=== PATIENT | female | born 1955 | race Caucasian/White ===

== ENCOUNTER 2019-07-25 17:36 | Observation (INO) ==
[~2019-07-25 17:36] MED LIST: PATIENT'S ALLERGY INFO NEEDS ENTERED SCH
[2019-07-25] MEDS ORDERED: DIGOXIN 0.125 MG TAB PO ONE (21:00)
[2019-07-25] MEDS ORDERED: cloNIDine HCL 0.1 MG TAB PO ONE (21:00)
--- NOTE | 2019-07-25 21:36 | History & Physical Report ---
Date of Service July 25, 2019 Assessment & Plan (1) Hypertensive emergency: Maye Lawler is a 63-year-old female with a past medical history of A. fib, mitral stenosis, type 2 diabetes mellitus on insulin, hypertension, peripheral artery disease, hyperlipidemia, hiatal hernia, and hyperlipidemia who presented to outside hospital with headache and he was transferred for management of hypertensive urgency/emergency with headache and systolic pressure of 230 on Cardene drip. Hypertensive emergency/urgency Patient unable to take blood pressure medications eluding clonidine for 2 days prior to admission due to nausea Placed on Cardene drip by outside hospital, no other attempted antihypertensive treatment MRIbrain, MRA with no acute findings On arrival to the ICU patient on 5 mcg, asymptomatic, and normotensive. Cardene drip stopped and patient in 140s/90s 30 minutes later. Clonidine restarted Continue metoprolol 50 mg succinate twice daily Continue clonidine 0.1 mg twice daily Hold lisinopril 40 mg twice daily for LUBNA Hold Spironolactone 25 mg twice daily for LUBNA Admit to PCU/telemetry, labetalol IV pushes as needed Per patient have not had a renal artery ultrasound. Would recommend for dilation of resistant hypertension. Patient may also benefit from aldosterone eval, although defer serology at this time in the setting of hypertensive crisis. Labetalol IV push as needed, contact provider if systolic sugars greater than 180/100 LUBNA on CKD Baseline creatinine 22 0.5. Acutely elevated to 3.08 at outside hospital Hold spironolactone, lisinopril as above -Encourage oral hydration BMP daily Atrial fibrillation INR pending Continue warfarin 2 mg daily Metoprolol as above Continue digoxin 0.125 mg daily Type 2 diabetes mellitus On insulin prior to admission A1c pending Glucose checks AC/at bedtime On long-acting insulin 34 units nightly and short acting 10 units breakfast, 10 units lunch, 18 units supper (TDD 72 units) For total Lantus 18 units twice daily, SSI correction factor 20, carbohydrate ratio 1: 10 Urinary retention Continue terra Zosyn Diet: Type II diabetic, consistent carb DVT prophylaxis: On warfarin as above CODE STATUS: Full code Disposition: PCU telemetry (2) T2DM (type 2 diabetes mellitus): (3) Mitral stenosis: (4) Afib: (5) PAD (peripheral artery disease): (6) HLD (hyperlipidemia): (7) Hiatal hernia: (8) Hypertension: (9) CKD (chronic kidney disease): History of Present Illness Chief Complaint: Hypertensive urgency/emergency, headache Primary Care Provider: Dustin Brandon Lawler is a 63-year-old female with a past medical history of A. fib, mitral stenosis, type 2 diabetes mellitus on insulin, hypertension, peripheral artery disease, hyperlipidemia, hiatal hernia, and hyperlipidemia who presented to outside hospital with headache and he was transferred for management of hypertensive urgency/emergency with headache and systolic pressure of 230 on Cardene drip. Coleen reports that she has had daily headaches which do not occur first thing in the morning or waking her from sleep and which are not associated with vision change, but which have been occurring over the previous few months. He notes that her headaches seem to have worsened gradually and of become daily, and were particularly bad this past week. She is slightly nauseous and was unable to take any of her blood pressure medications including her clonidine due to nausea. Her blood pressure progressively increased, and she was seen in the ED for headache but was noted to have a systolic pressure of 230 and was put on a Cardene drip and transferred to [facility] for further care. He had associated LUBNA with creatinine of 3.08 up from a baseline of 2-2.5. At outside hospital she had a MRIbrain and MRI which showed no acute findings. She does not think she has ever had a renal artery ultrasound. She is normally on clonidine, digoxin, lisinopril, metoprolol, spironolactone, simvastatin for A. fib and hypertension. She has not had any syncopal or presyncopal episodes. She is currently asymptomatic at bedside, is not having any chest pain, headach e, vision change, shortness of breath, syncope, or presyncope. 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 No tobacco use in 3 years. Rare social alcohol use. No recreational drug use. She lives at home with her Pantera who would be her surrogate decision maker. She is independently ambulatory at home. Full code Allergies Allergy/AdvReac Type Severity Reaction Status Date / Time ceftaroline fosamil Allergy Hives Verified 07/25/19 20:59 [From Teflaro] Penicillins Allergy Rash Verified 07/25/19 20:59 Home Medications Home Medications Medication Instructions Recorded Confirmed Type Tresiba FlexTouch U-100 38 units SUBCUT HS 07/25/19 07/25/19 History aspirin 81 mg PO HS 07/25/19 07/25/19 History calcium carbonate [Calcium 500] 500 mg PO DAILY 07/25/19 07/25/19 History cholecalciferol (vitamin D3) 5,000 unit PO DAILY 07/25/19 07/25/19 History [Vitamin D3] clonidine HCl 0.1 mg PO BID 07/25/19 07/25/19 History digoxin 125 mcg PO DAILY 07/25/19 07/25/19 History insulin aspart U-100 [Novolog 10 unit SUBCUT DAILYBB 07/25/19 07/25/19 History Flexpen U-100 Insulin] insulin aspart U-100 [Novolog 10 unit SUBCUT DAILYBL 07/25/19 07/25/19 History Flexpen U-100 Insulin] insulin aspart U-100 [Novolog 18 unit SUBCUT DAILYBD 07/25/19 07/25/19 History Flexpen U-100 Insulin] lisinopril 40 mg PO BID 07/25/19 07/25/19 History magnesium oxide 500 mg PO BID 07/25/19 07/25/19 History metoprolol succinate 50 mg PO DAILY 07/25/19 07/25/19 History [id number] carb-vit K 1 tab PO DAILY 07/25/19 07/25/19 History [One-A-Day Womens Formula] niacin [Niacor] 500 mg PO DAILY 07/25/19 07/25/19 History pantoprazole [Protonix] 40 mg PO DAILY 07/25/19 07/25/19 History simvastatin 40 mg PO HS 07/25/19 07/25/19 History spironolactone 25 mg PO BID 07/25/19 07/25/19 History terazosin 5 mg PO HS 07/25/19 07/25/19 History tramadol 50 mg PO DAILY PRN 07/25/19 07/25/19 History warfarin [Coumadin] 2 mg PO DAILY 07/25/19 07/25/19 History Past Med/Surg History Medical History (Updated 07/28/19 @ 14:27 by Hawa Adrian) Afib CKD (chronic kidney disease) Family history of premature CAD Hypertension Mitral stenosis PAD (peripheral artery disease) T2DM (type 2 diabetes mellitus) Family History (Updated 07/28/19 @ 14:32 by Hawa Adrian) Family/Other Coronary heart disease Father Cancer Heart disease Mother Diabetes Brother Heart disease Social History Preferred Language: Malay Communication Ability: Effective Babysitter Required: No Beliefs That Will Affect Care: None Current Living Situation: Spouse Feels Safe at Home: Yes Smoking Status: Former smoker Hx Alcohol Use: No Hx Substance Use: No Review of Systems Review of Systems: All systems reviewed & are unremarkable except as noted in HPI & below Physical Exam Physical Exam: General: A&Ox3. NAD. Cooperative. HEENT: Atraumatic, normocephalic. Pulm: CTAB A&P. -wheezes, -rales, -rhonchi. Symmetrical chest rise. No increase work of breathing. No respiratory distress. Cardiac: RRR, trace systolic murmur. Radial pulses intact and symmetrical. Abdominal: Nontender, nondistended, soft. BS present. CN II: Visual leal are full to confrontation. Pupils are equal and react to light and accomidation. Visual acuity grossly intact. CN III, IV, : At primary gaze, there is no eye deviation. EoM intact without nystagmus. No visual field cuts. CN V: Facial sensation is intact to soft touch in all 3 divisions bilaterally. CN VII: No facial asymmetry, full strength to eyebrow raise, smile, eye close, and cheek puff. CN VII: Hearing is grossly intact. CN IX, X: Palate elevates symmetrically. Phonation is normal without dysarthria. CN XI: Head turning and shoulder shrug are intact CN XII: Tongue protrudes midline. Reflexes: Patellar, Brachial DTR 2+ Bilaterally. 1-2 beats of ankle clonus bilaterally which extinguishes Sensory: Light touch, pinprick intact in upper and low extremities without deficit or asymmetry. Strength: RUE: Shoulder flexion/extension/internal rotation/external rotation, elbow flexion/extension, finger flexion/extension, employment security officer strength, interosseous 5/5 LUE: Shoulder flexion/extension/internal rotation/external rotation, elbow flexion/extension, finger flexion/extension, employment security officer strength, interosseous 5/5 RLE: Hip flexion, knee flexion/extension, ankle plantar flexion/dorsiflexion 5/5 LLE: Hip flexion, knee flexion/extension, ankle plantar flexion/dorsiflexion 5/5 Coordination: Rapid alternating movements and fine finger movements are intact. There is no dysmetria on [id number] and [id number]. Results & Data Vital Signs (Past 12 Hours) Vital Signs Pulse 07/25/19 21:09 96 H Supervising Physician Co-Signing Physician Notes Attending addendum: I have physically seen this patient, have supervised the medical residents activities, and agree with the H&P unless as otherwise noted. Assessment and Plan: Hypertensive emergency/atrial fibrillation/hypertension- Patient was accepted in transfer from [facility] emergency department on a Cardene drip after presenting there with systolic blood pressure in the 230 range. She had not able to take her routine clonidine dosing due to nausea. Upon arrival, Cardene drip will be discontinued, and patient will be placed on metoprolol succinate 50 mg p.o. twice daily and clonidine 0.1 mg p.o. twice daily. Continue warfarin 2 mg daily and digoxin 0.125 mg p.o. daily. Follow INR and digoxin levels. Digoxin may need to be held in the setting of renal insufficiency. Renal insufficiency- For now hold lisinopril and spironolactone, hydrate with IV fluids, and repeat laboratory serially. Order renal ultrasound. Remainder of orders and notations as noted. Resident Activity Tracking Resident Involvement: Resident Care Provided Care Provided: [facility]
[2019-07-25] MEDS ORDERED: GLUCOSE 40% GEL 15 GM TUBE PO PRN (22:05)
[2019-07-25] MEDS ORDERED: METOPROLOL SUCC 50MG EXT REL TAB PO STA (22:05)
[2019-07-25] MEDS ORDERED: CARBOHYDRATES FOR HYPOGLYCEMIA PO PRN (22:05)
[2019-07-25] MEDS ORDERED: GLUCAGON FOR INJ 1 MG VIAL SQ PRN (22:05)
[2019-07-25] MEDS ORDERED: DEXTROSE 50% 50 ML SYRINGE IV PRN (22:05)
[2019-07-25] MEDS ORDERED: GLUCOSE 10 TABS/TUBE PO PRN (22:05)
[2019-07-25] MEDS ORDERED: SODIUM CHLORIDE 0.65% NA SOLN 45 ML (OCEAN) PRN (22:21)
[2019-07-25] MEDS: INSULIN GLARGINE SOLOSTAR 100 UNITS/ML 3 ML PEN SC SCH (23:19)
[2019-07-25] MEDS: ACETAMINOPHEN 325 MG TAB PO PRN (23:34)
[2019-07-26 00:19] LABS: Basophils # (auto) 0.02 K/uL (0-0.2); Basophils % (auto) 0.2 %; Eosinophils # (auto) 0.03 K/uL (0-0.5); Eosinophils % (auto) 0.4 %; Hematocrit (blood only) 28.3 % (37-47); Hemoglobin 9.2 g/dL (12.0-16.0); Immature Granulocytes # (auto) 0.03 K/uL (0.00-0.02); Immature Granulocytes % (auto) 0.4 %; Mean Corpuscular Hemoglobin 29.3 pg (25-34); Mean Corpuscular Hgb Conc 32.5 g/dL (32-36); Mean Corpuscular Volume 90.1 fL (80-100); Mean Platelet Volume 8.8 fL (7.4-10.4); Monocytes # (auto) 0.69 K/uL (0.11-0.59); Monocytes % (auto) 8.3 %; Neutrophils # (auto) 6.08 K/uL (1.4-6.5); Neutrophils % (auto) 72.7 %; Platelet Count 233 K/uL (130-400); RDW Coefficient of Variation 15.3 % (11.5-14.5); RDW Standard Deviation 50.3 fL (36.4-46.3); Red Blood Count 3.14 M/uL (4.2-5.4); White Blood Count 8.35 K/uL (4.8-10.8)
[2019-07-26 00:39] LABS: Albumin Level 3.6 gm/dl (3.4-5.0); BUN Creatinine Ratio 24.3 (10-20); Calcium 9.3 mg/dl (8.5-10.1); Creatinine Clr Calc Pharmacy 13.8 ml/min; Est GFR (African American) 17.4; Potassium 5.5 mmol/L (3.5-5.1)
[2019-07-26 00:41] LABS: INR 3.8 (0.9-1.1); Prothrombin Time 35.2 Seconds (9.0-12.0)
[2019-07-26 00:42] LABS: Albumin Globulin Ratio 0.8 (0.9-2); Bilirubin,Total 0.3 mg/dl (0.2-1); Globulin 4.5 gm/dl (2.5-4.0); Total Protein 8.1 gm/dl (6.4-8.2)
[2019-07-26] MEDS: TRAMADOL HCL 50 MG TABLET PO PRN ×2 (02:43→20:27)
[2019-07-26] MEDS: ONDANSETRON INJ 2 MG/ML 2 ML VIAL IV PRN ×2 (04:41→23:14)
--- NOTE | 2019-07-26 06:32 | Ultrasound Report ---
DOPPLER ULTRASOUND OF THE RENAL ARTERIES CLINICAL HISTORY: Hypertension. COMPARISON STUDY: None TECHNIQUE: Doppler sonography of the renal arteries was performed to assess renal artery stenosis. Im ages are reviewed in the transverse and longitudinal planes. FINDINGS: Kidneys appear unremarkable. There are negative for hydronephrosis. Velocity characteristics are within normal limits. Resistive indices are within normal limits. The ab dominal aorta is patent. Velocities within the abdominal aorta measure up to 85 cm/s. IMPRESSION: There is no sonographic evidence of renal artery stenosis. ACT 112: Negative or not required by law. The above report was generated using voice recognition software. It may contain grammatical, syntax or spelling errors. Electronically signed by: Cristo Soto M.D. 07/26/2019 6:31 AM
[2019-07-26 06:44] LABS: INR 3.6 (0.9-1.1); Prothrombin Time 33.5 Seconds (9.0-12.0)
[2019-07-26 07:03] LABS: Estimated Average Glucose 163 mg/dl; Hemoglobin A1C 7.3 % (4.5-5.6)
[2019-07-26] MEDS: INSULIN GLARGINE SOLOSTAR 100 UNITS/ML 3 ML PEN SC SCH ×2 (08:00→20:57)
[2019-07-26] MEDS: INSULIN ASPART 100 UNITS/ML 3 ML PEN SC SCH ×4 (08:02→20:57)
[2019-07-26] MEDS: cloNIDine HCL 0.1 MG TAB PO SCH ×2 (08:03→20:59)
[2019-07-26] MEDS: PANTOprazole 40 MG TAB PO SCH (08:03)
[2019-07-26] MEDS: CEROVITE ADV FORMULA TAB PO SCH (08:03)
[2019-07-26] MEDS: CALCIUM 600MG + VIT D 400 IU TAB PO SCH (08:04)
[2019-07-26] MEDS: CHOLECALCIFEROL 1,000 UNITS 25 MCG TAB PO SCH (08:04)
[2019-07-26] MEDS: MAGNESIUM OXIDE 400 MG TAB PO SCH ×2 (08:04→21:00)
[2019-07-26] MEDS ORDERED: NIACIN 500 MG TAB PO SCH (09:00)
[2019-07-26 13:08] LABS: BUN Creatinine Ratio 25.3 (10-20); Calcium 9.7 mg/dl (8.5-10.1); Creatinine Clr Calc Pharmacy 14.4 ml/min; Est GFR (African American) 18.5; Est GFR (Non-African American) 15.9; Magnesium 1.6 mg/dl (1.8-2.4); Potassium 5.6 mmol/L (3.5-5.1)
[2019-07-26 13:24] LABS: Hematocrit (blood only) 25.4 % (37-47); Mean Corpuscular Hemoglobin 33.6 pg (25-34); Mean Corpuscular Hgb Conc 35.4 g/dL (32-36); Mean Corpuscular Volume 94.8 fL (80-100); Mean Platelet Volume 9.6 fL (7.4-10.4); Platelet Count 236 K/uL (130-400); RDW Coefficient of Variation 15.4 % (11.5-14.5); RDW Standard Deviation 49.8 fL (36.4-46.3); Red Blood Count 2.68 M/uL (4.2-5.4)
[2019-07-26] MEDS ORDERED: PROMETHAZINE HCL 12.5 MG in SODIUM CHLORIDE 0.9% 50 ML IV PRN (13:32)
[2019-07-26] MEDS ORDERED: DiphenhydrAMINE HCL 50 MG/ML VIAL IV PRN (13:33)
[2019-07-26] MEDS ORDERED: SODIUM POLYSTYRENE SULFONATE 15G/60ML SUSP PO STA (15:27)
[2019-07-26] MEDS ORDERED: INSULIN ASPART 100 UNITS/ML 3 ML PEN SQ SCH (15:30)
--- NOTE | 2019-07-26 15:32 | Hospitalist Progress Note ---
Date of Service July 26, 2019 Assessment & Plan (1) Hypertensive emergency: Maye Lawler is a 63-year-old female with a past medical history of A. fib, mitral stenosis, type 2 diabetes mellitus on insulin, hypertension, peripheral artery disease, hyperlipidemia, hiatal hernia, and hyperlipidemia who presented to outside hospital with headache and he was transferred for management of hypertensive urgency/emergency with headache and systolic pressure of 230 on Cardene drip. BP much better today, 140-160 systolic likely triggered by her nausea and vomiting for two days, unable to keep down her Clonidine, metoprolol continue to hold Lisinopril and Spironolactone due to LUBNA keep on tele for today in case Labetalol required hold on getting renal artery US since pressures are improved on medications (2) Migraine headache: headaches since , never had this issue no aura, no paresthesias, associated with nausea and vomiting will use Phenergan, Benadryl, Tylenol as needed, see how she responds will see if we can get her appt with neurology with [facility] since earliest appt is January in [place] (3) LUBNA (acute kidney injury): Cr is still elevated at 2.99 likely combination of dehydration, taking lisinopril drinking better, hold on IV fluids due to hypertension follow BMP daily avoid nephrotoxins follow UO (4) T2DM (type 2 diabetes mellitus): Novolog SS, Lantus diabetic diet monitor for hypoglycemia (5) Mitral stenosis: (6) Afib: INR is > 3, will hold Coumadin for today Metoprolol as above Continue digoxin 0.125 mg daily rates are controlled (7) PAD (peripheral artery disease): (8) HLD (hyperlipidemia): (9) Hiatal hernia: (10) Hypertension: (11) CKD (chronic kidney disease): baseline is around 2, currently at 2.99 (12) Hyperkalemia: likely due to LUBNA hold Lisinopril and Spironolactone will not give Lasix due to LUBNA give Kayexalate, repeat BMP this afternoon Admission and Anticipated Discharge Date Admission Date: July 25, 2019 Subjective patient feeling better this morning, had a headache really early which resolved she got her Niacin that was not the flush free and developed flushing, resolved with Benadryl discussed recent events, ever since she has been getting headaches initially they were sporadic now she is getting a headache nearly every day of the week the headaches will wake her up, associated with nausea and vomiting pain is on sides of head, severe pain, does not get better with quiet or dark, no associated paresthesias her PCP gave her a free trial for a migraine medication but she vomited it up each time labs show a K of 5.6, Cr is 2.99 BP is better today, most recent 148/63 she confirmed that she did not take her medications for several days due to vomiting Review of Systems Review of Systems: All systems reviewed & are unremarkable except as noted in HPI & below Constitutional: + body aches, + fatigue and + weakness; no fever Respiratory: no cough and no dyspnea Cardiovascular: no chest pain and no edema Gastrointestinal: + nausea; no abdominal pain, no vomiting, no constipation and no diarrhea/loose stools Neurologic: + headache(s); no localized weakness, no loss of sensation and no paresthesia Physical Exam Constitutional: WD/WN, vitals as above + thin Eyes: PERRL, conjunctivae normal, anicteric sclerae ENMT: external ear and nose normal, oropharynx normal Neck: trachea midline, no thyromegaly Respiratory: normal respiratory effort, lungs clear to auscultation Cardiovascular: RRR, no murmur, no edema Gastrointestinal (Abdomen): normal bowel sounds, soft, nontender, no hepatosplenomegaly Musculoskeletal: no cyanosis or clubbing, extremities motor strength 5/5 Skin: no rashes, warm and dry Neurologic: patellar DTR's 2+ bilat, sensation intact and PERRL, EOMI, accommodation nl, no face palsy, no dysarthria Psychiatric: A+Ox3, euthymic affect Lymphatic: no cervical or axillary lymphadenopathy Results & Data ([facility]) Vital Signs (Past 12 Hours) Vital Signs Temp Pulse Pulse Resp BP Pulse Ox 07/26/19 15:23 36.7 C 99 H 18 148/63 H 93 07/26/19 11:21 36.4 C L 93 H 12 160/72 H 100 07/26/19 11:06 36.8 C 87 18 173/69 H 98 07/26/19 08:00 85 07/26/19 07:36 36.7 C 88 18 159/71 H 97 07/26/19 04:31 36.4 C L 100 H 17 156/76 H 97 Laboratory Results Laboratory Results - last 24 hr 07/25/19 07/25/19 07/25/19 20:28 23:12 23:35 WBC RBC Hgb Hct MCV MCH MCHC RDW Std Deviation RDW Coeff of Epifanio Plt Count MPV Immature Gran % (Auto) Neut % (Auto) Lymph % (Auto) [place] % (Auto) Eos % (Auto) Baso % (Auto) Immature Gran # (Auto) Neut # (Auto) Lymph # (Auto) [place] # (Auto) Eos # (Auto) Baso # (Auto) PT INR Sodium Potassium Chloride Carbon Dioxide Anion Gap BUN Creatinine Est Cr Clr Drug Dosing Est GFR ( Amer) Est GFR (Non-Af Amer) BUN/Creatinine Ratio Glucose POC Glucose 145 H 152 H Estimat Average Glucose Hemoglobin A1c Calcium Magnesium Total Bilirubin AST ALT Alkaline Phosphatase Total Protein Albumin Globulin Albumin/Globulin Ratio Hepatitis C Ab Screen Neg 07/25/19 07/25/19 07/25/19 23:35 23:35 23:35 WBC 8.35 RBC 3.14 L Hgb 9.2 L Hct 28.3 L MCV 90.1 MCH 29.3 MCHC 32.5 RDW Std Deviation 50.3 H RDW Coeff of Epifanio 15.3 H Plt Count 233 MPV 8.8 Immature Gran % (Auto) 0.4 Neut % (Auto) 72.7 Lymph % (Auto) 18.0 [place] % (Auto) 8.3 Eos % (Auto) 0.4 Baso % (Auto) 0.2 Immature Gran # (Auto) 0.03 H Neut # (Auto) 6.08 Lymph # (Auto) 1.50 [place] # (Auto) 0.69 H Eos # (Auto) 0.03 Baso # (Auto) 0.02 PT 35.2 H INR 3.8 H Sodium 137 Potassium 5.5 H Chloride 108 H Carbon Dioxide 24 Anion Gap 5.0 BUN 76 H Creatinine 3.14 H Est Cr Clr Drug Dosing 13.8 Est GFR ( Amer) 17.4 Est GFR (Non-Af Amer) 15.0 BUN/Creatinine Ratio 24.3 H Glucose 142 H POC Glucose Estimat Average Glucose Hemoglobin A1c Calcium 9.3 Magnesium Total Bilirubin 0.3 AST 11 L ALT 21 Alkaline Phosphatase 94 Total Protein 8.1 Albumin 3.6 Globulin 4.5 H Albumin/Globulin Ratio 0.8 L Hepatitis C Ab Screen 07/26/19 07/26/19 07/26/19 05:59 05:59 05:59 WBC 7.20 RBC 2.68 L Hgb 9.0 L Hct 25.4 L MCV 94.8 D MCH 33.6 MCHC 35.4 RDW Std Deviation 49.8 H RDW Coeff of Epifanio 15.4 H Plt Count 236 MPV 9.6 Immature Gran % (Auto) Neut % (Auto) Lymph % (Auto) [place] % (Auto) Eos % (Auto) Baso % (Auto) Immature Gran # (Auto) Neut # (Auto) Lymph # (Auto) [place] # (Auto) Eos # (Auto) Baso # (Auto) PT 33.5 H INR 3.6 H Sodium Potassium Chloride Carbon Dioxide Anion Gap BUN Creatinine Est Cr Clr Drug Dosing Est GFR ( Amer) Est GFR (Non-Af Amer) BUN/Creatinine Ratio Glucose POC Glucose Estimat Average Glucose 163 Hemoglobin A1c 7.3 H Calcium Magnesium Total Bilirubin AST ALT Alkaline Phosphatase Total Protein Albumin Globulin Albumin/Globulin Ratio Hepatitis C Ab Screen 07/26/19 07/26/19 07/26/19 06:02 07:39 11:19 WBC RBC Hgb Hct MCV MCH MCHC RDW Std Deviation RDW Coeff of Epifanio Plt Count MPV Immature Gran % (Auto) Neut % (Auto) Lymph % (Auto) [place] % (Auto) Eos % (Auto) Baso % (Auto) Immature Gran # (Auto) Neut # (Auto) Lymph # (Auto) [place] # (Auto) Eos # (Auto) Baso # (Auto) PT INR Sodium 136 Potassium 5.6 H Chloride 109 H Carbon Dioxide 22 Anion Gap 6.0 BUN 76 H Creatinine 2.99 H Est Cr Clr Drug Dosing 14.4 Est GFR ( Amer) 18.5 Est GFR (Non-Af Amer) 15.9 BUN/Creatinine Ratio 25.3 H Glucose 121 H POC Glucose 128 H 143 H Estimat Average Glucose Hemoglobin A1c Calcium 9.7 Magnesium 1.6 L Total Bilirubin AST ALT Alkaline Phosphatase Total Protein Albumin Globulin Albumin/Globulin Ratio Hepatitis C Ab Screen Medications Administered Current Inpatient Medications Acetaminophen (Tylenol) 650 mg PO Q4H PRN PRN Reason: Pain or Fever Stop: 08/24/19 22:04 Last Admin: 07/25/19 23:34 Dose: 650 mg Documented by: Aspirin (Ecotrin Ectab) 81 mg PO HS [facility] Stop: 08/25/19 20:59 Clonidine HCl (Catapres) 0.1 mg PO BID ANGELO Stop: 08/25/19 08:59 Last Admin: 07/26/19 08:03 Dose: 0.1 mg Documented by: Dextrose (Dextrose 50%) 25 - 50 ml IV UD PRN; Protocol PRN Reason: Hypoglycemia Protocol Stop: 08/24/19 22:04 Digoxin (Lanoxin) 0.125 mg PO DAILY@1600 ANGELO Stop: 08/25/19 15:59 Diphenhydramine HCl (Benadryl) 25 mg IV Q6 PRN PRN Reason: Migraine Headache Stop: 08/25/19 13:32 Glucagon (Glucagen) 1 mg SQ UD PRN; Protocol PRN Reason: Hypoglycemia Protocol Stop: 08/24/19 22:04 Glucose (Dex4 Glucose) 4 - 8 tabs PO UD PRN; Protocol PRN Reason: Hypoglycemia Protocol Stop: 08/24/19 22:04 Glucose (Glucose 40%) 15 - 30 gm PO UD PRN; Protocol PRN Reason: Hypoglycemia Protocol Stop: 08/24/19 22:04 Promethazine HCl 12.5 mg/ (Sodium Chloride) 50.5 mls @ 202 mls/hr IV Q6H PRN PRN Reason: Migraine Headache Stop: 08/25/19 13:31 Insulin Aspart (Novolog Flexpen) 0 units SC ACHS ANGELO Stop: 08/25/19 07:29 Last Admin: 07/26/19 11:55 Dose: 5 units Documented by: Insulin Glargine (Lantus Solostar Pen) 18 units SC BID ANGELO Stop: 08/24/19 22:04 Last Admin: 07/26/19 08:00 Dose: 18 units Documented by: Magnesium Oxide (Mag-Ox) 400 mg PO BID ANGELO Stop: 08/25/19 08:59 Last Admin: 07/26/19 08:04 Dose: 400 mg Documented by: Miscellaneous (Carbohydrates For Hypoglycemia) 15 - 30 gm PO UD PRN PRN Reason: Hypoglycemia Protocol Stop: 08/24/19 22:04 Multivitamins/Minerals (Caltrate Plus) 1 tab PO DAILY ANGELO Stop: 08/25/19 08:59 Last Admin: 07/26/19 08:04 Dose: 1 tab Documented by: Multivitamins/Minerals (Multivitamin W/ Minerals Tab) 1 tab PO DAILY [facility] Stop: 08/25/19 08:59 Last Admin: 07/26/19 08:03 Dose: 1 tab Documented by: Niacin (Niacin) 500 mg PO DAILY [facility] Stop: 08/25/19 08:59 Last Admin: 07/26/19 08:03 Dose: 500 mg Documented by: Ondansetron HCl (Zofran) 4 mg IV Q6H PRN PRN Reason: Nausea Stop: 08/24/19 22:04 Last Admin: 07/26/19 04:41 Dose: 4 mg Documented by: Pantoprazole Sodium (Protonix) 40 mg PO DAILY [facility] Stop: 08/25/19 08:59 Last Admin: 07/26/19 08:03 Dose: 40 mg Documented by: Simvastatin (Zocor) 40 mg PO HS [facility] Stop: 08/25/19 20:59 Sodium Chloride ([place] Nasal) 1 sprays NA NOW PRN PRN Reason: Seasonal Allergies Stop: 08/24/19 22:20 Terazosin HCl (Hytrin) 5 mg PO HS [facility] Stop: 08/25/19 20:59 Tramadol HCl (Ultram) 50 mg PO DAILY PRN PRN Reason: Pain, Moderate Stop: 08/24/19 22:04 Last Admin: 07/26/19 02:43 Dose: 50 mg Documented by: Vitamin D (Vitamin D3) 5,000 units PO DAILY [facility] Stop: 08/25/19 08:59 Last Admin: 07/26/19 08:04 Dose: 5,000 units Documented by: Warfarin Sodium (Coumadin) 2 mg PO DAILY@1600 [facility] Stop: 08/25/19 15:59 PG Care Time/CCT Total # of Minutes Spent Total Time Spent with Patient: Total time spent is greater than 50% in coordination of care (as documented) at patient's floor/unit and/or counseling patient: Coding Level of Care Code 09815 Subseq Hosp Care Lvl 3 Diagnoses Hypertensive emergency I16.1 Migraine headache G43.909 LUBNA (acute kidney injury) N17.9 T2DM (type 2 diabetes mellitus) E11.9 Mitral stenosis I05.0 Afib I48.91 PAD (peripheral artery disease) I73.9 HLD (hyperlipidemia) E78.5 Hiatal hernia K44.9 Hypertension I10 CKD (chronic kidney disease) N18.9 Hyperkalemia E87.5
[2019-07-26] MEDS ORDERED: WARFARIN SOD 2 MG TAB PO SCH (16:00)
[2019-07-26] MEDS: DIGOXIN 0.125 MG TAB PO SCH (16:12)
[2019-07-26 17:00] LABS: BUN Creatinine Ratio 26.3 (10-20); Calcium 8.9 mg/dl (8.5-10.1); Creatinine Clr Calc Pharmacy 14.5 ml/min; Est GFR (African American) 18.5; Potassium 5.5 mmol/L (3.5-5.1)
[2019-07-26] MEDS: TERAZOSIN HCL 5 MG CAP PO SCH (21:00)
[2019-07-26] MEDS: ASPIRIN 81 MG ECTAB PO SCH (21:00)
[2019-07-26] MEDS: SIMVASTATIN 40 MG TAB PO SCH (21:01)
[2019-07-26] MEDS: ACETAMINOPHEN 325 MG TAB PO PRN (23:13)
[2019-07-27] MEDS ORDERED: SODIUM CHLORIDE 0.9% 1000ML 250 ML IV ONE (00:23)
[2019-07-27 06:40] LABS: INR 1.5 (0.9-1.1)
[2019-07-27 06:48] LABS: Hematocrit (blood only) 25.7 % (37-47); Hemoglobin 8.4 g/dL (12.0-16.0); Mean Corpuscular Hemoglobin 29.3 pg (25-34); Mean Corpuscular Hgb Conc 32.7 g/dL (32-36); Mean Corpuscular Volume 89.5 fL (80-100); Mean Platelet Volume 8.2 fL (7.4-10.4); Platelet Count 173 K/uL (130-400); RDW Coefficient of Variation 14.8 % (11.5-14.5); RDW Standard Deviation 48.7 fL (36.4-46.3); Red Blood Count 2.87 M/uL (4.2-5.4); White Blood Count 7.75 K/uL (4.8-10.8)
[2019-07-27 06:59] LABS: BUN Creatinine Ratio 28.5 (10-20); Calcium 8.6 mg/dl (8.5-10.1); Creatinine Clr Calc Pharmacy 16.4 ml/min; Est GFR (African American) 21.6; Est GFR (Non-African American) 18.6; Magnesium 1.5 mg/dl (1.8-2.4); Potassium 4.9 mmol/L (3.5-5.1)
[2019-07-27] MEDS: INSULIN ASPART 100 UNITS/ML 3 ML PEN SC SCH ×4 (08:08→21:09)
[2019-07-27] MEDS: MAGNESIUM SULFATE / D5W 1 GM/100 ML BAG IV SCH ×2 (08:09→09:47)
[2019-07-27] MEDS: INSULIN GLARGINE SOLOSTAR 100 UNITS/ML 3 ML PEN SC SCH ×2 (08:09→21:09)
[2019-07-27] MEDS: CEROVITE ADV FORMULA TAB PO SCH (08:10)
[2019-07-27] MEDS: cloNIDine HCL 0.1 MG TAB PO SCH ×2 (08:10→21:05)
[2019-07-27] MEDS: PANTOprazole 40 MG TAB PO SCH (08:11)
[2019-07-27] MEDS: MAGNESIUM OXIDE 400 MG TAB PO SCH ×2 (08:11→21:04)
[2019-07-27] MEDS: CHOLECALCIFEROL 1,000 UNITS 25 MCG TAB PO SCH (08:11)
[2019-07-27] MEDS: CALCIUM 600MG + VIT D 400 IU TAB PO SCH (08:11)
[2019-07-27] MEDS: METOPROLOL TARTRATE 25 MG TAB PO SCH (08:12)
--- NOTE | 2019-07-27 15:13 | Hospitalist Progress Note ---
Date of Service July 27, 2019 Assessment & Plan (1) Hypertensive emergency: Maye Lawler is a 63-year-old female with a past medical history of A. fib, mitral stenosis, type 2 diabetes mellitus on insulin, hypertension, peripheral artery disease, hyperlipidemia, hiatal hernia, and hyperlipidemia who presented to outside hospital with headache and he was transferred for management of hypertensive urgency/emergency with headache and systolic pressure of 230 on Cardene drip. BP better controlled for two days, 130-140 systolic likely triggered by her nausea and vomiting for two days, unable to keep down her Clonidine, metoprolol continue to hold Lisinopril and Spironolactone due to elevated Cr of 2.6 hold on getting renal artery US since pressures are improved on medications (2) Migraine headache: headaches since , never had this issue no aura, no paresthesias, associated with nausea and vomiting ordered Phenergan, Benadryl, Tylenol as needed she reports that she did not need to use any of the above last night or this morning scheduled for appt with [facility]rology on 08/01/19 (3) LUBNA (acute kidney injury): Cr is still elevated but improved to 2.6 likely combination of dehydration, taking lisinopril drinking better, hold on IV fluids due to hypertension follow BMP daily avoid nephrotoxins follow UO - adequate (4) T2DM (type 2 diabetes mellitus): Novolog SS, Lantus diabetic diet monitor for hypoglycemia, no episodes (5) Mitral stenosis: (6) Afib: INR is 1.5, resume Coumadin today Metoprolol as above Continue digoxin 0.125 mg daily rates are controlled (7) PAD (peripheral artery disease): (8) HLD (hyperlipidemia): (9) Hiatal hernia: (10) Hypertension: (11) CKD (chronic kidney disease): baseline is around 2, currently at 2.99 (12) Hyperkalemia: likely due to LUBNA hold Lisinopril and Spironolactone K down to normal today after a dose of Kayexalate yesterday Admission and Anticipated Discharge Date Admission Date: July 25, 2019 Anticipated date of discharge: 07/28/19 Subjective patient feeling better, no headache today, no nausea, tolerating some food BP is better controlled today no chest pain, no dyspnea, no fever/chills reviewed labs, K is down to normal level, Cr is trending down to 2.6 patient anxious to go home, discussed that we need to see her Cr come down further discussed with nurse navigator, she was able to get patient appt on 08/[address] Dorsey for migraine GAYTAN Review of Systems Review of Systems: All systems reviewed & are unremarkable except as noted in HPI & below Constitutional: no fever Respiratory: no cough and no dyspnea Cardiovascular: no chest pain, no palpitations and no edema Gastrointestinal: no abdominal pain, no nausea and no vomiting Neurologic: no headache(s) Physical Exam Constitutional: WD/WN, vitals as above + thin Eyes: PERRL, conjunctivae normal, anicteric sclerae ENMT: external ear and nose normal, oropharynx normal Neck: trachea midline, no thyromegaly Respiratory: normal respiratory effort, lungs clear to auscultation Cardiovascular: RRR, no murmur, no edema Gastrointestinal (Abdomen): normal bowel sounds, soft, nontender, no hepatosplenomegaly Musculoskeletal: no cyanosis or clubbing, extremities motor strength 5/5 Skin: no rashes, warm and dry Neurologic: patellar DTR's 2+ bilat, sensation intact and PERRL, EOMI, accommodation nl, no face palsy, no dysarthria Psychiatric: A+Ox3, euthymic affect Lymphatic: no cervical or axillary lymphadenopathy Results & Data ([facility]) Vital Signs (Past 12 Hours) Vital Signs Temp Pulse Pulse Resp BP Pulse Ox 07/27/19 11:35 36.3 C L 83 18 146/64 H 100 07/27/19 08:00 101 H 07/27/19 07:25 36.5 C 101 H 18 148/68 H 97 07/27/19 03:55 36.4 C L 106 H 18 166/72 H 96 Laboratory Results Laboratory Results - last 24 hr 07/26/19 07/26/19 07/26/19 16:08 16:17 20:16 WBC RBC Hgb Hct MCV MCH MCHC RDW Std Deviation RDW Coeff of Epifanio Plt Count MPV PT INR Sodium 135 L Potassium 5.5 H Chloride 106 Carbon Dioxide 25 Anion Gap 4.0 BUN 78 H Creatinine 2.98 H Est Cr Clr Drug Dosing 14.5 Est GFR ( Amer) 18.5 Est GFR (Non-Af Amer) 16.0 BUN/Creatinine Ratio 26.3 H Glucose 144 H POC Glucose 164 H 139 H Calcium 8.9 Magnesium 07/27/19 07/27/19 07/27/19 06:21 06:21 06:21 WBC 7.75 RBC 2.87 L Hgb 8.4 L Hct 25.7 L MCV 89.5 D MCH 29.3 MCHC 32.7 RDW Std Deviation 48.7 H RDW Coeff of Epifanio 14.8 H Plt Count 173 MPV 8.2 PT 15.0 H INR 1.5 H Sodium 136 Potassium 4.9 Chloride 108 H Carbon Dioxide 23 Anion Gap 5.0 BUN 75 H Creatinine 2.63 H D Est Cr Clr Drug Dosing 16.4 Est GFR ( Amer) 21.6 Est GFR (Non-Af Amer) 18.6 BUN/Creatinine Ratio 28.5 H Glucose 128 H POC Glucose Calcium 8.6 Magnesium 1.5 L 07/27/19 07/27/19 07:25 11:33 WBC RBC Hgb Hct MCV MCH MCHC RDW Std Deviation RDW Coeff of Epifanio Plt Count MPV PT INR Sodium Potassium Chloride Carbon Dioxide Anion Gap BUN Creatinine Est Cr Clr Drug Dosing Est GFR ( Amer) Est GFR (Non-Af Amer) BUN/Creatinine Ratio Glucose POC Glucose 137 H 209 H Calcium Magnesium Medications Administered Current Inpatient Medications Acetaminophen (Tylenol) 650 mg PO Q4H PRN PRN Reason: Pain or Fever Stop: 08/24/19 22:04 Last Admin: 07/26/19 23:13 Dose: 650 mg Documented by: Aspirin (Ecotrin Ectab) 81 mg PO HS [facility] Stop: 08/25/19 20:59 Last Admin: 07/26/19 21:00 Dose: 81 mg Documented by: Clonidine HCl (Catapres) 0.1 mg PO BID [facility] Stop: 08/25/19 08:59 Last Admin: 07/27/19 08:10 Dose: 0.1 mg Documented by: Dextrose (Dextrose 50%) 25 - 50 ml IV UD PRN; Protocol PRN Reason: Hypoglycemia Protocol Stop: 08/24/19 22:04 Digoxin (Lanoxin) 0.125 mg PO DAILY@1600 [facility] Stop: 08/25/19 15:59 Last Admin: 07/26/19 16:12 Dose: 0.125 mg Documented by: Diphenhydramine HCl (Benadryl) 25 mg IV Q6 PRN PRN Reason: Migraine Headache Stop: 08/25/19 13:32 Last Admin: 07/26/19 23:14 Dose: 25 mg Documented by: Glucagon (Glucagen) 1 mg SQ UD PRN; Protocol PRN Reason: Hypoglycemia Protocol Stop: 08/24/19 22:04 Glucose (Dex4 Glucose) 4 - 8 tabs PO UD PRN; Protocol PRN Reason: Hypoglycemia Protocol Stop: 08/24/19 22:04 Glucose (Glucose 40%) 15 - 30 gm PO UD PRN; Protocol PRN Reason: Hypoglycemia Protocol Stop: 08/24/19 22:04 Promethazine HCl 12.5 mg/ (Sodium Chloride) 50.5 mls @ 202 mls/hr IV Q6H PRN PRN Reason: Migraine Headache Stop: 08/25/19 13:31 Insulin Aspart (Novolog Flexpen) 0 units SC ACHS [facility] Stop: 08/25/19 07:29 Last Admin: 07/27/19 11:49 Dose: 8 units Documented by: Insulin Glargine (Lantus Solostar Pen) 18 units SC BID [facility] Stop: 08/24/19 22:04 Last Admin: 07/27/19 08:09 Dose: 18 units Documented by: Magnesium Oxide (Mag-Ox) 400 mg PO BID [facility] Stop: 08/25/19 08:59 Last Admin: 07/27/19 08:11 Dose: 400 mg Documented by: Metoprolol Tartrate (Lopressor) 12.5 mg PO QAM [facility] Stop: 08/26/19 08:59 Last Admin: 07/27/19 08:12 Dose: 12.5 mg Documented by: Miscellaneous (Carbohydrates For Hypoglycemia) 15 - 30 gm PO UD PRN PRN Reason: Hypoglycemia Protocol Stop: 08/24/19 22:04 Multivitamins/Minerals (Caltrate Plus) 1 tab PO DAILY ANG[facility] Stop: 08/25/19 08:59 Last Admin: 07/27/19 08:11 Dose: 1 tab Documented by: Multivitamins/Minerals (Multivitamin W/ Minerals Tab) 1 tab PO DAILY [facility] Stop: 08/25/19 08:59 Last Admin: 07/27/19 08:10 Dose: 1 tab Documented by: Niacin (Niacin) 500 mg PO DAILY ANG[facility]O Stop: 08/25/19 08:59 Last Admin: 07/26/19 08:03 Dose: 500 mg Documented by: Ondansetron HCl (Zofran) 4 mg IV Q6H PRN PRN Reason: Nausea Stop: 08/24/19 22:04 Last Admin: 07/26/19 23:14 Dose: 4 mg Documented by: Pantoprazole Sodium (Protonix) 40 mg PO DAILY [facility] Stop: 08/25/19 08:59 Last Admin: 07/27/19 08:11 Dose: 40 mg Documented by: Simvastatin (Zocor) 40 mg PO HS [facility] Stop: 08/25/19 20:59 Last Admin: 07/26/19 21:01 Dose: 40 mg Documented by: Sodium Chloride (Chambers Nasal) 1 sprays NA NOW PRN PRN Reason: Seasonal Allergies Stop: 08/24/19 22:20 Terazosin HCl (Hytrin) 5 mg PO HS [facility] Stop: 08/25/19 20:59 Last Admin: 07/26/19 21:00 Dose: 5 mg Documented by: Tramadol HCl (Ultram) 50 mg PO DAILY PRN PRN Reason: Pain, Moderate Stop: 08/24/19 22:04 Last Admin: 07/26/19 20:27 Dose: 50 mg Documented by: Vitamin D (Vitamin D3) 5,000 units PO DAILY [facility] Stop: 08/25/19 08:59 Last Admin: 07/27/19 08:11 Dose: 5,000 units Documented by: Warfarin Sodium (Coumadin) 2 mg PO DAILY@1600 [facility] Stop: 08/25/19 15:59 PG Care Time/CCT Total # of Minutes Spent Total Time Spent with Patient: Total time spent is greater than 50% in coordination of care (as documented) at patient's floor/unit and/or counseling patient: Coding Level of Care Code 40295 Subseq Hosp Care Lvl 3 Diagnoses Hypertensive emergency I16.1 Migraine headache G43.909 LUBNA (acute kidney injury) N17.9 T2DM (type 2 diabetes mellitus) E11.9 Mitral stenosis I05.0 Afib I48.91 PAD (peripheral artery disease) I73.9 HLD (hyperlipidemia) E78.5 Hiatal hernia K44.9 Hypertension I10 CKD (chronic kidney disease) N18.9 Hyperkalemia E87.5
[2019-07-27] MEDS: WARFARIN SOD 2 MG TAB PO SCH (16:54)
[2019-07-27] MEDS: DIGOXIN 0.125 MG TAB PO SCH (16:57)
[2019-07-27] MEDS: ACETAMINOPHEN 325 MG TAB PO PRN (21:01)
[2019-07-27] MEDS: SIMVASTATIN 40 MG TAB PO SCH (21:05)
[2019-07-27] MEDS: TERAZOSIN HCL 5 MG CAP PO SCH (21:05)
[2019-07-27] MEDS: ASPIRIN 81 MG ECTAB PO SCH (21:05)
[2019-07-28] MEDS: ACETAMINOPHEN 325 MG TAB PO PRN ×2 (05:33→23:11)
[2019-07-28 07:02] LABS: INR 1.1 (0.9-1.1); Prothrombin Time 11.2 Seconds (9.0-12.0)
[2019-07-28 07:15] LABS: Calcium 8.5 mg/dl (8.5-10.1); Creatinine Clr Calc Pharmacy 17.6 ml/min; Est GFR (African American) 21.5; Est GFR (Non-African American) 18.5; Magnesium 2.3 mg/dl (1.8-2.4); Phosphorus 2.4 mg/dl (2.5-4.9); Potassium 5.4 mmol/L (3.5-5.1)
[2019-07-28] MEDS ORDERED: SODIUM POLYSTYRENE SULFONATE 30 GM/120 ML UDP PO ONE (07:55)
[2019-07-28] MEDS: CALCIUM 600MG + VIT D 400 IU TAB PO SCH (08:22)
[2019-07-28] MEDS: CHOLECALCIFEROL 1,000 UNITS 25 MCG TAB PO SCH (08:22)
[2019-07-28] MEDS: PANTOprazole 40 MG TAB PO SCH (08:22)
[2019-07-28] MEDS: CEROVITE ADV FORMULA TAB PO SCH (08:22)
[2019-07-28] MEDS: MAGNESIUM OXIDE 400 MG TAB PO SCH ×2 (08:22→21:19)
[2019-07-28] MEDS: cloNIDine HCL 0.1 MG TAB PO SCH ×2 (08:22→21:18)
[2019-07-28] MEDS: METOPROLOL TARTRATE 25 MG TAB PO SCH (08:22)
[2019-07-28] MEDS: INSULIN ASPART 100 UNITS/ML 3 ML PEN SC SCH ×4 (08:33→21:16)
[2019-07-28] MEDS: INSULIN GLARGINE SOLOSTAR 100 UNITS/ML 3 ML PEN SC SCH ×2 (08:34→21:17)
[2019-07-28] MEDS: TORSEMIDE 10 MG TAB PO SCH (12:31)
[2019-07-28] MEDS: METOPROLOL SUCC 50MG EXT REL TAB PO SCH (12:31)
[2019-07-28 14:48] LABS: BUN Creatinine Ratio 33.1 (10-20); Creatinine Clr Calc Pharmacy 19.1 ml/min; Est GFR (African American) 23.7; Est GFR (Non-African American) 20.5; Potassium 4.4 mmol/L (3.5-5.1)
--- NOTE | 2019-07-28 16:08 | Hospitalist Progress Note ---
Date of Service July 28, 2019 Assessment & Plan (1) Hypertensive emergency: Maye Lawler is a 63-year-old female with a past medical history of A. fib, mitral stenosis, type 2 diabetes mellitus on insulin, hypertension, peripheral artery disease, hyperlipidemia, hiatal hernia, and hyperlipidemia who presented to outside hospital with headache and he was transferred for management of hypertensive urgency/emergency with headache and systolic pressure of 230 on Cardene drip. BP better controlled for two days, 130-140 systolic likely triggered by her nausea and vomiting for two days, unable to keep down her Clonidine, metoprolol continue to hold Lisinopril and Spironolactone due to elevated Cr of 2.4 increase Toprol to 50mg qAM which she takes at home (2) Migraine headache: headaches since , never had this issue no aura, no paresthesias, associated with nausea and vomiting ordered Phenergan, Benadryl, Tylenol as needed mild headache this morning, went away with Tylenol scheduled for appt with [facility] on 08/01/19 (3) LUBNA (acute kidney injury): Cr is still elevated but improved to 2.4 likely combination of dehydration, taking lisinopril drinking better, hold on IV fluids due to hypertension follow BMP daily gave Torsemid 10mg this afternoon, good response avoid nephrotoxins follow UO - adequate (4) T2DM (type 2 diabetes mellitus): Novolog SS, Lantus diabetic diet monitor for hypoglycemia, no episodes (5) Mitral stenosis: (6) Afib: INR was 1.5 yesterday, resume Coumadin today Toprol 100mg Continue digoxin 0.125 mg daily rates are controlled (7) PAD (peripheral artery disease): (8) HLD (hyperlipidemia): (9) Hiatal hernia: (10) Hypertension: (11) CKD (chronic kidney disease): baseline is around 2, currently at 2.99 (12) Hyperkalemia: likely due to LUBNA hold Lisinopril and Spironolactone K down to normal today after a dose of Kayexalate yesterday Admission and Anticipated Discharge Date Admission Date: July 25, 2019 Anticipated date of discharge: 07/28/19 Subjective feeling better, mild headache this morning, resolved with Tylenol eating well, no nausea or vomiting reviewed labs, CR still 2.6 and K elevated at 5.4 this morning gave Kayexalate, Torsemide 10mg (she takes this at home) repeat BMP shows Cr of 2.4 and K down to 4.4 no arrhythmia on the monitor will down grade to medical floor hopeful for d/c to home tomorrow Review of Systems Review of Systems: All systems reviewed & are unremarkable except as noted in HPI & below Neurologic: + headache(s) (mild) Physical Exam Constitutional: WD/WN, vitals as above + thin Eyes: PERRL, conjunctivae normal, anicteric sclerae ENMT: external ear and nose normal, oropharynx normal Neck: trachea midline, no thyromegaly Respiratory: normal respiratory effort, lungs clear to auscultation Cardiovascular: RRR, no murmur, no edema Gastrointestinal (Abdomen): normal bowel sounds, soft, nontender, no hepatosplenomegaly Musculoskeletal: no cyanosis or clubbing, extremities motor strength 5/5 Skin: no rashes, warm and dry Neurologic: patellar DTR's 2+ bilat, sensation intact and PERRL, EOMI, accommodation nl, no face palsy, no dysarthria Psychiatric: A+Ox3, euthymic affect Lymphatic: no cervical or axillary lymphadenopathy [facility] Vital Signs (Past 12 Hours) Vital Signs Temp Pulse Pulse Resp BP Pulse Ox 07/28/19 11:08 36.7 C 95 H 20 163/73 H 97 07/28/19 08:00 82 07/28/19 07:20 36.4 C L 87 16 174/73 H 98 07/28/19 04:28 36.6 C 91 H 18 116/49 L 99 Laboratory Results Laboratory Results - last 24 hr 07/27/19 07/27/19 07/28/19 16:01 20:53 06:17 PT 11.2 INR 1.1 Sodium Potassium Chloride Carbon Dioxide Anion Gap BUN Creatinine Est Cr Clr Drug Dosing Est GFR ( Amer) Est GFR (Non-Af Amer) BUN/Creatinine Ratio Glucose POC Glucose 116 H 192 H Calcium Phosphorus Magnesium 07/28/19 07/28/19 07/28/19 06:17 07:25 11:05 PT INR Sodium 131 L Potassium 5.4 H Chloride 102 Carbon Dioxide 25 Anion Gap 4.0 BUN 82 H Creatinine 2.64 H Est Cr Clr Drug Dosing 17.6 Est GFR ( Amer) 21.5 Est GFR (Non-Af Amer) 18.5 BUN/Creatinine Ratio 31.0 H Glucose 159 H POC Glucose 188 H 207 H Calcium 8.5 Phosphorus 2.4 L Magnesium 2.3 07/28/19 14:04 PT INR Sodium 135 L Potassium 4.4 D Chloride 100 Carbon Dioxide 28 Anion Gap 8.0 BUN 80 H Creatinine 2.43 H Est Cr Clr Drug Dosing 19.1 Est GFR ( Amer) 23.7 Est GFR (Non-Af Amer) 20.5 BUN/Creatinine Ratio 33.1 H Glucose 78 POC Glucose Calcium 9.0 Phosphorus Magnesium Medications Administered Current Inpatient Medications Acetaminophen (Tylenol) 650 mg PO Q4H PRN PRN Reason: Pain or Fever Stop: 08/24/19 22:04 Last Admin: 07/28/19 05:33 Dose: 650 mg Documented by: Aspirin (Ecotrin Ectab) 81 mg PO HS [facility] Stop: 08/25/19 20:59 Last Admin: 07/27/19 21:05 Dose: 81 mg Documented by: Clonidine HCl (Catapres) 0.1 mg PO BID [facility] Stop: 08/25/19 08:59 Last Admin: 07/28/19 08:22 Dose: 0.1 mg Documented by: Dextrose (Dextrose 50%) 25 - 50 ml IV UD PRN; Protocol PRN Reason: Hypoglycemia Protocol Stop: 08/24/19 22:04 Digoxin (Lanoxin) 0.125 mg PO DAILY@1600 [facility] Stop: 08/25/19 15:59 Last Admin: 07/27/19 16:57 Dose: 0.125 mg Documented by: Diphenhydramine HCl (Benadryl) 25 mg IV Q6 PRN PRN Reason: Migraine Headache Stop: 08/25/19 13:32 Last Admin: 07/26/19 23:14 Dose: 25 mg Documented by: Glucagon (Glucagen) 1 mg SQ UD PRN; Protocol PRN Reason: Hypoglycemia Protocol Stop: 08/24/19 22:04 Glucose (Dex4 Glucose) 4 - 8 tabs PO UD PRN; Protocol PRN Reason: Hypoglycemia Protocol Stop: 08/24/19 22:04 Glucose (Glucose 40%) 15 - 30 gm PO UD PRN; Protocol PRN Reason: Hypoglycemia Protocol Stop: 08/24/19 22:04 Promethazine HCl 12.5 mg/ (Sodium Chloride) 50.5 mls @ 202 mls/hr IV Q6H PRN PRN Reason: Migraine Headache Stop: 08/25/19 13:31 Insulin Aspart (Novolog Flexpen) 0 units SC ACHS ANGELO Stop: 08/25/19 07:29 Last Admin: 07/28/19 12:33 Dose: 9 units Documented by: Insulin Glargine (Lantus Solostar Pen) 18 units SC BID [facility] Stop: 08/24/19 22:04 Last Admin: 07/28/19 08:34 Dose: 18 units Documented by: Magnesium Oxide (Mag-Ox) 400 mg PO BID [facility] Stop: 08/25/19 08:59 Last Admin: 07/28/19 08:22 Dose: 400 mg Documented by: Metoprolol Succinate (Toprol Xl) 50 mg PO QAM [facility] Stop: 08/27/19 11:29 Last Admin: 07/28/19 12:31 Dose: 50 mg Documented by: Miscellaneous (Carbohydrates For Hypoglycemia) 15 - 30 gm PO UD PRN PRN Reason: Hypoglycemia Protocol Stop: 08/24/19 22:04 Multivitamins/Minerals (Caltrate Plus) 1 tab PO DAILY AN[facility]O Stop: 08/25/19 08:59 Last Admin: 07/28/19 08:22 Dose: 1 tab Documented by: Multivitamins/Minerals (Multivitamin W/ Minerals Tab) 1 tab PO DAILY [facility] Stop: 08/25/19 08:59 Last Admin: 07/28/19 08:22 Dose: 1 tab Documented by: Niacin (Niacin) 500 mg PO DAILY [facility] Stop: 08/25/19 08:59 Last Admin: 07/26/19 08:03 Dose: 500 mg Documented by: Ondansetron HCl (Zofran) 4 mg IV Q6H PRN PRN Reason: Nausea Stop: 08/24/19 22:04 Last Admin: 07/26/19 23:14 Dose: 4 mg Documented by: Pantoprazole Sodium (Protonix) 40 mg PO DAILY [facility] Stop: 08/25/19 08:59 Last Admin: 07/28/19 08:22 Dose: 40 mg Documented by: Simvastatin (Zocor) 40 mg PO HS [facility] Stop: 08/25/19 20:59 Last Admin: 07/27/19 21:05 Dose: 40 mg Documented by: Sodium Chloride (Frio Nasal) 1 sprays NA NOW PRN PRN Reason: Seasonal Allergies Stop: 08/24/19 22:20 Terazosin HCl (Hytrin) 5 mg PO HS [facility] Stop: 08/25/19 20:59 Last Admin: 07/27/19 21:05 Dose: 5 mg Documented by: Torsemide (Demadex) 10 mg PO QAM [facility] Stop: 08/27/19 11:29 Last Admin: 07/28/19 12:31 Dose: 10 mg Documented by: Tramadol HCl (Ultram) 50 mg PO DAILY PRN PRN Reason: Pain, Moderate Stop: 08/24/19 22:04 Last Admin: 07/26/19 20:27 Dose: 50 mg Documented by: Vitamin D (Vitamin D3) 5,000 units PO DAILY [facility] Stop: 08/25/19 08:59 Last Admin: 07/28/19 08:22 Dose: 5,000 units Documented by: Warfarin Sodium (Coumadin) 2 mg PO DAILY@1600 [facility] Stop: 08/25/19 15:59 Last Admin: 07/27/19 16:54 Dose: 2 mg Documented by: PG Care Time/CCT Total # of Minutes Spent Total Time Spent with Patient: Total time spent is greater than 50% in coordination of care (as documented) at patient's floor/unit and/or counseling patient: Coding Level of Care Code 53493 Subseq Hosp Care Lvl 3 Diagnoses Hypertensive emergency I16.1 Migraine headache G43.909 LUBNA (acute kidney injury) N17.9 T2DM (type 2 diabetes mellitus) E11.9 Mitral stenosis I05.0 Afib I48.91 PAD (peripheral artery disease) I73.9 HLD (hyperlipidemia) E78.5 Hiatal hernia K44.9 Hypertension I10 CKD (chronic kidney disease) N18.9 Hyperkalemia E87.5
[2019-07-28] MEDS: DIGOXIN 0.125 MG TAB PO SCH (16:32)
[2019-07-28] MEDS: WARFARIN SOD 2 MG TAB PO SCH (16:33)
[2019-07-28] MEDS ORDERED: METOPROLOL TARTRATE 25 MG TAB PO SCH (21:00)
[2019-07-28] MEDS: ASPIRIN 81 MG ECTAB PO SCH (21:18)
[2019-07-28] MEDS: TERAZOSIN HCL 5 MG CAP PO SCH (21:18)
[2019-07-28] MEDS: SIMVASTATIN 40 MG TAB PO SCH (21:19)
--- NOTE | 2019-07-28 23:13 | Billing Data ---
Date of Service July 28, 2019 Coding Level of Care Code 33502 Initial Inpt Care Lvl 3
[2019-07-29 07:30] VITALS: TEMP 98.2; O2SAT 97
[2019-07-29] MEDS: MAGNESIUM OXIDE 400 MG TAB PO SCH (08:38)
[2019-07-29] MEDS: TORSEMIDE 10 MG TAB PO SCH (08:38)
[2019-07-29] MEDS: PANTOprazole 40 MG TAB PO SCH (08:38)
[2019-07-29] MEDS: CHOLECALCIFEROL 1,000 UNITS 25 MCG TAB PO SCH (08:38)
[2019-07-29] MEDS: CALCIUM 600MG + VIT D 400 IU TAB PO SCH (08:40)
[2019-07-29] MEDS: CEROVITE ADV FORMULA TAB PO SCH (08:40)
[2019-07-29] MEDS: cloNIDine HCL 0.1 MG TAB PO SCH (08:40)
[2019-07-29] MEDS: METOPROLOL SUCC 50MG EXT REL TAB PO SCH (08:40)
[2019-07-29 08:48] LABS: INR 1.2 (0.9-1.1)
[2019-07-29 09:09] LABS: BUN Creatinine Ratio 31.9 (10-20); Calcium 8.7 mg/dl (8.5-10.1); Creatinine Clr Calc Pharmacy 19.5 ml/min; Est GFR (African American) 24.3; Potassium 4.8 mmol/L (3.5-5.1)
[2019-07-29] MEDS: INSULIN GLARGINE SOLOSTAR 100 UNITS/ML 3 ML PEN SC SCH (09:25)
[2019-07-29] MEDS: INSULIN ASPART 100 UNITS/ML 3 ML PEN SC SCH ×2 (09:26→12:26)
[2019-07-29 11:21] VITALS: BP 160/72; PULSE 96
--- NOTE | 2019-07-29 12:59 | Discharge Summary ---
Date of Service July 29, 2019 Admission HPI Per Admitting Provider Maye Lawler is a 63-year-old female with a past medical history of A. fib, mitral stenosis, type 2 diabetes mellitus on insulin, hypertension, peripheral artery disease, hyperlipidemia, hiatal hernia, and hyperlipidemia who presented to outside hospital with headache and he was transferred for management of hypertensive urgency/emergency with headache and systolic pressure of 230 on Cardene drip. Coleen reports that she has had daily headaches which do not occur first thing in the morning or waking her from sleep and which are not associated with vision change, but which have been occurring over the previous few months. He notes that her headaches seem to have worsened gradually and of become daily, and were particularly bad this past week. She is slightly nauseous and was unable to take any of her blood pressure medications including her clonidine due to nausea. Her blood pressure progressively increased, and she was seen in the ED for headache but was noted to have a systolic pressure of 230 and was put on a Cardene drip and transferred to [facility] for further care. He had associated LUBNA with creatinine of 3.08 up from a baseline of 2-2.5. At outside hospital she had a MRIbrain and MRI which showed no acute findings. She does not think she has ever had a renal artery ultrasound. She is normally on clonidine, digoxin, lisinopril, metoprolol, spironolactone, simvastatin for A. f ib and hypertension. She has not had any syncopal or presyncopal episodes. She is currently asymptomatic at bedside, is not having any chest pain, headache, vision change, shortness of breath, syncope, or presyncope. Medical history: Reviewed Medications: Reviewed, [employer] meds being updated and as above Surgical history: Noncontributory Family history: Family history of premature CAD, otherwise noncontributory Allergies: Allergic to Teflaro (hives), penicillins rash Social: Former smoker, 40 years 0.75 pack/day. No tobacco use in 3 years. Rare social alcohol use. No recreational drug use. She lives at home with her [employer] who would be her surrogate decision maker. She is independently ambulatory at home. Full code Principal Diagnosis Hypertensive urgency Discharge Exam Constitutional WD/WN, vitals as above + thin Eyes PERRL, conjunctivae normal, anicteric sclerae ENMT external ear and nose normal, oropharynx normal Neck trachea midline, no thyromegaly Respiratory normal respiratory effort, lungs clear to auscultation Cardiovascular RRR, no murmur, no edema Gastrointestinal (Abdomen) normal bowel sounds, soft, nontender, no hepatosplenomegaly Musculoskeletal no cyanosis or clubbing, extremities motor strength 5/5 Skin no rashes, warm and dry Neurologic patellar DTR's 2+ bilat, sensation intact and PERRL, EOMI, accommodation nl, no face palsy, no dysarthria Psychiatric A+Ox3, euthymic affect Lymphatic no cervical or axillary lymphadenopathy Discharge Data Allergies Allergy/AdvReac Type Severity Reaction Status Date / Time ceftaroline fosamil Allergy Hives Verified 07/25/19 20:59 [From Teflaro] Penicillins Allergy Rash Verified 07/25/19 20:59 Ordered Studies 07/25/19 22:05 US duplex renal artery Routine Hospital Course (1) Hypertensive emergency: Maye Lawler is a 63-year-old female with a past medical history of A. fib, mitral stenosis, type 2 diabetes mellitus on insulin, hypertension, peripheral artery disease, hyperlipidemia, hiatal hernia, and hyperlipidemia who presented to outside hospital with headache and he was transferred for management of hypertensive urgency/emergency with headache and systolic pressure of 230 on Cardene drip. BP better controlled for two days, 130-140 systolic likely triggered by her nausea and vomiting for two days, unable to keep down her Clonidine, metoprolol continue to hold Lisinopril and Spironolactone due to elevated Cr of 2.4 increase Toprol to 50mg qAM which she takes at home (2) T2DM (type 2 diabetes mellitus): Novolog SS, Lantus diabetic diet monitor for hypoglycemia, no episodes (3) Mitral stenosis: (4) Afib: INR low at 1.2, Coumadin was resumed on 07/28 continue Coumadin 2mg daily, follow up with PCP for INR Continue digoxin 0.125 mg daily continue Toprol rates are controlled (5) PAD (peripheral artery disease): (6) HLD (hyperlipidemia): (7) Hiatal hernia: (8) Hypertension: (9) CKD (chronic kidney disease): baseline is around 2, follows with nephrology in [place] Cr down to 2.38 holding lisinopril and spironolactone on discharge continue Torsemide 10mg daily follow up with nephrology in 2-3 weeks (10) Migraine headache: headaches since , never had this issue no aura, no paresthesias, associated with nausea and vomiting ordered Phenergan, Benadryl, Tylenol as needed mild headache the past two mornings that went away with Tylenol scheduled for appt with [facility] on 08/01/19 instructed to take Tylenol 1000mg and Phenergan 25mg if she gets a severe headache (11) LUBNA (acute kidney injury): Cr is still elevated but improved to 2.38 likely combination of dehydration, taking lisinopril and spironolactone and Torsemide drinking better, hold on IV fluids due to hypertension gave Torsemide 10mg on 07/28 with good response avoid nephrotoxins on discharge, will continue to hold Lisinopril and Spironolactone gave script for BMP in 2-3 days time, copy results to Dr. Taylor (12) Hyperkalemia: likely due to LUBNA hold Lisinopril and Spironolactone K down to normal level with Torsemide BMP in 2-3 days as outpatient Total Time Total Time Spent Total Time Spent (In Minutes): 36 minutes Total Time Includes: Examination of the Patient, Discharge Planning and Me dication Reconciliation Discharge Plan Discharge Items Patient Disposition: Home - Self-Care Reason For Visit: HYPERTENSIVE URGENCY Discharge Diagnosis: Hypertensive urgency Acute kidney injury on CKD stage III Migraine headaches Condition on Discharge: Good Goals: blood pressure control follow up with labs this week with Dr. Taylor follow up with Dr. Dorsey, neurology, on 08/01/19 Activity: Resume your previous activity Driving/Machine Use: Resume 1 day after discharge Weightbearing: Full weightbearing Non-emergency contact: Primary Care Provider Call non-emergency contact if: you have any medication questions, your symptoms worsen, your pain is not controlled and you have a fever Follow-up/Referrals: Katie Dorsey MD [Physician] - 08/02/19 10:40 am (Please, follow up at [facility] Neurology Office with Dr. Dorsey on WednesdayAugust 02 at 11:00 am (arrive 10:40 am). *The office is located at [address] [place] [address] in [place]. If you need to change this appointment, call the office at [phone].) Dustin Taylor [Primary Care Provider] - (Per patient, she will call PCP office and make follow-up appointment.) Diet: Carb Consistent or DM2 and Low Potassium (2gm) Ambulatory Orders: Basic Metabolic Panel (Routine) Timeframe: 2 Days Location: Determined by Patient Ordered By: Faisal Gaviria Attending Provider Instructions: Medications: - PHENERGAN: 25mg tablet, take every 6 hours as needed for migraine headache - LISINOPRIL, SPIRONOLACTONE: continue to hold these medications as your creatinine is still slightly higher than normal Hypertensive urgency: markedly elevated blood pressures at the time of admission you were quickly titrated off of Cardene drip, resume metoprolol and clonidine blood pressure has been stable the past three days on your home regimen of Toprol and Clonidine resumed Torsemide 10mg daily on 07/28 holding lisinopril and spironolactone due to acute kidney injury, but blood pressure stable Severe headaches, possible migraine headaches are better now, possibly due to better blood pressure control if you get a severe headache, take Tylenol 1000mg, Phenergan 25mg and lay down in dark, quiet area scheduled a follow up appt with Dr. Dorsey on 08/01/19 with [facility] for evaluation for possible migraine headaches Acute kidney injury on CKD stage III baseline Cr is around 2.0 according to records your Cr peaked at 2.6, slowly improving, down to 2.38 today, potassium was a little high but stable with resuming Torsemide 10mg please get BMP in 2-3 days with results to Dr. Taylor continue to hold Lisinopril and Spironolactone until instructed to resume by Dr. Taylor Pending Studies at Discharge: No Stand-Alone Forms: My [facility], Work/School Release (Inpt), Smoking Cessation Medications and DC Order Prescriptions: New torsemide 10 mg Tablet 10 mg PO QAM 30 Days Qty: 30 RF: 3 promethazine 25 mg tablet 25 mg PO Q6H PRN (Reason: migraine headache) Qty: 14 RF: 0 Continued terazosin 5 mg Capsule 5 mg PO HS RF: 0 clonidine HCl 0.1 mg Tablet 0.1 mg PO BID RF: 0 metoprolol succinate 50 mg Tablet Extended Release 24 Hr 50 mg PO DAILY RF: 0 tramadol 50 mg Tablet 50 mg PO DAILY PRN (Reason: Pain, Moderate) RF: 0 simvastatin 40 mg Tablet 40 mg PO HS RF: 0 pantoprazole [Protonix] 40 mg Tablet,Delayed Release (Dr/Ec) 40 mg PO DAILY RF: 0 warfarin [Coumadin] 2 mg Tablet 2 mg PO DAILY RF: 0 niacin [Niacor] 500 mg Tablet 500 mg PO DAILY RF: 0 magnesium oxide 500 mg Tablet 500 mg PO BID RF: 0 aspirin 81 mg Tablet,Chewable 81 mg PO HS RF: 0 calcium carbonate [Calcium 500] 500 mg calcium (1,250 mg) Tablet,Chewable 500 mg PO DAILY RF: 0 digoxin 125 mcg (0.125 mg) Tablet 125 mcg PO DAILY RF: 0 insulin aspart U-100 [Novolog Flexpen U-100 Insulin] 100 unit/mL (3 mL) Insulin Pen 10 unit SUBCUT DAILYBL RF: 0 insulin aspart U-100 [Novolog Flexpen U-100 Insulin] 100 unit/mL (3 mL) Insulin Pen 18 unit SUBCUT DAILYBD RF: 0 insulin aspart U-100 [Novolog Flexpen U-100 Insulin] 100 unit/mL (3 mL) Insulin Pen 10 unit SUBCUT DAILYBB RF: 0 cholecalciferol (vitamin D3) [Vitamin D3] 125 mcg (5,000 unit) Tablet 5,000 unit PO DAILY RF: 0 One-A-Day Womens Formula 18 mg iron-400 mcg-500 mg Tablet 1 tab PO DAILY RF: 0 Tresiba FlexTouch U-100 38 units subcut HS RF: 0 Discontinued spironolactone 25 mg Tablet 25 mg PO BID RF: 0 lisinopril 40 mg Tablet 40 mg PO BID RF: 0 Discharge Orders: Discharge Order (Routine); Ordered 07/29/19 Ordered By: Faisal Edwards Admission Data Admit Date/Time: 07/25/19 20:10 Attending Provider: Faisal Edwards Admit Provider: Edouard Vizcaino Primary Care Provider: Dustin Taylor Other Interventions: Discharge Summary Assessment (RN) Last Done: 07/29/19 11:15 Coding Level of Care Code D/C Day Management >30 mins Diagnoses Hypertensive emergency I16.1 T2DM (type 2 diabetes mellitus) E11.9 Mitral stenosis I05.0 Afib I48.91 PAD (peripheral artery disease) I73.9 HLD (hyperlipidemia) E78.5 Hiatal hernia K44.9 Hypertension I10 CKD (chronic kidney disease) N18.9 Migraine headache G43.909 LUBNA (acute kidney injury) N17.9 Hyperkalemia E87.5
== END 2019-07-29 13:10 | disposition home or self-care (01) | DRG 305 ==
LOC: 1E 20:10 → INTOOBSV 20:10 → SUATTDRO 20:10 → 2E 21:55 → 4W 07-28 16:08

== ENCOUNTER 2019-08-01 14:41 | Inpatient (IN) ==
--- NOTE | 2019-08-01 16:42 | Emergency Department Note ---
Entered by Leroy Johnson acting as a scribe for Alberto Mckinney DO History of Present Illness General Chief complaint: Swelling/Edema to Extremity Stated complaint: ARMS AND FACE SWELLING Time Seen by Provider: 08/01/19 15:57 Source: patient History of Present Illness Onset (ago): day(s) (this morning) Location: chest Pain Consistency: + constant Maximum Pain Intensity: 7 Quality: + other (SOB) Associated symptoms: + other (Positive for swelling in her arms/face, puffy eyes, migraine, and chest pain. Negative for swelling in her legs.) The patient is a 63 year old female who presents to the emergency department with complaints of constant SOB beginning this morning. The patient states that she was discharged three days ago for hypertensive urgency. She notes that she became SOB this morning, and she reports that she has swelling in her face and arms. The patient states that her eyes are puffy. She notes that she has a 7/10 migraine, and she reports that she was recently started on Ubrelvy. She also complains of 5/10 chest pain that does not radiate. She denies any swelling in her legs. The patient states that she has a history of Afib, diabetes, and hypertension. She notes that she is on Coumadin. Home Medications Home Medications Medication Instructions Recorded Confirmed Type One-A-Day Womens Formula 1 tab PO DAILY 07/25/19 08/01/19 History aspirin 81 mg PO HS 07/25/19 08/01/19 History calcium carbonate [Calcium 500] 500 mg PO DAILY 07/25/19 08/01/19 History cholecalciferol (vitamin D3) 5,000 unit PO DAILY 07/25/19 08/01/19 History [Vitamin D3] clonidine HCl 0.1 mg PO BID 07/25/19 08/01/19 History digoxin 125 mcg PO QPM 07/25/19 08/01/19 History insulin aspart U-100 [Novolog 10 unit SUBCUT DAILYBB 07/25/19 08/01/19 History Flexpen U-100 Insulin] insulin aspart U-100 [Novolog 10 unit SUBCUT DAILYBL 07/25/19 08/01/19 History Flexpen U-100 Insulin] insulin aspart U-100 [Novolog 18 unit SUBCUT DAILYBD 07/25/19 08/01/19 History Flexpen U-100 Insulin] insulin degludec [Tresiba 38 unit SUBCUT HS #0 07/25/19 08/01/19 History FlexTouch U-100] magnesium oxide 500 mg PO BID 07/25/19 08/01/19 History metoprolol succinate 50 mg PO DAILY 07/25/19 08/01/19 History niacin [Niacor] 500 mg PO DAILY 07/25/19 08/01/19 History pantoprazole [Protonix] 40 mg PO DAILY 07/25/19 08/01/19 History simvastatin 40 mg PO HS 07/25/19 08/01/19 History terazosin 5 mg PO HS 07/25/19 08/01/19 History tramadol 50 mg PO DAILY PRN 07/25/19 08/01/19 History warfarin [Coumadin] 2 mg PO HS 07/25/19 08/01/19 History promethazine 25 mg PO Q6H PRN #14 tab 07/29/19 08/01/19 Rx torsemide 10 mg PO QAM 30 Days #30 tab 07/29/19 08/01/19 Rx ferrous sulfate 325 mg PO BID 08/01/19 08/01/19 History Allergies Allergy/AdvReac Type Severity Reaction Status Date / Time ceftaroline fosamil Allergy Hives Verified 08/01/19 17:13 [From Teflaro] Penicillins Allergy Rash Verified 08/01/19 17:13 Past Med/Surg History Medical History (Updated 08/01/19 @ 19:02 by Leroy Johnson) Afib CKD (chronic kidney disease) Family history of premature CAD Hypertension Mitral stenosis PAD (peripheral artery disease) T2DM (type 2 diabetes mellitus) Family History (Updated 07/28/19 @ 14:32 by Hawa Adrian) Family/Other Coronary heart disease Father Cancer Heart disease Mother Diabetes Brother Heart disease Social History Preferred Language: [place]er Communication Ability: Effective Exhibitions And Collections Manager Required: No Beliefs That Will Affect Care: None Current Living Situation: Spouse Feels Safe at Home: Yes Smoking Status: Former smoker Hx Alcohol Use: No Hx Substance Use: No Review of Systems See HPI for pertinent positives & negatives. and A total of 10 systems reviewed and were otherwise negative Physical Exam Vital Signs Vital Signs - 24 hr 08/01/19 14:43 08/01/19 16:59 08/01/19 17:00 Temperature 36.6 C Temperature Source Oral Pulse Rate 84 80 79 Pulse Rate from SpO2 Sensor 81 79 Respiratory Rate 20 16 25 H Respiratory Effort / Characteristics Non-Labored Respiratory Depth Normal Respiratory Pattern Regular Blood Pressure 145/56 H 140/61 Blood Pressure Mean 85 94 Blood Pressure Position Sitting Pulse Oximetry 99 96 98 Oxygen Delivery Method Room Air Sepsis Recent Fever Within 48 Hours No Sepsis New/Unexplained Change in Mental Status No Sepsis Action Taken by Nursing No Action Required 08/01/19 17:01 08/01/19 17:10 08/01/19 17:20 Temperature Temperature Source Pulse Rate 80 79 77 Pulse Rate from SpO2 Sensor 80 78 77 Respiratory Rate 21 14 21 Respiratory Effort / Characteristics Respiratory Depth Respiratory Pattern Blood Pressure Blood Pressure Mean Blood Pressure Position Pulse Oximetry 98 96 96 Oxygen Delivery Method Sepsis Recent Fever Within 48 Hours Sepsis New/Unexplained Change in Mental Status Sepsis Action Taken by Nursing 08/01/19 17:36 08/01/19 17:40 08/01/19 17:50 Temperature Temperature Source Pulse Rate 85 83 79 Pulse Rate from SpO2 Sensor 83 79 Respiratory Rate 16 21 24 Respiratory Effort / Characteristics Respiratory Depth Respiratory Pattern Blood Pressure Blood Pressure Mean Blood Pressure Position Pulse Oximetry 100 100 Oxygen Delivery Method Sepsis Recent Fever Within 48 Hours Sepsis New/Unexplained Change in Mental Status Sepsis Action Taken by Nursing 08/01/19 18:12 08/01/19 18:13 08/01/19 18:20 Temperature Temperature Source Pulse Rate 80 79 76 Pulse Rate from SpO2 Sensor 76 Respiratory Rate 16 Respiratory Effort / Characteristics Respiratory Depth Respiratory Pattern Blood Pressure 186/82 H Blood Pressure Mean 140 Blood Pressure Position Pulse Oximetry 97 Oxygen Delivery Method Sepsis Recent Fever Within 48 Hours Sepsis New/Unexplained Change in Mental Status Sepsis Action Taken by Nursing 08/01/19 18:30 08/01/19 18:40 08/01/19 18:50 Temperature Temperature Source Pulse Rate 76 75 73 Pulse Rate from SpO2 Sensor 75 75 73 Respiratory Rate 23 15 17 Respiratory Effort / Characteristics Respiratory Depth Respiratory Pattern Blood Pressure Blood Pressure Mean Blood Pressure Position Pulse Oximetry 98 98 96 Oxygen Delivery Method Sepsis Recent Fever Within 48 Hours Sepsis New/Unexplained Change in Mental Status Sepsis Action Taken by Nursing 08/01/19 19:00 08/01/19 19:10 08/01/19 19:20 Temperature Temperature Source Pulse Rate 76 79 76 Pulse Rate from SpO2 Sensor 75 76 73 Respiratory Rate 14 23 17 Respiratory Effort / Characteristics Respiratory Depth Respiratory Pattern Blood Pressure 155/92 H Blood Pressure Mean 123 Blood Pressure Position Pulse Oximetry 97 99 98 Oxygen Delivery Method Sepsis Recent Fever Within 48 Hours Sepsis New/Unexplained Change in Mental Status Sepsis Action Taken by Nursing 08/01/19 19:30 Temperature Temperature Source Pulse Rate 75 Pulse Rate from SpO2 Sensor 75 Respiratory Rate 15 Respiratory Effort / Characteristics Respiratory Depth Respiratory Pattern Blood Pressure Blood Pressure Mean Blood Pressure Position Pulse Oximetry 99 Oxygen Delivery Method Sepsis Recent Fever Within 48 Hours Sepsis New/Unexplained Change in Mental Status Sepsis Action Taken by Nursing GENERAL: The patient is awake and alert. She is mildly anxious appearing. EYES: The left conjunctiva is injected mildly. Pupils are equal round reactive to light. There is bilateral periorbital edema noted. EARS, NOSE, MOUTH AND THROAT: The nose is without any evidence of any deformity. Mucous membranes are moist. Tongue is midline. NECK: The neck is nontender and supple. RESPIRATORY: Normal respiratory effort is noted there is no evidence of wheezing rhonchi or rales CARDIOVASCULAR: Regular rate and rhythm noted there no murmurs rubs or gallops normal S1 normal S2. GASTROINTESTINAL: The abdomen is soft. Abdomen is nontender. MUSCULOSKELETAL/EXTREMITIES: There is no evidence of gross deformity full range of motion is noted in the hips and shoulders. SKIN: There is no significant pedal edema noted. Pulses are symmetric in both feet. There is edema in both upper extremities. NEUROLOGIC: Patient is awake alert and oriented x3 strength is symmetric patellar reflexes are 2+ bilaterally Course Course 1611: The patient was seen by the resident, Jeb Huddleston, at the change of shift. 1634: The patient was evaluated in room B11. A complete history and physical exam was performed. 1837: Upon reevaluation, the patient is stable. I discussed the findings and the treatment plan with the patient. She expresses agreement and understanding. The resident spoke to Dr. Valdez - Hospitalist, [facility]. The patient will be evaluated for further management. Administered Medications Discontinued Medications Acetaminophen (Tylenol) 1,000 mg PO NOW STA Stop: 08/01/19 17:12 Last Admin: 08/01/19 17:34 Dose: 1,000 mg Documented by: [id number] Promethazine HCl (Phenergan) 25 mg PO NOW ONE Stop: 08/01/19 17:12 Last Admin: 08/01/19 17:35 Dose: 25 mg Documented by: [id number] Medical Decision Making Differential Diagnosis Differential diagnoses includes but is not limited to pneumonia, bronchitis, COPD/Asthma exacerbation, pneumothorax, pulmonary embolism, congestive heart failure, acute coronary syndrome. Medical Records Attestation: I reviewed the patient's medical records. Home Medications Current Medication List: was personally reviewed by me Laboratory Data Attestation: I reviewed the patient's lab results. Result diagrams: 08/01/19 16:50 08/01/19 16:50 Lab Results 08/01/19 08/01/19 08/01/19 Range/Units 16:50 16:50 16:50 WBC 6.05 (4.8-10.8) K/uL RBC 2.67 L (4.2-5.4) M/uL Hgb 7.9 L (12.0-16.0) g/dL Hct 24.5 L (37-47) % MCV 91.8 (80-100) fL MCH 29.6 (25-34) pg MCHC 32.2 (32-36) g/dL RDW Std Deviation 50.4 H (36.4-46.3) fL RDW Coeff of Epifanio 15.0 H (11.5-14.5) % Plt Count 175 (130-400) K/uL MPV 9.3 (7.4-10.4) fL Immature Gran % (Auto) 0.2 % Neut % (Auto) 85.1 % Lymph % (Auto) 7.9 % Sully % (Auto) 6.4 % Eos % (Auto) 0.2 % Baso % (Auto) 0.2 % Immature Gran # (Auto) 0.01 (0.00-0.02) K/uL Neut # (Auto) 5.15 (1.4-6.5) K/uL Lymph # (Auto) 0.48 L (1.2-3.4) K/uL Sully # (Auto) 0.39 (0.11-0.59) K/uL Eos # (Auto) 0.01 (0-0.5) K/uL Baso # (Auto) 0.01 (0-0.2) K/uL Spherocytes 1+ Schistocytes 1+ PT 19.2 H (9.0-12.0) Seconds INR 2.0 H (0.9-1.1) Sodium 136 (136-145) mmol/L Potassium 5.2 H (3.5-5.1) mmol/L Chloride 107 (98-107) mmol/L Carbon Dioxide 25 (21-32) mmol/L Anion Gap 4.0 (3-11) BUN 60 H (7-18) mg/dl Creatinine 2.56 H (0.6-1.2) mg/dl Est Cr Clr Drug Dosing 18.2 ml/min Est GFR ( Amer) 22.3 Est GFR (Non-Af Amer) 19.2 BUN/Creatinine Ratio 23.2 H (10-20) Glucose 234 H (70-99) mg/dl Calcium 9.7 (8.5-10.1) mg/dl Total Bilirubin 0.3 (0.2-1) mg/dl AST 18 (15-37) U/L ALT 32 (12-78) U/L Alkaline Phosphatase 104 (45-117) U/L Troponin I < 0.015 (0-0.045) ng/ml Total Protein 7.4 (6.4-8.2) gm/dl Albumin 3.1 L (3.4-5.0) gm/dl Globulin 4.3 H (2.5-4.0) gm/dl Albumin/Globulin Ratio 0.7 L (0.9-2) Imaging Data Radiologist's Impression: Radiology results as stated below per my review and th e radiologist's interpretation: XR chest 1V portable FINDINGS: The heart is enlarged. There is minor elevation left hemidiaphragm. There is no focal pulmonary consolidation. There is mild interstitial thickening of uncertain chronicity. There are no significant pleural effusions. IMPRESSION: 1. Mild cardiomegaly with mild age-indeterminate interstitial thickening 2. No evidence of lobar consolidation ACT 112: Negative or not required by law. Electronically signed by: Fidencio Gonzalez M.D. 08/01/2019 5:[address] chest wo con FINDINGS: Thyroid: Imaged portions of the thyroid gland are normal in appearance. Thoracic aorta: The thoracic aorta is normal in course and caliber, noting standard 3 vessel arch anatomy. Heart: The heart is enlarged. There is moderate pericardial effusion. Lungs and pleural spaces: There is pulmonary emphysema. There are no significant pleural effusions. There is a 15 mm right apical airspace opacity. There is a second 17 mm right apical airspace opacity. Although nonspecific these could be on a postobstructive basis. There is asymmetric right lung interstitial thickening. Lymphangitic carcinomatosis cannot be excluded. Mediastinum: There is a large mediastinal mass measuring at least 6 cm in diameter. There is secondary narrowing of the right mainstem bronchus and bronchus intermedius. There is mucosal irregularity of the jovi. There is probable compression of the superior vena cava which likely explains the reported upper extremity edema. Jaclyn: Mild bilateral hilar adenopathy is suspected. Axilla: There is no evidence of pathologic axillary lymphadenopathy Upper abdomen: Partially visualized upper abdominal viscera is within normal limits. Skeletal structures: There are no lytic or blastic osseous lesions. IMPRESSION: 1. Large mediastinal mass with subcarinal extension measuring at least 6 cm in diameter. The mass encases the right pulmonary artery. There is carinal irregularity and narrowing of the right mainstem bronchus, and bronchus inte rmedius. There is narrowing of the right upper lobe bronchus. There are 2 airspace opacities within the right upper lobe, possibly postobstructive basis. There is probable compression of the superior vena cava. There is a moderate right pericardial effusion. 2. Right lung interstitial thickening. Lymphangitic carcinomatosis cannot be excluded. ACT 112: Negative or not required by law. Electronically signed by: Fidencio Gonzalez M.D. 08/01/2019 6:23 PM ECG Data Attestation: I personally reviewed and interpreted this ECG as follows: Indication: + SOB/dyspnea Rate (beats per minute): 78 Rhythm: + normal sinus ECG Intervals/blocks: + Right Bundle branch block (incomplete) ECG Findings: no PACs and no PVCs Comparison ECG Date: no prior available Blood Pressure Blood Pressure Findings: Elevated blood pressure Blood Pressure Disposition: further management by hospitalist KATELIN Rutledge The patient is a 63-year-old female who presented to the emergency department for an evaluation of facial swelling and upper extremity swelling. The patient had a relatively normal chest x-ray but there was concern for venous congestion causing her upper extremity symptoms. For this reason CT the chest was obtained. The patient is a history of renal insufficiency. CT the chest was done without IV contrast. We discussed the patient's laboratory and radiographic studies with her. At this time she was found to have signs of a mediastinal mass as well as a pericardial effusion. Because of these findings we discussed the case with the on-call [facility] hospitalist. They have agreed to evaluate the patient in the emergency department for further management disposition. The patient may require further work-up for this mass. Impression & Plan SVC syndrome, Mediastinal mass, Edema of upper extremity, Anemia Discharge Plan Visit Data Chief Complaint: Swelling/Edema to Extremity Stated Complaint: ARMS AND FACE SWELLING ED Provider: Alberto Mckinney ED Midlevel Provider: Jeb Huddleston Discharge Problem: SVC syndrome, Mediastinal mass, Edema of upper extremity, Anemia Patient Disposition: Being Evaluated by Hospitalist Forms Stand Alone Forms: My [facility] Prescriptions Prescriptions: No Action terazosin 5 mg Capsule 5 mg PO HS RF: 0 clonidine HCl 0.1 mg Tablet 0.1 mg PO BID RF: 0 metoprolol succinate 50 mg Tablet Extended Release 24 Hr 50 mg PO DAILY RF: 0 tramadol 50 mg Tablet 50 mg PO DAILY PRN (Reason: Pain, Moderate) RF: 0 simvastatin 40 mg Tablet 40 mg PO HS RF: 0 pantoprazole [Protonix] 40 mg Tablet,Delayed Release (Dr/Ec) 40 mg PO DAILY RF: 0 warfarin [Coumadin] 2 mg Tablet 2 mg PO HS RF: 0 niacin [Niacor] 500 mg Tablet 500 mg PO DAILY RF: 0 magnesium oxide 500 mg Tablet 500 mg PO BID RF: 0 aspirin 81 mg Tablet,Chewable 81 mg PO HS RF: 0 calcium carbonate [Calcium 500] 500 mg calcium (1,250 mg) Tablet,Chewable 500 mg PO DAILY RF: 0 digoxin 125 mcg (0.125 mg) Tablet 125 mcg PO QPM RF: 0 insulin aspart U-100 [Novolog Flexpen U-100 Insulin] 100 unit/mL (3 mL) Insulin Pen 10 unit SUBCUT DAILYBL RF: 0 insulin aspart U-100 [Novolog Flexpen U-100 Insulin] 100 unit/mL (3 mL) Insulin Pen 18 unit SUBCUT DAILYBD RF: 0 insulin aspart U-100 [Novolog Flexpen U-100 Insulin] 100 unit/mL (3 mL) Insulin Pen 10 unit SUBCUT DAILYBB RF: 0 cholecalciferol (vitamin D3) [Vitamin D3] 125 mcg (5,000 unit) Tablet 5,000 unit PO DAILY RF: 0 One-A-Day Womens Formula 18 mg iron-400 mcg-500 mg Tablet 1 tab PO DAILY RF: 0 Tresiba FlexTouch U-100 100 unit/mL (3 mL) Insulin Pen 38 unit SUBCUT HS Qty: 0 RF: 0 torsemide 10 mg Tablet 10 mg PO QAM 30 Days Qty: 30 RF: 3 promethazine 25 mg tablet 25 mg PO Q6H PRN (Reason: migraine headache) Qty: 14 RF: 0 ferrous sulfate 325 mg (65 mg iron) Tablet 325 mg PO BID RF: 0 Referrals Referrals: Dustin Taylor [Primary Care Provider] - Discharge Problem: Anemia Qualifiers: Anemia type: unspecified type Qualified Code(s): D64.9 - Anemia, unspecified The scribe's documentation has been prepared under my direction and personally reviewed by me in its entirety. I confirm that the note above accurately reflects all work, treatment, procedures, and medical decision making performed by me.
--- NOTE | 2019-08-01 17:05 | XRay Report ---
XR chest 1V portable CLINICAL HISTORY: chest pain, sob COMPARISON STUDY: No previous studies for comparison. FINDINGS: The heart is enlarged. There is minor elevation left hemidiaphragm. There is no focal pulmo nary consolidation. There is mild interstitial thickening of uncertain chronicity. There are no signi ficant pleural effusions.[ IMPRESSION: 1. Mild cardiomegaly with mild age-indeterminate interstitial thickening 2. No evidence of lobar consolidation ACT 112: Negative or not required by law. Electronically signed by: Fidencio Gonzalez M.D. 08/01/2019 5:03 PM
--- NOTE | 2019-08-01 17:06 | Emergency Department Note ---
ED Visit Note Patient seen and examined in conjunction with Dr. Mckinney. Please see his note for medical decision making. . Resident Activity Tracking Resident Involvement: Resident Care Provided Care Provided: Adult ED
[2019-08-01] MEDS ORDERED: ACETAMINOPHEN 500 MG TAB PO STA (17:11)
[2019-08-01] MEDS ORDERED: PROMETHAZINE HCL 25 MG TAB PO ONE (17:11)
[2019-08-01 17:56] LABS: Basophils # (auto) 0.01 K/uL (0-0.2); Basophils % (auto) 0.2 %; Eosinophils # (auto) 0.01 K/uL (0-0.5); Eosinophils % (auto) 0.2 %; Hematocrit (blood only) 24.5 % (37-47); Hemoglobin 7.9 g/dL (12.0-16.0); Immature Granulocytes # (auto) 0.01 K/uL (0.00-0.02); Immature Granulocytes % (auto) 0.2 %; Lymphocytes # (auto) 0.48 K/uL (1.2-3.4); Lymphocytes % (auto) 7.9 %; Mean Corpuscular Hemoglobin 29.6 pg (25-34); Mean Corpuscular Hgb Conc 32.2 g/dL (32-36); Mean Corpuscular Volume 91.8 fL (80-100); Mean Platelet Volume 9.3 fL (7.4-10.4); Monocytes # (auto) 0.39 K/uL (0.11-0.59); Monocytes % (auto) 6.4 %; Neutrophils # (auto) 5.15 K/uL (1.4-6.5); Neutrophils % (auto) 85.1 %; Platelet Count 175 K/uL (130-400); RDW Standard Deviation 50.4 fL (36.4-46.3); Red Blood Count 2.67 M/uL (4.2-5.4); White Blood Count 6.05 K/uL (4.8-10.8)
[2019-08-01 18:06] LABS: Prothrombin Time 19.2 Seconds (9.0-12.0)
[2019-08-01 18:10] LABS: Alanine Aminotransferase 32 U/L (12-78); Albumin Level 3.1 gm/dl (3.4-5.0); Aspartate Aminotransferase 18 U/L (15-37); BUN Creatinine Ratio 23.2 (10-20); Blood Urea Nitrogen 60 mg/dl (7-18); Calcium 9.7 mg/dl (8.5-10.1); Carbon Dioxide 25 mmol/L (21-32); Chloride 107 mmol/L (98-107); Creatinine Clr Calc Pharmacy 18.2 ml/min; Est GFR (African American) 22.3; Est GFR (Non-African American) 19.2; Glucose 234 mg/dl (70-99); Potassium 5.2 mmol/L (3.5-5.1); Sodium 136 mmol/L (136-145)
[2019-08-01 18:14] LABS: Albumin Globulin Ratio 0.7 (0.9-2); Alkaline Phosphatase 104 U/L (45-117); Bilirubin,Total 0.3 mg/dl (0.2-1); Globulin 4.3 gm/dl (2.5-4.0); Total Protein 7.4 gm/dl (6.4-8.2); Troponin I < 0.015 ng/ml (0-0.045)
[2019-08-01 18:17] LABS: Schistocytes 1+; Spherocytes 1+
--- NOTE | 2019-08-01 18:25 | CT Scan Report ---
CT chest wo con CLINICAL HISTORY: SOB, UE swelling COMPARISON STUDY: Chest x-ray dated 08/01/2019 CT DOSE: 241.65 mGy.cm TECHNIQUE: CT of the thorax was performed from the thoracic inlet to the lung bases. Images are revi ewed in the axial, sagittal, and coronal planes. IV contrast was not administered for this examinatio n. A dose lowering technique was utilized adhering to the principles of ALARA. FINDINGS: Thyroid: Imaged portions of the thyroid gland are normal in appearance. Thoracic aorta: The thoracic aorta is normal in course and caliber, noting standard 3 vessel arch eden marie. Heart: The heart is enlarged. There is moderate pericardial effusion. Lungs and pleural spaces: There is pulmonary emphysema. There are no significant pleural effusions. T here is a 15 mm right apical airspace opacity. There is a second 17 mm right apical airspace opacity. Although nonspecific these could be on a postobstructive basis. There is asymmetric right lung inter stitial thickening. Lymphangitic carcinomatosis cannot be excluded. Mediastinum: There is a large mediastinal mass measuring at least 6 cm in diameter. There is secondar y narrowing of the right mainstem bronchus and bronchus intermedius. There is mucosal irregularity of the jovi. There is probable compression of the superior vena cava which likely explains the report ed upper extremity edema. Jaclyn: Mild bilateral hilar adenopathy is suspected. Axilla: There is no evidence of pathologic axillary lymphadenopathy Upper abdomen: Partially visualized upper abdominal viscera is within normal limits. Skeletal structures: There are no lytic or blastic osseous lesions. IMPRESSION: 1. Large mediastinal mass with subcarinal extension measuring at least 6 cm in diameter. The mass enc ases the right pulmonary artery. There is carinal irregularity and narrowing of the right mainstem br onchus, and bronchus intermedius. There is narrowing of the right upper lobe bronchus. There are 2 ai rspace opacities within the right upper lobe, possibly postobstructive basis. There is probable compr ession of the superior vena cava. There is a moderate right pericardial effusion. 2. Right lung interstitial thickening. Lymphangitic carcinomatosis cannot be excluded. ACT 112: Negative or not required by law. Electronically signed by: Fidencio Gonzalez M.D. 08/01/2019 6:23 PM
--- NOTE | 2019-08-01 19:14 | History & Physical Report ---
Date of Service August 01, 2019 Assessment & Plan (1) Mediastinal mass: Patient with a new 6cm mediastinal mass, encasing the right pulmonary artery and causing narrowing of the right mainstem and upper lobe bronchi. Will consult pulmonology for possible endoscopic ultrasound and biopsy along with thoracic surgery to discuss treatment options. Patient does not appear to be in acute respiratory distress at this time and will continue medications as ordered. We will also check CT of the abdomen pelvis without IV contrast for further metastatic disease. Patient had a CT of the brain on her previous admission and we do not need to repeat this. (2) SVC syndrome: SVC syndrome is most likely secondary to tumor burden as documented. Consult thoracic surgery to evaluate for possible recommendations. (3) Migraine headache: Patient is complaining of some headache. Her blood pressure is elevated. She was given Tylenol. We can consider further medications depending on the effect of this. (4) CKD (chronic kidney disease): Chronic kidney disease appears to be stable per laboratory work. Continue to follow. (5) Hypertension: Patient is currently on multiple medications as started during her last visit including Toprol, torsemide, and oral clonidine. We will continue these as needed, consider further adjustment of blood pressure remains elevated. (6) Afib: Patient is appropriately anticoagulated with Coumadin, INR is 2. Continue 2 mg daily, follow INR. Patient is also on digoxin and Toprol for rate control. (7) T2DM (type 2 diabetes mellitus): Patient takes insulin, will continue her long-acting insulin along with a sliding scale. Should be on an ADA diet. History of Present Illness Primary Care Provider: Dustin Brandon This is a 63-year-old female with a past medical history of chronic disease, hypertension, peripheral arterial disease, atrial fibrillation, diabetes and presents today complaining of headache and facial swelling. Patient is alone in the room but good historian. Of note, the patient had previously been admitted here . She had been transferred from an outside facility with accelerated hypertension requiring a Cardene drip. At the time of her discharge, her blood pressure was much better controlled on a multidrug regimen. Patient tells me that soon after she arrived home, her headache returned. She felt it was her typical migraine as before. She also noted a nonproductive cough which seemed to be worsening over the past day. However, when she woke up this morning she noted that she has significant bout of periorbital edema around her left eye. At that point, she returned to the emergency room for further evaluation. At time my evaluation, the patient seems to be, no distress. Blood pressure is improved with a systolic of 155. I did note the CT scan showing a large mediastinal mass which is encasing the right pulmonary artery. There may also be narrowing of the the right mainstem and right upper lobe bronchi. We did discuss further work-up but briefly. Of note, patient tells me that her appetite has been poor over the past few months and she is lost approximately 50 pounds since Rosalio. Allergies Allergy/AdvReac Type Severity Reaction Status Date / Time ceftaroline fosamil Allergy Hives Verified 08/01/19 17:13 [From Teflaro] Penicillins Allergy Rash Verified 08/01/19 17:13 Home Medications Home Medications Medication Instructions Recorded Confirmed Type One-A-Day Womens Formula 1 tab PO DAILY 07/25/19 08/01/19 History aspirin 81 mg PO HS 07/25/19 08/01/19 History calcium carbonate [Calcium 500] 500 mg PO DAILY 07/25/19 08/01/19 History cholecalciferol (vitamin D3) 5,000 unit PO DAILY 07/25/19 08/01/19 History [Vitamin D3] clonidine HCl 0.1 mg PO BID 07/25/19 08/01/19 History digoxin 125 mcg PO QPM 07/25/19 08/01/19 History insulin aspart U-100 [Novolog 10 unit SUBCUT DAILYBB 07/25/19 08/01/19 History Flexpen U-100 Insulin] insulin aspart U-100 [Novolog 10 unit SUBCUT DAILYBL 07/25/19 08/01/19 History Flexpen U-100 Insulin] insulin aspart U-100 [Novolog 18 unit SUBCUT DAILYBD 07/25/19 08/01/19 History Flexpen U-100 Insulin] insulin degludec [Tresiba 38 unit SUBCUT HS #0 07/25/19 08/01/19 History FlexTouch U-100] magnesium oxide 500 mg PO BID 07/25/19 08/01/19 History metoprolol succinate 50 mg PO DAILY 07/25/19 08/01/19 History niacin [Niacor] 500 mg PO DAILY 07/25/19 08/01/19 History pantoprazole [Protonix] 40 mg PO DAILY 07/25/19 08/01/19 History simvastatin 40 mg PO HS 07/25/19 08/01/19 History terazosin 5 mg PO HS 07/25/19 08/01/19 History tramadol 50 mg PO DAILY PRN 07/25/19 08/01/19 History warfarin [Coumadin] 2 mg PO HS 07/25/19 08/01/19 History promethazine 25 mg PO Q6H PRN #14 tab 07/29/19 08/01/19 Rx torsemide 10 mg PO QAM 30 Days #30 tab 07/29/19 08/01/19 Rx ferrous sulfate 325 mg PO BID 08/01/19 08/01/19 History Past Med/Surg History Medical History (Updated 08/01/19 @ 19:02 by Leroy Johnson) Afib CKD (chronic kidney disease) Family history of premature CAD Hypertension Mitral stenosis PAD (peripheral artery disease) T2DM (type 2 diabetes mellitus) Family History (Updated 07/28/19 @ 14:32 by Hawa Adrian) Family/Other Coronary heart disease Father Cancer Heart disease Mother Diabetes Brother Heart disease Social History Preferred Language: Lao Communication Ability: Effective 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 Beliefs That Will Affect Care: None Current Living Situation: Spouse Feels Safe at Home: Yes Smoking Status: Former smoker Hx Alcohol Use: No Hx Substance Use: No Review of Systems 2 Constitutional: + weight loss; no fever, no chills, no weakness and no weight gain Eyes: as per Subjective / HPI Respiratory: + cough; no chest congestion, no dyspnea, no dyspnea on exertion and no sputum production Cardiovascular: no chest pain, no orthopnea, no palpitations, no lightheadedness and no edema Gastrointestinal: no abdominal pain, no nausea, no vomiting, no constipation and no diarrhea/loose stools Genitourinary: no dysuria, no difficulty urinating, no urinary frequency, no urinary hesitancy, no urinary urgency and no flank pain Musculoskeletal: no back pain, no neck pain, no joint pain, no stiffness and no myalgia Integumentary: no rash Neurologic: no gait abnormality, no unsteadiness, no falls and no generalized weakness Physical Exam Constitutional: cooperative; no acute distress Eyes: Moderate periorbital edema in the left eye Neck: trachea midline, no thyromegaly Respiratory: normal respiratory effort Auscultation: lungs clear to auscultation bilaterally; no crackles, no rales, no rhonchi and no wheezes Cardiovascular: Rate/Rhythm: regular rate and regular rhythm Heart Sounds: normal S1 and normal S2 Vessels: + JVD (Significant repeat JVD, more prominent in the left neck. Prominent superficial veins tracking down the left chest) Gastrointestinal (Abdomen): Inspection/Auscultation: abdomen normal to inspection Percussion/Palpation: abdomen soft; abdomen nontender, no guarding, abdomen not rigid and no hepatosplenomegaly Musculoskeletal: Minimal distal edema seen in both upper extremities Skin: no rashes, warm and dry Results & Data Vital Signs (Past 12 Hours) Vital Signs Temp Pulse Resp BP Pulse Ox 08/01/19 19:00 76 14 155/92 H 97 08/01/19 18:50 73 17 96 08/01/19 18:40 75 15 98 08/01/19 18:30 76 23 98 08/01/19 18:20 76 16 97 08/01/19 18:13 79 08/01/19 18:12 80 186/82 H 08/01/19 17:50 79 24 100 08/01/19 17:40 83 21 100 08/01/19 17:36 85 16 08/01/19 17:20 77 21 96 08/01/19 17:10 79 14 96 08/01/19 17:01 80 21 98 08/01/19 17:00 79 25 H 140/61 98 08/01/19 16:59 80 16 96 08/01/19 14:43 36.6 C 84 20 145/56 H 99 Laboratory Results WC is a 6.05. Hemoglobin is 7.9. Hematocrit of 24.5. Platelet count is 175. INR is 2. Potassium 5.2. BUN is 60 with a creatinine of 2.56, very close to her baseline. Glucose is 234. Diagnostic Findings CT chest wo con CLINICAL HISTORY: SOB, UE swelling COMPARISON STUDY: Chest x-ray dated 08/01/2019 CT DOSE: 241.65 mGy.cm TECHNIQUE: CT of the thorax was performed from the thoracic inlet to the lung bases. Images are reviewed in the axial, sagittal, and coronal planes. IV contrast was not administered for this examination. A dose lowering technique was utilized adhering to the principles of ALARA. FINDINGS: Thyroid: Imaged portions of the thyroid gland are normal in appearance. Thoracic aorta: The thoracic aorta is normal in course and caliber, noting standard 3 vessel arch anatomy. Heart: The heart is enlarged. There is moderate pericardial effusion. Lungs and pleural spaces: There is pulmonary emphysema. There are no significant pleural effusions. There is a 15 mm right apical airspace opacity. There is a second 17 mm right apical airspace opacity. Although nonspecific these could be on a postobstructive basis. There is asymmetric right lung interstitial thickening. Lymphangitic carcinomatosis cannot be excluded. Mediastinum: There is a large mediastinal mass measuring at least 6 cm in diameter. There is secondary narrowing of the right mainstem bronchus and bronchus intermedius. There is mucosal irregularity of the jovi. There is probable compression of the superior vena cava which likely explains the reported upper extremity edema. Jaclyn: Mild bilateral hilar adenopathy is suspected. Axilla: There is no evidence of pathologic axillary lymphadenopathy Upper abdomen: Partially visualized upper abdominal viscera is within normal limits. Skeletal structures: There are no lytic or blastic osseous lesions. IMPRESSION: 1. Large mediastinal mass with subcarinal extension measuring at least 6 cm in diameter. The mass encases the right pulmonary artery. There is carinal irregularity and narrowing of the right mainstem bronchus, and bronchus intermedius. There is narrowing of the right upper lobe bronchus. There are 2 airspace opacities within the right upper lobe, possibly postobstructive basis. There is probable compression of the superior vena cava. There is a moderate right pericardial effusion. 2. Right lung interstitial thickening. Lymphangitic carcinomatosis cannot be excluded. PG Care Time/CCT Total # of Minutes Spent Total Time Spent with Patient: Total time spent is greater than 50% in coordination of care (as documented) at patient's floor/unit and/or counseling patient: Coding Level of Care Code 71943 Initial Inpt Care Lvl 3 Diagnoses Mediastinal mass J98.59 SVC syndrome I87.1 Migraine headache G43.909 CKD (chronic kidney disease) N18.9 Hypertension I10 Afib I48.91 T2DM (type 2 diabetes mellitus) E11.9
[2019-08-01] MEDS ORDERED: GLUCAGON FOR INJ 1 MG VIAL SQ PRN (20:46)
[2019-08-01] MEDS ORDERED: DEXTROSE 50% 50 ML SYRINGE IV PRN (20:46)
[2019-08-01] MEDS ORDERED: TRAMADOL HCL 50 MG TABLET PO PRN (20:46)
[2019-08-01] MEDS ORDERED: GLUCOSE 10 TABS/TUBE PO PRN (20:46)
[2019-08-01] MEDS ORDERED: ZOLPIDEM TARTRATE 5 MG TAB PO PRN (20:46)
[2019-08-01] MEDS ORDERED: CARBOHYDRATES FOR HYPOGLYCEMIA PO PRN (20:46)
[2019-08-01] MEDS ORDERED: GLUCOSE 40% GEL 15 GM TUBE PO PRN (20:46)
[2019-08-01] MEDS ORDERED: ONDANSETRON INJ 2 MG/ML 2 ML VIAL IV PRN (20:46)
[2019-08-01] MEDS ORDERED: PROMETHAZINE HCL 25 MG TAB PO PRN (20:46)
[2019-08-01] MEDS ORDERED: PHARMACY GLYCEMIC MGMT CONSULT PRN (20:50)
[2019-08-01] MEDS ORDERED: WARFARIN SOD 2 MG TAB PO SCH (21:00)
[2019-08-01] MEDS ORDERED: INSULIN DEGLUDEC 38 UNIT SQ SCH (21:00)
[2019-08-01] MEDS: TERAZOSIN HCL 5 MG CAP PO SCH (21:16)
[2019-08-01] MEDS: cloNIDine HCL 0.1 MG TAB PO SCH (21:17)
[2019-08-01] MEDS: ASPIRIN 81 MG ECTAB PO SCH (21:17)
[2019-08-01] MEDS: DIGOXIN 0.125 MG TAB PO SCH (21:17)
[2019-08-01] MEDS: SIMVASTATIN 40 MG TAB PO SCH (21:17)
[2019-08-01] MEDS: MAGNESIUM OXIDE 400 MG TAB PO SCH (21:18)
[2019-08-01] MEDS ORDERED: INSULIN GLARGINE SOLOSTAR 100 UNITS/ML 3 ML PEN SC SCH (21:45)
--- NOTE | 2019-08-01 21:46 | CT Scan Report ---
CT SCAN OF THE ABDOMEN AND PELVIS WITHOUT CONTRAST CLINICAL HISTORY: Mediastinal mass. Evaluate for metastatic disease COMPARISON STUDY: No previous studies for comparison. TECHNIQUE: CT scan of the abdomen and pelvis was performed from the lung bases to the proximal femurs . Images are reviewed in the axial, sagittal, and coronal planes. IV contrast was not administered fo r this examination. A dose lowering technique was utilized adhering to the principles of ALARA. CT DOSE: 252.31 mGy.cm FINDINGS: Lower chest: There is a moderate pericardial effusion. Liver: The unenhanced liver is normal in size, contour, and attenuation. There is no intrahepatic carlos iary ductal dilatation. Gallbladder: Unremarkable. Spleen: Spleen is mildly enlarged measuring 14 cm. Pancreas: Unremarkable. Adrenal glands: There is mild low density adrenal gland thickening Kidneys: There are bilateral vascular calcifications. There is no hydronephrosis. There is a 12 mm ex ophytic right renal lesions statistically representing a cyst. Bowel: There is equivocal gastric wall thickening. There are no transition zones to indicate bowel ob struction. There is no evidence of acute diverticulitis. There is mild fecal retention. The appendix was not visualized with certainty. Peritoneum: There is a small amount of free pelvic fluid. There is no free intraperitoneal air Vasculature: There are extensive atherosclerotic calcifications. There is no evidence of abdominal ao rtic aneurysm. Bilateral iliac stent grafts are visualized. Adenopathy: None. Pelvic viscera: The bladder, and pelvic viscera are unremarkable. Skeletal structures: No destructive osseous lesions are seen. IMPRESSION: 1. Technically limited study secondary to the lack of intravenous and oral contrast 2. No evidence of bowel obstruction. No evidence of free air 3. Moderate pericardial effusion 4. No evidence of intra-abdominal or pelvic metastatic disease given the limitations of a noncontrast study 5. Mild splenomegaly ACT 112: Negative or not required by law. Electronically signed by: Fidencio Gonzalez M.D. 08/01/2019 9:45 PM
[2019-08-01] MEDS: INSULIN ASPART 100 UNITS/ML 3 ML PEN SC SCH (22:14)
[2019-08-02] MEDS: INSULIN ASPART 100 UNITS/ML 3 ML PEN SC SCH ×6 (00:02→21:16)
[2019-08-02 08:13] LABS: Basophils # (auto) 0.01 K/uL (0-0.2); Basophils % (auto) 0.2 %; Eosinophils # (auto) 0.02 K/uL (0-0.5); Eosinophils % (auto) 0.5 %; Hematocrit (blood only) 25.8 % (37-47); Hemoglobin 8.2 g/dL (12.0-16.0); Immature Granulocytes # (auto) 0.01 K/uL (0.00-0.02); Immature Granulocytes % (auto) 0.2 %; Lymphocytes # (auto) 0.74 K/uL (1.2-3.4); Mean Corpuscular Hemoglobin 28.9 pg (25-34); Mean Corpuscular Hgb Conc 31.8 g/dL (32-36); Mean Corpuscular Volume 90.8 fL (80-100); Mean Platelet Volume 8.8 fL (7.4-10.4); Monocytes # (auto) 0.35 K/uL (0.11-0.59); Monocytes % (auto) 8.5 %; Neutrophils # (auto) 2.99 K/uL (1.4-6.5); Neutrophils % (auto) 72.6 %; Platelet Count 173 K/uL (130-400); RDW Coefficient of Variation 14.7 % (11.5-14.5); RDW Standard Deviation 48.9 fL (36.4-46.3); Red Blood Count 2.84 M/uL (4.2-5.4); White Blood Count 4.12 K/uL (4.8-10.8)
[2019-08-02] MEDS: FERROUS SULFATE 325 MG TAB PO SCH ×2 (08:36→16:58)
[2019-08-02] MEDS: NIACIN 500 MG TAB PO SCH (08:36)
[2019-08-02] MEDS: CHOLECALCIFEROL 1,000 UNITS 25 MCG TAB PO SCH (08:36)
[2019-08-02] MEDS: MAGNESIUM OXIDE 400 MG TAB PO SCH ×2 (08:36→21:21)
[2019-08-02] MEDS: CALCIUM CARBONATE 1250MG TAB PO SCH (08:37)
[2019-08-02] MEDS: METOPROLOL SUCC 50MG EXT REL TAB PO SCH (08:37)
[2019-08-02] MEDS: PANTOprazole 40 MG TAB PO SCH (08:37)
[2019-08-02] MEDS: TORSEMIDE 10 MG TAB PO SCH (08:37)
[2019-08-02] MEDS: cloNIDine HCL 0.1 MG TAB PO SCH ×2 (08:37→21:21)
[2019-08-02 08:38] LABS: INR 2.3 (0.9-1.1)
[2019-08-02 08:42] LABS: BUN Creatinine Ratio 23.2 (10-20); Calcium 9.8 mg/dl (8.5-10.1); Creatinine Clr Calc Pharmacy 18.9 ml/min; Est GFR (African American) 23.3; Est GFR (Non-African American) 20.1; Magnesium 1.7 mg/dl (1.8-2.4); Potassium 5.1 mmol/L (3.5-5.1)
[2019-08-02] MEDS ORDERED: NON-FORMULARY MEDICATION (Mv-Mn-Iron-Fa-Ca Carb-Vit K [One-A-Day Womens Formula] 1 TAB) PO SCH (09:00)
[2019-08-02] MEDS ORDERED: OXYMETAZOLINE 0.05% 30 ML BTL ONE (10:15)
[2019-08-02] MEDS ORDERED: MAGNESIUM SULFATE / D5W 1 GM/100 ML BAG IV ONE (10:30)
[2019-08-02] MEDS ORDERED: PHYTONADIONE 5 MG in SODIUM CHLORIDE 0.9% 50 ML IV ONE (10:30)
--- NOTE | 2019-08-02 11:05 | Pulmonary Consultation ---
Date of Consultation August 02, 2019 Assessment & Plan (1) Mediastinal mass: 6 cm mediastinal mass identified with CT scan 08/01/2019 Plan is for patient to undergo endobronchial ultrasound with biopsy once INR is below 1.5. Patient received vitamin K 5 mg today Follow serial INRs Tentatively scheduled for EBUS 08/04/[address] chest with suggestion of lymphangitic carcinomatosis. Should rule out tumor lysis in the event that this is a lymphoma process. We will continue to monitor on telemetry No prior history of pulmonary disease but patient does have a smoking history up until 3 years ago. Would oxygenate to maintain SaO2 greater than 90%. (2) Afib: Patient is currently in normal sinus rhythm. Chronically anticoagulated for the last 20 years for atrial fibrillation INR is currently 2.3. This will need to be reversed in order to do tissue biopsy Follow serial INR Anticipate procedure Wednesday morning (3) History of tobacco abuse: Patient with history of tobacco abuse up until 3 years ago when she quit completely. History concerning for new process in lung and mediastinum Patient is aware of need for persistent abstinence from tobacco products. Thank you for including us in the care of this patient. We will follow along with you. Please refer to Dr. Doherty's addendum for further recommendations and corrections. Supervising Physician Co-Signing Physician Notes Patient seen and examined with Yaakov walton PA-C. I agree with his assessment and plan aside for any additions/exceptions noted: Patient has a mediastinal mass with significant mediastinal adenopathy and involvement of the right pulmonary artery and bronchus intermedius. 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 She also has a pericardial effusion which is likely related. We will go ahead and proceed with endobronchial ultrasound and trans-bronchial needle aspiration on Wednesday. Please reverse the patient's INR with Coumadin especially in light of her significant epistaxis. She also has ongoing renal failure with anemia which may be related to her CKD. However, in light of the bulky adenopathy that we are seeing, please evaluate for the possibility of spontaneous tumor lysis syndrome. Recommend obtaining a phosphorus level, uric acid and repeating chemistries/renal function. Also recommend obtaining an echocardiogram to rule out any kind of tamponade physiology. EKG reviewed and does not demonstrate any evidence of electrical alternans. Blood pressure has been stable if not a bit elevated. I did go over the possibilities with the patient and I did indicate that this very likely represents a malignancy especially in light of her weight loss and smoking history. History of Present Illness Attending Physician: Yamel Marc MD History of Present Illness Attending: Dr. Doherty This is a 63-year-old female that has a past medical history including hypertension, peripheral artery disease, atrial fibrillation on chronic anticoagulation, and diabetes. The patient presents with complaints of headache and facial swelling. Chest x-ray 08/01/2019 showed mild interstitial thickening of uncertain chronicity. A CT scan of the chest was completed and revealed a 6 cm mediastinal mass with subcarinal extension. The mass encases the right pulmonary artery. There are also 2 airspace opacities within the right upper lobe which could be postobstructive or continuation of the process. Patient is not in acute pulmonary distress. She is oxygenating in the mid to high 90s on room air. Patient is chronically on warfarin for atrial fibrillation. INR is 2.3 today. She has received 5 mg of vitamin K intravenously. The patient has no chest pain or tightness. She does have some nausea secondary to nosebleed but denies any vomiting. She has no other acute complaints at this time. She is a prior smoker but quit smoking 3 years ago. Patient also reports approximately 50 pound weight loss. 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 She has no vocational exposure. Allergies Allergy/AdvReac Type Severity Reaction Status Date / Time ceftaroline fosamil Allergy Hives Verified 08/01/19 17:13 [From Teflaro] Penicillins Allergy Rash Verified 08/01/19 17:13 Home Medications Home Medications Medication Instructions Recorded Confirmed Type One-A-Day Womens Formula 1 tab PO DAILY 07/25/19 08/01/19 History aspirin 81 mg PO HS 07/25/19 08/01/19 History calcium carbonate [Calcium 500] 500 mg PO DAILY 07/25/19 08/01/19 History cholecalciferol (vitamin D3) 5,000 unit PO DAILY 07/25/19 08/01/19 History [Vitamin D3] clonidine HCl 0.1 mg PO BID 07/25/19 08/01/19 History digoxin 125 mcg PO QPM 07/25/19 08/01/19 History insulin aspart U-100 [Novolog 10 unit SUBCUT DAILYBB 07/25/19 08/01/19 History Flexpen U-100 Insulin] insulin aspart U-100 [Novolog 10 unit SUBCUT DAILYBL 07/25/19 08/01/19 History Flexpen U-100 Insulin] insulin aspart U-100 [Novolog 18 unit SUBCUT DAILYBD 07/25/19 08/01/19 History Flexpen U-100 Insulin] insulin degludec [Tresiba 38 unit SUBCUT HS #0 07/25/19 08/01/19 History FlexTouch U-100] magnesium oxide 500 mg PO BID 07/25/19 08/01/19 History metoprolol succinate 50 mg PO DAILY 07/25/19 08/01/19 History niacin [Niacor] 500 mg PO DAILY 07/25/19 08/01/19 History pantoprazole [Protonix] 40 mg PO DAILY 07/25/19 08/01/19 History simvastatin 40 mg PO HS 07/25/19 08/01/19 History terazosin 5 mg PO HS 07/25/19 08/01/19 History tramadol 50 mg PO DAILY PRN 07/25/19 08/01/19 History warfarin [Coumadin] 2 mg PO HS 07/25/19 08/01/19 History promethazine 25 mg PO Q6H PRN #14 tab 07/29/19 08/01/19 Rx torsemide 10 mg PO QAM 30 Days #30 tab 07/29/19 08/01/19 Rx ferrous sulfate 325 mg PO BID 08/01/19 08/01/19 History Patient History Medical History Afib CKD (chronic kidney disease) Family history of premature CAD History of tobacco abuse Hypertension Mitral stenosis PAD (peripheral artery disease) Pericardial effusion T2DM (type 2 diabetes mellitus) Family History Family/Other Coronary heart disease Father Cancer Heart disease Mother Diabetes Brother Heart disease Social History Preferred Language: Russian Communication Ability: Effective 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 EYES: No icterus, gaze conjugate. Pupils equal round reactive to light NOSE: Some dried blood. Recent epistaxis MOUTH: No lesions or candidiasis. Mucosa is dry. Dentures are in place. NECK: Supple. No JVD LUNGS: Some fine crackles at the bases. No significant bronchospasm. No rhonchi. HEART: Regular, rate controlled ABDOMEN: Soft, NT, ND, BS Present EXTREMITIES: No LE edema, pedal pulses intact and equal bilaterally NEURO: A&OX3. No neurological deficits identified. Results & Data ([facility]) Vital Signs (Past 12 Hours) Vital Signs Temp Pulse Pulse Resp BP BP Pulse Ox 08/02/19 10:25 85 08/02/19 07:37 36.5 C 85 18 155/73 H 96 08/02/19 04:33 36.8 C 69 18 161/83 H 99 08/02/19 00:00 82 08/01/19 23:16 36.6 C 80 18 146/[address] chest wo con CLINICAL HISTORY: SOB, UE swelling COMPARISON STUDY: Chest x-ray dated 08/01/2019 CT DOSE: 241.65 mGy.cm TECHNIQUE: CT of the thorax was performed from the thoracic inlet to the lung bases. Images are reviewed in the axial, sagittal, and coronal planes. IV contrast was not administered for this examination. A dose lowering technique was utilized adhering to the principles of ALARA. FINDINGS: Thyroid: Imaged portions of the thyroid gland are normal in appearance. Thoracic aorta: The thoracic aorta is normal in course and caliber, noting standard 3 vessel arch anatomy. Heart: The heart is enlarged. There is moderate pericardial effusion. Lungs and pleural spaces: There is pulmonary emphysema. There are no significant pleural effusions. There is a 15 mm right apical airspace opacity. There is a second 17 mm right apical airspace opacity. Although nonspecific these could be on a postobstructive basis. There is asymmetric right lung interstitial thickening. Lymphangitic carcinomatosis cannot be excluded. Mediastinum: There is a large mediastinal mass measuring at least 6 cm in diameter. There is secondary narrowing of the right mainstem bronchus and bronchus intermedius. There is mucosal irregularity of the jovi. There is probable compression of the superior vena cava which likely explains the reported upper extremity edema. Jaclyn: Mild bilateral hilar adenopathy is suspected. Axilla: There is no evidence of pathologic axillary lymphadenopathy Upper abdomen: Partially visualized upper abdominal viscera is within normal limits. Skeletal structures: There are no lytic or blastic osseous lesions. IMPRESSION: 1. Large mediastinal mass with subcarinal extension measuring at least 6 cm in diameter. The mass encases the right pulmonary artery. There is carinal irregularity and narrowing of the right mainstem bronchus, and bronchus intermedius. There is narrowing of the right upper lobe bronchus. There are 2 airspace opacities within the right upper lobe, possibly postobstructive basis. There is probable compression of the superior vena cava. There is a moderate right pericardial effusion. 2. Right lung interstitial thickening. Lymphangitic carcinomatosis cannot be excluded. ACT 112: Negative or not required by law. Electronically signed by: Fidencio Gonzalez M.D. 08/01/2019 6:23 PM PG Care Time/CCT Total # of Minutes Spent Total Time Spent with Patient: Total time spent is greater than 50% in coordination of care (as documented) at patient's floor/unit and/or counseling patient: 60 minutes including discussion with patient, primary team, Dr. Doherty, and coordinating endobronchial ultrasound. [place] [address] Inpt Consult Level 5 Patient Type New Medical Decision Making Moderate Complexity Diagnoses Mediastinal mass J98.59 Afib I48.91 History of tobacco abuse Z87.891 Time Spent (min) 60
[2019-08-02] MEDS: ACETAMINOPHEN 325 MG TAB PO PRN (12:22)
--- NOTE | 2019-08-02 12:41 | Hospitalist Progress Note ---
Date of Service August 02, 2019 Assessment & Plan (1) Mediastinal mass: Patient with a new 6cm mediastinal mass, encasing the right pulmonary artery and causing narrowing of the right mainstem and upper lobe bronchi. -Appreciate pulmonary consult-plan for endoscopic ultrasound and biopsy on Wednesday -Give vitamin K to reverse INR -Follow hemoglobin and transfuse as needed -Patient does not appear to be in acute respiratory distress at this time -CT of the abdomen pelvis checked to look for metastatic disease shows mild splenomegaly and iliac artery graft but otherwise no evidence of disease -Patient had a CT of the brain on her previous admission for headaches and we do not need to repeat this. Headaches possibly related to SVC syndrome -This is a malignancy-if small cell, could consider inpatient radiation and chemotherapy (2) SVC syndrome: SVC syndrome is most likely secondary to tumor burden as documented. Plan outlined as above (3) CKD (chronic kidney disease): Unclear what her baseline is. Patient reports she was told she has CKD 3 and no one has ever talked her about dialysis Creatinine here fairly stable at 2.5 She follows with nephrology and do patiño -Request outpatient nephrology records -Consult nephrology while here given complicated issues and significant renal failure -Follow BMP -Avoid nephrotoxins -Renally dose medications -Checking tumor lysis syndrome labs in case having acute renal failure from that-does not appear to have tumor lysis at this time (4) Hypertension: Patient is currently on multiple medications as started during her last visit including Toprol, torsemide, and oral clonidine. We will continue these (5) Afib: She is in sinus rhythm here and has paroxysmal atrial fibrillation Follows with cardiology and do patiño-Dr. Sam Order echocardiogram here given pericardial effusion seen on CT -Continue Toprol-XL -Anticoagulated with Coumadin, but giving vitamin K for reversal for procedure and for epistaxis -Continue digoxin as well for rate control (6) T2DM (type 2 diabetes mellitus): Patient takes insulin, will continue her long-acting insulin along with a sliding scale. -Should be on an ADA diet. Hemoglobin A1c here 7.3% (7) Anemia: Patient reports she was recently started on iron tablets and was recently told she was anemic. She has been in the 8-9 range and the most recent labs that we have. She is unclear what her baseline is No evidence of bleeding other than her recurrent epistaxis every other week. Also could be anemia of chronic kidney disease -Check iron studies, B12, folate TSH is normal -Follow CBC and transfuse if hemoglobin less than 8 (8) Hiatal hernia: -Continue PPI (9) HLD (hyperlipidemia): With significant PAD -Continue aspirin, simvastatin (10) PAD (peripheral artery disease): With history of iliac artery stents placed by Dr. Sam a few years back -Continue aspirin and statin Has a history of leg claudication with going upstairs (11) Mitral stenosis: With a history of mitral valvuloplasty in 1996, follows with cardiology as above -Checking echocardiogram here (12) Epistaxis: Recurrent every other week, on anticoagulation with Coumadin and aspirin -Applied Afrin and nasal pressure and stopped -Giving vitamin K as well -Follow Has a history of being cauterized x3 by ENT in the past (13) Hypomagnesemia: Replaced -Follow level in the morning (14) Migraine headache: She has history of headaches just for the last few months likely related to SVC syndrome as above -Tylenol as needed (15) Pericardial effusion: Moderate on echo here in CT, no tamponade physiology -Follow and likely is related to mediastinal mass Could have pericardial metastases (16) DVT prophylaxis: Coumadin Disposition-remain on medical floor with telemetry Await biopsy on Wednesday Admission and Anticipated Discharge Date Admission Date: August 01, 2019 Subjective Patient reports some shortness of breath. She has lost approximately 15 pounds in the last few months. She is not coughing up any blood. She had a nosebleed this morning reports she has been getting nosebleeds every other week for several months. She denies chest pains. No nausea or vomiting, no abdominal pains. No blood in her stool or black tarry stools. Discussed her ongoing condition. She reports the swelling in her face and arms just appeared the day of admission. Her is at the bedside and reports she looks less swollen today in the face. Nosebleed was stopped with Afrin. I discussed the case with pulmonology and cardiology Telemetry with normal sinus rhythm with PACs Review of Systems Review of Systems: All systems reviewed & are unremarkable except as noted in HPI & below (Patient denies hematuria or vaginal bleeding) Physical Exam Constitutional: average body habitus; no acute distress Eyes: PERRL, conjunctivae normal, anicteric sclerae (With periorbital and facial edema) ENMT: external ear and nose normal, oropharynx normal Neck: trachea midline, no thyromegaly Respiratory: normal respiratory effort, lungs clear to auscultation Cardiovascular: Rate/Rhythm: regular rate and regular rhythm Heart Sounds: no murmur Extremities: + edema (2+ pitting edema of the upper extremities bilaterally) Chest (Breasts): Chest: normal inspection of chest Gastrointestinal (Abdomen): normal bowel sounds, soft, nontender, no hepatosplenomegaly Musculoskeletal: Extremities: no cyanosis and no clubbing Skin: no rashes, warm and dry Neurologic: moves all extremities and awake; no focal motor deficits Psychiatric: A+Ox3, euthymic affect Lymphatic: no lymphedema Results & Data ([facility]) Vital Signs (Past 12 Hours) Vital Signs Temp Pulse Pulse Resp BP BP Pulse Ox 08/02/19 11:35 37 C 80 18 164/74 H 97 08/02/19 10:25 85 08/02/19 07:37 36.5 C 85 18 155/73 H 96 08/02/19 04:33 36.8 C 69 18 161/83 H 99 Laboratory Results Labs reviewed PG Care Time/CCT Total # of Minutes Spent Total Time Spent with Patient: Total time spent is greater than 50% in coordination of care (as documented) at patient's floor/unit and/or counseling patient: Coding Level of Care Code 97369 Subseq Hosp Care Lvl 3 Diagnoses Mediastinal mass J98.59 SVC syndrome I87.1 CKD (chronic kidney disease) N18.9 Hypertension I10 Afib I48.91 T2DM (type 2 diabetes mellitus) E11.9 Anemia D64.9 Anemia type: unspecified type Hiatal hernia K44.9 HLD (hyperlipidemia) E78.5 PAD (peripheral artery disease) I73.9 Mitral stenosis I05.0 Epistaxis R04.0 Hypomagnesemia E83.42 Migraine headache G43.909 Pericardial effusion I31.3 DVT prophylaxis Z29.9 (1) Anemia Anemia type: unspecified type Qualified Code(s): D64.9 - Anemia, unspecified
--- NOTE | 2019-08-02 13:20 | Pharmacy Report ---
Glycemic Control Consultation - Date of Service August 02, 2019 - Scope Scope: Glycemic Pharmacist consulted by Dr Valdez on 08/01 for glycemic control and to write orders per [facility] inpatient glycemic control protocol - Objective Weight: 51.3 kg Accuchecks BSG (last 24hrs): 08/01/19 08/01/19 08/02/19 16:50 21:40 00:00 Glucose 234 H POC Glucose 156 H 191 H 08/02/19 08/02/19 08/02/19 04:05 07:52 08:30 Glucose 65 L POC Glucose 79 102 H 08/02/19 11:37 Glucose POC Glucose 154 H Laboratory Data (last 24hrs): 08/01/19 08/02/19 16:50 07:52 Potassium 5.2 H 5.1 Carbon Dioxide 25 26 Anion Gap 4.0 5.0 Creatinine 2.56 H 2.47 H Est Cr Clr Drug Dosing 18.2 18.9 - Recent Pertinent Medications Outpatient Anti-diabetic Regimen: * Tresiba 38 units qHS * Novolog 10 units w/ B & L, 18 units w/ D * A1c = 7.3 % 07/26/19 The patient is currently receiving: * Basal insulin: Lantus 38 units every 24 hours * Correctional Insulin: Novolog Correction per scale ACHS Goal Range: Low 110 mg/dL - High 140 mg/dL Correction Factor: 15 mg/dL/unit * Prandial insulin: Per carb ratio of 1 unit per 5 grams CHO consumed Risk Factors for Insulin Resistance: * Diet: T2DM, will be NPO after midnight - Assessment & Plan Assessment & Plan: ASSESSMENT: * 63 y/o F admitted 08/01 for a mediastinal mass, with plans for biopsy tomorrow * Outpatient insulin requirements ~75 units/day * Fasting BSG on the lower side this AM after continuing outpatient dose. In light of hypoglycemia and upcoming NPO status, will decrease tonight's dose by 50%. Novolog parameters have been loosened to be consistent with lower basal dosing. PLAN FOR INPATIENT GLYCEMIC CONTROL: * Basal insulin - decrease by 50% * Lantus 20 units SQ qHS * Bolus insulin - loosen CF/CR * NovoLog per scale ACHS or Q6hrs while NPO * Goal Range: Low 110 mg/dL - High 140 mg/dL * Correction Factor: 20 mg/dL/unit * Nutritional / Prandial insulin per carb ratio of 1 unit per 7 grams CHO consumed * Please note that the plan above was derived based on current level of insulin resistance and hospital stress. These recommendations are appropriate for inpatient admission only. Plan of care upon discharge will need to be reassessed to avoid potential outpatient hypo/hyperglycemia. Thank you.
[2019-08-02 13:55] LABS: Albumin Level 3.1 gm/dl (3.4-5.0); BUN Creatinine Ratio 22.8 (10-20); Calcium 9.7 mg/dl (8.5-10.1); Est GFR (African American) 23.5; Est GFR (Non-African American) 20.3; Potassium 4.7 mmol/L (3.5-5.1); Uric Acid 7.7 mg/dl (2.6-7.2)
[2019-08-02 14:00] LABS: Ferritin 64.2 ng/ml (8-388); Phosphorus 3.5 mg/dl (2.5-4.9)
[2019-08-02 14:07] LABS: Vitamin B12 > 2000 pg/ml (211-911)
[2019-08-02 14:08] LABS: Folate (Folic Acid) > 24.00 ng/ml (>5.38)
--- NOTE | 2019-08-02 14:49 | Electrocardiogram Report ---
Test Reason : Blood Pressure : / mmHG Vent. Rate : 078 BPM Atrial Rate : 078 BPM P-R Int : 206 ms QRS Dur : 090 ms QT Int : 330 ms P-R-T Axes : 068 022 059 degrees QTc Int : 376 ms Normal sinus rhythm with 1st degree AV block No previous ECGs available Confirmed by Merritt Bryan ([id number] on 08/02/2019 2:49:25 PM Referred By: REFERRED SELF Confirmed By:Dawson Bryan
--- NOTE | 2019-08-02 17:28 | XCELERA ---
[id number] \\[email or web address]_[id number]___[id number]
--- NOTE | 2019-08-02 17:42 | Nephrology Consultation ---
Date of Consultation August 02, 2019 Assessment & Plan (1) CKD (chronic kidney disease): Creatinine stable since 07/28. Baseline creatinine 2.0 mg/dL per history. Recent LUBNA related to accelerated hypertension. BP reasonably controlled. Patient does not have significant renal artery stenosis. CKD can be attributed to microvascular disease. JOSE ARMANDO has been held due to recent LUBNA. Medications are currently appropriately dosed for kidney function. Volume status is euvolemic to slightly hypervolemic. I would continue torsemide 10 mg daily as Rx'd. No changes in medications at this time. Complications of CKD include anemia. Maye also has evidence of persistent iron deficiency despite oral iron. Hgb has fallen over the past month. IV iron has been ordered. Venofer 200 mg will be provided today and continued daily during the hospitalization as tolerated. JOSELIN therapy held pending additional iron replacement. Maye has hyperuricemia. She does not have evidence of TLS; LDH is normal, potassium and phosphorus are normal. She has not had a history of gout. Allopurinol would certainly be a reasonable consideration but there is no immediate necessity to start therapy at this time. Pending she tolerates Venofer well, I will discuss this in additional detail with the patient tomorrow. Noted that evaluation of pericardial effusion is ongoing. Nephrology will follow closely. Urine studies will be updated at this time. (2) Mediastinal mass: Endobronchial US with biopsy planned pending normalization of INR. Pulmonology consultation reviewed. (3) PVD (peripheral vascular disease): History of Present Illness Reason for Consultation: Renal insufficiency Requesting Physician: Yamel Marc MD Attending Physician: Yamel Marc MD History of Present Illness Mrs. Maye Lawler is a 63-year-old female with hypertension, peripheral arterial disease, atrial fibrillation, chronic anemia, osteoarthritis, headaches, and chronic kidney disease. Maye has CKD III-IV for which she follows in the outpatient nephrology clinic with Dr. Tim. Baseline creatinine has been approximately 2.0 mg/dL. CKD attributed to microvascular disease. She has not had significant proteinuria by prior assessment. Kidneys have been normal in appearance on imaging. Renal artery duplex did not demonstrate significant renovascular disease. During her last outpatient nephrologic evaluation, she was found to be doing well with noted chronic anemia. She has not been maintained on JOSELIN therapy but was started on oral iron at that time. Maye was admitted to [facility] from July 25- with accelerated hypertension and acute renal insufficiency. Creatinine peaked at 3.1 mg/dL. Lisinopril and spironolactone were held. She was discharged on a regimen of torsemide 10 mg daily, metoprolol succinate 50 mg twice daily, and clonidine 0.1 BID. She has been tolerating this regimen well. BP remains well controlled. Unfortunately, Maye returned to the hospital yesterday with headaches and facial swelling. CT demonstrated a mediastinal mass impinging on the right pulmonary artery and mainstem bronchi. Endobronchial ultrasound is planned once INR is normalized. Creatinine remains stable at 2.45 mg/dL since 07/28. Electrolytes are acceptable. Hemoglobin has dropped from 9.2 g/dL earlier this month to 8.2 g/dL. Tsat is 14% with a ferritin of 64. CT scan demonstrated normal appearing kidneys without obstruction. A 12 mm exophytic cyst noted. Allergies Allergy/AdvReac Type Severity Reaction Status Date / Time ceftaroline fosamil Allergy Hives Verified 08/01/19 17:13 [From Teflaro] Penicillins Allergy Rash Verified 08/01/19 17:13 Home Medications Home Medications Medication Instructions Recorded Confirmed Type One-A-Day Womens Formula 1 tab PO DAILY 07/25/19 08/01/19 History aspirin 81 mg PO HS 07/25/19 08/01/19 History calcium carbonate [Calcium 500] 500 mg PO DAILY 07/25/19 08/01/19 History cholecalciferol (vitamin D3) 5,000 unit PO DAILY 07/25/19 08/01/19 History [Vitamin D3] clonidine HCl 0.1 mg PO BID 07/25/19 08/01/19 History digoxin 125 mcg PO QPM 07/25/19 08/01/19 History insulin aspart U-100 [Novolog 10 unit SUBCUT DAILYBB 07/25/19 08/01/19 History Flexpen U-100 Insulin] insulin aspart U-100 [Novolog 10 unit SUBCUT DAILYBL 07/25/19 08/01/19 History Flexpen U-100 Insulin] insulin aspart U-100 [Novolog 18 unit SUBCUT DAILYBD 07/25/19 08/01/19 History Flexpen U-100 Insulin] insulin degludec [Tresiba 38 unit SUBCUT HS #0 07/25/19 08/01/19 History FlexTouch U-100] magnesium oxide 500 mg PO BID 07/25/19 08/01/19 History metoprolol succinate 50 mg PO DAILY 07/25/19 08/01/19 History niacin [Niacor] 500 mg PO DAILY 07/25/19 08/01/19 History pantoprazole [Protonix] 40 mg PO DAILY 07/25/19 08/01/19 History simvastatin 40 mg PO HS 07/25/19 08/01/19 History terazosin 5 mg PO HS 07/25/19 08/01/19 History tramadol 50 mg PO DAILY PRN 07/25/19 08/01/19 History warfarin [Coumadin] 2 mg PO HS 07/25/19 08/01/19 History promethazine 25 mg PO Q6H PRN #14 tab 07/29/19 08/01/19 Rx torsemide 10 mg PO QAM 30 Days #30 tab 07/29/19 08/01/19 Rx ferrous sulfate 325 mg PO BID 08/01/19 08/01/19 History Patient History Medical History Afib CKD (chronic kidney disease) Family history of premature CAD History of tobacco abuse Hypertension Mitral stenosis PAD (peripheral artery disease) T2DM (type 2 diabetes mellitus) Family History Family/Other Coronary heart disease Father Cancer Heart disease Mother Diabetes Brother Heart disease Social History Preferred Language: Arabic Communication Ability: Effective V/[employer] Signal Officer Required: No Beliefs That Will Affect Care: None marital status: Current Living Situation: Spouse Other Information That Helps Us Care for You: No Feels Safe at Home: Yes Safety Concerns: Feels Safe At This Time Smoking Status: Former smoker Do You Dip or Chew Tobacco: No ; Hx Alcohol Use: No Hx Substance Use: No Review of Systems Review of Systems: All systems reviewed & are unremarkable except as noted in HPI & below notable for persistent non-productive cough, 50 lbs weight loss in past few months, decreased appetite, generalized edema. Physical Exam Constitutional: well developed; no acute distress and not edematous Eyes: + anicteric sclerae ENMT: Mouth: no oral mucosal abnormality and oral mucous membranes not dry Neck: normal visual inspection and trachea midline Respiratory: normal respiratory effort Auscultation: lungs clear to auscultation bilaterally Cardiovascular: Rate/Rhythm: regular rate Heart Sounds: normal S1 and no rmal S2 Extremities: no edema Musculoskeletal: Extremities: no cyanosis and no clubbing Skin: normal turgor; no jaundice Neurologic: Motor/Sensory: no tremor and no asterixis Psychiatric: Affect: + anxious affect Mood: + depressed mood Results & Data Vital Signs (Past 12 Hours) Vital Signs Temp Pulse Pulse Resp BP BP Pulse Ox 08/02/19 16:22 36.8 C 80 18 143/68 H 08/02/19 16:01 86 08/02/19 11:35 37 C 80 18 164/74 H 97 08/02/19 10:25 85 08/02/19 07:37 36.5 C 85 18 155/73 H 96 PG Care Time/CCT Total # of Minutes Spent Total Time Spent with Patient: Total time spent is greater than 50% in coordination of care (as documented) at patient's floor/unit and/or counseling patient: Coding Level of Care Code 61970 Inpt Consult Level 4 Diagnoses CKD (chronic kidney disease) N18.9 Mediastinal mass J98.59 PVD (peripheral vascular disease) I73.9
[2019-08-02] MEDS ORDERED: IRON SUCROSE 200 MG in 0.9 % SODIUM CHLORIDE 100 ML IV ONE (17:45)
[2019-08-02] MEDS: INSULIN GLARGINE SOLOSTAR 100 UNITS/ML 3 ML PEN SC SCH (21:17)
[2019-08-02] MEDS: ASPIRIN 81 MG ECTAB PO SCH (21:21)
[2019-08-02] MEDS: DIGOXIN 0.125 MG TAB PO SCH (21:21)
[2019-08-02] MEDS: TERAZOSIN HCL 5 MG CAP PO SCH (21:21)
[2019-08-02] MEDS: SIMVASTATIN 40 MG TAB PO SCH (21:21)
[2019-08-03 01:17] LABS: Appearance Urine Clear (Clear); Bacteria Urine Automated Negative (Negative); Bilirubin Urine Negative (Negative); Blood Urine Negative (Negative); Color Urine Yellow; Glucose Urine UA Negative (Negative); Ketones Urine Negative (Negative); Leukocyte Esterase Urine Negative (Negative); Nitrite Urine Negative (Negative); Protein Urine 1+ (Negative); RBC Urine Automated 0-4 /hpf (0-4); Specific Gravity Urine 1.016 (1.000-1.030); Urobilinogen Urine Negative (Negative); pH Urine 5.5 (4.5-7.5)
[2019-08-03 06:09] LABS: Basophils # (auto) 0.01 K/uL (0-0.2); Basophils % (auto) 0.2 %; Eosinophils # (auto) 0.05 K/uL (0-0.5); Eosinophils % (auto) 0.9 %; Hematocrit (blood only) 23.6 % (37-47); Hemoglobin 7.7 g/dL (12.0-16.0); Immature Granulocytes # (auto) 0.02 K/uL (0.00-0.02); Immature Granulocytes % (auto) 0.4 %; Lymphocytes % (auto) 18.8 %; Mean Corpuscular Hemoglobin 29.5 pg (25-34); Mean Corpuscular Hgb Conc 32.6 g/dL (32-36); Mean Corpuscular Volume 90.4 fL (80-100); Mean Platelet Volume 8.5 fL (7.4-10.4); Monocytes # (auto) 0.77 K/uL (0.11-0.59); Monocytes % (auto) 14.5 %; Neutrophils # (auto) 3.47 K/uL (1.4-6.5); Neutrophils % (auto) 65.2 %; Platelet Count 150 K/uL (130-400); RDW Coefficient of Variation 14.4 % (11.5-14.5); Red Blood Count 2.61 M/uL (4.2-5.4); White Blood Count 5.32 K/uL (4.8-10.8)
[2019-08-03 06:31] LABS: INR 1.2 (0.9-1.1); Prothrombin Time 11.8 Seconds (9.0-12.0)
[2019-08-03 06:33] LABS: RBC Morphology Unremarkable
[2019-08-03 06:43] LABS: Albumin Level 2.7 gm/dl (3.4-5.0); BUN Creatinine Ratio 20.7 (10-20); Calcium 8.7 mg/dl (8.5-10.1); Creatinine Clr Calc Pharmacy 18.1 ml/min; Est GFR (African American) 22.2; Est GFR (Non-African American) 19.1; Magnesium 1.9 mg/dl (1.8-2.4); Potassium 4.3 mmol/L (3.5-5.1)
[2019-08-03 06:46] LABS: Albumin Globulin Ratio 0.7 (0.9-2); Bilirubin,Total 0.2 mg/dl (0.2-1); Phosphorus 3.1 mg/dl (2.5-4.9); Total Protein 6.7 gm/dl (6.4-8.2)
[2019-08-03] MEDS ORDERED: SODIUM CHLORIDE 0.9% 250 ML IV PRN ×2 (06:48→13:08)
[2019-08-03] MEDS: INSULIN ASPART 100 UNITS/ML 3 ML PEN SC SCH ×4 (08:17→21:31)
[2019-08-03] MEDS: cloNIDine HCL 0.1 MG TAB PO SCH ×2 (08:17→21:35)
[2019-08-03] MEDS: METOPROLOL SUCC 50MG EXT REL TAB PO SCH (08:18)
[2019-08-03] MEDS: MAGNESIUM OXIDE 400 MG TAB PO SCH ×2 (08:18→21:35)
[2019-08-03] MEDS: PANTOprazole 40 MG TAB PO SCH (08:18)
[2019-08-03] MEDS: CALCIUM CARBONATE 1250MG TAB PO SCH (08:18)
[2019-08-03] MEDS: CHOLECALCIFEROL 1,000 UNITS 25 MCG TAB PO SCH (08:19)
[2019-08-03] MEDS: NIACIN 500 MG TAB PO SCH (08:19)
[2019-08-03] MEDS: TORSEMIDE 10 MG TAB PO SCH (08:19)
--- NOTE | 2019-08-03 10:44 | Nephrology Progress Note ---
Date of Service August 03, 2019 Assessment & Plan (1) CKD (chronic kidney disease): Creatinine stable. Volume status acceptable. BP controlled. Electrolytes within normal limits. (2) Anemia: Additional 200 mg IV venofer ordered today. Continue for 5 days. Epo held for now pending monitoring and additional IV iron. (3) Mediastinal mass: EBUS scheduled for tomorrow. (4) Pericardial effusion: Plan of care discussed with Dr. Bryan this morning. Subjective No acute events overnight. Tolerated IV Venofer yesterday without complications. No fevers or chills. Breathing comfortably. Denies pain. Review of Systems Review of Systems: All systems reviewed & are unremarkable except as noted in HPI & below Physical Exam Constitutional: well developed and + thin; no acute distress Eyes: no scleral abnormality and no corneal abnormality ENMT: Mouth: no oral mucosal abnormality and oral mucous membranes not dry Neck: normal visual inspection and trachea midline Respiratory: normal respiratory effort Auscultation: lungs clear to auscultation bilaterally Cardiovascular: Rate/Rhythm: regular rate Heart Sounds: normal S1 and normal S2 Extremities: + edema Musculoskeletal: Extremities: no cyanosis and no clubbing Skin: normal turgor; no lesions Neurologic: Motor/Sensory: no tremor and no asterixis Psychiatric: Orientation: alert and oriented x 3 Results & Data Vital Signs (Past 12 Hours) Vital Signs Temp Pulse Pulse Resp BP BP Pulse Ox 08/03/19 10:27 78 08/03/19 07:10 36.8 C 75 18 129/55 L 97 08/03/19 02:58 37.3 C 83 18 147/61 H 95 08/03/19 00:05 36.6 C 81 18 145/69 H 95 08/03/19 00:00 81 Laboratory Results Laboratory Results - last 24 hr 08/02/19 08/02/19 08/02/19 11:37 13:11 13:11 WBC RBC Hgb Hct MCV MCH MCHC RDW Std Deviation RDW Coeff of Epifanio Plt Count MPV Immature Gran % (Auto) Neut % (Auto) Lymph % (Auto) [place] % (Auto) Eos % (Auto) Baso % (Auto) Immature Gran # (Auto) Neut # (Auto) Lymph # (Auto) [place] # (Auto) Eos # (Auto) Baso # (Auto) RBC Morphology Haptoglobin PT INR Sodium 134 L Potassium 4.7 Chloride 101 Carbon Dioxide 27 Anion Gap 6.0 BUN 56 H Creatinine 2.45 H Est Cr Clr Drug Dosing 19.0 Est GFR ( Amer) 23.5 Est GFR (Non-Af Amer) 20.3 BUN/Creatinine Ratio 22.8 H Glucose 149 H POC Glucose 154 H Uric Acid 7.7 H Calcium 9.7 Phosphorus 3.5 Magnesium Iron 49 TIBC 322 Transferrin 245 Transferrin % Sat 14 L Ferritin 64.2 Total Bilirubin AST ALT Alkaline Phosphatase Lactate Dehydrogenase 203 Total Protein Albumin 3.1 L Globulin Albumin/Globulin Ratio Vitamin B12 Folate Urine Color Urine Appearance Urine pH Ur Specific [place] Urine Protein Urine Glucose (UA) Urine Ketones Urine Blood Urine Nitrite Urine Bilirubin Urine Urobilinogen Ur Leukocyte Esterase Urine WBC (Auto) Urine RBC (Auto) U Hyaline Cast (Auto) U Epithel Cells (Auto) Urine Bacteria (Auto) Blood Type Blood Type Recheck Antibody Screen Crossmatch 08/02/19 08/02/19 08/02/19 13:11 13:11 16:43 WBC RBC Hgb Hct MCV MCH MCHC RDW Std Deviation RDW Coeff of Epifanio Plt Count MPV Immature Gran % (Auto) Neut % (Auto) Lymph % (Auto) [place] % (Auto) Eos % (Auto) Baso % (Auto) Immature Gran # (Auto) Neut # (Auto) Lymph # (Auto) [place] # (Auto) Eos # (Auto) Baso # (Auto) RBC Morphology Haptoglobin 253 H PT INR Sodium Potassium Chloride Carbon Dioxide Anion Gap BUN Creatinine Est Cr Clr Drug Dosing Est GFR ( Amer) Est GFR (Non-Af Amer) BUN/Creatinine Ratio Glucose POC Glucose 168 H Uric Acid Calcium Phosphorus Magnesium Iron TIBC Transferrin Transferrin % Sat Ferritin Total Bilirubin AST ALT Alkaline Phosphatase Lactate Dehydrogenase Total Protein Albumin Globulin Albumin/Globulin Ratio Vitamin B12 > 2000 H Folate > 24.00 Urine Color Urine Appearance Urine pH Ur Specific [place] Urine Protein Urine Glucose (UA) Urine Ketones Urine Blood Urine Nitrite Urine Bilirubin Urine Urobilinogen Ur Leukocyte Esterase Urine WBC (Auto) Urine RBC (Auto) U Hyaline Cast (Auto) U Epithel Cells (Auto) Urine Bacteria (Auto) Blood Type Blood Type Recheck Antibody Screen Crossmatch 08/02/19 08/03/19 08/03/19 20:32 00:59 05:47 WBC 5.32 RBC 2.61 L Hgb 7.7 L Hct 23.6 L MCV 90.4 MCH 29.5 MCHC 32.6 RDW Std Deviation 48.0 H RDW Coeff of Epifanio 14.4 Plt Count 150 MPV 8.5 Immature Gran % (Auto) 0.4 Neut % (Auto) 65.2 Lymph % (Auto) 18.8 [place] % (Auto) 14.5 Eos % (Auto) 0.9 Baso % (Auto) 0.2 Immature Gran # (Auto) 0.02 Neut # (Auto) 3.47 Lymph # (Auto) 1.00 L [place] # (Auto) 0.77 H Eos # (Auto) 0.05 Baso # (Auto) 0.01 RBC Morphology Unremarkable Haptoglobin PT INR Sodium Potassium Chloride Carbon Dioxide Anion Gap BUN Creatinine Est Cr Clr Drug Dosing Est GFR ( Amer) Est GFR (Non-Af Amer) BUN/Creatinine Ratio Glucose POC Glucose 222 H Uric Acid Calcium Phosphorus Magnesium Iron TIBC Transferrin Transferrin % Sat Ferritin Total Bilirubin AST ALT Alkaline Phosphatase Lactate Dehydrogenase Total Protein Albumin Globulin Albumin/Globulin Ratio Vitamin B12 Folate Urine Color Yellow Urine Appearance Clear Urine pH 5.5 Ur Specific [place] 1.016 Urine Protein 1+ H Urine Glucose (UA) Negative Urine Ketones Negative Urine Blood Negative Urine Nitrite Negative Urine Bilirubin Negative Urine Urobilinogen Negative Ur Leukocyte Esterase Negative Urine WBC (Auto) 1-5 Urine RBC (Auto) 0-4 U Hyaline Cast (Auto) 1-5 U Epithel Cells (Auto) 10-20 H Urine Bacteria (Auto) Negative Blood Type Blood Type Recheck Antibody Screen Crossmatch 08/03/19 08/03/19 08/03/19 05:47 05:47 05:47 WBC RBC Hgb Hct MCV MCH MCHC RDW Std Deviation RDW Coeff of Epifanio Plt Count MPV Immature Gran % (Auto) Neut % (Auto) Lymph % (Auto) [place] % (Auto) Eos % (Auto) Baso % (Auto) Immature Gran # (Auto) Neut # (Auto) Lymph # (Auto) [place] # (Auto) Eos # (Auto) Baso # (Auto) RBC Morphology Haptoglobin PT 11.8 INR 1.2 H Sodium 136 Potassium 4.3 Chloride 104 Carbon Dioxide 27 Anion Gap 5.0 BUN 53 H Creatinine 2.57 H Est Cr Clr Drug Dosing 18.1 Est GFR ( Amer) 22.2 Est GFR (Non-Af Amer) 19.1 BUN/Creatinine Ratio 20.7 H Glucose 98 POC Glucose Uric Acid Calcium 8.7 Phosphorus 3.1 Magnesium 1.9 Iron TIBC Transferrin Transferrin % Sat Ferritin Total Bilirubin 0.2 AST 20 ALT 32 Alkaline Phosphatase 94 Lactate Dehydrogenase Total Protein 6.7 Albumin 2.7 L Globulin 4.0 Albumin/Globulin Ratio 0.7 L Vitamin B12 Folate Urine Color Urine Appearance Urine pH Ur Specific [place] Urine Protein Urine Glucose (UA) Urine Ketones Urine Blood Urine Nitrite Urine Bilirubin Urine Urobilinogen Ur Leukocyte Esterase Urine WBC (Auto) Urine RBC (Auto) U Hyaline Cast (Auto) U Epithel Cells (Auto) Urine Bacteria (Auto) Blood Type Blood Type Recheck O Positive Antibody Screen Crossmatch 08/03/19 08/03/19 07:09 07:32 WBC RBC Hgb Hct MCV MCH MCHC RDW Std Deviation RDW Coeff of Epifanio Plt Count MPV Immature Gran % (Auto) Neut % (Auto) Lymph % (Auto) [place] % (Auto) Eos % (Auto) Baso % (Auto) Immature Gran # (Auto) Neut # (Auto) Lymph # (Auto) [place] # (Auto) Eos # (Auto) Baso # (Auto) RBC Morphology Haptoglobin PT INR Sodium Potassium Chloride Carbon Dioxide Anion Gap BUN Creatinine Est Cr Clr Drug Dosing Est GFR ( Amer) Est GFR (Non-Af Amer) BUN/Creatinine Ratio Glucose POC Glucose 90 Uric Acid Calcium Phosphorus Magnesium Iron TIBC Transferrin Transferrin % Sat Ferritin Total Bilirubin AST ALT Alkaline Phosphatase Lactate Dehydrogenase Total Protein Albumin Globulin Albumin/Globulin Ratio Vitamin B12 Folate Urine Color Urine Appearance Urine pH Ur Specific [place] Urine Protein Urine Glucose (UA) Urine Ketones Urine Blood Urine Nitrite Urine Bilirubin Urine Urobilinogen Ur Leukocyte Esterase Urine WBC (Auto) Urine RBC (Auto) U Hyaline Cast (Auto) U Epithel Cells (Auto) Urine Bacteria (Auto) Blood Type O Positive Blood Type Recheck Antibody Screen NEGATIVE Crossmatch See Detail PG Care Time/CCT Total # of Minutes Spent Total Time Spent with Patient: Total time spent is greater than 50% in coordination of care (as documented) at patient's floor/unit and/or counseling patient: Coding Level of Care Code 99669 Subseq Hosp Care Lvl 3 Diagnoses CKD (chronic kidney disease) N18.9 Anemia D64.9 Anemia type: unspecified type Mediastinal mass J98.59 Pericardial effusion I31.3 (1) Anemia Anemia type: unspecified type Qualified Code(s): D64.9 - Anemia, unspecified
--- NOTE | 2019-08-03 11:27 | Pulmonology Progress Note ---
Date of Service August 03, 2019 Assessment & Plan (1) Mediastinal mass: 6 cm mediastinal mass identified with CT scan 08/01/2019 Differentials include small cell cancer versus lymphoma versus idiopathic lymphadenopathy EBUS scheduled for 08/04/[address] chest with suggestion of lymphangitic carcinomatosis. Uric acid slightly elevated 7.7. Otherwise no evidence of tumor lysis No prior history of pulmonary disease but patient does have a smoking history up until 3 years ago. Would oxygenate to maintain SaO2 greater than 90%. (2) Afib: Patient is currently in normal sinus rhythm. Chronically anticoagulated for the last 20 years for atrial fibrillation INR is reversed and is currently 1.2 Hold anticoagulation for the next 24 hours pending tissue biopsy tomorrow with EBUS (3) History of tobacco abuse: Patient with history of tobacco abuse up until 3 years ago when she quit complet laureano. History concerning for new process in lung and mediastinum Patient is aware of need for persistent abstinence from tobacco products. Thank you for including us in the care of this patient. We will follow along with you. Please refer to Dr. Doherty's addendum for further recommendations and corrections. Subjective Attending: Dr. Doherty Patient seen at bedside this morning and states that she feels like she is doing better. Still some minimal swelling of her upper extremities but rings feel looser. Patient tolerated breakfast this morning. She did not sleep particularly well last night but feels a little stronger. No further epistaxis or bleeding. Patient has no acute complaints. Review of Systems Review of Systems: All systems reviewed & are unremarkable except as noted in HPI & below Physical Exam Physical Exam: GENERAL : No acute distress EYES: No icterus, gaze conjugate NOSE: No evidence of epistaxis MOUTH: No lesions or candidiasis NECK: Supple LUNGS: CTA B/L, no wheezes, rales or rhonchi. No adventitious breath sounds on examination. HEART: Regular, rate controlled ABDOMEN: Soft, NT, ND, BS Present EXTREMITIES: No LE edema, pedal pulses intact. Minimal upper extremity swelling. NEURO: A&OX3 Results & Data ([facility]) Vital Signs (Past 12 Hours) Vital Signs Temp Pulse Pulse Resp BP BP Pulse Ox 08/03/19 10:27 78 08/03/19 07:10 36.8 C 75 18 129/55 L 97 08/03/19 02:58 37.3 C 83 18 147/61 H 95 02/27/20 00:05 36.6 C 81 18 145/69 H 95 08/03/19 00:00 81 Laboratory Results 08/03/19 05:47 08/03/19 05:47 INR 1.2 (0.9-1.1) H 08/03/19 05:47 Diagnostic Findings No new imaging since admission PG Care Time/CCT Total # of Minutes Spent Total Time Spent with Patient: Total time spent is greater than 50% in coor dination of care (as documented) at patient's floor/unit and/or counseling patient:20 Coding Level of Care Code 30370 Subseq Hosp Care Lvl 2 Diagnoses Mediastinal mass J98.59 Afib I48.91 History of tobacco abuse Z87.891
[2019-08-03] MEDS: IRON SUCROSE 200 MG in 0.9 % SODIUM CHLORIDE 100 ML IV SCH (11:42)
--- NOTE | 2019-08-03 12:47 | Hospitalist Progress Note ---
Date of Service August 03, 2019 Assessment & Plan (1) Mediastinal mass: Patient with a new 6cm mediastinal mass, encasing the right pulmonary artery and causing narrowing of the right mainstem and upper lobe bronchi. 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 Plan outlined as above -consider steroids if suspected lymphoma (3) CKD (chronic kidney disease): Unclear what her baseline is. Probable Chronic kidney disease, stage 4 Patient reports she was told she has CKD 3 and no one has ever talked her about dialysis Creatinine here fairly stable at 2.5 She follows with nephrology in [place] -Requested outpatient nephrology records -Consult nephrology while here given complicated issues and significant renal failure-appreciate consult -could start allopurinol for hyperuricemia, but does not suspect TLS -Follow BMP -Avoid nephrotoxins -Renally dose medications -Checking tumor lysis syndrome labs in case having acute renal failure from that-does not appear to have tumor lysis at this time (4) Hypertension: Patient is currently on multiple medications as started during her last visit including Toprol, torsemide, and oral clonidine. We will continue these (5) Afib: She is in sinus rhythm here and has paroxysmal atrial fibrillation Follows with cardiology in [place]-Dr. Sam Ordered echocardiogram here given pericardial effusion seen on CT--> moderate pericardial effusion without tamponade -Continue Toprol-XL -Anticoagulated with Coumadin, but gave vitamin K for reversal for procedure and for epistaxis -Continue digoxin as well for rate control (6) T2DM (type 2 diabetes mellitus): Patient takes insulin, will continue her long-acting insulin along with a sliding scale. -Should be on an ADA diet. Hemoglobin A1c here 7.3% (7) Anemia: Patient reports she was recently started on iron tablets and was recently told she was anemic. She has been in the 8-9 range and the most recent labs that we have. She is unclear what her baseline is Has had bleeding with recurrent epistaxis every other week requiring cauterization 3 times in recent months Also could be anemia of chronic kidney disease Fe studies with sat 14%, ferritin 64, B12 and folate normal TSH is normal -given dyspnea with minimal exertion,PAD/CKD and presumed CAD, recurrent epistaxis, requirement for anticoagulation, hgb drop to 7.7, and high likelihood of need for chemotherapy in the near future, will transfuse 1 unit of PRBCs today for hgb 7.7 -follow BPs closely and give diuretics as needed with transfusion -follow CBC In AM -also received IV Venofer from Nephrology x 2 doses (8) Hiatal hernia: -Continue PPI (9) HLD (hyperlipidemia): With significant PAD -Continue aspirin, simvastatin (10) PAD (peripheral artery disease): With history of iliac artery stents placed by Dr. Sam a few years back -Continue aspirin and statin Has a history of leg claudication with going upstairs (11) Mitral stenosis: With a history of mitral valvuloplasty in 1996, follows with cardiology as above -echocardiogram here with mild MS EF preserved (12) Epistaxis: Recurrent every other week, on anticoagulation with Coumadin and aspirin -Applied Afrin and nasal pressure and stopped -Gave vitamin K as well -Follow Has a history of being cauterized x3 by ENT in the past (13) Hypomagnesemia: Replaced (14) Migraine headache: She has history of headaches just for the last few months likely related to SVC syndrome as above -Tylenol as needed (15) Pericardial effusion: Moderate on echo here in CT, no tamponade physiology -Follow and likely is related to mediastinal mass Could have pericardial metastases (16) Severe protein-calorie malnutrition: needs nutritional consult (17) DVT prophylaxis: Coumadin on hold SCDs Disposition-remain on medical floor with telemetry Await biopsy on Wednesday Admission and Anticipated Discharge Date Admission Date: August 01, 2019 Subjective Pt has some SOB with minimal exertion ambulating to the bathroom, no hemoptysis. No further epistaxis. No chest pain. Still has swelling of face and arms but imp roved from previous. Hgb dropped today since yesterday's epistaxis. No bloody stools, no melena. No hematuria No nausea or abd pain. Tele with NSR, rates 70-80s, 1st degree AV block, PACs I discussed her case with Nephrology and Pulmonology Review of Systems Review of Systems: All systems reviewed & are unremarkable except as noted in HPI & below Physical Exam Constitutional: average body habitus; no acute distress Eyes: PERRL, conjunctivae normal, anicteric sclerae (With periorbital and facial edema) Neck: trachea midline, no thyromegaly Respiratory: normal respiratory effort, lungs clear to auscultation Cardiovascular: Rate/Rhythm: regular rate and regular rhythm Heart Sounds: no murmur Extremities: + edema (1+ pitting edema of the upper extremities bilaterally slightly improved) Chest (Breasts): Chest: normal inspection of chest Gastrointestinal (Abdomen): normal bowel sounds, soft, nontender, no hepatosplenomegaly Musculoskeletal: Extremities: no cyanosis and no clubbing Skin: no rashes, warm and dry Neurologic: moves all extremities and awake; no focal motor deficits Psychiatric: Orientation: alert and oriented x 3 Affect: + flat affect Lymphatic: no lymphedema Results & Data ([facility]) Vital Signs (Past 12 Hours) Vital Signs Temp Pulse Pulse Resp BP BP Pulse Ox 08/03/19 11:24 36.3 C L 75 18 126/67 99 08/03/19 10:27 78 08/03/19 07:10 36.8 C 75 18 129/55 L 97 08/03/19 02:58 37.3 C 83 18 147/61 H 95 Laboratory Results labs reviewed PG Care Time/CCT Total # of Minutes Spent Total Time Spent with Patient: Total time spent is greater than 50% in coordination of care (as documented) at patient's floor/unit and/or counseling patient: Coding Level of Care Code 62678 Subseq Hosp Care Lvl 3 Diagnoses Mediastinal mass J98.59 SVC syndrome I87.1 CKD (chronic kidney disease) N18.9 Hypertension I10 Afib I48.91 T2DM (type 2 diabetes mellitus) E11.9 Anemia D64.9 Anemia type: unspecified type Hiatal hernia K44.9 HLD (hyperlipidemia) E78.5 PAD (peripheral artery disease) I73.9 Mitral stenosis I05.0 Epistaxis R04.0 Hypomagnesemia E83.42 Migraine headache G43.909 Pericardial effusion I31.3 Severe protein-calorie malnutrition E43 DVT prophylaxis Z29.9 (1) Anemia Anemia type: unspecified type Qualified Code(s): D64.9 - Anemia, unspecified
--- NOTE | 2019-08-03 17:27 | Cardiology Consultation ---
Date of Consultation August 03, 2019 Assessment & Plan (1) Pericardial effusion: I suspect her pericardial effusion is related to the mediastinal mass. This could represent direct invasion of the pericardial space possibly metastasis of a malignancy. There is not appear to be any urgent indication for pericardiocentesis given her hemodynamic stability. Fluid could be removed for diagnostic purposes if necessary. However, given the concern over malignancy the best approach would likely be surgical with formation of a pericardial window as well. (2) Afib: History of atrial fibrillation. In normal sinus here. With her history of mitral valve disease she should be on warfarin indefinitely. Certainly, this could be held for diagnostic purposes in the short term. Depending on the need to hold it for an extended period, bridging should be considered. (3) Mitral stenosis: She seems to have had rheumatic heart disease as a child. Some evidence of aortic valve sclerosis and a history of mitral stenosis. She does not currently appear to be symptomatic. The degree of stenosis appeared to be mild on her echocardiogram. No significant regurgitation. (4) Anemia: This may account for some of her symptoms of dyspnea. Hemoglobin is certainly lower than when she was in the hospital recently. History of Present Illness Reason for Consultation: Pericardial effusion Requesting Physician: Monico Attending Physician: Yamel Marc MD History of Present Illness Patient is a 63-year-old woman with a history of mitral valve stenosis status post valvuloplasty and paroxysmal atrial fibrillation. 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 She was recently admitted to our facility for persistent headaches. Recently had however she has been noticing some periorbital and facial swelling. This is in the setting of some mild dyspnea. She has also noticed some swelling of her forearms. Her initial evaluation at our facility revealed a 6 cm perihilar mass which does in case 1 of the pulmonary arteries and possibly impinges on the superior vena cava. CT scan which revealed this diagnosis also revealed a pericardial effusion. Echocardiogram performed yesterday confirm this diagnosis. Patient did not endorse symptoms chest discomfort. No pleuritic symptoms. She has not report orthopnea or paroxysmal nocturnal dyspnea. She has occasional dizziness which is fairly mild. She is not currently suffering from headache. Lately she has been more sedentary, but generally speaking can perform routine activities without limiting dyspnea. She did report an element of dyspnea leading up to her valvuloplasty several years ago. That was performed at [facility] and [place]. She reportedly suffers from paroxysmal atrial fibrillation and has been on systemic anticoagulation. She states that she is generally unaware of any palpitations. She has had outpatient monitoring and seems to be asymptomatic most of the time. Occasionally she will notice some fluttering. Allergies Allergy/AdvReac Type Severity Reaction Status Date / Time ceftaroline fosamil Allergy Hives Verified 08/01/19 17:13 [From Teflaro] Penicillins Allergy Rash Verified 08/01/19 17:13 Home Medications Home Medications Medication Instructions Recorded Confirmed Type One-A-Day Womens Formula 1 tab PO DAILY 07/25/19 08/01/19 History aspirin 81 mg PO HS 07/25/19 08/01/19 History calcium carbonate [Calcium 500] 500 mg PO DAILY 07/25/19 08/01/19 History cholecalciferol (vitamin D3) 5,000 unit PO DAILY 07/25/19 08/01/19 History [Vitamin D3] clonidine HCl 0.1 mg PO BID 07/25/19 08/01/19 History digoxin 125 mcg PO QPM 07/25/19 08/01/19 History insulin aspart U-100 [Novolog 10 unit SUBCUT DAILYBB 07/25/19 08/01/19 History Flexpen U-100 Insulin] insulin aspart U-100 [Novolog 10 unit SUBCUT DAILYBL 07/25/19 08/01/19 History Flexpen U-100 Insulin] insulin aspart U-100 [Novolog 18 unit SUBCUT DAILYBD 07/25/19 08/01/19 History Flexpen U-100 Insulin] insulin degludec [Tresiba 38 unit SUBCUT HS #0 07/25/19 08/01/19 History FlexTouch U-100] magnesium oxide 500 mg PO BID 07/25/19 08/01/19 History metoprolol succinate 50 mg PO DAILY 07/25/19 08/01/19 History niacin [Niacor] 500 mg PO DAILY 07/25/19 08/01/19 History pantoprazole [Protonix] 40 mg PO DAILY 07/25/19 08/01/19 History simvastatin 40 mg PO HS 07/25/19 08/01/19 History terazosin 5 mg PO HS 07/25/19 08/01/19 History tramadol 50 mg PO DAILY PRN 07/25/19 08/01/19 History warfarin [Coumadin] 2 mg PO HS 07/25/19 08/01/19 History promethazine 25 mg PO Q6H PRN #14 tab 07/29/19 08/01/19 Rx torsemide 10 mg PO QAM 30 Days #30 tab 07/29/19 08/01/19 Rx ferrous sulfate 325 mg PO BID 08/01/19 08/01/19 History Patient History Medical History Afib CKD (chronic kidney disease) Family history of premature CAD History of tobacco abuse Hypertension Mitral stenosis PAD (peripheral artery disease) Pericardial effusion T2DM (type 2 diabetes mellitus) Family History Family/Other Coronary heart disease Father Cancer Heart disease Mother Diabetes Brother Heart disease Social History Preferred Language: Italian Communication Ability: Effective Radio Program Director Required: No Beliefs That Will Affect Care: None marital status: Current Living Situation: Spouse Other Information That Helps Us Care for You: No Feels Safe at Home: Yes Safety Concerns: Feels Safe At This Time Smoking Status: Former smoker Do You Dip or Chew Tobacco: No ; Hx Alcohol Use: No Hx Substance Use: No Review of Systems Review of Systems: All systems reviewed & are unremarkable except as noted in HPI & below Patient's appetite continues to be good. No recent nausea or vomiting since she has left the hospital. No obvious bleeding. No melena. Some of her activity is limited by leg discomfort that she attributes to peripheral vascular disease. She has had stenting of her legs in the past. Physical Exam Physical Exam: She is alert and oriented x3. Mood affect appear normal. She answered all questions appropriately. HEENT: Sclerae are anicteric. Pupils are equal and reactive to light and accommodation. Extraocular movements were intact. Neuro: Cranial nerves intact Neck: Examination of the submandibular region did not reveal any significant lymphadenopathy. Carotids are palpable bilaterally and free of bruits on auscultation. There was no evidence of jugular venous distention. The thyroid was not enlarged. Periorbital swelling noted. Lungs: Lungs are clear to auscultation bilaterally. There are no rales wheezes or rhonchi. She has normal respiratory effort without use of accessory muscles. There is normal pulmonary excursion. Cardiac: The rhythm was regular. S1 and S2 were normal. There are no murmurs on examination. The PMI was not markedly displaced on palpation. Abdomen: The abdomen was soft and nontender. Extremities: Patient has bilateral radial pulses that are equal in intensity. There is no evidence cyanosis or clubbing. She has swelling of both forearms and hands. Skin: There are no rashes noted on examination today. Results & Data ([facility]) Vital Signs (Past 12 Hours) Vital Signs Temp Pulse Pulse Resp BP BP BP 08/03/19 15:22 36.9 C 82 18 151/65 H 08/03/19 15:20 36.9 C 82 18 154/69 H 08/03/19 13:52 36.7 C 82 178/69 H 08/03/19 13:37 36.8 C 82 18 149/63 H 08/03/19 13:35 36.6 C 79 20 151/70 H 08/03/19 13:20 36.4 C L 82 18 159/64 H 08/03/19 11:24 36.3 C L 75 18 126/67 08/03/19 10:27 78 08/03/19 07:10 36.8 C 75 18 129/55 L Pulse Ox 08/03/19 15:22 95 08/03/19 15:20 92 08/03/19 13:52 08/03/19 13:37 99 08/03/19 13:35 100 08/03/19 13:20 100 08/03/19 11:24 99 08/03/19 10:27 08/03/19 07:10 97 Laboratory Results Abnormal Lab Results 08/02/19 08/02/19 08/03/19 13:11 20:32 00:59 WBC RBC Hgb Hct MCV MCH MCHC RDW Std Deviation RDW Coeff of Epifanio Plt Count MPV Immature Gran % (Auto) Neut % (Auto) Lymph % (Auto) [place] % (Auto) Eos % (Auto) Baso % (Auto) Immature Gran # (Auto) Neut # (Auto) Lymph # (Auto) [place] # (Auto) Eos # (Auto) Baso # (Auto) RBC Morphology Haptoglobin 253 H PT INR Sodium Potassium Chloride Carbon Dioxide Anion Gap BUN Creatinine Est Cr Clr Drug Dosing Est GFR ( Amer) Est GFR (Non-Af Amer) BUN/Creatinine Ratio Glucose POC Glucose 222 H Calcium Phosphorus Magnesium Total Bilirubin AST ALT Alkaline Phosphatase Total Protein Albumin Globulin Albumin/Globulin Ratio Urine Color Yellow Urine Appearance Clear Urine pH 5.5 Ur Specific [place] 1.016 Urine Protein 1+ H Urine Glucose (UA) Negative Urine Ketones Negative Urine Blood Negative Urine Nitrite Negative Urine Bilirubin Negative Urine Urobilinogen Negative Ur Leukocyte Esterase Negative Urine WBC (Auto) 1-5 Urine RBC (Auto) 0-4 U Hyaline Cast (Auto) 1-5 U Epithel Cells (Auto) 10-20 H Urine Bacteria (Auto) Negative Blood Type Blood Type Recheck Antibody Screen Crossmatch 08/03/19 08/03/19 08/03/19 05:47 05:47 05:47 WBC 5.32 RBC 2.61 L Hgb 7.7 L Hct 23.6 L MCV 90.4 MCH 29.5 MCHC 32.6 RDW Std Deviation 48.0 H RDW Coeff of Epfianio 14.4 Plt Count 150 MPV 8.5 Immature Gran % (Auto) 0.4 Neut % (Auto) 65.2 Lymph % (Auto) 18.8 [place] % (Auto) 14.5 Eos % (Auto) 0.9 Baso % (Auto) 0.2 Immature Gran # (Auto) 0.02 Neut # (Auto) 3.47 Lymph # (Auto) 1.00 L [place] # (Auto) 0.77 H Eos # (Auto) 0.05 Baso # (Auto) 0.01 RBC Morphology Unremarkable Haptoglobin PT 11.8 INR 1.2 H Sodium 136 Potassium 4.3 Chloride 104 Carbon Dioxide 27 Anion Gap 5.0 BUN 53 H Creatinine 2.57 H Est Cr Clr Drug Dosing 18.1 Est GFR ( Amer) 22.2 Est GFR (Non-Af Amer) 19.1 BUN/Creatinine Ratio 20.7 H Glucose 98 POC Glucose Calcium 8.7 Phosphorus 3.1 Magnesium 1.9 Total Bilirubin 0.2 AST 20 ALT 32 Alkaline Phosphatase 94 Total Protein 6.7 Albumin 2.7 L Globulin 4.0 Albumin/Globulin Ratio 0.7 L Urine Color Urine Appearance Urine pH Ur Specific [place] Urine Protein Urine Glucose (UA) Urine Ketones Urine Blood Urine Nitrite Urine Bilirubin Urine Urobilinogen Ur Leukocyte Esterase Urine WBC (Auto) Urine RBC (Auto) U Hyaline Cast (Auto) U Epithel Cells (Auto) Urine Bacteria (Auto) Blood Type Blood Type Recheck Antibody Screen Crossmatch 08/03/19 08/03/19 08/03/19 05:47 07:09 07:32 WBC RBC Hgb Hct MCV MCH MCHC RDW Std Deviation RDW Coeff of Epifanio Plt Count MPV Immature Gran % (Auto) Neut % (Auto) Lymph % (Auto) [place] % (Auto) Eos % (Auto) Baso % (Auto) Immature Gran # (Auto) Neut # (Auto) Lymph # (Auto) [place] # (Auto) Eos # (Auto) Baso # (Auto) RBC Morphology Haptoglobin PT INR Sodium Potassium Chloride Carbon Dioxide Anion Gap BUN Creatinine Est Cr Clr Drug Dosing Est GFR ( Amer) Est GFR (Non-Af Amer) BUN/Creatinine Ratio Glucose POC Glucose 90 Calcium Phosphorus Magnesium Total Bilirubin AST ALT Alkaline Phosphatase Total Protein Albumin Globulin Albumin/Globulin Ratio Urine Color Urine Appearance Urine pH Ur Specific [place] Urine Protein Urine Glucose (UA) Urine Ketones Urine Blood Urine Nitrite Urine Bilirubin Urine Urobilinogen Ur Leukocyte Esterase Urine WBC (Auto) Urine RBC (Auto) U Hyaline Cast (Auto) U Epithel Cells (Auto) Urine Bacteria (Auto) Blood Type O Positive Blood Type Recheck O Positive Antibody Screen NEGATIVE Crossmatch See Detail 08/03/19 08/03/19 11:40 16:37 WBC RBC Hgb Hct MCV MCH MCHC RDW Std Deviation RDW Coeff of Epifanio Plt Count MPV Immature Gran % (Auto) Neut % (Auto) Lymph % (Auto) [place] % (Auto) Eos % (Auto) Baso % (Auto) Immature Gran # (Auto) Neut # (Auto) Lymph # (Auto) [place] # (Auto) Eos # (Auto) Baso # (Auto) RBC Morphology Haptoglobin PT INR Sodium Potassium Chloride Carbon Dioxide Anion Gap BUN Creatinine Est Cr Clr Drug Dosing Est GFR ( Amer) Est GFR (Non-Af Amer) BUN/Creatinine Ratio Glucose POC Glucose 123 H 220 H Calcium Phosphorus Magnesium Total Bilirubin AST ALT Alkaline Phosphatase Total Protein Albumin Globulin Albumin/Globulin Ratio Urine Color Urine Appearance Urine pH Ur Specific [place] Urine Protein Urine Glucose (UA) Urine Ketones Urine Blood Urine Nitrite Urine Bilirubin Urine Urobilinogen Ur Leukocyte Esterase Urine WBC (Auto) Urine RBC (Auto) U Hyaline Cast (Auto) U Epithel Cells (Auto) Urine Bacteria (Auto) Blood Type Blood Type Recheck Antibody Screen Crossmatch Diagnostic Findings Echocardiogram performed yesterday revealed mild LVH, normal LV systolic funct ion with stage II diastolic function. Severe left atrial dilation. Moderate mitral annular calcification with mild mitral stenosis. Moderate pericardial effusion. ECG Additional Comments: Normal sinus rhythm with first-degree AV block. PG Care Time/CCT Total # of Minutes Spent Total Time Spent with Patient: Total time spent is greater than 50% in coordination of care (as documented) at patient's floor/unit and/or counseling patient: Coding Level of Care Code 25869 Inpt Consult Level 4 Diagnoses Pericardial effusion I31.3 Afib I48.91 Mitral stenosis I05.0 Anemia D64.9 Anemia type: unspecified type (1) Anemia Anemia type: unspecified type Qualified Code(s): D64.9 - Anemia, unspecified
[2019-08-03] MEDS: ACETAMINOPHEN 325 MG TAB PO PRN (21:30)
[2019-08-03] MEDS: INSULIN GLARGINE SOLOSTAR 100 UNITS/ML 3 ML PEN SC SCH (21:31)
[2019-08-03] MEDS: SIMVASTATIN 40 MG TAB PO SCH (21:35)
[2019-08-03] MEDS: ASPIRIN 81 MG ECTAB PO SCH (21:35)
[2019-08-03] MEDS: DIGOXIN 0.125 MG TAB PO SCH (21:35)
[2019-08-03] MEDS: TERAZOSIN HCL 5 MG CAP PO SCH (21:35)
[2019-08-04 08:19] LABS: Eosinophils # (auto) 0.03 K/uL (0-0.5); Eosinophils % (auto) 0.5 %; Hematocrit (blood only) 28.4 % (37-47); Hemoglobin 9.1 g/dL (12.0-16.0); Immature Granulocytes # (auto) 0.01 K/uL (0.00-0.02); Immature Granulocytes % (auto) 0.2 %; Lymphocytes # (auto) 0.78 K/uL (1.2-3.4); Lymphocytes % (auto) 13.3 %; Mean Corpuscular Hemoglobin 28.9 pg (25-34); Mean Corpuscular Volume 90.2 fL (80-100); Mean Platelet Volume 8.7 fL (7.4-10.4); Monocytes # (auto) 0.49 K/uL (0.11-0.59); Monocytes % (auto) 8.3 %; Neutrophils # (auto) 4.57 K/uL (1.4-6.5); Neutrophils % (auto) 77.7 %; Platelet Count 131 K/uL (130-400); RDW Coefficient of Variation 14.2 % (11.5-14.5); RDW Standard Deviation 47.2 fL (36.4-46.3); Red Blood Count 3.15 M/uL (4.2-5.4); White Blood Count 5.88 K/uL (4.8-10.8)
[2019-08-04 08:27] LABS: INR 1.2 (0.9-1.1); Prothrombin Time 11.9 Seconds (9.0-12.0)
[2019-08-04 08:46] LABS: BUN Creatinine Ratio 21.7 (10-20); Creatinine Clr Calc Pharmacy 19.1 ml/min; Est GFR (African American) 23.3; Est GFR (Non-African American) 20.1; Potassium 3.7 mmol/L (3.5-5.1)
[2019-08-04] MEDS: INSULIN ASPART 100 UNITS/ML 3 ML PEN SC SCH ×4 (08:46→20:50)
[2019-08-04 08:47] LABS: Phosphorus 3.3 mg/dl (2.5-4.9)
--- NOTE | 2019-08-04 08:57 | History & Physical Bridge Note ---
Date of Service August 04, 2019 History & Physical Bridge Note I have examined the patient, reviewed the History & Physical and in the interval since the performance of the History & Physical I have noted the following changes of clinical significance: no changes noted
--- NOTE | 2019-08-04 09:06 | Pre Anesthesia Assessment ---
Date of Service August 04, 2019 Pre Sedation Assessment Vital Signs Temp Pulse Pulse Resp BP BP BP 08/04/19 07:31 78 16 164/67 H 08/04/19 03:26 97.3 F L 69 16 143/67 H 08/04/19 00:00 79 08/03/19 23:05 98.1 F 77 18 121/58 L 08/03/19 21:35 80 08/03/19 20:00 98.4 F 80 18 152/65 H 08/03/19 18:26 88 08/03/19 15:22 98.4 F 82 18 151/65 H 08/03/19 15:20 98.4 F 82 18 154/69 H 08/03/19 13:52 98.1 F 82 178/69 H 08/03/19 13:37 98.2 F 82 18 149/63 H 08/03/19 13:35 97.9 F 79 20 151/70 H 08/03/19 13:20 97.5 F L 82 18 159/64 H 08/03/19 11:24 97.3 F L 75 18 126/67 08/03/19 10:27 78 Pulse Ox 08/04/19 07:31 97 08/04/19 03:26 97 08/04/19 00:00 08/03/19 23:05 96 08/03/19 21:35 08/03/19 20:00 94 08/03/19 18:26 08/03/19 15:22 95 08/03/19 15:20 92 08/03/19 13:52 08/03/19 13:37 99 08/03/19 13:35 100 08/03/19 13:20 100 08/03/19 11:24 99 08/03/19 10:27 Pre-Sedation Airway Assessment Smoking Status: Former smoker Hx Sleep Apnea: No Short, Thick Neck: No Thyromental Distance: > or= 3.5 Finger Breadths Oral Cavity: + Dentures Mallampati Class: II ASA: ASA2 NPO Status Date of Last Intake of Fluids: 08/03/19 Time of Last Intake of Fluids: 20:00 Date of Last Intake of Solid Food: 08/03/19 Time of Last Intake of Solid Foods: 20:00 Notes The planned sedation has been discussed with the patient. Informed Consent was obtained. I have identified the patient, determined the appropriateness of sedation and have assessed the patient immediately prior to the procedure. All medicine(s) and interventions are by my order.
[2019-08-04] MEDS ORDERED: LIDOCAINE HCL 2% (LOCAL) INJ 50 ML VIAL INFIL STA (09:41)
[2019-08-04] MEDS ORDERED: MIDAZOLAM HCL 1 MG/ML 2ML VIAL IV STA (09:41)
[2019-08-04] MEDS ORDERED: LIDOCAINE HCL VISCOUS SOLN 2% 15 ML UDC TOP ONE (09:41)
[2019-08-04] MEDS ORDERED: fentaNYL citrate 100 MCG/2 ML VIAL IV ONE (09:41)
--- NOTE | 2019-08-04 09:47 | Procedure Note ---
Procedure Note: Bronchoscopy Procedure Procedure began at 9:11 and ended at 9:40 AM. 2 mg of Versed and 200 mcg of fentanyl were utilized PREOPERATIVE DIAGNOSIS: Mass with lymphadenopathy POSTOPERATIVE DIAGNOSIS: Mass with lymphadenopathy RAPID ON SITE POSITIVE [facility] NODES FOR MALIGNANCY INCLUDE: Patient 7 with positive malignancy for likely non-small cell lung cancer PROCEDURES PERFORMED: Endobronchial ultrasound with transbronchial needle aspiration and regular bronchoscopy to evaluate airway PROCEDURALIST: Justin Doherty MD [employer]2EE ANDROID DEVELOPER: None. ANESTHESIA: Local regional using 1% lidocaine and conscious sedation as noted in the EMR and note INDICATIONS FOR PROCEDURE: [] The procedures were explained to the patient. All risks, benefits, and options were discussed. The risks include but were not limited to bleeding, infection, and pneumothorax. All questions were answered, and the patient wished for us to proceed with the procedure. DESCRIPTION OF PROCEDURE: I was able to pass the endobronchial ultrasound bronchoscope easily through the vocal cords. The vocal cords and epiglottis appeared normal. We evaluated the trachea which appeared mildly erythematous. And then turned my attention to inserting the scope in the right mainstem bronchus and we pointed towards station 7. We did 6 passes of station 7. Initial pass was nondiagnostic. Following bypasses appear to be diagnostic. Biopsies indicate possible non-small cell lung cancer. After biopsying, adequate hemostasis with achieved. The scope was then withdrawn. I then inserted a regular bronchoscope. Again the vocal cords appeared normal. I evaluated the right mainstem bronchus. The orifice of the right mainstem bronchus was distorted and narrowed approximately 70%. I was not able to enter the right upper lobe due to airway distortion. The bronchus intermedius was approximately 80 to 90% narrowed but I was able to pass the scope. There were no obvious endobronchial masses. The right middle lobe appears 90% to 95% narrowed. Right lower lobes appear to be intact along with the superior segment. I then evaluated the left side which appeared generally normal. And then withdrew the scope. Numerous pictures were taken. Summary: Rapid onsite pathology was positive for non-small cell lung cancer and station 7. Significant right mainstem bronchus narrowing and airway distortion.
--- NOTE | 2019-08-04 09:50 | Post Anesthesia Assessment ---
Date of Service August 04, 2019 Post Sedation Assessment Vital Signs Temp Pulse Pulse Resp BP BP BP 08/04/19 09:45 72 20 152/69 H 08/04/19 09:40 71 20 149/73 H 08/04/19 09:35 72 20 145/71 H 08/04/19 09:30 71 20 135/61 08/04/19 09:25 71 20 121/58 L 08/04/19 09:20 73 20 155/76 H 08/04/19 09:15 76 20 163/72 H 08/04/19 09:10 79 20 178/84 H 08/04/19 07:31 78 16 164/67 H 08/04/19 03:26 97.3 F L 69 16 143/67 H 08/04/19 00:00 79 08/03/19 23:05 98.1 F 77 18 121/58 L 08/03/19 21:35 80 08/03/19 20:00 98.4 F 80 18 152/65 H 08/03/19 18:26 88 08/03/19 15:22 98.4 F 82 18 151/65 H 08/03/19 15:20 98.4 F 82 18 154/69 H 08/03/19 13:52 98.1 F 82 178/69 H 08/03/19 13:37 98.2 F 82 18 149/63 H 08/03/19 13:35 97.9 F 79 20 151/70 H 08/03/19 13:20 97.5 F L 82 18 159/64 H 08/03/19 11:24 97.3 F L 75 18 126/67 08/03/19 10:27 78 Pulse Ox 08/04/19 09:45 100 08/04/19 09:40 100 08/04/19 09:35 100 08/04/19 09:30 100 08/04/19 09:25 100 08/04/19 09:20 100 08/04/19 09:15 100 08/04/19 09:10 100 08/04/19 07:31 97 08/04/19 03:26 97 08/04/19 00:00 08/03/19 23:05 96 08/03/19 21:35 08/03/19 20:00 94 08/03/19 18:26 02/27/20 15:22 95 08/03/19 15:20 92 08/03/19 13:52 08/03/19 13:37 99 08/03/19 13:35 100 08/03/19 13:20 100 08/03/19 11:24 99 08/03/19 10:27 Recovery Score Activity: Moves 4 extremities Respiration: Deep Breath/Cough Circulation: +/-20% PreAnes Value Consciousness: Arouseable (by name) Oxygen Saturation: O2 needed for >90% Post Anesthesia Score: 8 Discharge Sedation Level of Care: Fast Track Phase II Post Sedation Plan On clinical assessment, the patient appears to have tolerated the sedation without complications. Patient is recovering as anticipated. Patient will continue to be monitored by nursing and may be discharged when sedation discharge criteria are met per below protocol. Upon Completions of procedure up to 15 minutes continue every 5 minute vital signs and the P.A.R. score; then discharge to a Phase I or Fast Track to Phase II per the following guidelines: * Discharge Patient to appropriate Phase II area if PAR is 8 or greater or return to pre- procedure baseline. The post - procedure orders will be as directed. * If PAR score is less than 8 or not return to pre-procedure baseline then patient will follow Phase I monitoring till PAR is reached for Phase II. The Phase I may be done in procedure room or may call to secure a Phase I area. * If naloxone or flumazenil are used for reversal, hold in Phase I for continued monitoring from when last reversal dose was given for a minimum of 60 minutes or longer pending the nurse and/or physician discretion of patient condition before discharge to Phase II. Please call the Sedation Physician to re-evaluate and complete post-note for discharge to Phase II area. Do NOT discharge from procedure sedation or Phase 1 until post- sedation evaluation note is complete by procedure /sedation MD Sedation Discharge Instructions to be given to the patient at discharge to home.
[2019-08-04] MEDS: METOPROLOL SUCC 50MG EXT REL TAB PO SCH (10:17)
[2019-08-04] MEDS: TORSEMIDE 10 MG TAB PO SCH (10:17)
[2019-08-04] MEDS: PANTOprazole 40 MG TAB PO SCH (10:17)
[2019-08-04] MEDS: CALCIUM CARBONATE 1250MG TAB PO SCH (10:17)
[2019-08-04] MEDS: MAGNESIUM OXIDE 400 MG TAB PO SCH ×2 (10:18→20:48)
[2019-08-04] MEDS: CHOLECALCIFEROL 1,000 UNITS 25 MCG TAB PO SCH (10:18)
[2019-08-04] MEDS: cloNIDine HCL 0.1 MG TAB PO SCH ×2 (10:18→20:48)
[2019-08-04] MEDS: NIACIN 500 MG TAB PO SCH (10:28)
[2019-08-04] MEDS: IRON SUCROSE 200 MG in 0.9 % SODIUM CHLORIDE 100 ML IV SCH (10:29)
[2019-08-04] MEDS ORDERED: EPOETIN ALFA 10,000 UNITS/ML VIAL SQ ONE (11:00)
--- NOTE | 2019-08-04 11:54 | Radiation OncologyConsultation ---
Date of Consultation August 04, 2019 Assessment & Plan (1) Malignant neoplasm of upper lobe, right bronchus or lung: Assessment: Ms. Lawler is a 62-year-old female with a smoking history who presents with SVC syndrome and a preliminary diagnosis of non-small cell lung carcinoma involving the mediastinum and right lung. The patient did have a CT of the abdomen/pelvis which did not reveal any evidence of metastatic disease. The patient is symptomatic with bilateral upper extremity edema and periorbital edema. The patient did undergo a bronchoscopy today with EBUS FNA by Dr. Doherty which revealed a preliminary diagnosis of non-small cell lung carcinoma. I am now seeing the patient in consultation to discuss the role of radiation therapy. Recommendation: 1. Completion of staging work-up including CT of neck, bone scan and CT/MRI of Brain with contrast. PET/CT scan is preferable patient is discharged from the hospital. 2. Urgent palliative external beam radiation therapy to mediastinum to help with SVC syndrome. We will plan to deliver 1 fraction of 300 cGy per fraction and then continue radiation therapy at 200 cGy per fraction next week. We will review the final pathology results and I will then discuss this with the medical oncologist to determine the best plan of care for this patient. I have spoken with Dr. Yoon from medical oncology who is also consulted for this patient and he is in agreement with this plan. 3. Medical oncology consultation. Plan: 1. Defer staging scans to primary hospital team. 2. CT simulation today for treatment planning for radiation therapy. Plan for radiation therapy today due to symptoms. Continue treatment on Wednesday. 3. Medical oncology consult. Input appreciated. 4. Continue follow-up with pulmonary medicine. 5. Continue follow-up with all the providers. 6. Patient and family encouraged to call us with any further questions or concerns. Rationale/Explanation of Treatment: I explained the indications, alternatives, benefits, risks and side effects of external beam radiation therapy. I then discussed radiation therapy side effects for treatment which include, but are not limited to, skin erythema, dry/moist desquamation of the skin, hyperpigmentation, telangiectasias, damage to the heart and development of cardiovascular disease, damage to the lungs including radiation pneumonitis, pulmonary fibrosis, decrease in pulmonary function, cough, fistula formation, tracheal stenosis, esophageal stenosis, esophageal perforation, dysphagia, nausea, vomiting, ulcers in stomach/bowel, gastritis, gastric perforation, bowel perforation, bowel obstruction, weight loss, dehydration, decreased appetite, liver damage including hepatitis and liver failure, damage to the kidneys including decreased renal function and renal failure, spinal cord damage including myelopathy, fatigue and secondary malignancy. The patient understands that the diagnosis may change based on the final pathologic review by pathology. The patient and had multiple questions which were answered to their full satisfaction. Thank you for allowing us to participate in the care of this patient. This chart was completed in part utilizing [employer] Speech Voice Recognition software. Attempts were made to minimize the grammatical errors, random word insertions, pronoun errors and incomplete sentences. Any formal questions or c oncerns about the content, text or information contained within the body of this dictation should be directly addressed to the provider for clarification. Samina Lee MD Department of Radiation Oncology [facility] and [facility] Present on Admission?: No History of Present Illness Attending Physician: Yamel Marc MD History of Present Illness 07/25/2019. CT of head. Impression: No CT evidence of acute intracranial abnormality. 07/25/2019. MRI brain. MRA neck. MRA head. Impression: No evidence of acute intracranial abnormality and no acute vascular finding in the head or neck. Redemonstration of arachnoid cyst along the superior margin of the cerebellum. Mild generalized volume loss and probable mild small vessel ischemic change. 07/25/2019 to 07/29/2019. Patient admitted to ICU for hypotension requiring a Cardene drip. 08/01/2019. Patient represents to emergency room due to bilateral swelling in upper extremities and in face. Patient also reports some shortness of breath with exertion. 08/01/2019. CT of chest. IMPRESSION: 1. Large mediastinal mass with subcarinal extension measuring at least 6 cm in diameter. The mass encases the right pulmonary artery. There is carinal irregularity and narrowing of the right mainstem bronchus, and bronchus intermedius. There is narrowing of the right upper lobe bronchus. There are 2 airspace opacities within the right upper lobe, possibly postobstructive basis. There is probable compression of the superior vena cava. There is a moderate right pericardial effusion. 2. Right lung interstitial thickening. Lymphangitic carcinomatosis cannot be excluded. 08/01/2019. CT of abdomen/pelvis. IMPRESSION: 1. Technically limited study secondary to the lack of intravenous and oral contrast 2. No evidence of bowel obstruction. No evidence of free air 3. Moderate pericardial effusion 4. No evidence of intra-abdominal or pelvic metastatic disease given the limitations of a noncontrast study 5. Mild splenomegaly 08/04/2019. Endobronchial ultrasound with FNA biopsy of station 7, preliminary diagnosis consistent with non-small cell lung carcinoma. DESCRIPTION OF PROCEDURE: " I was able to pass the endobronchial ultrasound bronchoscope easily through the vocal cords. The vocal cords and epiglottis appeared normal. We evaluated the trachea which appeared mildly erythematous. And then turned my attention to inserting the scope in the right mainstem bronchus and we pointed towards station 7. We did 6 passes of station 7. Initial pass was nondiagnostic. Following bypasses appear to be diagnostic. Biopsies indicate possible non-small cell lung cancer. After biopsying, adequate hemostasis with achieved. The scope was then withdrawn. I then inserted a regular bronchoscope. Again the vocal cords appeared normal. I evaluated the right mainstem bronchus. The orifice of the right mainstem bronchus was distorted and narrowed approximately 70. I was not able to enter the right upper lobe due to airway distortion. The bronchus intermedius was approximately 80 to 90% narrowed but I was able to pass the scope. There were no obvious endobronchial masses. The right middle lobe appears 90% to 95% narrowed. Right lower lobes appear to be intact along with the superior segment. I then evaluated the left side which appeared generally normal. And then withdrew the scope. Numerous pictures were taken." Allergies Allergy/AdvReac Type Severity Reaction Status Date / Time ceftaroline fosamil Allergy Hives Verified 08/01/19 17:13 [From Teflaro] Penicillins Allergy Rash Verified 08/01/19 17:13 Home Medications Home Medications Medication Instructions Recorded Confirmed Type One-A-Day Womens Formula 1 tab PO DAILY 07/25/19 08/01/19 History aspirin 81 mg PO HS 07/25/19 08/01/19 History calcium carbonate [Calcium 500] 500 mg PO DAILY 07/25/19 08/01/19 History cholecalciferol (vitamin D3) 5,000 unit PO DAILY 07/25/19 08/01/19 History [Vitamin D3] clonidine HCl 0.1 mg PO BID 07/25/19 08/01/19 History digoxin 125 mcg PO QPM 07/25/19 08/01/19 History insulin aspart U-100 [Novolog 10 unit SUBCUT DAILYBB 07/25/19 08/01/19 History Flexpen U-100 Insulin] insulin aspart U-100 [Novolog 10 unit SUBCUT DAILYBL 07/25/19 08/01/19 History Flexpen U-100 Insulin] insulin aspart U-100 [Novolog 18 unit SUBCUT DAILYBD 07/25/19 08/01/19 History Flexpen U-100 Insulin] insulin degludec [Tresiba 38 unit SUBCUT HS #0 07/25/19 08/01/19 History FlexTouch U-100] magnesium oxide 500 mg PO BID 07/25/19 08/01/19 History metoprolol succinate 50 mg PO DAILY 07/25/19 08/01/19 History niacin [Niacor] 500 mg PO DAILY 07/25/19 08/01/19 History pantoprazole [Protonix] 40 mg PO DAILY 07/25/19 08/01/19 History simvastatin 40 mg PO HS 07/25/19 08/01/19 History terazosin 5 mg PO HS 07/25/19 08/01/19 History tramadol 50 mg PO DAILY PRN 07/25/19 08/01/19 History warfarin [Coumadin] 2 mg PO HS 07/25/19 08/01/19 History promethazine 25 mg PO Q6H PRN #14 tab 07/29/19 08/01/19 Rx torsemide 10 mg PO QAM 30 Days #30 tab 07/29/19 08/01/19 Rx ferrous sulfate 325 mg PO BID 08/01/19 08/01/19 History Patient History Medical History Afib CKD (chronic kidney disease) Family history of premature CAD History of tobacco abuse Hypertension Mitral stenosis PAD (peripheral artery disease) Pericardial effusion T2DM (type 2 diabetes mellitus) Family History Family/Other Coronary heart disease Father Cancer Heart disease Mother Diabetes Brother Heart disease Social History Preferred Language: Maltese Communication Ability: Effective Bi Tester Required: No Beliefs That Will Affect Care: None marital status: Current Living Situation: Spouse Other Information That Helps Us Care for You: No Feels Safe at Home: Yes Safety Concerns: Feels Safe At This Time Smoking Status: Former smoker Do You Dip or Chew Tobacco: No ; Hx Alcohol Use: No Hx Substance Use: No Review of Systems Review of Systems: All systems reviewed & are unremarkable except as noted in HPI & below Physical Exam Constitutional: WD/WN, vitals as above well developed and well nourished Eyes: PERRL, conjunctivae normal, anicteric sclerae Periorbital edema noted bilaterally. ENMT: external ear and nose normal, oropharynx normal Neck: trachea midline, no thyromegaly Respiratory: normal respiratory effort, lungs clear to auscultation Cardiovascular: RRR, no murmur, no edema Gastrointestinal (Abdomen): normal bowel sounds, soft, nontender, no hepatosplenomegaly Musculoskeletal: Bilateral upper extremity pitting edema noted. Skin: no rashes, warm and dry Neurologic: patellar DTR's 2+ bilat, sensation intact and PERRL, EOMI, accommodation nl, no face palsy, no dysarthria Psychiatric: A+Ox3, euthymic affect Time Spent Attending I spent 40 minutes for this consultation, which included obtaining clinical information, performing a physical exam, recommending a plan of action and answering questions. I spent 5 minutes discussing the case with Dr. Teran. Greater than 50% of the time spent was direct face to face interaction with the patient.
--- NOTE | 2019-08-04 12:37 | Hospitalist Progress Note ---
Date of Service August 04, 2019 Assessment & Plan (1) Non-small cell lung cancer (NSCLC): With 6 cm mediastinal mass encasing pulmonary artery and compressing SVC as below Preliminary pathology from EBUS with biopsy of mass and lymph nodes showing non- small cell lung cancer Discussed case with radiation oncology and medical oncology as well as pulmonology -We will complete staging with CT of the neck, bone scan. She did have an MRI of the brain and fortunately it was without contrast due to her chronic kidney disease-the report is scanned in from an outside hospital and was negative CT of the abdomen pelvis checked to look for metastatic disease shows mild splenomegaly and iliac artery graft but otherwise no evidence of disease -Completed mapping for XRT and will have her first treatment this afternoon, treatment to continue with radiation again on Wednesday as an outpatient -Consulted medical oncology-we will need to get set up for outpatient follow-up -We will need to follow-up on final pathology of biopsies Pulmonology requested consultation with thoracic surgery to discuss possible stent placement in the right mainstem bronchus I believe-this is nonurgent-she is not hypoxic and stable at this time -Can follow-up with thoracic surgery on Wednesday but they will see her tomorrow (2) Mediastinal mass: Patient with a new 6cm mediastinal mass, encasing the right pulmonary artery and causing narrowing of the right mainstem and upper lobe bronchi. Now confirmed malignancy as above -Appreciate pulmonary consult and biopsy -Gave vitamin K to reverse INR and now julius at 1.2 Plan outlined as above (3) SVC syndrome: SVC syndrome is secondary to tumor as above Now starting urgent XRT which should hopefully help with this (4) CKD (chronic kidney disease): Unclear what her baseline is-have still not received records from outside nephrology. Probable Chronic kidney disease, stage 4 Patient reports she was told she has CKD 3 and no one has ever talked her about dialysis Creatinine here pains fairly stable at 2.5 She follows with nephrology in [place] -Requested outpatient nephrology records -Consult nephrology while here given complicated issues and significant renal failure-appreciate consult -Has hyperuricemia, but does not suspect TLS -Follow BMP -Avoid nephrotoxins -Renally dose medications -Checked tumor lysis syndrome labs in case having acute renal failure from that- does not appear to have tumor lysis at this time (5) Hypertension: Patient is currently on multiple medications as started during her last visit including Toprol, torsemide, and oral clonidine. We will continue these and follow blood pressures (6) Afib: She continues to remain in sinus rhythm here but has paroxysmal atrial fibrillation in her history and is typically anticoagulated with Coumadin Follows with cardiology in [place]-Dr. Sam Ordered echocardiogram here given pericardial effusion seen on CT--> moderate pericardial effusion without tamponade, preserved EF -Continue Toprol-XL -Anticoagulated with Coumadin, but gave vitamin K for reversal for procedure and for epistaxis -Continue digoxin as well for rate control -Continue holding Coumadin in case of need for further procedures including stent in the lung-if no further procedures planned, can restart Coumadin -Continue on telemetry to monitor for recurrence of A. fib (7) T2DM (type 2 diabetes mellitus): Patient takes insulin, will continue her long-acting insulin along with a sliding scale. Had hypoglycemia here this morning and Lantus was decreased Pharmacy is managing Hemoglobin A1c here 7.3% (8) Anemia: Patient reports she was recently started on iron tablets and was recently told she was anemic. She has been in the 8-9 range and the most recent labs that we have. She is unclear what her baseline is Has had bleeding with recurrent epistaxis every other week requiring cauterization 3 times in recent months Also could be anemia of chronic kidney disease along with iron deficiency anemia from blood loss chronically Fe studies with sat 14%, ferritin 64, B12 and folate normal TSH is normal -given dyspnea with minimal exertion,PAD/CKD and presumed CAD, recurrent epistaxis, requirement for anticoagulation, hgb drop to 7.7, and high likelihood of need for chemotherapy in the near future, she was transfused 1 unit of PRBCs for hgb 7.7 on 08/03 Hemoglobin now appropriately responded up to 9.1 -follow CBC In AM -also received IV Venofer from Nephrology x 3 doses thus far-we will receive daily for 2 more doses if remains hospitalized (9) Hiatal hernia: -Continue PPI (10) HLD (hyperlipidemia): With significant PAD -Continue aspirin, simvastatin (11) PAD (peripheral artery disease): With history of iliac artery stents placed by Dr. Sam a few years back -Continue aspirin and statin Has a history of leg claudication with going upstairs (12) Mitral stenosis: With a history of mitral valvuloplasty in 1996, follows with cardiology as above -echocardiogram here with mild MS EF preserved (13) Epistaxis: Recurrent every other week, on anticoagulation with Coumadin and aspirin -Had epistaxis here the morning after admission-applied Afrin and nasal pressure and stopped -Gave vitamin K as well at that time and INR now remains 1.2 -Follow Has a history of being cauterized x3 by ENT in the past (14) Hypomagnesemia: Replaced (15) Pericardial effusion: Moderate on echo here in CT, no tamponade physiology -Follow and likely is related to mediastinal mass Could have pericardial metastases (16) Severe protein-calorie malnutrition: Appreciate dietary consult -Continue boost twice daily (17) Headache: She has history of headaches just for the last few months likely related to SVC syndrome as above -Tylenol as needed -Hopefully will resolve with radiation treatment of tumor (18) DVT prophylaxis: Coumadin on hold SCDs Disposition-remain on medical floor with telemetry Receiving radiation therapy this afternoon If remains stable on Wednesday can discharge to home Admission and Anticipated Discharge Date Admission Date: August 01, 2019 Anticipated date of discharge: 08/05/19 Subjective Patient had her bronchoscopy this morning with biopsy and then also had mapping for radiation therapy. She denies any further epistaxis. She has a mild cough but no hemoptysis. She denies chest pain. She has not ambulated much today but so far has no dyspnea at rest. No nausea. She inquires about when she will be discharged. Discussed her case today with medical oncology, radiation oncology, thoracic surgery PA, nephrology, nephrology, and pulmonology Telemetry with normal sinus rhythm with PACs with rates in the 70s to 80s Unfortunately, her preliminary pathology is coming back as non-small cell lung cancer with positive lymph nodes I discussed this with the patient and her Review of Systems Review of Systems: All systems reviewed & are unremarkable except as noted in HPI & below (Also continues to have mild to moderate daily headaches which do improve with Tylenol) Physical Exam Constitutional: average body habitus; no acute distress Eyes: PERRL, conjunctivae normal, anicteric sclerae (With periorbital and facial edema slightly improved from previous) Neck: trachea midline, no thyromegaly Respiratory: normal respiratory effort, lungs clear to auscultation Cardiovascular: Rate/Rhythm: regular rate and regular rhythm Heart Sounds: no murmur Extremities: + edema (1+ pitting edema of the upper extremities bilaterally slightly improved) Chest (Breasts): Chest: normal inspection of chest Gastrointestinal (Abdomen): normal bowel sounds, soft, nontender, no hepatosplenomegaly Musculoskeletal: Extremities: no cyanosis and no clubbing Skin: no rashes, warm and dry Neurologic: moves all extremities and awake; no focal motor deficits Psychiatric: Orientation: alert and oriented x 3 Lymphatic: no lymphedema Results & Data ([facility]) Vital Signs (Past 12 Hours) Vital Signs Temp Pulse Pulse Resp BP Pulse Ox 08/04/19 11:14 36.4 C L 70 18 151/76 H 100 08/04/19 10:17 74 18 159/72 H 100 08/04/19 09:55 74 20 166/75 H 99 08/04/19 09:50 72 20 169/74 H 100 08/04/19 09:45 72 20 152/69 H 100 08/04/19 09:40 71 20 149/73 H 100 08/04/19 09:35 72 20 145/71 H 08/04/19 09:30 71 20 135/61 100 08/04/19 09:25 71 20 121/58 L 100 08/04/19 09:20 73 20 155/76 H 100 08/04/19 09:15 76 20 163/72 H 100 08/04/19 09:10 79 20 178/84 H 100 08/04/19 07:31 78 16 164/67 H 97 08/04/19 03:26 36.3 C L 69 16 143/67 H 97 Laboratory Results 08/04/19 08/04/19 08/04/19 Range/Units 20:03 16:39 12:18 WBC (4.8-10.8) K/uL RBC (4.2-5.4) M/uL Hgb (12.0-16.0) g/dL Hct (37-47) % MCV (80-100) fL MCH (25-34) pg MCHC (32-36) g/dL RDW Std Deviation (36.4-46.3) fL RDW Coeff of Epifanio (11.5-14.5) % Plt Count (130-400) K/uL MPV (7.4-10.4) fL Immature Gran % (Auto) % Neut % (Auto) % Lymph % (Auto) % Frio % (Auto) % Eos % (Auto) % Baso % (Auto) % Immature Gran # (Auto) (0.00-0.02) K/uL Neut # (Auto) (1.4-6.5) K/uL Lymph # (Auto) (1.2-3.4) K/uL Frio # (Auto) (0.11-0.59) K/uL Eos # (Auto) (0-0.5) K/uL Baso # (Auto) (0-0.2) K/uL PT (9.0-12.0) Seconds INR (0.9-1.1) Sodium (136-145) mmol/L Potassium (3.5-5.1) mmol/L Chloride (98-107) mmol/L Carbon Dioxide (21-32) mmol/L Anion Gap (3-11) BUN (7-18) mg/dl Creatinine (0.6-1.2) mg/dl Est Cr Clr Drug Dosing ml/min Est GFR ( Amer) Est GFR (Non-Af Amer) BUN/Creatinine Ratio (10-20) Glucose (70-99) mg/dl POC Glucose 163 H 199 H 168 H (70-99) mg/dl Calcium (8.5-10.1) mg/dl Phosphorus (2.5-4.9) mg/dl 08/04/19 08/04/19 08/04/19 Range/Units 08:03 08:03 08:03 WBC 5.88 (4.8-10.8) K/uL RBC 3.15 L (4.2-5.4) M/uL Hgb 9.1 L (12.0-16.0) g/dL Hct 28.4 L (37-47) % MCV 90.2 (80-100) fL MCH 28.9 (25-34) pg MCHC 32.0 (32-36) g/dL RDW Std Deviation 47.2 H (36.4-46.3) fL RDW Coeff of Epifanio 14.2 (11.5-14.5) % Plt Count 131 (130-400) K/uL MPV 8.7 (7.4-10.4) fL Immature Gran % (Auto) 0.2 % Neut % (Auto) 77.7 % Lymph % (Auto) 13.3 % Frio % (Auto) 8.3 % Eos % (Auto) 0.5 % Baso % (Auto) 0.0 % Immature Gran # (Auto) 0.01 (0.00-0.02) K/uL Neut # (Auto) 4.57 (1.4-6.5) K/uL Lymph # (Auto) 0.78 L (1.2-3.4) K/uL Frio # (Auto) 0.49 (0.11-0.59) K/uL Eos # (Auto) 0.03 (0-0.5) K/uL Baso # (Auto) 0.00 (0-0.2) K/uL PT 11.9 (9.0-12.0) Seconds INR 1.2 H (0.9-1.1) Sodium 138 (136-145) mmol/L Potassium 3.7 (3.5-5.1) mmol/L Chloride 105 (98-107) mmol/L Carbon Dioxide 27 (21-32) mmol/L Anion Gap 6.0 (3-11) BUN 54 H (7-18) mg/dl Creatinine 2.47 H (0.6-1.2) mg/dl Est Cr Clr Drug Dosing 19.1 ml/min Est GFR ( Amer) 23.3 Est GFR (Non-Af Amer) 20.1 BUN/Creatinine Ratio 21.7 H (10-20) Glucose 71 (70-99) mg/dl POC Glucose (70-99) mg/dl Calcium 9.0 (8.5-10.1) mg/dl Phosphorus 3.3 (2.5-4.9) mg/dl 08/04/19 08/04/19 08/04/19 Range/Units 08:02 07:39 07:38 WBC (4.8-10.8) K/uL RBC (4.2-5.4) M/uL Hgb (12.0-16.0) g/dL Hct (37-47) % MCV (80-100) fL MCH (25-34) pg MCHC (32-36) g/dL RDW Std Deviation (36.4-46.3) fL RDW Coeff of Epifanio (11.5-14.5) % Plt Count (130-400) K/uL MPV (7.4-10.4) fL Immature Gran % (Auto) % Neut % (Auto) % Lymph % (Auto) % Frio % (Auto) % Eos % (Auto) % Baso % (Auto) % Immature Gran # (Auto) (0.00-0.02) K/uL Neut # (Auto) (1.4-6.5) K/uL Lymph # (Auto) (1.2-3.4) K/uL Frio # (Auto) (0.11-0.59) K/uL Eos # (Auto) (0-0.5) K/uL Baso # (Auto) (0-0.2) K/uL PT (9.0-12.0) Seconds INR (0.9-1.1) Sodium (136-145) mmol/L Potassium (3.5-5.1) mmol/L Chloride (98-107) mmol/L Carbon Dioxide (21-32) mmol/L Anion Gap (3-11) BUN (7-18) mg/dl Creatinine (0.6-1.2) mg/dl Est Cr Clr Drug Dosing ml/min Est GFR ( Amer) Est GFR (Non-Af Amer) BUN/Creatinine Ratio (10-20) Glucose (70-99) mg/dl POC Glucose 71 68 L* 69 L* (70-99) mg/dl Calcium (8.5-10.1) mg/dl Phosphorus (2.5-4.9) mg/dl PG Care Time/CCT Total # of Minutes Spent Total Time Spent with Patient: Total time spent is greater than 50% in coordination of care (as documented) at patient's floor/unit and/or counseling patient: Coding Level of Care Code 09228 Subseq Hosp Care Lvl 3 Diagnoses Non-small cell lung cancer (NSCLC) C34.90 Mediastinal mass J98.59 SVC syndrome I87.1 CKD (chronic kidney disease) N18.9 Hypertension I10 Afib I48.91 T2DM (type 2 diabetes mellitus) E11.9 Anemia D64.9 Anemia type: unspecified type Hiatal hernia K44.9 HLD (hyperlipidemia) E78.5 PAD (peripheral artery disease) I73.9 Mitral stenosis I05.0 Epistaxis R04.0 Hypomagnesemia E83.42 Pericardial effusion I31.3 Severe protein-calorie malnutrition E43 Headache R51 DVT prophylaxis Z29.9 (1) Anemia Anemia type: unspecified type Qualified Code(s): D64.9 - Anemia, unspecified
--- NOTE | 2019-08-04 12:48 | Consultation Report ---
DATE OF CONSULTATION: 08/04/2019 SURGICAL CONSULTATION HISTORY OF PRESENT ILLNESS: This is a 63-year-old female who is admitted to the hospital secondary to facial and upper extremity swelling along with a headache. She also reports some shortness of breath. I questioned the patient on a litany of other symptoms. She denies any head injuries or visual changes, no tinnitus or sore throat are noted. She denies any epistaxis or sore throat. She denies any chest pain, no palpitations. She does note shortness of breath, worse with exertion. She denies any abdominal pain, nausea, vomiting or diarrhea. She does note a poor appetite though. In addition, the patient notes approximately 12-pound weight loss over the past several weeks. She denies any DVT or PE. She denies anxiety or depression. Since admission to the hospital, the patient did have a CT scan of her chest performed, which showed the patient had a large anterior mediastinal mass with subcarinal extension and narrowing of the right upper lobe bronchus. Pulmonary medicine was consulted and she underwent an endobronchial ultrasound today where a level 7 lymph node station revealed nonsmall cell lung cancer. Radiation oncology has been consulted due to this large mediastinal mass. The patient had radiation therapy simulation today and is scheduled for radiation therapy treatment later today. We have been asked to see due to narrowing of her right upper lobe bronchus that was noted during bronchoscopy and consideration of bronchial stent. At the time of my exam, the patient was resting comfortably in bed without complaints. PAST MEDICAL HISTORY: Significant for: 1. Hypertension. 2. Peripheral vascular disease. 3. Atrial fibrillation. 4. Diabetes. ALLERGIES: SHE IS ALLERGIC TO PENICILLIN AND CEFTAROLINE. HOME MEDICATIONS: Include: 1. Aspirin 81 mg daily. 2. Calcium carbonate 500 mg daily. 3. Vitamin D 5000 units daily. 4. Clonidine 0.1 mg twice daily. 5. Digoxin 0.125 mg daily. 6. Iron 325 mg twice daily. 7. NovoLog insulin 10 units in the morning, 18 units in the afternoon and 10 units in the evening along with 38 units at bedtime. 8. Magnesium 500 mg twice daily. 9. Metoprolol 50 mg daily. 10. Niacin 500 mg daily. 11. Multivitamin daily. 12. Protonix 40 mg daily. 13. Phenergan as needed for nausea. 14. Zocor 40 mg daily. 15. Terazosin 5 mg at bedtime. 16. Torsemide 10 mg daily. 17. Tramadol as needed for pain. 18. Coumadin 2 mg daily. SOCIAL HISTORY: The patient does have a history of smoking up until 3 years ago. FAMILY HISTORY: The patient had a family member of esophageal cancer. REVIEW OF SYSTEMS: As noted above. PHYSICAL EXAMINATION: VITAL SIGNS: She has a blood pressure of 151/76, pulse 70 and regular, respirations are 18 and unlabored. She is afebrile with temperature 36.4, pulse ox is 97% on room air. GENERAL: She is alert and oriented x3, in no distress. HEENT: Head is atraumatic, normocephalic. Eyes: No conjunctival abnormality is noted. Ears: Auditory acuity is grossly intact. Nose: Nasal patency was intact. Sinuses are nontender. Mouth is moist without exudates. NECK: Supple. There is no tracheal shift. CARDIOVASCULAR: Irregular rate and rhythm. LUNGS: Revealed breath sounds were slightly decreased on the right. No wheezing was noted. ABDOMEN: Soft, nontender. EXTREMITIES: Revealed no cyanosis or clubbing. She did have generalized upper extremity edema noted. NEUROLOGIC: Revealed she can move all 4 extremities without noted focal deficits. IMPRESSION: A 63-year-old female with non-small cell lung cancer. PLAN: The patient will undergo radiation therapy as ordered. Dr. Gotti will evaluate the patient for consideration of bronchial stent due to the airway narrowing that has been noted. Further recommendations will be based on his review of this case.
--- NOTE | 2019-08-04 14:24 | CT Scan Report ---
Study: CT soft tissue neck HISTORY: Lung carcinoma FINDINGS: Major glandular structures of the neck including parotid and submandibular glands are unrem arkable. The airway is intact. Thyroid appears symmetric. There is no evidence for significant adenopathy within the soft tissue neck. Slight thickening of the subcutaneous fat possibly secondary to treatment response versus weight loss . There is a groundglass density right pulmonary apex unchanged from prior examination of 08/01/2019. IMPRESSION: 1. Mild infiltration of the subcutaneous fat throughout the neck suggesting a probable treatment resp onse and/or reaction due to weight loss 2. No evidence for metastatic change within the soft tissue neck. 3. All major glandular structures are symmetric. 4. Unchanged groundglass nodule right pulmonary apex. Electronically signed by: Cristo Soto M.D. 08/04/2019 2:23 PM
--- NOTE | 2019-08-04 14:59 | Pharmacy Report ---
Pharmacy Glycemic Short Note 2 - Date of Service August 04, 2019 - Glycemic Short BSG Results (Last 24 hours): 08/03/19 08/03/19 08/04/19 16:37 20:23 07:38 Glucose POC Glucose 220 H 206 H 69 L* 08/04/19 08/04/19 08/04/19 07:39 08:02 08:03 Glucose 71 POC Glucose 68 L* 71 08/04/19 12:18 Glucose POC Glucose 168 H OUTPATIENT ANTIDIABETIC REGIMEN: * Tresiba 38 units qHS * Novolog 10 units w/ B & L, 18 units w/ D ASSESSMENT: 08/04/19 * Patient received 45 units of insulin yesterday, 20 units basal, blood sugars 90-220mg/dl * Fasting blood sugar this morning 68mg/dl, will reduce basal further to prevent hypoglycemia * Patient had radiation today, NPO this morning, resumed diet with lunch, likely discharge tomorrow 08/02/19 * 63 y/o F admitted 08/01 for a mediastinal mass, with plans for biopsy tomorrow * Outpatient insulin requirements ~75 units/day * Fasting BSG on the lower side this AM after continuing outpatient dose. In light of hypoglycemia and upcoming NPO status, will decrease tonight's dose by 50%. Novolog parameters have been loosened to be consistent with lower basal dosing. PLAN FOR INPATIENT GLYCEMIC CONTROL: * Basal insulin -decrease * Lantus 14 units SQ HS * Bolus insulin * NovoLog per scale ACHS or Q6hrs while NPO * Goal Range: Low 110 mg/dL - High 140 mg/dL * Correction Factor: 20 mg/dL/unit * Nutritional / Prandial insulin per carb ratio of 1 unit per 7 grams CHO consumed
--- NOTE | 2019-08-04 17:54 | Nephrology Progress Note ---
Date of Service August 04, 2019 Assessment & Plan (1) CKD (chronic kidney disease): Creatinine stable. Volume status acceptable. BP controlled. Electrolytes within normal limits. Records from Dr. Tim requested. At this time, kidney function has been stable and nephrology will follow peripherally during the remaining work-up. Please call with questions or concerns. Regarding hyperuricemia, certainly reasonable to defer on allopurinol and simply monitor for now. (2) Anemia: Venofer 200 mg daily x 5 doses ordered (day 2). s/p 1 u PRBC yesterday. Epogen 83574 units SC provided today. (3) Mediastinal mass: Prelim Dx NSCLCa. Radiation onco consultation and medical oncology consultation. Subjective Tolerated EBUS and Bx without complications.. Appropriate anxiety regarding diagnosis and plan of care moving forward. Review of Systems Review of Systems: All systems reviewed & are unremarkable except as noted in HPI & below Physical Exam Constitutional: well developed and + thin; no acute distress and not edematous Eyes: + anicteric sclerae; no scleral abnormality and no corneal abnormality ENMT: Mouth: no oral mucosal abnormality and oral mucous membranes not dry Neck: normal visual inspection and trachea midline Respiratory: normal respiratory effort Auscultation: lungs clear to auscultation bilaterally Cardiovascular: Rate/Rhythm: regular rate Heart Sounds: normal S1 and normal S2 Musculoskeletal: Extremities: no cyanosis and no clubbing Skin: normal turgor; no lesions and no jaundice Neurologic: Motor/Sensory: no tremor and no asterixis Psychiatric: Orientation: alert and oriented x 3 Results & Data Vital Signs (Past 12 Hours) Vital Signs Temp Pulse Pulse Resp BP Pulse Ox 08/04/19 16:52 78 08/04/19 15:33 36.6 C 80 18 142/66 H 08/04/19 11:14 36.4 C L 70 18 151/76 H 100 08/04/19 10:17 74 18 159/72 H 100 08/04/19 09:55 74 20 166/75 H 99 08/04/19 09:50 72 20 169/74 H 100 08/04/19 09:45 72 20 152/69 H 100 08/04/19 09:40 71 20 149/73 H 100 08/04/19 09:35 72 20 145/71 H 100 08/04/19 09:30 71 20 135/61 100 08/04/19 09:25 71 20 121/58 L 100 08/04/19 09:20 73 20 155/76 H 100 08/04/19 09:15 76 20 163/72 H 100 08/04/19 09:10 79 20 178/84 H 100 08/04/19 08:00 84 08/04/19 07:31 78 16 164/67 H 97 Laboratory Results Laboratory Results - last 24 hr 08/03/19 08/04/19 08/04/19 20:23 07:38 07:39 WBC RBC Hgb Hct MCV MCH MCHC RDW Std Deviation RDW Coeff of Epifanio Plt Count MPV Immature Gran % (Auto) Neut % (Auto) Lymph % (Auto) [place] % (Auto) Eos % (Auto) Baso % (Auto) Immature Gran # (Auto) Neut # (Auto) Lymph # (Auto) [place] # (Auto) Eos # (Auto) Baso # (Auto) PT INR Sodium Potassium Chloride Carbon Dioxide Anion Gap BUN Creatinine Est Cr Clr Drug Dosing Est GFR ( Amer) Est GFR (Non-Af Amer) BUN/Creatinine Ratio Glucose POC Glucose 206 H 69 L* 68 L* Calcium Phosphorus 08/04/19 08/04/19 08/04/19 08:02 08:03 08:03 WBC 5.88 RBC 3.15 L Hgb 9.1 L Hct 28.4 L MCV 90.2 MCH 28.9 MCHC 32.0 RDW Std Deviation 47.2 H RDW Coeff of Epifanio 14.2 Plt Count 131 MPV 8.7 Immature Gran % (Auto) 0.2 Neut % (Auto) 77.7 Lymph % (Auto) 13.3 [place] % (Auto) 8.3 Eos % (Auto) 0.5 Baso % (Auto) 0.0 Immature Gran # (Auto) 0.01 Neut # (Auto) 4.57 Lymph # (Auto) 0.78 L [place] # (Auto) 0.49 Eos # (Auto) 0.03 Baso # (Auto) 0.00 PT INR Sodium 138 Potassium 3.7 Chloride 105 Carbon Dioxide 27 Anion Gap 6.0 BUN 54 H Creatinine 2.47 H Est Cr Clr Drug Dosing 19.1 Est GFR ( Amer) 23.3 Est GFR (Non-Af Amer) 20.1 BUN/Creatinine Ratio 21.7 H Glucose 71 POC Glucose 71 Calcium 9.0 Phosphorus 3.3 08/04/19 08/04/19 08/04/19 08:03 12:18 16:39 WBC RBC Hgb Hct MCV MCH MCHC RDW Std Deviation RDW Coeff of Epifanio Plt Count MPV Immature Gran % (Auto) Neut % (Auto) Lymph % (Auto) [place] % (Auto) Eos % (Auto) Baso % (Auto) Immature Gran # (Auto) Neut # (Auto) Lymph # (Auto) [place] # (Auto) Eos # (Auto) Baso # (Auto) PT 11.9 INR 1.2 H Sodium Potassium Chloride Carbon Dioxide Anion Gap BUN Creatinine Est Cr Clr Drug Dosing Est GFR ( Amer) Est GFR (Non-Af Amer) BUN/Creatinine Ratio Glucose POC Glucose 168 H 199 H Calcium Phosphorus PG Care Time/CCT Total # of Minutes Spent Total Time Spent with Patient: Total time spent is greater than 50% in coordination of care (as documented) at patient's floor/unit and/or counseling patient: Coding Level of Care Code 41571 Subseq Hosp Care Lvl 3 Diagnoses CKD (chronic kidney disease) N18.9 Anemia D64.9 Anemia type: unspecified type Mediastinal mass J98.59 (1) Anemia Anemia type: unspecified type Qualified Code(s): D64.9 - Anemia, unspecified
[2019-08-04] MEDS: ACETAMINOPHEN 325 MG TAB PO PRN (19:11)
[2019-08-04] MEDS: SIMVASTATIN 40 MG TAB PO SCH (20:47)
[2019-08-04] MEDS: ASPIRIN 81 MG ECTAB PO SCH (20:47)
[2019-08-04] MEDS: TERAZOSIN HCL 5 MG CAP PO SCH (20:48)
[2019-08-04] MEDS: DIGOXIN 0.125 MG TAB PO SCH (20:48)
[2019-08-04] MEDS ORDERED: INSULIN GLARGINE SOLOSTAR 100 UNITS/ML 3 ML PEN SC SCH (21:00)
[2019-08-05] MEDS ORDERED: COUGH DROP (SUGAR FREE) LOZ 24 LOZ/1 BOX BUCCAL STA (02:27)
[2019-08-05] MEDS ORDERED: COUGH DROP (SUGAR FREE) LOZ 24 LOZ/1 BOX BUCCAL ONE (02:30)
[2019-08-05 08:02] LABS: Basophils # (auto) 0.01 K/uL (0-0.2); Basophils % (auto) 0.2 %; Eosinophils # (auto) 0.08 K/uL (0-0.5); Eosinophils % (auto) 1.5 %; Hematocrit (blood only) 26.3 % (37-47); Hemoglobin 8.3 g/dL (12.0-16.0); Immature Granulocytes # (auto) 0.01 K/uL (0.00-0.02); Immature Granulocytes % (auto) 0.2 %; Lymphocytes # (auto) 1.46 K/uL (1.2-3.4); Lymphocytes % (auto) 26.7 %; Mean Corpuscular Hemoglobin 28.9 pg (25-34); Mean Corpuscular Hgb Conc 31.6 g/dL (32-36); Mean Corpuscular Volume 91.6 fL (80-100); Mean Platelet Volume 9.1 fL (7.4-10.4); Monocytes # (auto) 0.57 K/uL (0.11-0.59); Monocytes % (auto) 10.4 %; Neutrophils # (auto) 3.34 K/uL (1.4-6.5); Platelet Count 137 K/uL (130-400); RDW Coefficient of Variation 14.2 % (11.5-14.5); RDW Standard Deviation 47.4 fL (36.4-46.3); Red Blood Count 2.87 M/uL (4.2-5.4); White Blood Count 5.47 K/uL (4.8-10.8)
[2019-08-05 08:10] LABS: INR 1.2 (0.9-1.1); Prothrombin Time 11.8 Seconds (9.0-12.0)
[2019-08-05] MEDS: IRON SUCROSE 200 MG in 0.9 % SODIUM CHLORIDE 100 ML IV SCH (08:16)
[2019-08-05] MEDS: MAGNESIUM OXIDE 400 MG TAB PO SCH (08:17)
[2019-08-05] MEDS: cloNIDine HCL 0.1 MG TAB PO SCH (08:17)
[2019-08-05] MEDS: TORSEMIDE 10 MG TAB PO SCH (08:17)
[2019-08-05] MEDS: CALCIUM CARBONATE 1250MG TAB PO SCH (08:17)
[2019-08-05] MEDS: CHOLECALCIFEROL 1,000 UNITS 25 MCG TAB PO SCH (08:18)
[2019-08-05] MEDS: METOPROLOL SUCC 50MG EXT REL TAB PO SCH (08:18)
[2019-08-05] MEDS: PANTOprazole 40 MG TAB PO SCH (08:18)
[2019-08-05] MEDS: INSULIN ASPART 100 UNITS/ML 3 ML PEN SC SCH ×2 (08:19→12:27)
[2019-08-05 08:36] LABS: BUN Creatinine Ratio 20.2 (10-20); Calcium 9.1 mg/dl (8.5-10.1); Creatinine Clr Calc Pharmacy 14.8 ml/min; Est GFR (Non-African American) 14.6; Magnesium 1.6 mg/dl (1.8-2.4); Potassium 4.7 mmol/L (3.5-5.1)
[2019-08-05] MEDS ORDERED: INSULIN GLARGINE SOLOSTAR 100 UNITS/ML 3 ML PEN SC ONE (09:00)
--- NOTE | 2019-08-05 11:11 | Nephrology Progress Note ---
Date of Service August 05, 2019 Assessment & Plan (1) CKD (chronic kidney disease): 63-year-old female with stage IIIB/4 CKD, baseline creatinine somewhere around 2.5-2.6. Found to have LUBNA with new diagnosis of non-small cell lung carcinoma. Creatinine was 3.1 initially which improved somewhat close to baseline however again worsened to 3.2 this morning. Electrolyte acceptable. Volume status acceptable. BP controlled. Records from Dr. Tim requested. Regarding hyperuricemia, certainly reasonable to defer on allopurinol and simply monitor for now. --discussed with patient that with significant worsening of renal function today compared to yesterday, it would be advisable to have inpatient monitoring renal function, electrolyte, blood pressure and volume status. However, as patient otherwise feels fine she is really looking forward to go home and had lab done as an outpatient. We discussed about potential risks including significant electrolyte abnormality, volume overload and need for evaluation in ER in those situation. Patient and verbalized understanding however still would like to get discharged today. --patient should have lab done Wednesday morning and have those results forwarded to her primary geology teacher Dr. Tim --advised her to keep well hydrated at home, avoid high potassium food, avoid all NSAIDs Will follow while inpatient (2) Anemia: Venofer 200 mg daily x 5 doses ordered (day 07/12). s/p 1 u PRBC yesterday. Epogen 01642 units SC provided today. (3) Mediastinal mass: Prelim Dx NSCLCa. Radiation onco consultation and medical oncology consultation. Louise Villavicencio was seen and examined in her room this morning with her at bedside. She denies any specific symptoms. Had 1st radiation therapy yesterday, tolerated well. She reports normal p.o. intake. Voiding has been normal. Blood pressure well controlled. Slight change in renal function over last 24 with creatinine to 3.2 from 2.5 yesterday, electrolyte acceptable. Review of Systems Review of Systems: All systems reviewed & are unremarkable except as noted in HPI & below Physical Exam Constitutional: + ill appearing; no acute distress Respiratory: normal respiratory effort, lungs clear to auscultation Cardiovascular: Rate/Rhythm: regular rate and regular rhythm Heart Sounds: normal S1 and normal S2 Extremities: + edema (Bilateral upper extremity edema.) Neurologic: moves all extremities and awake; not confused Psychiatric: A+Ox3, euthymic affect Results & Data Vital Signs (Past 12 Hours) Vital Signs Temp Pulse Pulse Resp BP BP Pulse Ox 08/05/19 08:44 74 118/74 08/05/19 07:25 36.4 C L 77 18 130/65 98 08/05/19 07:11 71 08/05/19 03:32 36.6 C 75 18 139/77 94 08/04/19 23:48 86 PG Care Time/CCT Total # of Minutes Spent Total Time Spent with Patient: Total time spent is greater than 50% in coordination of care (as documented) at patient's floor/unit and/or counseling patient: Coding Level of Care Code 78866 Subseq Hosp Care Lvl 3 Diagnoses CKD (chronic kidney disease) N18.9 Anemia D64.9 Anemia type: unspecified type Mediastinal mass J98.59 (1) Anemia Anemia type: unspecified type Qualified Code(s): D64.9 - Anemia, unspecified
--- NOTE | 2019-08-05 12:11 | Consultation Report ---
DATE OF CONSULTATION: 08/05/2019 MEDICAL ONCOLOGY CONSULTATION REASON FOR CONSULTATION: 1. Locally advanced non-small cell lung cancer. 2. Superior vena cava syndrome. HISTORY OF PRESENT ILLNESS: Maye is a very pleasant 63-year-old from [facility], admitted to [facility] on 08/01/2019 with symptoms consistent with general decline. Over the past couple of weeks, the patient has been struggling with exercise tolerance, shortness of breath and dyspnea on exertion. She had also been complaining of frequent headaches. She notes a nonproductive cough, which seems to have worsened. Finally, the symptoms prompted evaluation in the Emergency Room with subacute-onset upper extremity swelling and neck vein distention. She was evaluated in our Emergency Room and radiographic studies, specifically CT scan of the chest was revealing. The patient has a large mediastinal mass of at least 6 cm in diameter with secondary narrowing of the right main stem bronchus and bronchus intermedius, mucosal irregularity of the jovi and compression of the superior vena cava. Within the lungs, specifically a 15 mm right apical airspace opacity and a second 17 mm right apical airspace opacity. CT of the abdomen and pelvis was also done and did not appear to be consistent with metastatic spread. However, the study was limited because of lack of contrast. I was informally introduced to Maye's case by Dr. Marc and recommended she immediately get radiation oncology involved. Biopsy has been done confirming nonsmall cell lung cancer, but unfortunately I do not have specifics with biomarkers at this time. At first glance, it would appear her disease is locally advanced and she is most likely not a surgical candidate because of anatomical position of the primary lesion. Lastly, the patient admits to declining appetite and loss of between 15 and 20 pounds over the past couple of months. PAST MEDICAL HISTORY: Significant for atrial fibrillation, chronic kidney disease, hypertension, mitral stenosis, peripheral artery disease, type 2 diabetes mellitus. MEDICATIONS: Include ferrous sulfate 325 mg p.o. b.i.d., torsemide 10 mg p.o. daily, promethazine 25 mg p.o. q.6 hours p.r.n., Coumadin 2 mg p.o. daily, tramadol 50 mg p.o. daily p.r.n., terazosin 5 mg p.o. daily, simvastatin 40 mg p.o. daily, Protonix 40 mg p.o. daily, niacin 500 mg p.o. daily, metoprolol 50 mg p.o. daily, mag oxide 500 mg p.o. b.i.d., Tresiba 38 units subQ at bedtime, insulin aspart U-100 18 units subQ daily before dinner, she receives 10 units before lunch and 10 units before breakfast, digoxin 125 mcg p.o. q.p.m., clonidine 0.1 mg p.o. b.i.d., cholecalciferol 5000 units p.o. daily, calcium 500 mg p.o. daily, aspirin 81 mg p.o. daily, and One-A-Day Women's formula vitamin 1 p.o. daily. ALLERGIES: CEFTAROLINE AND PENICILLINS. 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 She blogged a 30+ pack year smoking history. Negative for alcohol or illicit drugs. FAMILY HISTORY: Father of esophageal cancer. Also suffered from heart disease. Mother suffered from diabetes mellitus and a brother with heart disease as well. REVIEW OF SYSTEMS: CONSTITUTIONAL: As per HPI, most notably for gross clinical decline manifested by anorexia and weight loss, decreased exercise tolerance, shortness of breath, dyspnea and nonproductive cough. SKIN: No rashes or lesions. No history of dermatoses. HEENT: She complains of frequent headaches. No lightheadedness or vertigo. No acute visual or hearing deficits. No sinus symptoms, sore throat or dysphagia. LYMPHATICS: No history of lymphoproliferative disease. CARDIAC: No history of coronary artery disease. No current angina or palpitations. PULMONARY: As above. GASTROINTESTINAL: She has had intermittent bouts of nausea and vomiting. No abdominal pain, diarrhea or constipation, hematochezia or melena stools. GENITOURINARY: No hematuria, dysuria, or urinary incontinence. PSYCHIATRIC: Negative for anxiety, depression or psychoses. ENDOCRINE: Positive for diabetes mellitus. MUSCULOSKELETAL: No skeletal pain per se. No arthralgias or myalgias. No focal muscle weakness. NEUROLOGIC: Negative for seizures or strokes. Positive for frequent headaches. HEMATOLOGIC: Positive for anemia. PHYSICAL EXAMINATION: GENERAL: A very pleasant 63-year-old female patient accompanied by her , in no acute distress. VITAL SIGNS: Temperature 36.4, pulse 74, respiratory rate 18, blood pressure 118/74. SKIN: Warm, dry, noncyanotic without petechia, rash or ecchymosis. HEENT: Head is atraumatic, normocephalic. Eyes: PERRLA, EOMI. Sclerae nonicteric. No conjunctival injection. Nares are patent without rhinorrhea or discharge. Throat is clear. Tongue midline. Mucous membranes are moist. NECK: Supple; however, there is vascular engorgement notable, right greater than left. HEART: Regular rate and rhythm. LUNGS: Sonorous rhonchi heard in the posterior bases bilaterally. ABDOMEN: Soft, nontender, nondistended, without palpable hepatosplenomegaly. EXTREMITIES: Marked swelling, left greater than right upper extremities predominantly. Trace peripheral edema in bilateral lower extremities. MUSCULOSKELETAL: Strength is equal in all 4 quadrants. NEUROLOGICAL: She is awake, alert and oriented x3. Cranial nerves are grossly intact. LABORATORY DATA: WBC count 5470, hemoglobin 8.3, platelet count 137,000. Sodium 136, potassium 4.7, chloride 104, carbon dioxide 26, creatinine 3.21, BUN 65, magnesium 1.6. IMPRESSION: 1. Locally advanced non-small cell lung cancer. 2. Superior vena cava syndrome. 3. Anorexia/weight loss. 4. Chronic kidney disease. 5. Frequent bifrontal headaches. 6. Isolated anemia. PLAN: It was my pleasure to meet Maye and her at bedside today. According to the , Maye has been not doing well over the past year, but finally as she declined significantly manifested by decreased exercise tolerance, anorexia, weight loss, nonproductive cough and dyspnea on exertion, presented to the hospital for admission. She has a large mediastinal mass that is not only compressing some of her airways, but also the superior vena cava, resulting in present swelling. Recommended radiation oncology consult and treatment began yesterday. She will resume palliative radiation therapy on Wednesday and would guess, Dr. Lee will probably treat for 5-10 fractions. Couple of concerning issues. This patient has had headaches pretty frequently and with lung cancer diagnosis, we should proceed with MRI of the brain while in house. I would also consult General Surgery for MediPort placement as at some point, Maye will require chemotherapy. Would continue to work on her nutritional status, perhaps start a low-dose prednisone for appetite stimulation. Once she is medically stable, discharge to home and we will plan on reconvening once compiling the data is complete. Should there be no evidence of distant metastatic disease, we will probably consider Maye for chemoradiation upfront. I do not believe she is a surgical candidate. I have nothing further to add and agree with medical management otherwise. We will continue to periodically follow during her inpatient stay.
[2019-08-05] MEDS ORDERED: SODIUM CHLORIDE 0.9% 500 ML IV SCH (12:15)
[2019-08-05] MEDS ORDERED: MAGNESIUM SULFATE / D5W 1 GM/100 ML BAG IV ONE (12:30)
[2019-08-05] MEDS ORDERED: LEVALBUTEROL HCL 0.63 MG/3 ML NEB NEB STA (12:45)
[2019-08-05] MEDS ORDERED: ENOXAPARIN INJ 60 MG/0.6 ML SYR SQ SCH (12:45)
--- NOTE | 2019-08-05 14:30 | Pharmacy Report ---
Pharmacy Glycemic Short Note 2 - Date of Service August 05, 2019 - Glycemic Short BSG Results (Last 24 hours): 08/04/19 08/04/19 08/05/19 16:39 20:03 07:34 Glucose 164 H POC Glucose 199 H 163 H 08/05/19 08/05/19 07:39 11:35 Glucose POC Glucose 184 H 154 H OUTPATIENT ANTIDIABETIC REGIMEN: * Tresiba 38 units qHS * Novolog 10 units w/ B & L, 18 units w/ D ASSESSMENT: 08/05/19 * Patient is currently receiving an average of 33 units of insulin per day * 14 units of basal insulin * 19 units of prandial/correctional insulin * BSGs ranging 163-199 over the past 24hrs * Risk factors for insulin resistance are constant over the past 24hrs * Fasting BSG = 184 mg/dL. Was anticipating possible discharge today so wanted to provide some basal that she was short on from last night. Now patient will be staying so will provide max of 18 units today. * Postprandials were elevated yesterday so will tighten CR 08/04/19 * Patient received 45 units of insulin yesterday, 20 units basal, blood sugars 90-220mg/dl * Fasting blood sugar this morning 68mg/dl, will reduce basal further to prevent hypoglycemia * Patient had radiation today, NPO this morning, resumed diet with lunch, likely discharge tomorrow 08/02/19 * 63 y/o F admitted 08/01 for a mediastinal mass, with plans for biopsy tomorrow * Outpatient insulin requirements ~75 units/day * Fasting BSG on the lower side this AM after continuing outpatient dose. In light of hypoglycemia and upcoming NPO status, will decrease tonight's dose by 50%. Novolog parameters have been loosened to be consistent with lower basal dosing. PLAN FOR INPATIENT GLYCEMIC CONTROL: * Basal insulin - increase slightly * Lantus 10 units this AM * Lantus qPM per the following scale: * 5 units for BSG < 160 * 8 units for BSG 160 or above * Bolus insulin - tighten CR * NovoLog per scale ACHS or Q6hrs while NPO * Goal Range: Low 110 mg/dL - High 140 mg/dL * Correction Factor: 20 mg/dL/unit * Nutritional / Prandial insulin per carb ratio of 1 unit per 6 grams CHO consumed
--- NOTE | 2019-08-05 14:40 | Discharge Summary ---
Date of Service August 05, 2019 Admission HPI Per Admitting Provider This is a 63-year-old female with a past medical history of chronic disease, hypertension, peripheral arterial disease, atrial fibrillation, diabetes and presents today complaining of headache and facial swelling. Patient is alone in the room but good historian. Of note, the patient had previously been admitted here . She had been transferred from an outside facility with accelerated hypertension requiring a Cardene drip. At the time of her discharge, her blood pressure was much better controlled on a multidrug regimen. Patient tells me that soon after she arrived home, her headache returned. She felt it was her typical migraine as before. She also noted a nonproductive cough which seemed to be worsening over the past day. However, when she woke up this morning she noted that she has significant bout of periorbital edema around her left eye. At that point, she returned to the emergency room for further evaluation. At time my evaluation, the patient seems to be, no distress. Blood pressure is improved with a systolic of 155. I did note the CT scan showing a large mediastinal mass which is encasing the right pulmonary artery. There may also be narrowing of the the right mainstem and right upper lobe bronchi. We did discuss further work-up but briefly. Of note, patient tells me that her appetite has been poor over the past few months and she is lost approximately 50 pounds since Rosalio. Principal Diagnosis Non small cell lung cancer, SVC syndrome Discharge Exam Constitutional average body habitus; no acute distress Eyes PERRL, conjunctivae normal, anicteric sclerae (With periorbital and facial edema slightly improved from previous) ENMT external ear and nose normal, oropharynx normal Neck trachea midline, no thyromegaly Respiratory normal respiratory effort, lungs clear to auscultation Cardiovascular Rate/Rhythm: regular rate and regular rhythm Heart Sounds: no murmur Extremities: + edema (1+ pitting edema of the upper extremities bilaterally slightly improved) Chest (Breasts) Chest: normal inspection of chest Gastrointestinal (Abdomen) normal bowel sounds, soft, nontender, no hepatosplenomegaly Musculoskeletal Extremities: no cyanosis and no clubbing Skin no rashes, warm and dry Neurologic moves all extremities and awake; no focal motor deficits Psychiatric A+Ox3, euthymic affect Orientation: alert and oriented x 3 Lymphatic no lymphedema Discharge Data Allergies Allergy/AdvReac Type Severity Reaction Status Date / Time ceftaroline fosamil Allergy Hives Verified 08/01/19 17:13 [From Teflaro] Penicillins Allergy Rash Verified 08/01/19 17:13 Consultations 08/01/19 18:46 ED Decision to Admit Stat 08/01/19 20:46 Consult Pulmonology Routine 08/02/19 12:53 Consult Health Information Management Routine Consult Nephrology Routine 08/02/19 16:03 Consult Cardiology Routine 08/04/19 10:07 Consult Oncology Routine 08/04/19 10:24 Consult Radiation Oncology Routine Consult Thoracic Surgery Routine Procedures Performed Operation Date: 08/04/19 09:00 Actual Procedures p Endobronchial Ultrasound (EBUS)(Bilateral) - Justin Doherty MD Ordered Studies 08/01/19 17:41 CT chest wo con Stat 08/01/19 20:46 CT abd pelvis wo con Routine 08/04/19 11:09 CT guide rad therapy chest Routine 08/04/19 13:45 CT soft tissue neck wo con Routine CXR ECHO Hospital Course (1) Non-small cell lung cancer (NSCLC): With 6 cm mediastinal mass encasing pulmonary artery and compressing SVC as below Preliminary pathology from EBUS with biopsy of mass and lymph nodes showing non- small cell lung cancer Discussed case with radiation oncology and medical oncology as well as pul monology -attempted to complete staging with CT of the neck--> negative for disease, and bone scan ordered but not done on weekend before discharge--> can be done as an outpatient. -She did have an MRI of the brain and unfortunately it was without contrast due to her chronic kidney disease-the report is scanned in from an outside hospital and was negative -CT of the abdomen pelvis checked to look for metastatic disease shows mild splenomegaly and iliac artery graft but otherwise no evidence of disease -Completed mapping for XRT and will have her first treatment while in hospital, treatment to continue with radiation again on Wednesday as an outpatient -Consulted medical oncology-we will need to get set up for outpatient follow-up - will need to follow-up on final pathology of biopsies Pulmonology requested consultation with thoracic surgery to discuss possible stent placement in the right mainstem bronchus I believe-this is nonurgent-she is not hypoxic and stable at this time -Can follow-up with thoracic surgery as an outpt (2) Mediastinal mass: Patient with a new 6cm mediastinal mass, encasing the right pulmonary artery and causing narrowing of the right mainstem and upper lobe bronchi. 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 Probable Chronic kidney disease, stage 4 Patient reports she was told she has CKD 3 and no one has ever talked her about dialysis Creatinine here pains fairly stable at 2.5 and then up to 3.2 on day of discharge from mild dehydration -advised to HOLD torsemide on discharge -encourage dpo fluids and she will get labs done on Wednesday to f/u on renal function She follows with nephrology in [place] -Requested outpatient nephrology records -Consult nephrology while here given complicated issues and significant renal failure-appreciate consult -Has hyperuricemia, but does not suspect TLS -Follow BMP -Avoid nephrotoxins -Renally dose medications -Checked tumor lysis syndrome labs in case having acute renal failure from that- does not appear to have tumor lysis at this time (5) Hypertension: Patient is currently on multiple medications as started during her last visit including Toprol, torsemide, and oral clonidine. We will continue these except holding torsemide as above for LUBNA (6) Afib: She continues to remain in sinus rhythm here but has paroxysmal atrial fibrillation in her history and is typically anticoagulated with Coumadin Follows with cardiology in [place]-Dr. Sam Ordered echocardiogram here given pericardial effusion seen on CT--> moderate pericardial effusion without tamponade, preserved EF -Continue Toprol-XL -Anticoagulated with Coumadin, but gave vitamin K for reversal for procedure and for epistaxis -Continue digoxin as well for rate control -Continue holding Coumadin in case of need for further procedures including stent in the lung and likely port placement for chemotherapy in the near future -after no further procedures planned, can restart Coumadin -will bridge with renally dosed Lovenox in the meantime -check Factor XA level 4 hours after 4th dose on Wednesday to ensure good level (7) T2DM (type 2 diabetes mellitus): Patient takes insulin, will continue her long-acting insulin along with a sliding scale. Had hypoglycemia here twhich improved after Lantus was decreased Pharmacy is managing Hemoglobin A1c here 7.3% -advised reduction to half dosing in her usual Tresiba until eating more at home and then can gradually increase (8) Anemia: Patient reports she was recently started on iron tablets and was recently told she was anemic. She has been in the 8-9 range and the most recent labs that we have. She is unclear what her baseline is Has had bleeding with recurrent epistaxis every other week requiring cauterization 3 times in recent months Also could be anemia of chronic kidney disease along with iron deficiency anemia from blood loss chronically Fe studies with sat 14%, ferritin 64, B12 and folate normal TSH is normal -given dyspnea with minimal exertion,PAD/CKD and presumed CAD, recurrent epistaxis, requirement for anticoagulation, hgb drop to 7.7, and high likelihood of need for chemotherapy in the near future, she was transfused 1 unit of PRBCs for hgb 7.7 on 08/03 Hemoglobin now appropriately responded up to 9.1 and then down to 8.3 on day of discharge -follow CBC as na outpt with Heme/Onc -also received IV Venofer from Nephrology x 4 doses (9) Hiatal hernia: -Continue PPI (10) HLD (hyperlipidemia): With significant PAD -Continue aspirin, simvastatin (11) PAD (peripheral artery disease): With history of iliac artery stents placed by Dr. Sam a few years back -Continue aspirin and statin Has a history of leg claudication with going upstairs (12) Mitral stenosis: With a history of mitral valvuloplasty in 1996, follows with cardiology as above -echocardiogram here with mild MS EF preserved (13) Epistaxis: Recurrent every other week, on anticoagulation with Coumadin and aspirin -Had epistaxis here the morning after admission-applied Afrin and nasal pressure and stopped -Gave vitamin K as well at that time and INR now remains 1.2 -Follow Has a history of being cauterized x3 by ENT in the past (14) Hypomagnesemia: Replaced (15) Pericardial effusion: Moderate on echo here in CT, no tamponade physiology -Follow and likely is related to mediastinal mass Could have pericardial metastases? (16) Severe protein-calorie malnutrition: Appreciate dietary consult -Continue boost twice daily (17) Headache: She has history of headaches just for the last few months likely related to SVC syndrome as above -Tylenol as needed -Hopefully will resolve with radiation treatment of tumor-has already significantly improved since admission and starting XRT (18) DVT prophylaxis: Coumadin on hold SCDs provided Giving BRIDGING LOVENOX 50mg SQ q24hrs which is THERAPEUTIC RENAL DOSING as above Disposition-stable for discharge to home Total Time Total Time Spent Total Time Spent (In Minutes): 45 min Total Time Includes: Examination of the Patient, Discharge Planning, Medication Reconciliation and Communication With Other Providers (Nephrology) Discharge Plan Discharge Items Patient Disposition: Home - Self-Care Reason For Visit: MEDIASTINAL MASS, SVC SYNDROME Discharge Diagnosis: Non small cell lung cancer, Superior vena cava syndrome Acute kidney injury on chronic kidney disease stage 4 Condition on Discharge: Fair Activity: As commented below Lifting: No more than 5 pounds Bathing: No limitations Exercise/Sports: As tolerated Weightbearing: Full weightbearing Non-emergency contact: Primary Care Provider, Cloth Wire Weaver and Oncologist Call non-emergency contact if: you have any medication questions, your symptoms worsen, your pain is not controlled, your pain is worsening, your pain is unusual for you, your pain is concerning for you, you have a fever and your temperature is above 101 Follow-up/Referrals: Samina Lee MD [Physician] - (Follow up for radiation treatment on Wednesday as scheduled ) Paul Yoon DO [Physician] - (Dr. Yoon's office should contact you to set up an appointment.) Dustin Taylor [Primary Care Provider] - 08/11/19 3:15 pm (If you need to change this appointment, please call [phone].) Diet: Heart Healthy Ambulatory Orders: Coag Factor 10 Activity (Routine) Location: None Selected Ordered By: Yamel Marc Addtl Attending Provider Instructions: You were admitted for swelling of the arms and face and found to have a lung cancer pushing on the large vein that returns blood flow from the top half of your body. This is causing the swelling. You had a lung biopsy and this unfortunately showed that you have lung cancer. You started treatment with radiation and will also need a port placed and start chemotherapy with Oncology in the near future. Please remain off your Coumadin and use Lovenox injections instead as directed until you are advised to go back on your Coumadin. You will use Lovenox 50mg SQ once daily and check a Factor XA level (Lovenox level) on Wednesday08/08/19 (must be four hours after your Lovenox injection is given). Your Field Map Editor or PCP can review the results of this test and make sure your Lovenox levels are good. Once you have your port placed, then you can go back on your Coumadin and eventually stop the Lovenox. Please also have your kidney function checked on Wednesday and drink plenty of fluids in the meantime. Do NOT take your torsemide until your Cloth Wire Weaver says it is ok if your kidney function improves on Wednesday's blood work. You were not using nearly as much insulin here as you normally do at home. You should cut your Tresiba down to 14 units for tonight and you can increase it back up as needed if your sugar increases again. Continue your Novolog sliding scale with meals. Follow up with your PCP as well as scheduled for you. Pending Studies at Discharge: Yes (Final pathology from biopsy) Stand-Alone Forms: My [facility] Medications and DC Order Prescriptions: New enoxaparin 60 mg/0.6 mL Syringe 50 mg subcut QAM Qty: 6 RF: 0 acetaminophen [Mapap (acetaminophen)] 325 mg Tablet 650 mg PO Q4H PRN (Reason: pain) Qty: 30 RF: 0 Continued terazosin 5 mg Capsule 5 mg PO HS RF: 0 clonidine HCl 0.1 mg Tablet 0.1 mg PO BID RF: 0 metoprolol succinate 50 mg Tablet Extended Release 24 Hr 50 mg PO DAILY RF: 0 tramadol 50 mg Tablet 50 mg PO DAILY PRN (Reason: Pain, Moderate) RF: 0 simvastatin 40 mg Tablet 40 mg PO HS RF: 0 pantoprazole [Protonix] 40 mg Tablet,Delayed Release (Dr/Ec) 40 mg PO DAILY RF: 0 niacin [Niacor] 500 mg Tablet 500 mg PO DAILY RF: 0 magnesium oxide 500 mg Tablet 500 mg PO BID RF: 0 aspirin 81 mg Tablet,Chewable 81 mg PO HS RF: 0 calcium carbonate [Calcium 500] 500 mg calcium (1,250 mg) Tablet,Chewable 500 mg PO DAILY RF: 0 digoxin 125 mcg (0.125 mg) Tablet 125 mcg PO QPM RF: 0 insulin aspart U-100 [Novolog Flexpen U-100 Insulin] 100 unit/mL (3 mL) Insulin Pen 10 unit SUBCUT DAILYBL RF: 0 insulin aspart U-100 [Novolog Flexpen U-100 Insulin] 100 unit/mL (3 mL) Insulin Pen 18 unit SUBCUT DAILYBD RF: 0 insulin aspart U-100 [Novolog Flexpen U-100 Insulin] 100 unit/mL (3 mL) Insulin Pen 10 unit SUBCUT DAILYBB RF: 0 cholecalciferol (vitamin D3) [Vitamin D3] 125 mcg (5,000 unit) Tablet 5,000 unit PO DAILY RF: 0 One-A-Day Womens Formula 18 mg iron-400 mcg-500 mg Tablet 1 tab PO DAILY RF: 0 ferrous sulfate 325 mg (65 mg iron) Tablet 325 mg PO BID RF: 0 Changed Tresiba FlexTouch U-100 100 unit/mL (3 mL) Insulin Pen 14 unit SUBCUT HS Qty: 0 RF: 0 Discontinued warfarin [Coumadin] 2 mg Tablet 2 mg PO HS RF: 0 torsemide 10 mg Tablet 10 mg PO QAM 30 Days Qty: 30 RF: 3 promethazine 25 mg tablet 25 mg PO Q6H PRN (Reason: migraine headache) Qty: 14 RF: 0 No Action clonidine HCl 0.1 mg tablet 0.1 mg PO BID RF: 0 benzonatate [Tessalon Perles] 100 mg capsule 100 mg PO ONCE PRN (Reason: cough) Qty: 1 RF: 0 Discharge Orders: Discharge Order (Routine); Ordered 08/05/19 Ordered By: Yamel Marc Admission Data Admit Date/Time: 08/01/19 19:38 Attending Provider: Yamel Marc Admit Provider: Jack Valdez Primary Care Provider: Dustin Taylor Other Providers: Steve Gamino ; Tr Bryan ; Shane Gotti ; Justin Doherty Veeral B. ; Paul Yoon V Other Interventions: Discharge Summary Assessment (RN) Last Done: 08/05/19 14:45 DC Date/Time DO NOT enter until pt leaves facility: 08/05/19 16:00 Coding Level of Care Code D/C Day Management >30 mins Diagnoses Non-small cell lung cancer (NSCLC) C34.90 Mediastinal mass J98.59 SVC syndrome I87.1 CKD (chronic kidney disease) N18.9 Hypertension I10 Afib I48.91 T2DM (type 2 diabetes mellitus) E11.9 Anemia D64.9 Anemia type: unspecified type Hiatal hernia K44.9 HLD (hyperlipidemia) E78.5 PAD (peripheral artery disease) I73.9 Mitral stenosis I05.0 Epistaxis R04.0 Hypomagnesemia E83.42 Pericardial effusion I31.3 Severe protein-calorie malnutrition E43 Headache R51 DVT prophylaxis Z29.9
[2019-08-05 15:04] VITALS: BP 136/65; TEMP 97.3; O2SAT 94
[2019-08-05 15:34] VITALS: PULSE 78
[2019-08-05] MEDS ORDERED: INSULIN GLARGINE SOLOSTAR 100 UNITS/ML 3 ML PEN SC SCH (21:00)
== END 2019-08-05 16:00 | disposition home or self-care (01) | DRG 166 ==
LOC: ED 14:41 → SUATTDRO 19:38 → 2W 19:38

== ENCOUNTER 2019-10-28 08:44 | Observation (INO) ==
--- NOTE | 2019-10-28 09:25 | Emergency Department Note ---
History of Present Illness General Chief complaint: Referred by Doctor Stated complaint: LUNG CANCER PATIENT,SOB,CAN'T SWALLOW,DOC REF Time Seen by Provider: 10/28/19 09:01 Source: patient Mode of arrival: wheelchair Limitations: no limitations History of Present Illness Provider complaint: Shortness of breath Onset (ago): hour(s) (12) Severity: moderate Pain Consistency: + constant Maximum Pain Intensity: 10 Exacerbated By: + movement Associated symptoms: + cough and + shortness of breath This is a 63-year-old female who presents to the ED with a chief complaint of shortness of breath. Her symptoms started around 9:30 PM last night. She also reports a mild nonproductive cough. She also reports upper extremity edema that has been ongoing for the past couple of weeks. The patient has a history of right-sided lung cancer. She has recently undergone some chemotherapy as well as has had previous radiation therapy in the past. The patient had increasing shortness of breath that is worse with exertion. She does not have home oxygen. Her oxygen saturations here on room air was 94%. The patient contacted Dr. Cardoza, her oncologist and was referred here for further evaluation. Home Medications Home Medications Medication Instructions Recorded Confirmed Type aspirin 81 mg PO HS 07/25/19 10/28/19 History calcium carbonate [Calcium 500] 500 mg PO QAM 07/25/19 10/28/19 History cholecalciferol (vitamin D3) 5,000 unit PO QAM 07/25/19 10/28/19 History [Vitamin D3] clonidine HCl 0.1 mg PO BID 07/25/19 10/28/19 History digoxin 125 mcg PO HS 07/25/19 10/28/19 History insulin aspart U-100 [Novolog 18 unit SUBCUT QDD 07/25/19 10/28/19 History Flexpen U-100 Insulin] magnesium oxide 500 mg PO BID 07/25/19 10/28/19 History metoprolol succinate 50 mg PO QAM 07/25/19 10/28/19 History niacin [Niacor] 500 mg PO QAM 07/25/19 10/28/19 History pantoprazole [Protonix] 40 mg PO QAM 07/25/19 10/28/19 History simvastatin 40 mg PO HS 07/25/19 10/28/19 History terazosin 5 mg PO HS 07/25/19 10/28/19 History tramadol 50 mg PO DAILY PRN 07/25/19 10/28/19 History ferrous sulfate 325 mg PO BID 08/01/19 10/28/19 History benzonatate 100 mg capsule 100 mg PO ONCE PRN #1 cap 08/07/19 10/28/19 Rx albuterol sulfate 90 mcg/actuation 2 puffs INH Q4H PRN gm 08/21/19 10/28/19 History aerosol inhaler Tresiba FlexTouch U-100 16 unit SUBCUT HS 10/05/19 10/28/19 History insulin aspart U-100 100 unit/mL 10 unit SUBCUT DAILYBL 10/23/19 10/28/19 History (3 mL) subcutaneous pen ondansetron HCl 8 mg tablet 8 mg PO Q8H PRN 10/23/19 10/28/19 History prochlorperazine maleate 10 mg 10 mg PO Q6H PRN 10/23/19 10/28/19 History tablet torsemide 10 mg tablet 10 mg PO QAM 10/23/19 10/28/19 History warfarin 3 mg tablet 3 mg PO HS 10/23/19 10/28/19 History oxycodone 10 mg PO UD 10/28/19 10/28/19 History tiotropium bromide [Spiriva 2 puffs INH QAM 10/28/19 10/28/19 History Respimat] Allergies Allergy/AdvReac Type Severity Reaction Status Date / Time ceftaroline fosamil Allergy Hives Verified 10/28/19 10:23 [From Teflaro] Penicillins Allergy Rash Verified 10/28/19 10:23 Past Med/Surg History Medical History Afib CKD (chronic kidney disease) Family history of premature CAD History of tobacco abuse Hypertension Malignant neoplasm of upper lobe, right bronchus or lung (Chronic) Mitral stenosis Non-small cell lung cancer (NSCLC) PAD (peripheral artery disease) Pericardial effusion T2DM (type 2 diabetes mellitus) Family History Family/Other Coronary heart disease Father Cancer Heart disease Mother Diabetes Brother Heart disease Social History Preferred Language: [place]an Communication Ability: Effective 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 Beliefs That Will Affect Care: None marital status: Current Living Situation: Spouse Feels Safe at Home: Yes Smoking Status: Former smoker Hx Alcohol Use: No Hx Substance Use: No Review of Systems A total of 10 systems reviewed and were otherwise negative Physical Exam Vital Signs Vital Signs - 24 hr 10/28/19 08:52 10/28/19 09:16 10/28/19 10:12 Temperature 36.7 C Temperature Source Oral Pulse Rate 90 Pulse Rate [Finger] 86 Pulse Rhythm Regular Pulse Strength Normal Respiratory Rate 24 18 Respiratory Effort / Characteristics Non-Labored Spontaneous Respiratory Depth Normal Normal Respiratory Pattern Regular Regular Blood Pressure 109/67 Blood Pressure [Left Arm] 135/60 Blood Pressure Mean 81 Blood Pressure Mean [Left Arm] 85 Blood Pressure Position Sitting Pulse Oximetry 94 95 96 Oxygen Delivery Method Room Air Nasal Cannula Nasal Cannula Oxygen Flow Rate 2 2 Sepsis Recent Fever Within 48 Hours No Sepsis New/Unexplained Change in Mental Status No Sepsis Action Taken by Nursing No Action Required CONSTITUTIONAL/VITAL SIGNS: Reviewed / noted above. GENERAL: Non-toxic in appearance. INTEGUMENTARY: Warm, dry, and [place]. HEAD: Normocephalic. EYES: without scleral icterus or trauma. ENT/OROPHARYNX: clear and moist. LYMPHADENOPATHY/NECK: Is supple without lymphadenopathy or meningismus. RESPIRATORY: Lungs reveal bibasilar crackles. CARDIOVASCULAR: Regular rate and rhythm. GI/ABDOMEN: Soft and nontender. No organomegaly or pulsatile mass. No rebound or guarding. Normal bowel sounds. EXTREMITIES: Warm and well perfused. The patient has bilateral upper and lower extremity edema. BACK: No CVA tenderness. NEUROLOGICAL: Intact without focal deficits. PSYCHIATRIC: normal affect. MUSCULOSKELETAL: Normally developed with good muscle tone. TRIAGE NURSING DOCUMENTATION REVIEWED. Medical Decision Making Differential Diagnosis The differential was considered includes acute myocardial infarction, acute coronary syndrome, myocarditis, pericarditis, pericardial effusions /tamponad, esophageal perforation, pulmonary embolism, pneumonia, pneumothorax, cardiomyopathy, congestive heart, anemia , COPD/asthma exacerbation. Home Medications Current Medication List: was personally reviewed by me Laboratory Data Attestation: I reviewed the patient's lab results. Result diagrams: 10/28/19 09:38 10/28/19 09:38 Lab Results 10/28/19 10/28/19 10/28/19 Range/Units 09:38 09:38 09:38 WBC 1.25 L (4.8-10.8) K/uL RBC 3.05 L (4.2-5.4) M/uL Hgb 9.2 L (12.0-16.0) g/dL Hct 27.4 L (37-47) % MCV 89.8 (80-100) fL MCH 30.2 (25-34) pg MCHC 33.6 (32-36) g/dL RDW Std Deviation 48.6 H (36.4-46.3) fL RDW Coeff of Epifanio 15.2 H (11.5-14.5) % Plt Count 115 L (130-400) K/uL MPV 9.5 (7.4-10.4) fL Immature Gran % (Auto) 1.6 % Neut % (Auto) 61.6 % Lymph % (Auto) 16.8 % [place] % (Auto) 20.0 % Eos % (Auto) 0.0 % Baso % (Auto) 0.0 % Immature Gran # (Auto) 0.02 (0.00-0.02) K/uL Neut # (Auto) 0.77 L* (1.4-6.5) K/uL Lymph # (Auto) 0.21 L (1.2-3.4) K/uL [place] # (Auto) 0.25 (0.11-0.59) K/uL Eos # (Auto) 0.00 (0-0.5) K/uL Baso # (Auto) 0.00 (0-0.2) K/uL PT 19.7 H (9.0-12.0) Seconds INR 1.9 H (0.9-1.1) APTT 34.3 H (21.0-31.0) Seconds PTT Ratio 1.2 Sodium 136 (136-145) mmol/L Potassium 4.3 (3.5-5.1) mmol/L Chloride 105 (98-107) mmol/L Carbon Dioxide 23 (21-32) mmol/L Anion Gap 8.0 (3-11) BUN 47 H (7-18) mg/dl Creatinine 1.84 H (0.6-1.2) mg/dl Est Cr Clr Drug Dosing 26.5 ml/min Est GFR ( Amer) 33.2 Est GFR (Non-Af Amer) 28.7 BUN/Creatinine Ratio 25.7 H (10-20) Glucose 199 H (70-99) mg/dl Calcium 8.3 L (8.5-10.1) mg/dl Total Bilirubin 0.5 (0.2-1) mg/dl AST 12 L (15-37) U/L ALT 24 (12-78) U/L Alkaline Phosphatase 88 (45-117) U/L Total Creatine Kinase 49 (26-192) U/L CK-MB (CK-2) 1.7 (0.5-3.6) ng/ml CK/CKMB % Calc 3.5 H (0-3.0) Troponin I < 0.015 (0-0.045) ng/ml Total Protein 6.0 L (6.4-8.2) gm/dl Albumin 2.6 L (3.4-5.0) gm/dl Globulin 3.4 (2.5-4.0) gm/dl Albumin/Globulin Ratio 0.8 L (0.9-2) Digoxin (0.8-2.0) ng/ml 10/28/19 Range/Units 09:38 WBC (4.8-10.8) K/uL RBC (4.2-5.4) M/uL Hgb (12.0-16.0) g/dL Hct (37-47) % MCV (80-100) fL MCH (25-34) pg MCHC (32-36) g/dL RDW Std Deviation (36.4-46.3) fL RDW Coeff of Epifanio (11.5-14.5) % Plt Count (130-400) K/uL MPV (7.4-10.4) fL Immature Gran % (Auto) % Neut % (Auto) % Lymph % (Auto) % [place] % (Auto) % Eos % (Auto) % Baso % (Auto) % Immature Gran # (Auto) (0.00-0.02) K/uL Neut # (Auto) (1.4-6.5) K/uL Lymph # (Auto) (1.2-3.4) K/uL [place] # (Auto) (0.11-0.59) K/uL Eos # (Auto) (0-0.5) K/uL Baso # (Auto) (0-0.2) K/uL PT (9.0-12.0) Seconds INR (0.9-1.1) APTT (21.0-31.0) Seconds PTT Ratio Sodium (136-145) mmol/L Potassium (3.5-5.1) mmol/L Chloride (98-107) mmol/L Carbon Dioxide (21-32) mmol/L Anion Gap (3-11) BUN (7-18) mg/dl Creatinine (0.6-1.2) mg/dl Est Cr Clr Drug Dosing ml/min Est GFR ( Amer) Est GFR (Non-Af Amer) BUN/Creatinine Ratio (10-20) Glucose (70-99) mg/dl Calcium (8.5-10.1) mg/dl Total Bilirubin (0.2-1) mg/dl AST (15-37) U/L ALT (12-78) U/L Alkaline Phosphatase (45-117) U/L Total Creatine Kinase (26-192) U/L CK-MB (CK-2) (0.5-3.6) ng/ml CK/CKMB % Calc (0-3.0) Troponin I (0-0.045) ng/ml Total Protein (6.4-8.2) gm/dl Albumin (3.4-5.0) gm/dl Globulin (2.5-4.0) gm/dl Albumin/Globulin Ratio (0.9-2) Digoxin 1.2 (0.8-2.0) ng/ml Imaging Data Radiologist's Impression: CT scan of the chest without contrast iMPRESSION: 1. Persistent large mediastinal mass with subcarinal extension. This is similar to the prior study. 2. Given the location the mass, SVC syndrome may be present. This remains unchanged. 3. Chest wall edema 4. The mass narrows a right upper lobe bronchus with secondary right upper lobe volume loss. There is decreased narrowing of the right mainstem bronchus and bronchus intermedius when compared the prior July [address] CT scan. Moderate pericardial effusion slightly larger than on the prior study 5. Small right pleural effusion and trace left pleural effusion which have slightly progressed. 6. Slight decrease in size in the moderate pericardial effusion. 7. Right greater than left interlobular septal thickening. This may represent mild asymmetric congestive change. 8. A new 8 mm subpleural nodule within the right upper lobe. The remaining subcentimeter pulmonary nodules remain stable. ECG Data Attestation: I personally reviewed and interpreted this ECG as follows: Indication: + SOB/dyspnea Rate (beats per minute): 89 Rhythm: + normal sinus ECG ST segments: no ST elevation ECG Findings: no PVCs Blood Pressure Blood Pressure Findings: Normal blood pressure MDM Narrative This is a 63-year-old female who presents to the ED with a chief complaint of shortness of breath. Her symptoms started around 9:30 PM last night. She also reports a mild nonproductive cough. She also reports upper extremity edema that has been ongoing for the past couple of weeks. The patient has a history of right-sided lung cancer. She has recently undergone some chemotherapy as well as has had previous radiation therapy in the past. The patient had increasing shortness of breath that is worse with exertion. She does not have home oxygen. Her oxygen saturations here on room air was 94%. The patient contacted Dr. Cardoza, her oncologist and was referred here for further evaluation. The pat ient's vital signs are stable. Her oxygen saturations are 94% on room air. She appears generally weak and chronically ill. She is tachypneic. Her lungs reveal some bibasilar crackles. The patient CT scan is noted above. It appears as though most of the stuff is chronic. She does have a pericardial effusion. There is also a large mediastinal mass pressing on some of the bronchi. She also has a small right pleural effusion. Her white blood cell count was 1.25. Hemoglobin is 9.2. INR is 1.9. She is on Coumadin. BUN is 42 and creatinine is 1.84. Troponin was negative. EKG showed a normal sinus rhythm. I did speak with Dr. Cardoza about the patient. He recommended the patient be brought into the hospital for some further evaluation and additional evaluation for the patient with regards to home oxygen. I did speak with Dr. Hameed, she will see the patient for further evaluation and care. Impression & Plan Acute dyspnea, Superior vena cava syndrome, Effusion, pericardium Discharge Plan Visit Data Chief Complaint: Referred by Doctor Stated Complaint: LUNG CANCER PATIENT,SOB,CAN'T SWALLOW,DOC REF ED Provider: Steve Littlejohn Discharge Problem: Acute dyspnea, Superior vena cava syndrome, Effusion, pericardium Patient Disposition: Being Evaluated by Hospitalist Forms Stand Alone Forms: My [facility] Prescriptions Prescriptions: No Action albuterol sulfate 90 mcg/actuation HFA aerosol inhaler 2 puffs INH Q4H PRN (Reason: shortness of breath or wheezing) RF: 0 torsemide 10 mg tablet 10 mg PO QAM RF: 0 warfarin [Coumadin] 3 mg tablet 3 mg PO HS RF: 0 ondansetron HCl [Zofran] 8 mg tablet 8 mg PO Q8H PRN (Reason: Nausea) RF: 0 prochlorperazine maleate [Compazine] 10 mg tablet 10 mg PO Q6H PRN (Reason: Nausea) RF: 0 benzonatate [Tessalon Perles] 100 mg capsule 100 mg PO ONCE PRN (Reason: cough) Qty: 1 RF: 0 terazosin 5 mg Capsule 5 mg PO HS RF: 0 clonidine HCl 0.1 mg Tablet 0.1 mg PO BID RF: 0 metoprolol succinate 50 mg Tablet Extended Release 24 Hr 50 mg PO QAM RF: 0 tramadol 50 mg Tablet 50 mg PO DAILY PRN (Reason: Pain, Moderate) RF: 0 simvastatin 40 mg Tablet 40 mg PO HS RF: 0 pantoprazole [Protonix] 40 mg Tablet,Delayed Release (Dr/Ec) 40 mg PO QAM RF: 0 niacin [Niacor] 500 mg Tablet 500 mg PO QAM RF: 0 magnesium oxide 500 mg Tablet 500 mg PO BID RF: 0 aspirin 81 mg Tablet,Chewable 81 mg PO HS RF: 0 calcium carbonate [Calcium 500] 500 mg calcium (1,250 mg) Tablet,Chewable 500 mg PO QAM RF: 0 digoxin 125 mcg (0.125 mg) Tablet 125 mcg PO HS RF: 0 insulin aspart U-100 [Novolog Flexpen U-100 Insulin] 100 unit/mL (3 mL) Insulin Pen 18 unit SUBCUT QDD RF: 0 cholecalciferol (vitamin D3) [Vitamin D3] 125 mcg (5,000 unit) Tablet 5,000 unit PO QAM RF: 0 insulin aspart U-100 [Novolog Flexpen U-100 Insulin] 100 unit/mL (3 mL) in sulin pen 10 unit SUBCUT DAILYBL RF: 0 ferrous sulfate 325 mg (65 mg iron) Tablet 325 mg PO BID RF: 0 Tresiba FlexTouch U-100 100 unit/mL (3 mL) insulin pen 16 unit SUBCUT HS RF: 0 oxycodone 10 mg tablet 10 mg PO UD RF: 0 Spiriva Respimat 2.5 mcg/actuation mist 2 puffs INH QAM RF: 0 Referrals Referrals: Vicente Roy MD [Primary Care Provider] -
[2019-10-28 10:01] LABS: Hematocrit (blood only) 27.4 % (37-47); Hemoglobin 9.2 g/dL (12.0-16.0); Mean Corpuscular Hemoglobin 30.2 pg (25-34); Mean Corpuscular Hgb Conc 33.6 g/dL (32-36); Mean Corpuscular Volume 89.8 fL (80-100); Mean Platelet Volume 9.5 fL (7.4-10.4); Platelet Count 115 K/uL (130-400); RDW Coefficient of Variation 15.2 % (11.5-14.5); RDW Standard Deviation 48.6 fL (36.4-46.3); Red Blood Count 3.05 M/uL (4.2-5.4); White Blood Count 1.25 K/uL (4.8-10.8)
[2019-10-28 10:12] LABS: INR 1.9 (0.9-1.1); Partial Thromboplastin Ratio 1.2; Partial Thromboplastin Time 34.3 Seconds (21.0-31.0); Prothrombin Time 19.7 Seconds (9.0-12.0)
[2019-10-28 10:20] LABS: Alanine Aminotransferase 24 U/L (12-78); Albumin Level 2.6 gm/dl (3.4-5.0); Aspartate Aminotransferase 12 U/L (15-37); BUN Creatinine Ratio 25.7 (10-20); Blood Urea Nitrogen 47 mg/dl (7-18); Calcium 8.3 mg/dl (8.5-10.1); Carbon Dioxide 23 mmol/L (21-32); Chloride 105 mmol/L (98-107); Creatinine Clr Calc Pharmacy 26.5 ml/min; Est GFR (African American) 33.2; Est GFR (Non-African American) 28.7; Glucose 199 mg/dl (70-99); Potassium 4.3 mmol/L (3.5-5.1); Sodium 136 mmol/L (136-145)
[2019-10-28 10:25] LABS: Albumin Globulin Ratio 0.8 (0.9-2); Alkaline Phosphatase 88 U/L (45-117); Bilirubin,Total 0.5 mg/dl (0.2-1); Creatine Kinase 49 U/L (26-192); Creatine Kinase MB 1.7 ng/ml (0.5-3.6); Globulin 3.4 gm/dl (2.5-4.0); Troponin I < 0.015 ng/ml (0-0.045)
--- NOTE | 2019-10-28 10:25 | CT Scan Report ---
CT chest wo con CLINICAL HISTORY: Shortness of breath. Lung cancer. COMPARISON STUDY: Chest CT 10/28/2019. CT DOSE: 331.11 mGy.cm TECHNIQUE: CT of the thorax was performed from the thoracic inlet to the lung bases. Images are revi ewed in the axial, sagittal, and coronal planes. IV contrast was not administered for this examinatio n. A dose lowering technique was utilized adhering to the principles of ALARA. FINDINGS: Thyroid: Imaged portions of the thyroid gland are normal in appearance. Thoracic aorta: The thoracic aorta is normal in course and caliber, noting standard 3 vessel arch [place] marie. Heart: There is a moderate pericardial effusion, slightly smaller than on the preceding study. Lungs and pleural spaces: There is a small right pleural effusion and a trace left pleural effusion. These have slightly increased in size. There is underlying pulmonary emphysema. There is a new right upper lobe subpleural nodular density measuring 8 mm. This is best seen on image 64. There is mild in terstitial thickening. The remaining scattered pulmonary micronodules are not significant changed. Mediastinum: There is a persistent mediastinal mass/adenopathy obstructing a right upper lobe bronchu s with secondary volume loss. There is persistent mild narrowing of the right mainstem bronchus and b ronchus intermedius. The mass appears to encase the right pulmonary artery and extends to the subcari nal region. Vascular assessment is not possible as the study was performed on a noncontrast fashion d ue to the patient's azotemia. Given the suspected encasement of the SVC by this mass, SVC syndrome re julius possibility. Axilla: There is no evidence of pathologic axillary lymphadenopathy. Upper abdomen: There is bilateral adrenal gland enlargement Skeletal structures: There is evidence for moderate body wall wall edema. IMPRESSION: 1. Persistent large mediastinal mass with subcarinal extension. This is similar to the prior study. 2. Given the location the mass, SVC syndrome may be present. This remains unchanged. 3. Chest wall ed [place] 4. The mass narrows a right upper lobe bronchus with secondary right upper lobe volume loss. There is decreased narrowing of the right mainstem bronchus and bronchus intermedius when compared the prior July [address] scan. Moderate pericardial effusion slightly larger than on the prior study 5. Small right pleural effusion and trace left pleural effusion which have slightly progressed. 6. Slight decrease in size in the moderate pericardial effusion. 7. Right greater than left interlobular septal thickening. This may represent mild asymmetric congest andrew change. 8. A new 8 mm subpleural nodule within the right upper lobe. The remaining subcentimeter pulmonary no dules remain stable. ACT 112: Negative or not required by law. Electronically signed by: Theodore Brennan M.D. 10/28/2019 10:23 AM
[2019-10-28 10:29] LABS: Immature Granulocytes # (auto) 0.02 K/uL (0.00-0.02); Immature Granulocytes % (auto) 1.6 %; Lymphocytes # (auto) 0.21 K/uL (1.2-3.4); Lymphocytes % (auto) 16.8 %; Monocytes # (auto) 0.25 K/uL (0.11-0.59); Neutrophils # (auto) 0.77 K/uL (1.4-6.5); Neutrophils % (auto) 61.6 %
--- NOTE | 2019-10-28 10:47 | History & Physical Report ---
Date of Service October 28, 2019 Assessment & Plan (1) Acute dyspnea: Pt is much improved s/p O2 placement No hypoxia noted This was her only ED intervention CT chest noted, seems likely related to SVC syndrome and anemia with underlying COPD No signs of pulm fluid overload Nebs Q4h, O2 Will need home O2 eval prior to d/c Blood cx were drawn in the ED (2) Throat pain: Thrush noted on back on tongue on exam, due to tongue size could not visualize posterior pharynx well Start nystatin t/c CT if no improvement (3) Swelling: UE>LE Likely related to SVC syndrome Will try a small dose of lasix and monitor SCDs may help (4) T2DM (type 2 diabetes mellitus): Holding home insulin SSI PRN A1c pending (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 Yoon Did not consult onc given current concerns are sx management (7) Anemia: s/p PRBC on 10/25 Hb is improved to 9.2 on admission (8) Afib: Coumadin 3mg daily as prior Monitor INR (9) HLD (hyperlipidemia): continue home meds (10) Hypertension: continue home meds (11) Pericardial effusion: Noted on CT chest and remarked as stable (12) DVT prophylaxis: Coumdain as prior History of Present Illness Primary Care Provider: Vicente Roy MD 63 y/o F c/o SOB and swallowing issues. She was directed to the ED by Dr. Yoon after she called the office for these concerns. Pt is sleeping during most of discussion, so majority of HPI comes from . He states that she has been having SOB for quite some time, however it was "really bad" starting yesterday night around 9:30p. He states she has been trying to use her albuterol inhaler Q4hr the last few days, but it is not helping. He takes her outside and rubs her back and this did help some, but it returned quickly. states that the pt was unable to sleep last night due to breathing issues. She has not been able to lie flat for several days due to SOB. Pt has also been having pain with swallowing the last few days. She has hx of mouth ulcers related to her current chemo, so she has Magic Swizzle sticks at home, but it was not helping her throat pain. She was seen by Dr. Yoon in the office yesterday and given a prescription for oxycodone for the throat pain, but it has not helped at all. Due to this, she has not eaten much the last few days. What she does swallow she keeps down, but it is very painful to do so. She was able to take her pills today, but no other PO. She did not take her insulin today. states pt has had UE/LE swelling for quite some time, but it was improved with radiation and chemo. It recently restarted about 2 weeks ago and she is now quite swollen, UE>>LE. Pt has been having chemo/radiation recently. She radiation on and Wednesday, chemo on Wednesday, and she was given PRBC on . She follows with Dr. Yoon. ED physician spoke with Dr. Yoon who advised him that her tx are more palliative at this point, but pt wants to "try everything". In the ED, pt was put on O2 via NC and states that she appears much more comfortable. He states she was "instantly" better with the O2. Pt agrees with this. She endorses some chest tightness when the SOB is increased, but no joss pain. Pt denies fever, abd pain, n/v, LE pain. She has diarrhea s/p chemo, but maybe 1-2x/day. She states the pain in her throat is only with swallowing attempts. Allergies Allergy/AdvReac Type Severity Reaction Status Date / Time ceftaroline fosamil Allergy Hives Verified 10/28/19 10:23 [From Teflaro] Penicillins Allergy Rash Verified 10/28/19 10:23 Home Medications Home Medications Medication Instructions Recorded Confirmed Type aspirin 81 mg PO HS 07/25/19 10/28/19 History calcium carbonate [Calcium 500] 500 mg PO QAM 07/25/19 10/28/19 History cholecalciferol (vitamin D3) 5,000 unit PO QAM 07/25/19 10/28/19 History [Vitamin D3] clonidine HCl 0.1 mg PO BID 07/25/19 10/28/19 History digoxin 125 mcg PO HS 07/25/19 10/28/19 History insulin aspart U-100 [Novolog 18 unit SUBCUT QDD 07/25/19 10/28/19 History Flexpen U-100 Insulin] magnesium oxide 500 mg PO BID 07/25/19 10/28/19 History metoprolol succinate 50 mg PO QAM 07/25/19 10/28/19 History niacin [Niacor] 500 mg PO QAM 07/25/19 10/28/19 History pantoprazole [Protonix] 40 mg PO QAM 07/25/19 10/28/19 History simvastatin 40 mg PO HS 07/25/19 10/28/19 History terazosin 5 mg PO HS 07/25/19 10/28/19 History tramadol 50 mg PO DAILY PRN 07/25/19 10/28/19 History ferrous sulfate 325 mg PO BID 08/01/19 10/28/19 History benzonatate 100 mg capsule 100 mg PO ONCE PRN #1 cap 08/07/19 10/28/19 Rx albuterol sulfate 90 mcg/actuation 2 puffs INH Q4H PRN gm 08/21/19 10/28/19 History aerosol inhaler Tresiba FlexTouch U-100 16 unit SUBCUT HS 10/05/19 10/28/19 History insulin aspart U-100 100 unit/mL 10 unit SUBCUT DAILYBL 10/23/19 10/28/19 History (3 mL) subcutaneous pen ondansetron HCl 8 mg tablet 8 mg PO Q8H PRN 10/23/19 10/28/19 History prochlorperazine maleate 10 mg 10 mg PO Q6H PRN 10/23/19 10/28/19 History tablet torsemide 10 mg tablet 10 mg PO QAM 10/23/19 10/28/19 History warfarin 3 mg tablet 3 mg PO HS 10/23/19 10/28/19 History oxycodone 10 mg PO UD 10/28/19 10/28/19 History tiotropium bromide [Spiriva 2 puffs INH QAM 10/28/19 10/28/19 History Respimat] Past Med/Surg History Medical History Afib CKD (chronic kidney disease) Family history of premature CAD History of tobacco abuse Hypertension Malignant neoplasm of upper lobe, right bronchus or lung (Chronic) Mitral stenosis Non-small cell lung cancer (NSCLC) PAD (peripheral artery disease) Pericardial effusion T2DM (type 2 diabetes mellitus) Family History Family/Other Coronary heart disease Father Cancer Heart disease Mother Diabetes Brother Heart disease Social History (Updated 10/28/19 @ 11:35 by Chantel Hameed DO) Preferred Language: Kenyan Communication Ability: Effective 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 Hand Required: No Beliefs That Will Affect Care: None marital status: Current Living Situation: Spouse Feels Safe at Home: Yes Smoking Status: Former smoker Age Quit Using Tobacco: 60 ; Hx Alcohol Use: No Hx Substance Use: No Review of Systems Review of Systems: Pertinent positives and negatives reviewed in HPI--all others negative Physical Exam Constitutional: WD/WN, vitals as above Eyes: normal visual leal by confrontation and + anicteric sclerae Neck: normal visual inspection and trachea midline Respiratory: normal respiratory effort, lungs clear to auscultation Cardiovascular: Rate/Rhythm: regular rate and regular rhythm Gastrointestinal (Abdomen): Inspection/Auscultation: abdomen not distended Percussion/Palpation: abdomen soft; abdomen nontender Musculoskeletal: Head/Neck/Chest: normocephalic and head atraumatic UE 2+ pitting edema, LE 1+ pitting edema, peripheral pulses intact Skin: no rashes, warm and dry Neurologic: awake; not confused Speech / Cognition: normal speech Psychiatric: A+Ox3, euthymic affect Results & Data Results & Data ([facility]) Vital Signs (Past 12 Hours) Vital Signs Temp Pulse Pulse Resp BP BP Pulse Ox 10/28/19 10:12 86 18 135/60 96 10/28/19 09:16 95 10/28/19 08:52 36.7 C 90 24 109/[address] chest: 1. Persistent large mediastinal mass with subcarinal extension. This is similar to the prior study. 2. Given the location the mass, SVC syndrome may be present. This remains unchanged. 3. Chest wall edema 4. The mass narrows a right upper lobe bronchus with secondary right upper lobe volume loss. There is decreased narrowing of the right mainstem bronchus and bronchus intermedius when compared the prior July 2019 CT scan. Moderate pericardial effusion slightly larger than on the prior study 5. Small right pleural effusion and trace left pleural effusion which have slightly progressed. 6. Slight decrease in size in the moderate pericardial effusion. 7. Right greater than left interlobular septal thickening. This may represent mild asymmetric congestive change. 8. A new 8 mm subpleural nodule within the right upper lobe. The remaining subcentimeter pulmonary nodules remain stable. ECG Rhythm: normal sinus Code Status & VTE Plan Code Status Full code VTE Prophylaxis Plan VTE Prophylaxis will be ordered: Yes PG Care Time/CCT Total # of Minutes Spent Total Time Spent with Patient: Total time spent is greater than 50% in coordination of care (as documented) at patient's floor/unit and/or counseling patient: Coding Level of Care Code 17597 Initial Inpt Care Lvl 3 Diagnoses Acute dyspnea R06.00 Throat pain R07.0 Swelling R60.9 T2DM (type 2 diabetes mellitus) E11.9 Superior vena cava syndrome I87.1 Non-small cell lung cancer (NSCLC) C34.90 Anemia D64.9 Anemia type: unspecified type Afib I48.91 HLD (hyperlipidemia) E78.5 Hypertension I10 Pericardial effusion I31.3 DVT prophylaxis Z29.9 (1) Anemia Anemia type: unspecified type Qualified Code(s): D64.9 - Anemia, unspecified
--- NOTE | 2019-10-28 11:37 | XRay Report ---
XR chest 1V portable HISTORY: Atypical Chest Pain COMPARISON: Chest CT 10/28/2019. FINDINGS: No pneumothorax. Small bilateral pleural effusions. Bilateral perihilar interstitial and va scular thickening consistent with mild congestive change. The heart remains mildly enlarged. Right pe rihilar density is consistent with the patient's known mediastinal mass. There is a left subclavian P ort-A-Cath which terminates at the distal left brachiocephalic vein. IMPRESSION: 1. Interval development of mild congestive change and small bilateral pleural effusions. 2. The right mediastinal mass is better appreciated on the same day chest CT. ACT 112: Negative or not required by law. Electronically signed by: Theodore Brennan M.D. 10/28/2019 11:35 AM
--- NOTE | 2019-10-28 12:10 | Electrocardiogram Report ---
Test Reason : Blood Pressure : / mmHG Vent. Rate : 089 BPM Atrial Rate : 089 BPM P-R Int : 200 ms QRS Dur : 090 ms QT Int : 350 ms P-R-T Axes : 042 016 049 degrees QTc Int : 425 ms Normal sinus rhythm Normal ECG When compared with ECG of 01-AUG-2019 16:35, No significant change was found Confirmed by Jesus Camp ([id number]) on 10/28/2019 12:10:35 PM Referred By: Paul Yoon Confirmed By:Jesus Camp
[2019-10-28] MEDS ORDERED: OXYCODONE HCL IR 5 MG TAB (IMMEDIATE RELEASE) PO PRN (13:11)
[2019-10-28] MEDS ORDERED: ALBUTEROL HFA 8 GM INHALER INH PRN (13:11)
[2019-10-28] MEDS ORDERED: DEXTROSE 50% 50 ML SYRINGE IV PRN (13:11)
[2019-10-28] MEDS ORDERED: CARBOHYDRATES FOR HYPOGLYCEMIA PO PRN (13:11)
[2019-10-28] MEDS ORDERED: ACETAMINOPHEN 325 MG TAB PO PRN (13:11)
[2019-10-28] MEDS ORDERED: BENZONATATE 100 MG CAPSULE PO PRN (13:11)
[2019-10-28] MEDS ORDERED: GLUCOSE 10 TABS/TUBE PO PRN (13:11)
[2019-10-28] MEDS ORDERED: GLUCOSE 40% GEL 15 GM TUBE PO PRN (13:11)
[2019-10-28] MEDS ORDERED: TRAMADOL HCL 50 MG TABLET PO PRN (13:11)
[2019-10-28] MEDS ORDERED: FUROSEMIDE 40 MG/4 ML VIAL IV STA (13:11)
[2019-10-28] MEDS ORDERED: MAGNESIUM HYDROXIDE SUSP 30 ML UDC PO PRN (13:11)
[2019-10-28] MEDS ORDERED: ONDANSETRON INJ 2 MG/ML 2 ML VIAL IV PRN (13:11)
[2019-10-28] MEDS ORDERED: PROCHLORPERAZINE MALEATE 10 MG TAB PO PRN (13:11)
[2019-10-28] MEDS ORDERED: GLUCAGON FOR INJ 1 MG VIAL SQ PRN (13:11)
[2019-10-28] MEDS ORDERED: FUROSEMIDE 10 MG in SYRINGE 0 ML IV STA (13:26)
[2019-10-28] MEDS ORDERED: ONDANSETRON 8MG OD TAB PO PRN (13:35)
[2019-10-28] MEDS: NYSTATIN SUSP 500,000 U/5 ML UDC PO SCH ×3 (13:58→20:59)
[2019-10-28] MEDS: ALBUT/IPRATROP 3MG/0.5MG NEB 3 ML VIAL NEB SCH ×3 (15:19→22:38)
[2019-10-28] MEDS: WARFARIN SOD 3 MG TAB PO SCH (16:34)
[2019-10-28] MEDS: INSULIN ASPART 100 UNITS/ML 3 ML PEN SC SCH ×2 (17:51→20:59)
[2019-10-28] MEDS ORDERED: SIMVASTATIN 40 MG TAB PO SCH (21:00)
[2019-10-28] MEDS ORDERED: DIGOXIN 0.125 MG TAB PO SCH (21:00)
[2019-10-28] MEDS ORDERED: TERAZOSIN HCL 5 MG CAP PO SCH (21:00)
[2019-10-28] MEDS: cloNIDine HCL 0.1 MG TAB PO SCH (21:00)
[2019-10-28] MEDS ORDERED: ASPIRIN 81 MG ECTAB PO SCH (21:00)
[2019-10-28] MEDS: FERROUS SULFATE 325 MG TAB PO SCH (21:01)
[2019-10-28] MEDS: MAGNESIUM OXIDE 400 MG TAB PO SCH (21:02)
[2019-10-28] MEDS ORDERED: FUROSEMIDE 20 MG in SYRINGE 0 ML IV ONE (22:00)
[2019-10-28] MEDS ORDERED: HEPARIN 100 UNIT/ML 5ML FLUSH FLUSH PRN (22:51)
[2019-10-28] MEDS ORDERED: HEPARIN 100 UNIT/ML 5ML FLUSH ONE (22:56)
[2019-10-29] MEDS: ALBUT/IPRATROP 3MG/0.5MG NEB 3 ML VIAL NEB SCH ×3 (03:30→11:43)
--- NOTE | 2019-10-29 06:54 | Ultrasound Report ---
US venous doppler UE BI CLINICAL HISTORY: Concern for SVC clot COMPARISON STUDY: Left upper extremity venous Doppler ultrasound August 23, 2019. FINDINGS: Left subclavian [id number] is in place. The mid to distal left subclavian vein is not we ll visualized on this examination. Bilateral upper extremity edema was noted. No deep venous thrombus was identified within either upper extremity. Superior vena cava is suboptimally assessed by sonogra phy IMPRESSION: 1. No deep venous thrombus identified within the upper extremities. Portions of the left subclavian v ein obscured on this exam. 2. SVC not well visualized by sonography. ACT 112: Negative or not required by law. Electronically signed by: Joey Landa M.D. 10/29/2019 6:53 AM
[2019-10-29 07:11] LABS: Hematocrit (blood only) 28.3 % (37-47); Hemoglobin 9.4 g/dL (12.0-16.0); Mean Corpuscular Hemoglobin 29.7 pg (25-34); Mean Corpuscular Hgb Conc 33.2 g/dL (32-36); Mean Corpuscular Volume 89.3 fL (80-100); Mean Platelet Volume 8.9 fL (7.4-10.4); Platelet Count 105 K/uL (130-400); Red Blood Count 3.17 M/uL (4.2-5.4)
[2019-10-29] MEDS: FERROUS SULFATE 325 MG TAB PO SCH (07:15)
[2019-10-29] MEDS: MAGNESIUM OXIDE 400 MG TAB PO SCH (07:16)
[2019-10-29] MEDS: NYSTATIN SUSP 500,000 U/5 ML UDC PO SCH ×2 (07:18→13:38)
[2019-10-29 07:30] LABS: INR 2.5 (0.9-1.1); Prothrombin Time 25.3 Seconds (9.0-12.0)
[2019-10-29] MEDS: cloNIDine HCL 0.1 MG TAB PO SCH (07:33)
[2019-10-29] MEDS ORDERED: SODIUM CHLORIDE 0.65% NA SOLN 45 ML (OCEAN) PRN (07:34)
[2019-10-29 07:38] LABS: Calcium 8.5 mg/dl (8.5-10.1); Creatinine Clr Calc Pharmacy 25.6 ml/min; Est GFR (African American) 32.8; Est GFR (Non-African American) 28.3; Magnesium 1.3 mg/dl (1.8-2.4); Phosphorus 3.2 mg/dl (2.5-4.9); Potassium 3.9 mmol/L (3.5-5.1)
[2019-10-29 07:46] LABS: Immature Granulocytes # (auto) 0.01 K/uL (0.00-0.02); Immature Granulocytes % (auto) 0.7 %; Lymphocytes # (auto) 0.21 K/uL (1.2-3.4); Monocytes # (auto) 0.27 K/uL (0.11-0.59); Monocytes % (auto) 19.3 %; Neutrophils # (auto) 0.91 K/uL (1.4-6.5)
--- NOTE | 2019-10-29 07:51 | Family Medicine Progress Note ---
Date of Service October 29, 2019 Assessment & Plan (1) Acute dyspnea: Ms. Lawler is a 63 year old female with a past medical history of recently diagnosed non-small cell lung cancer with resultant SVC syndrome, atrial fibrillation, DM2, CKD stage 4, HTN, PAD, PVD, mitral stenosis and anemia who was admitted to [facility] on 10/28/2019 due to difficulty swallowing and acute dyspnea. Acute dyspnea Pt is much improved s/p O2 placement No hypoxia noted This was her only ED intervention CT chest noted, seems likely related to SVC syndrome and anemia with underlying COPD No signs of pulm fluid overload Nebs Q4h, O2 Will need home O2 eval prior to d/c Blood cx were drawn in the ED Throat pain -likely secondary to thrush as well as s/e from chemotherapy -continue nystatin -continue pain regimen including tylenol, tramadol and oxycodone UE Swelling -likely related to SVC syndrome Non small cell lung ca w/resultant SVC syndrome -Ongoing chemo/rads that is more palliative in nature per Dr. Yoon -chemo regimen: abraxane, carboplatin and pembrolizumab -rad onc note from 10/22 notes poor response to chemo and increased SVC syndrome symptoms prompting initiation for palliative radiation therapy Anemia -likely secondary to a combination of anemia of chronic kidney disease, as well as iron deficiency anemia and myelosuppression 07/09 chemotherapy -B12 and folate checked on admission in 07/2019 and were normal -s/p IV venofer x 4 doses in 07/2019, and 1 unit prbcs in 08/03, and another on 10/25 -continue iron supplementation with ferrous sulfate -Hb is improved to 9.4 Pancytopenia -Hgb 9.4 as above, WBC 1.4 and platelets 105 currently -likely secondary to myelosuppression from chemotherapy Hypomagnesemia -Mg 1.3 on admission -continue home magnesium supplementation, will also provide 1g of magnesium sulfate IV in addition DM2 -hold home insulin, placed on SSI -HbA1c ordered and pending Afib -continue home metoprolol and digoxin -Coumadin 3mg daily as prior -follows with cardiology in [place] - Dr. Sam -Monitor INR, currently therapeutic at 2.5 HTN -continue home metoprolol, clonidine and torsemide CKD stage 3-4 -unsure of baseline, creatinine has been in the 2 - 2.5 range over past admissions -creatinine currently improved from prior at 1.86 -avoid nephrotoxic medications PAD -hx of iliac artery stent placement -continue aspirin and statin Mitral Stenosis -s/p mitral valvuloplasty Hyperlipidemia -continue simvastatin Hiatal Hernia -continue PPI Code status: FULL DVT prophylaxis: therapeutic on coumadin Disposition: remains on med/surg (2) Throat pain: (3) Swelling: (4) T2DM (type 2 diabetes mellitus): (5) Superior vena cava syndrome: (6) Non-small cell lung cancer (NSCLC): (7) Anemia: (8) Afib: (9) HLD (hyperlipidemia): (10) Hypertension: (11) Pericardial effusion: (12) DVT prophylaxis: Admission and Anticipated Discharge Date Admission Date: October 28, 2019 Results & Data ([facility]) Vital Signs (Past 12 Hours) Vital Signs Temp Pulse Pulse Resp BP Pulse Ox 10/29/19 07:12 65 18 98 10/29/19 07:00 36.5 C 96 H 18 157/67 H 94 10/29/19 03:00 36.7 C 91 H 20 118/64 93 10/29/19 02:10 93 H 10/28/19 23:00 37.1 C 92 H 20 134/72 93 10/28/19 22:40 65 14 94 10/28/19 21:08 93 H 26 H 94 10/28/19 21:00 93 H Resident Activity Tracking Resident Involvement: Resident Care Provided Care Provided: Adult Hospital Medicine (1) Anemia Anemia type: unspecified type Qualified Code(s): D64.9 - Anemia, unspecified
[2019-10-29] MEDS ORDERED: MAGNESIUM SULFATE / D5W 1 GM/100 ML BAG IV ONE (08:30)
[2019-10-29] MEDS: INSULIN ASPART 100 UNITS/ML 3 ML PEN SC SCH ×2 (08:59→12:34)
[2019-10-29] MEDS ORDERED: PANTOprazole 40 MG TAB PO SCH (09:00)
[2019-10-29] MEDS ORDERED: UMECLIDINIUM BROMIDE 62.5MCG/BLISTER 7 PUFFS/INHALER INH SCH (09:00)
[2019-10-29] MEDS ORDERED: TORSEMIDE 10 MG TAB PO SCH (09:00)
[2019-10-29] MEDS ORDERED: NIACIN 500 MG TAB PO SCH (09:00)
[2019-10-29] MEDS ORDERED: METOPROLOL SUCC 50MG EXT REL TAB PO SCH (09:00)
[2019-10-29] MEDS ORDERED: CHOLECALCIFEROL 1,000 UNITS 25 MCG TAB PO SCH (09:00)
[2019-10-29] MEDS ORDERED: CALCIUM CARBONATE 1250MG TAB PO SCH (09:00)
[2019-10-29 10:56] LABS: Estimated Average Glucose 154 mg/dl
[2019-10-29 12:02] VITALS: BP 160/74; TEMP 97.3
--- NOTE | 2019-10-29 14:31 | Discharge Summary ---
Date of Service October 29, 2019 Admission HPI Per Admitting Provider 63 y/o F c/o SOB and swallowing issues. She was directed to the ED by Dr. Yoon after she called the office for these concerns. Pt is sleeping during most of discussion, so majority of HPI comes from . He states that she has been having SOB for quite some time, however it was "really bad" starting yesterday night around 9:30p. He states she has been trying to use her albuterol inhaler Q4hr the last few days, but it is not helping. He takes her outside and rubs her back and this did help some, but it returned quickly. states that the pt was unable to sleep last night due to breathing issues. She has not been able to lie flat for several days due to SOB. Pt has also been having pain with swallowing the last few days. She has hx of mouth ulcers related to her current chemo, so she has Magic Swizzle sticks at home, but it was not helping her throat pain. She was seen by Dr. Yoon in the office yesterday and given a prescription for oxycodone for the throat pain, but it has not helped at all. D ue to this, she has not eaten much the last few days. What she does swallow she keeps down, but it is very painful to do so. She was able to take her pills today, but no other PO. She did not take her insulin today. states pt has had UE/LE swelling for quite some time, but it was improved with radiation and chemo. It recently restarted about 2 weeks ago and she is now quite swollen, UE>>LE. Pt has been having chemo/radiation recently. She radiation on and Wednesday, chemo on Wednesday, and she was given PRBC on . She follows with Dr. Yoon. ED physician spoke with Dr. Yoon who advised him that her tx are more palliative at this point, but pt wants to "try everything". In the ED, pt was put on O2 via NC and states that she appears much more comfortable. He states she was "instantly" better with the O2. Pt agrees with this. She endorses some chest tightness when the SOB is increased, but no joss pain. Pt denies fever, abd pain, n/v, LE pain. She has diarrhea s/p chemo, but maybe 1-2x/day. She states the pain in her throat is only with swallowing attempts. Admission Exam Per Admitting Provider Constitutional: WD/WN, vitals as above Eyes: normal visual leal by confrontation and + anicteric sclerae Neck: normal visual inspection and trachea midline Respiratory: normal respiratory effort, lungs clear to auscultation Cardiovascular: Rate/Rhythm: regular rate and regular rhythm Gastrointestinal (Abdomen): Inspection/Auscultation: abdomen not distended Percussion/Palpation: abdomen soft; abdomen nontender Musculoskeletal: Head/Neck/Chest: normocephalic and head atraumatic UE 2+ pitting edema, LE 1+ pitting edema, peripheral pulses intact Skin: no rashes, warm and dry Neurologic: awake; not confused Speech / Cognition: normal speech Psychiatric: A+Ox3, euthymic affect Principal Diagnosis 1) Shortness of Breath, suspected to be secondary to fluid overload 2) thrush Discharge Exam Constitutional WD/WN, vitals as above Eyes PERRL, conjunctivae normal, anicteric sclerae ENMT external ear and nose normal, oropharynx normal Respiratory normal respiratory effort, lungs clear to auscultation Cardiovascular RRR, no murmur, no edema b/l upper extremity edema Gastrointestinal (Abdomen) normal bowel sounds, soft, nontender, no hepatosplenomegaly Skin no rashes, warm and dry Psychiatric A+Ox3, euthymic affect Discharge Data Allergies Allergy/AdvReac Type Severity Reaction Status Date / Time ceftaroline fosamil Allergy Hives Verified 10/28/19 10:23 [From Teflaro] Penicillins Allergy Rash Verified 10/28/19 10:23 Consultations 10/28/19 10:54 ED Decision to Admit Stat 10/28/19 13:11 Consult Case Management - Discharge Planning Routine Ordered Studies 10/28/19 09:25 CT chest wo con Stat 10/29/19 00:05 US venous doppler UE BI Urgent Hospital Course (1) Acute dyspnea: Ms. 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 Dyspnea secondary to fluid overload -CT chest on admission noted: -> Persistent large mediastinal mass with subcarinal extension. This is jacey lar to the prior study. -> The mass narrows a right upper lobe bronchus with secondary right upper lobe volume loss. There is decreased narrowing of the right mainstem bronchus and bronchus intermedius when compared the prior July 2019 CT scan. -> Small right pleural effusion and trace left pleural effusion which have slightly progressed. -> Slight decrease in size in the moderate pericardial effusion. -> Right greater than left interlobular septal thickening. This may represent mild asymmetric congestive change. -> A new 8 mm subpleural nodule within the right upper lobe. The remaining subcentimeter pulmonary nodules remain stable. -No hypoxia noted. however patient was intermittently tachypneic, requiring 1-2L of oxygen -patient received a total of 30mg of IV Lasix -> improved her symptoms greatly -ambulated w/resp therapy on d/c - did not require supplemental O2 -suspect her dyspnea was related to fluid overload in the setting of known lung cancer w/SVC syndrome -will increase patient's home dose of torsemide from 10mg daily to 20mg daily to try and prevent recurrence. Radiation may result in a decrease in her arm swelling and she may not need as high a dose -recommend checking BMP (to assess potassium and creatinine) this week. Pt has f/u with oncology in 3 days -Blood cx were drawn in the ED, and preliminary results negative. Low suspicion for infection given absence of fever, and no evidence of infection on CT of chest Throat pain -likely secondary to thrush as well as s/e from chemotherapy -continue nystatin for 5 more days -continue pain regimen including tylenol, tramadol and oxycodone Pericardial Effusion -noted on prior CT scans and ECHOs -likely related to malignancy -appears to be slightly reduced in size on this CT scan, recommended continued outpatient monitoring UE Swelling -likely related to SVC syndrome -patient reports slight improvement prior to d/c -doppler US of UE w/out evidence for DVT Non small cell lung ca w/resultant SVC syndrome -Ongoing chemo/rads that is more palliative in nature per Dr. Yoon -chemo regimen: abraxane, carboplatin and pembrolizumab. Patient takes this weekly, on Wednesdays -rad onc note from 10/22 notes poor response to chemo and increased SVC syndrome symptoms prompting initiation for palliative radiation therapy Anemia -likely secondary to a combination of anemia of chronic kidney disease, as well as iron deficiency anemia and myelosuppression 07/09 chemotherapy -B12 and folate checked on admission in 07/2019 and were normal -s/p IV venofer x 4 doses in 07/2019, and 1 unit prbcs in 08/03, and another on 10/25 -continue iron supplementation with ferrous sulfate -Hb is improved to 9.4 on current admission Pancytopenia -Hgb 9.4 as above, WBC 1.4 and platelets 105 currently -likely secondary to myelosuppression from chemotherapy Hypomagnesemia -Mg 1.3 on admission -continue home magnesium supplementation, repleted with 1g of magnesium sulfate IV in addition DM2 -continue home insulin -HbA1c ordered and pending Afib -continue home metoprolol and digoxin -Coumadin 3mg daily as prior -follows with cardiology in [place] - Dr. Sam -Monitor INR, currently therapeutic at 2.5 HTN -continue home metoprolol, clonidine and torsemide CKD stage 3-4 -unsure of baseline, creatinine has been in the 2 - 2.5 range over past admissions -creatinine currently improved from prior at 1.86 PAD -hx of iliac artery stent placement -continue aspirin and statin Mitral Stenosis -s/p mitral valvuloplasty Hyperlipidemia -continue simvastatin Hiatal Hernia -continue PPI Stable for discharge to home--> no O2 needed (2) Throat pain: (3) Swelling: (4) T2DM (type 2 diabetes mellitus): (5) Superior vena cava syndrome: (6) Non-small cell lung cancer (NSCLC): (7) Anemia: (8) Afib: (9) HLD (hyperlipidemia): (10) Hypertension: (11) Pericardial effusion: (12) DVT prophylaxis: (13) Hypomagnesemia: (14) Edema of upper extremity: (15) PVD (peripheral vascular disease): (16) CKD (chronic kidney disease): (17) Hiatal hernia: (18) Mitral stenosis: Total Time Total Time Spent Total Time Spent (In Minutes): See attending addendum Discharge Plan Discharge Items Patient Disposition: Home - Self-Care Reason For Visit: SOB Discharge Diagnosis: Shortness of Breath Activity: Resume your previous activity Non-emergency contact: Primary Care Provider Call non-emergency contact if: you have any medication questions Follow-up/Referrals: Vicente Roy MD [Primary Care Provider] - Diet: Regular Addtl Attending Provider Instructions: Ms. Lawler, you were admitted to [facility] due to throat pain/difficulty swallowing and feeling more short of breath than usual. You were diagnosed with thrush, and started on nystatin. Please take this medication for the next 5 days to continue your treatment. With regards to your difficulty breathing, this improved greatly with the use of a diuretic, Lasix, suggesting it may have been related to fluid overload. When you walked with respiratory therapy, you did great and thankfully did not require any oxygen. We recommend increasing your dose of torsemide from 10mg a day to 20mg a day, to try and prevent this from happening again. Please have your kidney function and potassium levels checked at your upcoming Oncology visit on Wednesday. After your radiation treatment, your arm swelling may go down and you may not need this high of a dose of the torsemide. Please have your Corporate Treasury Analyst or PCP advise you on the dosing of your torsemide on a regular basis. Your pericardial effusion (fluid around your heart) appears to be similar to y our prior imaging studies. We will request your family doctor to continue to follow up on that with serial imaging. If you have a fever, chills, worsening shortness of breath, or cough, please seek medical attention. Otherwise, congratulations again and enjoy your daughter's ! Pending Studies at Discharge: No Stand-Alone Forms: My [employer], Smoking Cessation Medications and DC Order Prescriptions: New nystatin 100,000 unit/mL Suspension 5 ml PO QID 5 Days Qty: 100 RF: 0 torsemide 20 mg tablet 20 mg PO DAILY 30 Days Qty: 30 RF: 0 Continued albuterol sulfate 90 mcg/actuation HFA aerosol inhaler 2 puffs INH Q4H PRN (Reason: shortness of breath or wheezing) RF: 0 warfarin [Coumadin] 3 mg tablet 3 mg PO HS RF: 0 ondansetron HCl [Zofran] 8 mg tablet 8 mg PO Q8H PRN (Reason: Nausea) RF: 0 prochlorperazine maleate [Compazine] 10 mg tablet 10 mg PO Q6H PRN (Reason: Nausea) RF: 0 benzonatate [Tessalon Perles] 100 mg capsule 100 mg PO ONCE PRN (Reason: cough) Qty: 1 RF: 0 terazosin 5 mg Capsule 5 mg PO HS RF: 0 clonidine HCl 0.1 mg Tablet 0.1 mg PO BID RF: 0 metoprolol succinate 50 mg Tablet Extended Release 24 Hr 50 mg PO QAM RF: 0 tramadol 50 mg Tablet 50 mg PO DAILY PRN (Reason: Pain, Moderate) RF: 0 simvastatin 40 mg Tablet 40 mg PO HS RF: 0 pantoprazole [Protonix] 40 mg Tablet,Delayed Release (Dr/Ec) 40 mg PO QAM RF: 0 niacin [Niacor] 500 mg Tablet 500 mg PO QAM RF: 0 magnesium oxide 500 mg Tablet 500 mg PO BID RF: 0 aspirin 81 mg Tablet,Chewable 81 mg PO HS RF: 0 calcium carbonate [Calcium 500] 500 mg calcium (1,250 mg) Tablet,Chewable 500 mg PO QAM RF: 0 digoxin 125 mcg (0.125 mg) Tablet 125 mcg PO HS RF: 0 insulin aspart U-100 [Novolog Flexpen U-100 Insulin] 100 unit/mL (3 mL) Insulin Pen 18 unit SUBCUT QDD RF: 0 cholecalciferol (vitamin D3) [Vitamin D3] 125 mcg (5,000 unit) Tablet 5,000 unit PO QAM RF: 0 insulin aspart U-100 [Novolog Flexpen U-100 Insulin] 100 unit/mL (3 mL) insulin pen 10 unit SUBCUT DAILYBL RF: 0 ferrous sulfate 325 mg (65 mg iron) Tablet 325 mg PO BID RF: 0 Tresiba FlexTouch U-100 100 unit/mL (3 mL) insulin pen 16 unit SUBCUT HS RF: 0 oxycodone 10 mg tablet 10 mg PO UD RF: 0 Spiriva Respimat 2.5 mcg/actuation mist 2 puffs INH QAM RF: 0 Changed torsemide 10 mg tablet 20 mg PO QAM 30 Days Qty: 0 RF: 0 Discharge Orders: Discharge Order (Routine); Ordered 10/29/19 Ordered By: Jeb Huddleston Admission Data Admit Date/Time: 10/28/19 11:40 Attending Provider: Yamel Marc Admit Provider: Chantel Hameed Primary Care Provider: Vicente Roy Other Providers: Chantel Hameed Other Interventions: Discharge Summary Assessment (RN) Last Done: 10/29/19 14:55 DC Date/Time DO NOT enter until pt leaves facility: 10/29/19 16:07 Supervising Physician Co-Signing Physician Notes I personally examined the patient and verified all chen points of history and exam, discussed case, and agree with decision making with Dr. Huddleston with the following additions/exceptions: Pt feeling much improved, less SOB, no chest pain, throat pain improved. Feels ready to go home, passed her 2 step walk test and does not need O2. She is excited about her daughter's wedding this Wednesday. Vitals reviewed NAD, AAOx3, with alopecia With significant facial and UE edema bilaterally, 3+ pitting in arms RRR no mgr Lungs with diminished BS at right base but otherwise clear Abd +BS soft NT ND Ext-UE edema as above, legs with trace pitting edema to mid tibia bilat SKin no rashes 63 yo female with NSCLC and SVC syndrome, other chronic issues as above, here with dyspnea, acute respiratory failure with hypoxia, and volume overload -improved with IV lasix -dc to home on increased torsemide with close follow up advised daily weights and close f/u of renal function and lytes this week If UE edema improves with XRT and improvement of SVC syndrome, may not need as high of a diuretic dose Stable for discharge to home I spent greater than 30 minutes coordinating the discharge Resident Activity Tracking Resident Involvement: Resident Care Provided Care Provided: Adult Hospital Medicine
[2019-10-29 14:42] VITALS: O2SAT 92
[2019-10-29] MEDS: WARFARIN SOD 3 MG TAB PO SCH (15:54)
[2019-10-29 16:03] VITALS: PULSE 101
--- NOTE | 2019-10-29 16:42 | Billing Data ---
Date of Service October 29, 2019 Coding Level of Care Code D/C Day Management >30 mins
== END 2019-10-29 16:07 | disposition home or self-care (01) ==
LOC: ED 08:44 → INTOOBSV 11:40 → SUATTDRO 11:40 → 2N 11:40

== ENCOUNTER 2019-11-21 10:59 | Inpatient (IN) ==
[2019-11-21] MEDS ORDERED: MoRPHine SULFATE 4 MG/ML 1 ML CARP\\VIAL IV STA (11:23)
--- NOTE | 2019-11-21 11:27 | Emergency Department Note ---
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 She follows with Dr. Cardoza. Shortness of breath started this morning. No other exacerbating or remitting factors. She denies any cough or congestion. No chest pain. Her and her also notes that she is having significant pain in the right leg. She scratched it on cement on 03 November. Since then it has become significantly worse. They note they were following with wound care clinic. They are concerned that it may be infected. He has a foul-smell to it at this point. Patient has severe pain which is constant and worse with movement in that right diallo. She notes the shortness of breath is worse with movement as well. Has been notes that she takes Coumadin and has not missed any doses. ROS: See above HPI for pertinent positives & negatives. A total of 10 systems reviewed and were otherwise negative. PAST MEDICAL HISTORY:See Below PAST SURGICAL HISTORY:See Below FAMILY HISTORY:See Below SOCIAL HISTORY:See Below HOME MEDICATIONS:See Below ALLERGIES:See Below VITALS:See Below PHYSICAL EXAMINATION: GENERAL: Lying in bed, ill-appearing, malnourished, moderate distress EYE EXAM: normal conjunctiva. PERRL and EOM's grossly intact. OROPHARYNX: no exudate, no erythema, lips, buccal mucosa, and tongue normal and mucous membranes are moist NECK: supple, no nuchal rigidity, no adenopathy, non-tender LUNGS: Clear to auscultation. Normal chest wall mechanics HEART: no murmurs, S1 normal and S2 normal ABDOMEN: abdomen soft, non-tender, normo-active bowel sounds, no masses, no rebound or guarding. BACK: Back is symmetrical on inspection and there is no deformity, no midline tenderness, no CVA tenderness. SKIN: Several vesicles/ulcers on the distal dorsal surface of the bilateral feet. 10 cm x 15 cm area of erythema and necrosis the right mid diallo which is foul-smelling some mild green purulent drainage UPPER EXTREMITIES: upper extremities are grossly normal. LOWER EXTREMITIES: No pitting edema. NEURO EXAM: Normal sensorium, cranial nerves II-XII grossly intact, normal speech, no gross weakness of arms, no gross weakness of legs. MEDICAL DECISION MAKING: Patient is a 63-year-old female who presents the ER for shortness of breath associated with right leg pain. 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 Has not missed any doses of Coumadin. IV was damaged blood work was obtained. Labs showed leukopenia with a pancytopenia. Moderate neutropenia present. INR was therapeutic at 2.7. PE was not explored. BMP with creatinine 1.8 consistent with previous. Lactate was normal. LFTs bilirubin and troponin was negative. X-ray of the chest showed pleural effusion. Patient was updated bedside. She was given IV antibiotics. She was discussed with the hospitalist admitted for further work- up. She was given IV pain medications while in the ER as well. Triage Nursing notes reviewed. Prior medical records reviewed Vital Signs: reviewed and remarkable for tachycardic Differential diagnosis: Differential diagnoses includes but is not limited to pneumonia, bronchitis, COPD/Asthma exacerbation, pneumothorax, pulmonary embolism, congestive heart failure, acute coronary syndrome ER treatment provided: See below Diagnostics interpreted by me: ECG: Sinus tachycardia rate of 114 Normal axis DWI in the inferior leads Septal Q waves No PVCs Normal QTC Cardiac Monitoring: An order was placed for continuous cardiac monitoring. The monitor shows a rate of 109 with sinus rhythm. Laboratory studies: As stated above and show below. Imaging studies: Portable AP upright 1 view of the chest shows no focal infiltrate. Consultation(s): Discussed with Dr. Boo Gifford. ED COURSE: Procedures: none Critical Care: None Past Med/Surg History Social History (Updated 11/21/19 @ 14:49 by Jamie Gifford) Preferred Language: Argentine Communication Ability: Effective Job Coaching Required: No Beliefs That Will Affect Care: None marital status: Current Living Situation: Spouse Other Information That Helps Us Care for You: No other: 1 daughter Feels Safe at Home: Yes Safety Concerns: Feels Safe At This Time Smoking Status: Former smoker Age Quit Using Tobacco: 60 ; Do You Dip or Chew Tobacco: No ; Second Hand Exposure: No ; Tobacco Cessation Education Requested by Patient: No Hx Alcohol Use: No Hx Substance Use: No Allergies Allergies Allergy/AdvReac Type Severity Reaction Status Date / Time ceftaroline fosamil Allergy Hives Verified 11/21/19 12:46 [From Teflaro] Penicillins Allergy Rash Verified 11/21/19 12:46 Home Meds Home Medications Medication Instructions Recorded Confirmed aspirin 81 mg PO HS 07/25/19 11/21/19 calcium carbonate [Calcium 500] 500 mg PO QAM 07/25/19 11/21/19 cholecalciferol (vitamin D3) 5,000 unit PO QAM 07/25/19 11/21/19 [Vitamin D3] clonidine HCl 0.1 mg PO BID 07/25/19 11/21/19 digoxin 125 mcg PO HS 07/25/19 11/21/19 magnesium oxide 500 mg PO BID 07/25/19 11/21/19 metoprolol succinate 50 mg PO QAM 07/25/19 11/21/19 niacin [Niacor] 500 mg PO QAM 07/25/19 11/21/19 pantoprazole [Protonix] 40 mg PO QAM 07/25/19 11/21/19 simvastatin 40 mg PO HS 07/25/19 11/21/19 terazosin 5 mg PO HS 07/25/19 11/21/19 tramadol 50 mg PO QAM PRN 07/25/19 11/21/19 ferrous sulfate 325 mg PO BID 08/01/19 11/21/19 albuterol sulfate 90 mcg/actuation 2 puffs INH Q4H PRN gm 08/21/19 11/21/19 aerosol inhaler Tresiba FlexTouch U-100 16 unit SUBCUT HS 10/05/19 11/21/19 ondansetron HCl 8 mg tablet 8 mg PO Q8H PRN 10/23/19 11/21/19 prochlorperazine maleate 10 mg 10 mg PO Q6H PRN 10/23/19 11/21/19 tablet warfarin 3 mg tablet 3 mg PO HS 10/23/19 11/21/19 Spiriva Respimat 2 puffs INH DAILY@1300 10/28/19 11/21/19 oxycodone 10 mg PO .Q4-6H PRN 10/28/19 11/21/19 insulin aspart U-100 100 unit/mL 12 units SUBCUT DAILY@0800,1200 ml 11/06/19 11/21/19 (3 mL) subcutaneous pen insulin aspart U-100 100 unit/mL 18 units SQ DAILY@1700 ml 11/06/19 11/21/19 (3 mL) subcutaneous pen lorazepam 1 mg PO DAILY PRN 11/21/19 11/21/19 torsemide 20 mg PO QAM 11/21/19 11/21/19 Results & Data (ED) Vital Signs Vital Signs - 24 hr 11/21/19 11:05 11/21/19 11:07 11/21/19 11:10 Temperature Temperature Source Pulse Rate 114 H 114 H 112 H Pulse Rate [Finger] Pulse Rate from SpO2 Sensor 114 H 114 H 112 H Pulse Rhythm [Finger] Pulse Strength [Finger] Respiratory Rate 16 23 24 Respiratory Effort / Characteristics Respiratory Depth Respiratory Pattern Blood Pressure 179/86 H Blood Pressure [Right Arm] Blood Pressure Mean 95 Blood Pressure Mean [Right Arm] Blood Pressure Position [Right Arm] Pulse Oximetry 92 93 93 Oxygen Delivery Method Room Air Room Air Room Air Fraction of Inspired Oxygen Sepsis Recent Fever Within 48 Hours Sepsis New/Unexplained Change in Mental Status Sepsis Action Taken by Nursing 11/21/19 11:20 11/21/19 11:29 11/21/19 11:30 Temperature 37.3 C Temperature Source Oral Pulse Rate 113 H 114 H 113 H Pulse Rate [Finger] 114 H Pulse Rate from SpO2 Sensor 114 H 113 H Pulse Rhythm [Finger] Pulse Strength [Finger] Respiratory Rate 24 28 H 23 Respiratory Effort / Characteristics Non-Labored Spontaneous Respiratory Depth Normal Respiratory Pattern Regular Blood Pressure Blood Pressure [Right Arm] 179/86 H Blood Pressure Mean Blood Pressure Mean [Right Arm] 117 Blood Pressure Position [Right Arm] Pulse Oximetry 95 97 93 Oxygen Delivery Method Room Air Room Air Room Air Fraction of Inspired Oxygen Sepsis Recent Fever Within 48 Hours No Sepsis New/Unexplained Change in Mental Status Yes Sepsis Action Taken by Nursing No Action Required 11/21/19 11:40 11/21/19 11:50 11/21/19 12:00 Temperature Temperature Source Pulse Rate 114 H 112 H 113 H Pulse Rate [Finger] Pulse Rate from SpO2 Sensor 115 H 112 H 112 H Pulse Rhythm [Finger] Pulse Strength [Finger] Respiratory Rate 28 H 20 20 Respiratory Effort / Characteristics Respiratory Depth Respiratory Pattern Blood Pressure Blood Pressure [Right Arm] Blood Pressure Mean Blood Pressure Mean [Right Arm] Blood Pressure Position [Right Arm] Pulse Oximetry 93 93 93 Oxygen Delivery Method Room Air Room Air Room Air Fraction of Inspired Oxygen Sepsis Recent Fever Within 48 Hours Sepsis New/Unexplained Change in Mental Status Sepsis Action Taken by Nursing 11/21/19 12:10 11/21/19 12:20 11/21/19 12:30 Temperature Temperature Source Pulse Rate 113 H 110 H 111 H Pulse Rate [Finger] Pulse Rate from SpO2 Sensor 112 H 111 H 111 H Pulse Rhythm [Finger] Pulse Strength [Finger] Respiratory Rate 19 22 19 Respiratory Effort / Characteristics Respiratory Depth Respiratory Pattern Blood Pressure Blood Pressure [Right Arm] Blood Pressure Mean Blood Pressure Mean [Right Arm] Blood Pressure Position [Right Arm] Pulse Oximetry 92 93 Oxygen Delivery Method Room Air Room Air Room Air Fraction of Inspired Oxygen Sepsis Recent Fever Within 48 Hours Sepsis New/Unexplained Change in Mental Status Sepsis Action Taken by Nursing 11/21/19 12:40 11/21/19 12:41 11/21/19 12:50 Temperature Temperature Source Pulse Rate 111 H 112 H 114 H Pulse Rate [Finger] Pulse Rate from SpO2 Sensor 111 H 112 H 115 H Pulse Rhythm [Finger] Pulse Strength [Finger] Respiratory Rate 20 22 20 Respiratory Effort / Characteristics Respiratory Depth Respiratory Pattern Blood Pressure 172/72 H Blood Pressure [Right Arm] Blood Pressure Mean 82 Blood Pressure Mean [Right Arm] Blood Pressure Position [Right Arm] Pulse Oximetry 94 94 94 Oxygen Delivery Method Room Air Room Air Room Air Fraction of Inspired Oxygen Sepsis Recent Fever Within 48 Hours Sepsis New/Unexplained Change in Mental Status Sepsis Action Taken by Nursing 11/21/19 13:00 11/21/19 13:01 11/21/19 13:02 Temperature Temperature Source Pulse Rate 112 H 113 H 111 H Pulse Rate [Finger] Pulse Rate from SpO2 Sensor 112 H 111 H 111 H Pulse Rhythm [Finger] Pulse Strength [Finger] Respiratory Rate 21 20 20 Respiratory Effort / Characteristics Respiratory Depth Respiratory Pattern Blood Pressure 167/66 H Blood Pressure [Right Arm] Blood Pressure Mean 82 Blood Pressure Mean [Right Arm] Blood Pressure Position [Right Arm] Pulse Oximetry 96 96 96 Oxygen Delivery Method Room Air Room Air Room Air Fraction of Inspired Oxygen Sepsis Recent Fever Within 48 Hours Sepsis New/Unexplained Change in Mental Status Sepsis Action Taken by Nursing 11/21/19 13:10 11/21/19 13:20 11/21/19 13:30 Temperature Temperature Source Pulse Rate 112 H 112 H 115 H Pulse Rate [Finger] Pulse Rate from SpO2 Sensor 110 H 112 H 113 H Pulse Rhythm [Finger] Pulse Strength [Finger] Respiratory Rate 21 21 23 Respiratory Effort / Characteristics Respiratory Depth Respiratory Pattern Blood Pressure Blood Pressure [Right Arm] Blood Pressure Mean Blood Pressure Mean [Right Arm] Blood Pressure Position [Right Arm] Pulse Oximetry 97 96 98 Oxygen Delivery Method Room Air Room Air Room Air Fraction of Inspired Oxygen Sepsis Recent Fever Within 48 Hours Sepsis New/Unexplained Change in Mental Status Sepsis Action Taken by Nursing 11/21/19 13:31 11/21/19 13:40 11/21/19 13:50 Temperature Temperature Source Pulse Rate 115 H 115 H 117 H Pulse Rate [Finger] Pulse Rate from SpO2 Sensor 113 H 113 H 117 H Pulse Rhythm [Finger] Pulse Strength [Finger] Respiratory Rate 23 22 23 Respiratory Effort / Characteristics Respiratory Depth Respiratory Pattern Blood Pressure 200/84 H Blood Pressure [Right Arm] Blood Pressure Mean 120 Blood Pressure Mean [Right Arm] Blood Pressure Position [Right Arm] Pulse Oximetry 98 99 98 Oxygen Delivery Method Room Air Room Air Room Air Fraction of Inspired Oxygen Sepsis Recent Fever Within 48 Hours Sepsis New/Unexplained Change in Mental Status Sepsis Action Taken by Nursing 11/21/19 14:00 11/21/19 14:01 11/21/19 14:10 Temperature Temperature Source Pulse Rate 117 H 117 H 121 H Pulse Rate [Finger] Pulse Rate from SpO2 Sensor 117 H 117 H 122 H Pulse Rhythm [Finger] Pulse Strength [Finger] Respiratory Rate 24 24 34 H Respiratory Effort / Characteristics Respiratory Depth Respiratory Pattern Blood Pressure 203/86 H Blood Pressure [Right Arm] Blood Pressure Mean 121 Blood Pressure Mean [Right Arm] Blood Pressure Position [Right Arm] Pulse Oximetry 98 98 98 Oxygen Delivery Method Room Air Room Air Room Air Fraction of Inspired Oxygen Sepsis Recent Fever Within 48 Hours Sepsis New/Unexplained Change in Mental Status Sepsis Action Taken by Nursing 11/21/19 14:52 11/21/19 16:15 Temperature Temperature Source Pulse Rate 120 H Pulse Rate [Finger] 115 H Pulse Rate from SpO2 Sensor Pulse Rhythm [Finger] Regular Pulse Strength [Finger] Normal Respiratory Rate 35 H 22 Respiratory Effort / Characteristics Spontaneous Labored Short of Breath Non-Labored Spontaneous Respiratory Depth Normal Normal Respiratory Pattern Tachypnea Regular Blood Pressure Blood Pressure [Right Arm] 165/85 H Blood Pressure Mean Blood Pressure Mean [Right Arm] 111 Blood Pressure Position [Right Arm] Sitting Pulse Oximetry 100 35 L Oxygen Delivery Method CPAP Fraction of Inspired Oxygen 35 Sepsis Recent Fever Within 48 Hours Sepsis New/Unexplained Change in Mental Status Sepsis Action Taken by Nursing Laboratory Data Result diagrams: 11/21/19 12:09 11/21/19 12:09 Lab Results 11/21/19 11/21/19 11/21/19 Range/Units 12:09 12:09 12:09 WBC 1.18 L (4.8-10.8) K/uL RBC 2.54 L (4.2-5.4) M/uL Hgb 7.8 L (12.0-16.0) g/dL Hct 23.5 L (37-47) % MCV 92.5 (80-100) fL MCH 30.7 (25-34) pg MCHC 33.2 (32-36) g/dL RDW Std Deviation 52.8 H (36.4-46.3) fL RDW Coeff of Epifanio 16.0 H (11.5-14.5) % Plt Count 31 L (130-400) K/uL MPV 8.5 (7.4-10.4) fL Immature Gran % (Auto) 0.0 % Neut % (Auto) 82.2 % Lymph % (Auto) 5.1 % Zapata % (Auto) 12.7 % Eos % (Auto) 0.0 % Baso % (Auto) 0.0 % Immature Gran # (Auto) 0.00 (0.00-0.02) K/uL Neut # (Auto) 0.97 L* (1.4-6.5) K/uL Lymph # (Auto) 0.06 L (1.2-3.4) K/uL Zapata # (Auto) 0.15 (0.11-0.59) K/uL Eos # (Auto) 0.00 (0-0.5) K/uL Baso # (Auto) 0.00 (0-0.2) K/uL Platelet Estimate Decreased L (Normal) PT 27.0 H (9.0-12.0) Seconds INR 2.7 H (0.9-1.1) APTT 41.6 H (21.0-31.0) Seconds PTT Ratio 1.5 Sodium 138 (136-145) mmol/L Potassium 4.5 (3.5-5.1) mmol/L Chloride 107 (98-107) mmol/L Carbon Dioxide 25 (21-32) mmol/L Anion Gap 6.0 (3-11) BUN 43 H (7-18) mg/dl Creatinine 1.83 H (0.6-1.2) mg/dl Est Cr Clr Drug Dosing 26.0 ml/min Est GFR ( Amer) 33.4 Est GFR (Non-Af Amer) 28.9 BUN/Creatinine Ratio 23.5 H (10-20) Glucose 194 H (70-99) mg/dl Lactate (0.4-2.0) mmol/L Calcium 8.3 L (8.5-10.1) mg/dl Magnesium 2.0 (1.8-2.4) mg/dl Total Bilirubin 0.3 (0.2-1) mg/dl AST 17 (15-37) U/L ALT 24 (12-78) U/L Alkaline Phosphatase 108 (45-117) U/L Troponin I < 0.015 (0-0.045) ng/ml NT-Pro-B Natriuret Pep 2151 H (0-900) pg/ml Total Protein 6.2 L (6.4-8.2) gm/dl Albumin 2.6 L (3.4-5.0) gm/dl Globulin 3.6 (2.5-4.0) gm/dl Albumin/Globulin Ratio 0.7 L (0.9-2) 06/16/20 Range/Units 12:09 WBC (4.8-10.8) K/uL RBC (4.2-5.4) M/uL Hgb (12.0-16.0) g/dL Hct (37-47) % MCV (80-100) fL MCH (25-34) pg MCHC (32-36) g/dL RDW Std Deviation (36.4-46.3) fL RDW Coeff of Epifanio (11.5-14.5) % Plt Count (130-400) K/uL MPV (7.4-10.4) fL Immature Gran % (Auto) % Neut % (Auto) % Lymph % (Auto) % Zapata % (Auto) % Eos % (Auto) % Baso % (Auto) % Immature Gran # (Auto) (0.00-0.02) K/uL Neut # (Auto) (1.4-6.5) K/uL Lymph # (Auto) (1.2-3.4) K/uL Zapata # (Auto) (0.11-0.59) K/uL Eos # (Auto) (0-0.5) K/uL Baso # (Auto) (0-0.2) K/uL Platelet Estimate (Normal) PT (9.0-12.0) Seconds INR (0.9-1.1) APTT (21.0-31.0) Seconds PTT Ratio Sodium (136-145) mmol/L Potassium (3.5-5.1) mmol/L Chloride (98-107) mmol/L Carbon Dioxide (21-32) mmol/L Anion Gap (3-11) BUN (7-18) mg/dl Creatinine (0.6-1.2) mg/dl Est Cr Clr Drug Dosing ml/min Est GFR ( Amer) Est GFR (Non-Af Amer) BUN/Creatinine Ratio (10-20) Glucose (70-99) mg/dl Lactate 1.2 (0.4-2.0) mmol/L Calcium (8.5-10.1) mg/dl Magnesium (1.8-2.4) mg/dl Total Bilirubin (0.2-1) mg/dl AST (15-37) U/L ALT (12-78) U/L Alkaline Phosphatase (45-117) U/L Troponin I (0-0.045) ng/ml NT-Pro-B Natriuret Pep (0-900) pg/ml Total Protein (6.4-8.2) gm/dl Albumin (3.4-5.0) gm/dl Globulin (2.5-4.0) gm/dl Albumin/Globulin Ratio (0.9-2) Administered Medications Miscellaneous Information (Consult) 1 ea N/A UD PRN PRN Reason: Consult Stop: 12/21/19 12:55 Last Admin: 11/21/19 13:30 Dose: 1 ea Documented by: [id number] Discontinued Medications Clonidine HCl (Catapres) 0.1 mg PO NOW ONE Stop: 11/21/19 14:25 Last Admin: 11/21/19 15:08 Dose: Not Given Documented by: [id number] Vancomycin HCl 1,500 mg/ (Sodium Chloride) 530 mls @ 200 mls/hr IV NOW ONE Stop: 11/21/19 15:34 Last Infusion: 11/21/19 16:18 Dose: 0 mls/hr Documented by: [id number] Admin: 11/21/19 13:30 Dose: 200 mls/hr Documented by: [id number] Bumetanide 1 mg/ Syringe 4 mls @ 4 mls/min IV NOW ONE Stop: 11/21/19 14:46 Last Admin: 11/21/19 16:19 Dose: 4 mls/min Documented by: [id number] Metoprolol Succinate (Toprol Xl) 50 mg PO NOW STA Stop: 11/21/19 14:25 Last Admin: 11/21/19 15:08 Dose: Not Given Documented by: [id number] Morphine Sulfate (Morphine Sulfate) 4 mg IV NOW STA Stop: 11/21/19 11:24 Last Admin: 11/21/19 12:06 Dose: 4 mg Documented by: [id number] Discharge Plan Visit Data Chief Complaint: Shortness of Breath/Dyspnea Stated Complaint: sob ED Provider: Humphrey Vo Discharge Problem: Breath shortness, Cellulitis, SVC syndrome, Mediastinal mass, Edema of upper extremity Forms Stand Alone Forms: [facility] Prescriptions Prescriptions: No Action albuterol sulfate 90 mcg/actuation HFA aerosol inhaler 2 puffs INH Q4H PRN (Reason: shortness of breath or wheezing) RF: 0 warfarin [Coumadin] 3 mg tablet 3 mg PO HS RF: 0 ondansetron HCl [Zofran] 8 mg tablet 8 mg PO Q8H PRN (Reason: Nausea) RF: 0 prochlorperazine maleate [Compazine] 10 mg tablet 10 mg PO Q6H PRN (Reason: Nausea) RF: 0 insulin aspart U-100 [Novolog Flexpen U-100 Insulin] 100 unit/mL (3 mL) insulin pen 18 units SQ DAILY@1700 RF: 0 terazosin 5 mg Capsule 5 mg PO HS RF: 0 clonidine HCl 0.1 mg Tablet 0.1 mg PO BID RF: 0 metoprolol succinate 50 mg Tablet Extended Release 24 Hr 50 mg PO QAM RF: 0 tramadol 50 mg Tablet 50 mg PO QAM PRN (Reason: Pain, Moderate) RF: 0 simvastatin 40 mg Tablet 40 mg PO HS RF: 0 pantoprazole [Protonix] 40 mg Tablet,Delayed Release (Dr/Ec) 40 mg PO QAM RF: 0 niacin [Niacor] 500 mg Tablet 500 mg PO QAM RF: 0 magnesium oxide 500 mg Tablet 500 mg PO BID RF: 0 aspirin 81 mg Tablet,Chewable 81 mg PO HS RF: 0 calcium carbonate [Calcium 500] 500 mg calcium (1,250 mg) Tablet,Chewable 500 mg PO QAM RF: 0 digoxin 125 mcg (0.125 mg) Tablet 125 mcg PO HS RF: 0 cholecalciferol (vitamin D3) [Vitamin D3] 125 mcg (5,000 unit) Tablet 5,000 unit PO QAM RF: 0 insulin aspart U-100 [Novolog Flexpen U-100 Insulin] 100 unit/mL (3 mL) insulin pen 12 units SUBCUT DAILY@0800,1200 RF: 0 lorazepam 1 mg tablet 1 mg PO DAILY PRN (Reason: Anxiety) RF: 0 torsemide 20 mg tablet 20 mg PO QAM RF: 0 ferrous sulfate 325 mg (65 mg iron) Tablet 325 mg PO BID RF: 0 Tresiba FlexTouch U-100 100 unit/mL (3 mL) insulin pen 16 unit SUBCUT HS RF: 0 oxycodone 10 mg tablet 10 mg PO .Q4-6H PRN (Reason: Pain) RF: 0 Spiriva Respimat 2.5 mcg/actuation mist 2 puffs INH DAILY@1300 RF: 0 Discharge Problem: Cellulitis Qualifiers: Site of cellulitis: unspecified site Qualified Code(s): L03.90 - Cellulitis, unspecified
--- NOTE | 2019-11-21 11:50 | XRay Report ---
RIGHT TIBIA AND FIBULA 2 VIEWS CLINICAL HISTORY: Right leg pain. Fall. FINDINGS: AP and crosstable lateral views of the right tibia and fibula are compared to study dated . The skeletal structures are osteopenic. There is no radiographic evidence of right tibial o r fibular fracture. The knee and ankle joints are grossly maintained. Soft tissue edema is present th roughout the right lower extremity. A radiodense foreign body is present within the distal pretibial soft tissues approximately 10 cm above the ankle joint. IMPRESSION: 1. No acute bony abnormality is identified. 2. Soft tissue injury/edema with a radiodense foreign body in the pretibial soft tissues as above. Electronically signed by: Yaakov Mi M.D. 11/21/2019 11:49 AM
--- NOTE | 2019-11-21 11:52 | XRay Report ---
XR chest 1V portable HISTORY: 63 years-old Female Dyspnea acute shortness of breath COMPARISON: Chest radiograph 10/28/2019, chest CT 10/28/2019 TECHNIQUE: Portable AP view of the chest FINDINGS: Cardiac silhouette is enlarged, unchanged. Blunting of the right mediastinal stripe is redemonstrated correlating with patient's known large mediastinal mass. Calcified plaque of the thoracic aorta arch . Unchanged positioning of a left subclavian port catheter. No pneumothorax. Mild right hemidiaphragm elevation. Emphysema. Trace pleural effusions. Perivascular congestion with interstitial coarsening. There is mild bibasilar densities. Degenerative changes of the shoulders and spine. IMPRESSION: 1. Cardiomegaly with mild pulmonary edema. 2. Trace pleural effusions with bibasilar densities suggestive of probable atelectasis. 3. Patient's known mediastinal mass is better appreciated on comparison chest CT. 4. Emphysema. ACT 112: Negative or not required by law. The above report was generated using voice recognition software. It may contain grammatical, syntax o r spelling errors. Electronically signed by: Bal Duque M.D. 11/21/2019 11:50 AM
[2019-11-21 12:20] LABS: Hematocrit (blood only) 23.5 % (37-47); Hemoglobin 7.8 g/dL (12.0-16.0); Mean Corpuscular Hemoglobin 30.7 pg (25-34); Mean Corpuscular Hgb Conc 33.2 g/dL (32-36); Mean Corpuscular Volume 92.5 fL (80-100); RDW Standard Deviation 52.8 fL (36.4-46.3); Red Blood Count 2.54 M/uL (4.2-5.4); White Blood Count 1.18 K/uL (4.8-10.8)
--- NOTE | 2019-11-21 12:21 | Electrocardiogram Report ---
Test Reason : Blood Pressure : / mmHG Vent. Rate : 114 BPM Atrial Rate : 114 BPM P-R Int : 190 ms QRS Dur : 086 ms QT Int : 280 ms P-R-T Axes : 053 043 092 degrees QTc Int : 385 ms Sinus tachycardia Possible Left atrial enlargement Borderline ECG When compared with ECG of 28-OCT-2019 09:16, No significant change was found Confirmed by Merritt Bryan ([id number]) on 11/21/2019 12:20:49 PM Referred By: REFERRED SELF Confirmed By:Dawson Bryan
[2019-11-21 12:37] LABS: Alanine Aminotransferase 24 U/L (12-78); Albumin Level 2.6 gm/dl (3.4-5.0); Aspartate Aminotransferase 17 U/L (15-37); BUN Creatinine Ratio 23.5 (10-20); Blood Urea Nitrogen 43 mg/dl (7-18); Calcium 8.3 mg/dl (8.5-10.1); Carbon Dioxide 25 mmol/L (21-32); Chloride 107 mmol/L (98-107); Est GFR (African American) 33.4; Est GFR (Non-African American) 28.9; Glucose 194 mg/dl (70-99); INR 2.7 (0.9-1.1); Partial Thromboplastin Ratio 1.5; Partial Thromboplastin Time 41.6 Seconds (21.0-31.0); Potassium 4.5 mmol/L (3.5-5.1); Sodium 138 mmol/L (136-145)
[2019-11-21 12:42] LABS: Albumin Globulin Ratio 0.7 (0.9-2); Alkaline Phosphatase 108 U/L (45-117); Bilirubin,Total 0.3 mg/dl (0.2-1); Globulin 3.6 gm/dl (2.5-4.0); NT Pro B Type Natriuretic Pept 2151 pg/ml (0-900); Total Protein 6.2 gm/dl (6.4-8.2); Troponin I < 0.015 ng/ml (0-0.045)
[2019-11-21 12:55] LABS: Lymphocytes # (auto) 0.06 K/uL (1.2-3.4); Lymphocytes % (auto) 5.1 %; Mean Platelet Volume 8.5 fL (7.4-10.4); Monocytes # (auto) 0.15 K/uL (0.11-0.59); Monocytes % (auto) 12.7 %; Neutrophils # (auto) 0.97 K/uL (1.4-6.5); Neutrophils % (auto) 82.2 %; Platelet Count 31 K/uL (130-400); Platelet Estimate Decreased (Normal)
[2019-11-21] MEDS ORDERED: VANCOMYCIN HCL 1,500 MG in SODIUM CHLORIDE 0.9% 500 ML IV ONE (12:56)
[2019-11-21] MEDS ORDERED: VANCOMYCIN CONSULT ACTIVE PRN (12:56)
[2019-11-21] MEDS ORDERED: METOPROLOL SUCC 50MG EXT REL TAB PO STA (14:24)
[2019-11-21] MEDS ORDERED: cloNIDine HCL 0.1 MG TAB PO ONE (14:24)
--- NOTE | 2019-11-21 14:24 | History & Physical Report ---
Date of Service November 21, 2019 Assessment & Plan (1) Acute respiratory failure: Pulmonary status has been worsening over weeks. CT chest in late October showed encasement of bronchi and vessels from her cancer, effusions, nodules, edema, etc. This am she developed worsening distress in the setting of the above issues seen on prior chest CT. Suspect acute worsening is due to pulmonary edema/acute CHF. Cannot rule out infectious process or underlying COPD but less likely. Continue with BIPAP. Check VBG. Diurese. Consider repeat chest CT if not improving. (2) Acute diastolic CHF (congestive heart failure): Bumex 1mg IV x 1 given in ER with 500cc+ put out. Will give additional dose of bumex 1mg IV tonight. Strict I's and O's. Daily weights. BMP am. Appreciate Dr Bryan reading her echo quickly in the ER. EF continues to be preserved. no tamponade physiology from her pericardial effusion. (3) Metabolic encephalopathy: When respiratory status improves would obtain CT head or MRI brain to r/o intra-cranial mets. Metabolic factors including infection of RLE could be contributing. Hypoxia could be contributing. had been giving her ativan at home which could be causing toxic effects. HOLD any further ativan. 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 s/p radiation. s/p various chemo regimens including recent gemcitabine. her arms continue to be severely edematous. doubt DVT given her therapeutic INR but can't rule it out 100%. I spoke with Dr Yoon who will consult tomorrow. (5) Non-small cell lung cancer (NSCLC): progressive cancer. patient with failure to thrive at home. severe pancytopenia present due to her chemo regimen. not responding well to chemo from clinical standpoint. Dr Yoon to consult tomorrow - transition to hospice/palliative care soon in light of general decline? appreciate his consult. (6) Pericardial effusion: presumed malignant. echo done urgently in ER - small-moderate effusion but no tamponade physiology. official read- effusion slightly smaller than previous echo. appreciate cardiology assistance on this. (7) Pancytopenia due to antineoplastic chemotherapy: severe leukopenia, neutropenia, and thrombocytopenia. HOLD coumadin in light of low platelets. neutropenic precautions. broad-spectrum IV abx for RLE wound with superimposed infection. follow blood cx's. CBC daily. consider PRBCs if Hb <7.5 in light of respiratory failure but caution due to volume overload and CKD. transfuse platelets if platelet count <20. Dr Yoon to see in am. (8) Cellulitis: RLE - in setting of traumatic wound suffered on 11/04/19. has been performing daily dressing changes. Start aztreonam (for broad gram negative coverage including pseudomonas) as well as daptomycin for MRSA/Gram+ coverage. Consult wound care nurse for assistance. This wound will not heal well in light of immunosuppression, uncontrolled DM, etc. (9) Traumatic wound: as above (10) CKD (chronic kidney disease): stage 4 - baseline Cr about 1.8 Cr 1.8 today BMP am (11) Hypertension: severe. hydralazine prn continue beta tre continue clonidine adjust as needed (12) HLD (hyperlipidemia): hold statin due to daptomycin use (13) Afib: PAF. check dig level. if acceptable cont dig. cont BB. hold coumadin due to severe thrombocytopenia. INR am. (14) Mitral stenosis: (15) T2DM (type 2 diabetes mellitus): cont basal-bolus insulin T2DM diet (16) DVT prophylaxis: holding coumadin due to severe thrombocytopenia SCDs in meantime extensively updated at bedside strongly consider palliative care consult while here acute respiratory failure constituted a life-threatening event requiring immediate actions including BIPAP, diuretics, echo, etc critical care time 70 min History of Present Illness Chief Complaint: shortness of breath Primary Care Provider: Vicente Roy MD Ms. 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 Patient was in distress during my visit - stating to me "I can't breath" - and was unable to provide any meaningful history. Thus, most history was obtained from her at bedside. She was seen for dyspnea at the [facility] ER in the last 1-2 weeks and it was thought to be anxiety and was discharged home. Additionally she has been having right leg pain due to traumatic injury to the right diallo by way of a fall on cement steps on November 03. She is not currently taking antibiotics for this. Minimal to no cough. Poor appetite. Has gained weight over the last few weeks/months. Overnight last PM had worsening right leg pain, and then at 0730 this am she had acute worsening of her breathing. She has chronic orthopnea and sleeps upright "for years." reports confusion at home. He also mentions worsening odor of the right diallo for 2 days. has been changing the dressings on RLE daily. Remaining sut[facility] in R[facility] Wednesday of last week had 1 unit of PRBCs at [facility] ordered by Dr Yoon. On Wednesday pm had epistaxis. Over the subsequent weekend she was weak, dyspneic, confused, and simply not doing well. During my admission assessment I ordered bumex 1mg IV x 1, started BIPAP, and had cardiology perform echo to ensure her pericardial effusion was not causing any early tamponade. Allergies Allergy/AdvReac Type Severity Reaction Status Date / Time ceftaroline fosamil Allergy Hives Verified 11/21/19 12:46 [From Teflaro] Penicillins Allergy Rash Verified 11/21/19 12:46 Home Medications Home Medications Medication Instructions Recorded Confirmed Type aspirin 81 mg PO HS 07/25/19 11/21/19 History calcium carbonate [Calcium 500] 500 mg PO QAM 07/25/19 11/21/19 History cholecalciferol (vitamin D3) 5,000 unit PO QAM 07/25/19 11/21/19 History [Vitamin D3] clonidine HCl 0.1 mg PO BID 07/25/19 11/21/19 History digoxin 125 mcg PO HS 07/25/19 11/21/19 History magnesium oxide 500 mg PO BID 07/25/19 11/21/19 History metoprolol succinate 50 mg PO QAM 07/25/19 11/21/19 History niacin [Niacor] 500 mg PO QAM 07/25/19 11/21/19 History pantoprazole [Protonix] 40 mg PO QAM 07/25/19 11/21/19 History simvastatin 40 mg PO HS 07/25/19 11/21/19 History terazosin 5 mg PO HS 07/25/19 11/21/19 History tramadol 50 mg PO QAM PRN 07/25/19 11/21/19 History ferrous sulfate 325 mg PO BID 08/01/19 11/21/19 History albuterol sulfate 90 mcg/actuation 2 puffs INH Q4H PRN gm 08/21/19 11/21/19 History aerosol inhaler Tresiba FlexTouch U-100 16 unit SUBCUT HS 10/05/19 11/21/19 History ondansetron HCl 8 mg tablet 8 mg PO Q8H PRN 10/23/19 11/21/19 History prochlorperazine maleate 10 mg 10 mg PO Q6H PRN 10/23/19 11/21/19 History tablet warfarin 3 mg tablet 3 mg PO HS 10/23/19 11/21/19 History Spiriva Respimat 2 puffs INH DAILY@1300 10/28/19 11/21/19 History oxycodone 10 mg PO .Q4-6H PRN 10/28/19 11/21/19 History insulin aspart U-100 100 unit/mL 12 units SUBCUT DAILY@0800,1200 ml 11/06/19 11/21/19 History (3 mL) subcutaneous pen insulin aspart U-100 100 unit/mL 18 units SQ DAILY@1700 ml 11/06/19 11/21/19 History (3 mL) subcutaneous pen lorazepam 1 mg PO DAILY PRN 11/21/19 11/21/19 History torsemide 20 mg PO QAM 11/21/19 11/21/19 History Past Med/Surg History Medical History (Updated 11/21/19 @ 21:44 by Jamie Gifford) Afib CKD (chronic kidney disease) stage 4 Family history of premature CAD History of tobacco abuse HLD (hyperlipidemia) Hypertension Malignant neoplasm of upper lobe, right bronchus or lung (Chronic) Mitral stenosis Non-small cell lung cancer (NSCLC) PAD (peripheral artery disease) (Acute) Pericardial effusion presumed malignant from lung cancer Port-A-Cath in place Severe protein-calorie malnutrition SVC syndrome (Chronic) T2DM (type 2 diabetes mellitus) Traumatic wound (Acute) right leg - 11/04/19 Surgical History (Updated 11/21/19 @ 21:10 by Jamie Gifford) H/O valvuloplasty H/O: S/P arterial stent legs for PAD S/P tonsillectomy Family History Family/Other Coronary heart disease Father Cancer Heart disease Mother Diabetes Brother Heart disease Social History (Updated 11/21/19 @ 21:11 by Jamie Gifford) Preferred Language: [place] Zealander Communication Ability: Effective Almond Paste Mixer Required: No Beliefs That Will Affect Care: None marital status: Current Living Situation: Spouse Other Information That Helps Us Care for You: No other: 1 daughter Feels Safe at Home: Yes Safety Concerns: Feels Safe At This Time Smoking Status: Former smoker Age Quit Using Tobacco: 60 ; packs per day: 1 ; Do You Dip or Chew Tobacco: No ; Second Hand Exposure: No ; Tobacco Cessation Education Requested by Patient: No Hx Alcohol Use: No Hx Substance Use: No Review of Systems Review of Systems: Other (obtained from pt's ) Constitutional: + fatigue, + anorexia and + weight gain; no fever Ear, Nose, Mouth, Throat: + dysphagia (just today ) Respiratory: + dyspnea, + dyspnea on exertion and + pain on inspiration; no cough Cardiovascular: + chest pain, + dyspnea at rest, + orthopnea and + edema (all 4 limbs) Gastrointestinal: + nausea, + vomiting and + constipation; no abdominal pain Genitourinary: no dysuria Musculoskeletal: + muscle weakness Integumentary: as per Subjective / HPI, + non-healing lesions and + skin ulcer Neurologic: + falls (fell in bathroom Wednesday night ) Endocrine: diabetes - 200-300 Hematologic / Lymphatic: + easy bleeding Physical Exam Constitutional: + acute distress (retractions, dyspneic, can't talk in full sentences, tachypneic, altered ), + ill appearing and + frail appearing; + not well developed and + not well nourished Eyes: + anicteric sclerae and PERRL ENMT: external ear and nose normal, oropharynx normal Neck: trachea midline, no thyromegaly Respiratory: + respiratory distress, + labored breathing, + retractions, + uses accessory muscles and + tachypneic Auscultation: + crackles (b/l bases) Cardiovascular: Rate/Rhythm: regular rhythm and + tachycardic Heart Sounds: normal S1 and normal S2; no murmur and no cardiac rub Vessels: + JVD, posterior tibial pulses present (1+ at best ) and dorsalis pedis pulses present (1+ at best ) Extremities: + edema (severe - b/l upper arms, worse on right; b/l legs) Gastrointestinal (Abdomen): normal bowel sounds, soft, nontender, no hepatosplenomegaly Musculoskeletal: Extremities: + clubbing no deformity of right diallo/leg or left leg Skin: dependent erythema / ecchymoses right distal arm with gross swelling; mild edema left arm. SEVERE irregularly-shaped ulceration - quite large - of right diallo with several sutures in place and wound open in central portion. Foul odor present. Mild purulent discharge. Erythema present of entire wound with warmth. Neurologic: deep tendon reflexes 2+ bilaterally and moves all extremities Psychiatric: Orientation: + not alert and + not oriented x 3 Lymphatic: no cervical lymphadenopathy Results & Data Results & Data ([facility]) Vital Signs (Past 12 Hours) Vital Signs Temp Pulse Pulse Resp BP BP Pulse Ox 11/21/19 14:10 121 H 34 H 98 11/21/19 14:01 117 H 24 203/86 H 98 11/21/19 14:00 117 H 24 98 11/21/19 13:50 117 H 23 98 11/21/19 13:40 115 H 22 99 11/21/19 13:31 115 H 23 200/84 H 98 11/21/19 13:30 115 H 23 98 11/21/19 13:20 112 H 21 96 11/21/19 13:10 112 H 21 97 11/21/19 13:02 111 H 20 96 11/21/19 13:01 113 H 20 167/66 H 96 11/21/19 13:00 112 H 21 96 11/21/19 12:50 114 H 20 94 11/21/19 12:41 112 H 22 172/72 H 94 11/21/19 12:40 111 H 20 94 11/21/19 12:30 111 H 19 93 11/21/19 12:20 110 H 22 11/21/19 12:10 113 H 19 92 11/21/19 12:00 113 H 20 93 11/21/19 11:50 112 H 20 93 11/21/19 11:40 114 H 28 H 93 11/21/19 11:30 113 H 23 93 11/21/19 11:29 37.3 C 114 H 114 H 28 H 179/86 H 97 11/21/19 11:20 113 H 24 95 11/21/19 11:10 112 H 24 93 11/21/19 11:07 114 H 23 93 11/21/19 11:05 114 H 16 179/86 H 92 Laboratory Results Laboratory Results - last 24 hr 11/21/19 11/21/19 11/21/19 12:09 12:09 12:09 WBC 1.18 L RBC 2.54 L Hgb 7.8 L Hct 23.5 L MCV 92.5 MCH 30.7 MCHC 33.2 RDW Std Deviation 52.8 H RDW Coeff of Epifanio 16.0 H Plt Count 31 L MPV 8.5 Immature Gran % (Auto) 0.0 Neut % (Auto) 82.2 Lymph % (Auto) 5.1 [place] % (Auto) 12.7 Eos % (Auto) 0.0 Baso % (Auto) 0.0 Immature Gran # (Auto) 0.00 Neut # (Auto) 0.97 L* Lymph # (Auto) 0.06 L [place] # (Auto) 0.15 Eos # (Auto) 0.00 Baso # (Auto) 0.00 Platelet Estimate Decreased L PT 27.0 H INR 2.7 H APTT 41.6 H PTT Ratio 1.5 VBG pH VBG pCO2 VBG pO2 VBG HCO3 VBG O2 Saturation VBG Base Excess Barometric Pressure Sodium 138 Potassium 4.5 Chloride 107 Carbon Dioxide 25 Anion Gap 6.0 BUN 43 H Creatinine 1.83 H Est Cr Clr Drug Dosing 26.0 Est GFR ( Amer) 33.4 Est GFR (Non-Af Amer) 28.9 BUN/Creatinine Ratio 23.5 H Glucose 194 H POC Glucose Lactate Calcium 8.3 L Magnesium 2.0 Total Bilirubin 0.3 AST 17 ALT 24 Alkaline Phosphatase 108 Troponin I < 0.015 NT-Pro-B Natriuret Pep 2151 H Total Protein 6.2 L Albumin 2.6 L Globulin 3.6 Albumin/Globulin Ratio 0.7 L Urine Color Urine Appearance Urine pH Ur Specific Elmo Urine Protein Urine Glucose (UA) Urine Ketones Urine Blood Urine Nitrite Urine Bilirubin Urine Urobilinogen Ur Leukocyte Esterase Urine WBC (Auto) Urine RBC (Auto) U Hyaline Cast (Auto) U Epithel Cells (Auto) Urine Bacteria (Auto) Urine Yeast Digoxin 11/21/19 11/21/19 11/21/19 12:09 16:35 18:10 WBC RBC Hgb Hct MCV MCH MCHC RDW Std Deviation RDW Coeff of Epifanio Plt Count MPV Immature Gran % (Auto) Neut % (Auto) Lymph % (Auto) [place] % (Auto) Eos % (Auto) Baso % (Auto) Immature Gran # (Auto) Neut # (Auto) Lymph # (Auto) [place] # (Auto) Eos # (Auto) Baso # (Auto) Platelet Estimate PT INR APTT PTT Ratio VBG pH 7.43 H VBG pCO2 38 VBG pO2 41 VBG HCO3 25 VBG O2 Saturation 74.7 VBG Base Excess 0.4 Barometric Pressure 738.3 Sodium Potassium Chloride Carbon Dioxide Anion Gap BUN Creatinine Est Cr Clr Drug Dosing Est GFR ( Amer) Est GFR (Non-Af Amer) BUN/Creatinine Ratio Glucose POC Glucose Lactate 1.2 Calcium Magnesium Total Bilirubin AST ALT Alkaline Phosphatase Troponin I NT-Pro-B Natriuret Pep Total Protein Albumin Globulin Albumin/Globulin Ratio Urine Color Yellow Urine Appearance Clear Urine pH 5.0 Ur Specific Elmo 1.020 Urine Protein 2+ H Urine Glucose (UA) Trace H Urine Ketones Negative Urine Blood Negative Urine Nitrite Negative Urine Bilirubin Negative Urine Urobilinogen Negative Ur Leukocyte Esterase Negative Urine WBC (Auto) 1-5 Urine RBC (Auto) 0-4 U Hyaline Cast (Auto) 1-5 U Epithel Cells (Auto) 10-20 H Urine Bacteria (Auto) 1+ H Urine Yeast Not Reportable Digoxin 11/21/19 11/21/19 18:10 19:43 WBC RBC Hgb Hct MCV MCH MCHC RDW Std Deviation RDW Coeff of Epifanio Plt Count MPV Immature Gran % (Auto) Neut % (Auto) Lymph % (Auto) [place] % (Auto) Eos % (Auto) Baso % (Auto) Immature Gran # (Auto) Neut # (Auto) Lymph # (Auto) [place] # (Auto) Eos # (Auto) Baso # (Auto) Platelet Estimate PT INR APTT PTT Ratio VBG pH VBG pCO2 VBG pO2 VBG HCO3 VBG O2 Saturation VBG Base Excess Barometric Pressure Sodium Potassium Chloride Carbon Dioxide Anion Gap BUN Creatinine Est Cr Clr Drug Dosing Est GFR ( Amer) Est GFR (Non-Af Amer) BUN/Creatinine Ratio Glucose POC Glucose 196 H Lactate Calcium Magnesium Total Bilirubin AST ALT Alkaline Phosphatase Troponin I NT-Pro-B Natriuret Pep Total Protein Albumin Globulin Albumin/Globulin Ratio Urine Color Urine Appearance Urine pH Ur Specific Elmo Urine Protein Urine Glucose (UA) Urine Ketones Urine Blood Urine Nitrite Urine Bilirubin Urine Urobilinogen Ur Leukocyte Esterase Urine WBC (Auto) Urine RBC (Auto) U Hyaline Cast (Auto) U Epithel Cells (Auto) Urine Bacteria (Auto) Urine Yeast Digoxin 1.3 Diagnostic Findings 1. cxr - FINDINGS: Cardiac silhouette is enlarged, unchanged. Blunting of the right mediastinal stripe is redemonstrated correlating with patient's known large mediastinal mass. Calcified plaque of the thoracic aorta arch. Unchanged positioning of a left subclavian port catheter. No pneumothorax. Mild right hemidiaphragm elevation. Emphysema. Trace pleural effusions. Perivascular congestion with interstitial coarsening. There is mild bibasilar densities. Degenerative changes of the shoulders and spine. IMPRESSION: 1. Cardiomegaly with mild pulmonary edema. 2. Trace pleural effusions with bibasilar densities suggestive of probable atelectasis. 3. Patient's known mediastinal mass is better appreciated on comparison chest CT. 4. Emphysema. 2. echo - * EF 60-65% * IVC dilated * left atrial enlargement * small-moderate sized posterior pericardial effusion - no tamponade features * mild-mod mitral stenosis 3. EKG - my reading - sinus tach, no ST changes Code Status & VTE Plan Code Status reports she would want full code and aggressive measures VTE Prophylaxis Plan VTE Prophylaxis will be ordered: Yes Critical Care Time Critical Care Time: Yes Total Critical Care Time: 70 PG Care Time/CCT Total # of Minutes Spent Total Time Spent with Patient: Total time spent is greater than 50% in coordination of care (as documented) at patient's floor/unit and/or counseling patient: Critical Care Time: Yes Total Critical Care Time: 70 Coding Level of Care Code None Diagnoses Acute respiratory failure J96.00 Respiratory failure complication: unspecified whether with hypoxia or hypercapnia Acute diastolic CHF (congestive heart failure) I50.31 Metabolic encephalopathy G93.41 Superior vena cava syndrome I87.1 Non-small cell lung cancer (NSCLC) C34.91 Laterality: right Pericardial effusion I31.3 Pancytopenia due to antineoplastic chemotherapy D61.810; T45.1X5A Cellulitis L03.90 Site of cellulitis: unspecified site Traumatic wound CKD (chronic kidney disease) N18.4 Chronic kidney disease stage: stage 4 (severe) Hypertension I10 Hypertension type: essential hypertension HLD (hyperlipidemia) E78.2 Hyperlipidemia type: mixed hyperlipidemia Afib I48.0 Atrial fibrillation type: paroxysmal Mitral stenosis I05.0 Cardiac valve disease etiology: etiology unspecified T2DM (type 2 diabetes mellitus) E11.22; N18.4; Z79.4 Diabetes mellitus usp insulin use: with usp use Diabetes mellitus complication status: with kidney complications Diabetes mellitus complication detail: with chronic kidney disease Chronic kidney disease stage: stage 4 (severe) DVT prophylaxis Z29.9 Additional Codes Critical Care Time - Critical Care Time: Yes ([id number]) Time Spent (min) 70 (1) Acute respiratory failure Respiratory failure complication: unspecified whether with hypoxia or hypercapnia Qualified Code(s): J96.00 - Acute respiratory failure, unspecified whether with hypoxia or hypercapnia (2) Non-small cell lung cancer (NSCLC) Laterality: right Qualified Code(s): C34.91 - Malignant neoplasm of unspecified part of right bronchus or lung (3) Cellulitis Site of cellulitis: unspecified site Qualified Code(s): L03.90 - Cellulitis, unspecified (4) CKD (chronic kidney disease) Chronic kidney disease stage: stage 4 (severe) Qualified Code(s): N18.4 - Chronic kidney disease, stage 4 (severe) (5) Hypertension Hypertension type: essential hypertension Qualified Code(s): I10 - Essential (primary) hypertension (6) HLD (hyperlipidemia) Hyperlipidemia type: mixed hyperlipidemia Qualified Code(s): E78.2 - Mixed hyperlipidemia (7) Afib Atrial fibrillation type: paroxysmal Qualified Code(s): I48.0 - Paroxysmal atrial fibrillation (8) Mitral stenosis Cardiac valve disease etiology: etiology unspecified Qualified Code(s): 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
[2019-11-21] MEDS ORDERED: BUMETANIDE 1 MG in SYRINGE 0 ML IV ONE ×2 (14:45→20:00)
[2019-11-21] MEDS ORDERED: HydrALAZINE HCL 20 MG/ML VIAL IV ONE (15:21)
--- NOTE | 2019-11-21 16:03 | XCELERA ---
[id number]
[2019-11-21 17:19] LABS: Appearance Urine Clear (Clear); Bilirubin Urine Negative (Negative); Blood Urine Negative (Negative); Color Urine Yellow; Glucose Urine UA Trace (Negative); Ketones Urine Negative (Negative); Leukocyte Esterase Urine Negative (Negative); Nitrite Urine Negative (Negative); Protein Urine 2+ (Negative); RBC Urine Automated 0-4 /hpf (0-4); Urobilinogen Urine Negative (Negative)
[2019-11-21] MEDS ORDERED: HydrALAZINE HCL 20 MG/ML VIAL ONE (17:24)
[2019-11-21 17:31] LABS: Bacteria Urine Automated 1+ (Negative)
[2019-11-21] MEDS ORDERED: fentaNYL citrate 100 MCG/2 ML VIAL IV STA (17:37)
[2019-11-21] MEDS ORDERED: NITROGLYCERIN SL 0.4 MG/TAB TAB SL PRN (18:36)
[2019-11-21] MEDS ORDERED: MAGNESIUM HYDROXIDE SUSP 30 ML UDC PO PRN (18:36)
[2019-11-21] MEDS ORDERED: ONDANSETRON INJ 2 MG/ML 2 ML VIAL IV PRN (18:36)
[2019-11-21] MEDS ORDERED: DAPTOMYCIN CONSULT ACTIVE PRN (18:36)
[2019-11-21 18:41] LABS: Base Excess VBG 0.4 mEq/L; Oxygen Saturation VBG 74.7 %; pH VBG 7.43 (7.36-7.41)
[2019-11-21] MEDS ORDERED: AZTREONAM 2,000 MG in DEXTROSE 5% 100 ML IV SCH (20:00)
[2019-11-21] MEDS ORDERED: DAPTOmycin 225 MG in SYRINGE 0 ML IV SCH (20:00)
[2019-11-21] MEDS ORDERED: DAPTOmycin 500 MG VIAL IV SCH (20:00)
[2019-11-21] MEDS ORDERED: DEXTROSE 50% 50 ML SYRINGE IV PRN (20:15)
[2019-11-21] MEDS ORDERED: GLUCOSE 10 TABS/TUBE PO PRN (20:15)
[2019-11-21] MEDS ORDERED: GLUCAGON FOR INJ 1 MG VIAL IM PRN (20:15)
[2019-11-21] MEDS ORDERED: CARBOHYDRATES FOR HYPOGLYCEMIA PO PRN (20:15)
[2019-11-21] MEDS ORDERED: GLUCOSE 40% GEL 15 GM TUBE PO PRN (20:15)
[2019-11-21] MEDS: ACETAMINOPHEN 325 MG TAB PO PRN (20:30)
[2019-11-21] MEDS ORDERED: WARFARIN SOD 3 MG TAB PO SCH (21:00)
[2019-11-21] MEDS: INSULIN ASPART 100 UNITS/ML 3 ML PEN SC SCH ×2 (21:17→21:45)
[2019-11-21] MEDS: DIGOXIN 0.125 MG TAB PO SCH (21:46)
[2019-11-21] MEDS: TERAZOSIN HCL 5 MG CAP PO SCH (21:46)
[2019-11-21] MEDS: cloNIDine HCL 0.1 MG TAB PO SCH (22:47)
[2019-11-22] MEDS: AZTREONAM 1,000 MG in DEXTROSE 5% 100 ML IV SCH ×3 (05:13→19:51)
[2019-11-22 06:51] LABS: INR 2.9 (0.9-1.1); Prothrombin Time 29.3 Seconds (9.0-12.0)
[2019-11-22 06:58] LABS: Hematocrit (blood only) 21.7 % (37-47); Hemoglobin 7.4 g/dL (12.0-16.0); Mean Corpuscular Hemoglobin 30.8 pg (25-34); Mean Corpuscular Hgb Conc 34.1 g/dL (32-36); Mean Corpuscular Volume 90.4 fL (80-100); RDW Coefficient of Variation 16.1 % (11.5-14.5); RDW Standard Deviation 51.5 fL (36.4-46.3); White Blood Count 1.76 K/uL (4.8-10.8)
[2019-11-22 07:06] LABS: BUN Creatinine Ratio 25.1 (10-20); Calcium 8.1 mg/dl (8.5-10.1); Creatinine Clr Calc Pharmacy 26.8 ml/min; Est GFR (African American) 34.6; Est GFR (Non-African American) 29.8; Potassium 4.1 mmol/L (3.5-5.1)
--- NOTE | 2019-11-22 07:13 | CT Scan Report ---
CT SCAN OF THE BRAIN WITHOUT IV CONTRAST CLINICAL HISTORY: Fall. Change in mental status. COMPARISON STUDY: No priors. TECHNIQUE: Unenhanced axial CT scan of the brain is performed from the vertex to the skull base. A d ose lowering technique was utilized adhering to the principles of ALARA. CT DOSE: 537.48 mGy.cm FINDINGS: Brain parenchyma: There is minimal microangiopathic change. There is no hemorrhage, mass effect, or e vidence of acute territorial ischemia by CT criteria. Abarca-white matter differentiation is preserved. No extra-axial fluid collection is seen. Ventricles, sulci, cisterns: Normal in configuration. Intracranial vasculature: There is atherosclerotic calcification of the cavernous carotid and vertebr al arteries. Calvarium: There is no depressed calvarial fracture. Sinuses and mastoids: There is opacification of a left posterior ethmoid sinus. The remaining visuali zed paranasal sinuses are clear. Trace mastoid effusions are noted. Orbits: The bony orbits are grossly intact. IMPRESSION: There is no hemorrhage, mass effect, or evidence of acute territorial ischemia by CT jono ambrocio. ACT 112: Negative or not required by law. Electronically signed by: Yaakov Mi M.D. 11/22/2019 7:11 AM
[2019-11-22 07:41] LABS: Dohle Bodies 1+
[2019-11-22 07:54] LABS: Mean Platelet Volume 11.4 fL (7.4-10.4); Platelet Count 30 K/uL (130-400)
[2019-11-22 08:22] LABS: Lymphocytes % (auto) 5.7 %; Monocytes # (auto) 0.18 K/uL (0.11-0.59); Monocytes % (auto) 10.2 %; Neutrophils # (auto) 1.48 K/uL (1.4-6.5); Neutrophils % (auto) 84.1 %; Toxic Granulation 1+
--- NOTE | 2019-11-22 08:32 | Hospitalist Progress Note ---
Date of Service November 22, 2019 Assessment & Plan (1) Acute respiratory failure: Pulmonary status has been worsening over weeks. CT chest in late October showed encasement of bronchi and vessels from her cancer, effusions, nodules, edema, etc. on the day of admission she developed worsening distress Cannot rule out infectious process or underlying COPD consider acute HFpEF Continue with BIPAP, to support as needed able to tolerated some time off during the day Diurese. Consider repeat chest CT if not improving. (2) Acute diastolic CHF (congestive heart failure): Bumex 1mg IV x 1 given in ER, additional dose of bumex 1mg IV 11/21/[address] Bryan reading her echo quickly in the ER. EF continues to be preserved, no tamponade physiology from her pericardial effusion. HFpEF (3) Metabolic encephalopathy: When respiratory status improves can consider imaging of brain to r/o intra-cranial mets. Metabolic factors including infection of RLE could be contributing. Hypoxia could be contributing. had been giving her ativan at home which could be causing toxic effects. HOLD any further ativan. 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 s/p radiation. s/p various chemo regimens including recent gemcitabine. her arms continue to be severely edematous. doubt DVT given her therapeutic INR but can't rule it out 100%. I spoke with Dr Yoon on consult 11/21, concern is progressing despite treatment. (5) Non-small cell lung cancer (NSCLC): progressive cancer. patient with failure to thrive at home. severe pancytopenia present due to her chemo regimen. not responding well to chemo from clinical standpoint. Dr Yoon to consult concern may need transition to hospice/palliative with lack of responsiveness to chemo treatment Palliative care meeting 11/22 for concern of code status and goals of care (6) Pericardial effusion: presumed malignant. echo done urgently in ER - small-moderate effusion but no tamponade physiology. official read- effusion slightly smaller than previous echo. appreciate cardiology assistance on this. (7) Pancytopenia due to antineoplastic chemotherapy: severe leukopenia, neutropenia, and thrombocytopenia. HOLD coumadin in light of low platelets and elevated inr neutropenic precautions. broad-spectrum IV abx for RLE wound with superimposed infection. concern for radio opaque object seen in wound consider PRBCs if Hb <7.5 in light of respiratory failure but caution due to volume overload and CKD. Pt did recieve one pack of platelets due to persistent epistaxis in the face of platelet count less than 50 K (8) Cellulitis: RLE - in setting of traumatic wound suffered on 11/04/19. has been performing daily dressing changes. cultures show gram varial bacteria aztreonam (for broad gram negative coverage including pseudomonas), plus daptomycin for MRSA/Gram+ coverage, plus flagyl for anaerobic coverage Consult wound care nurse for assistance. difficult wound healing with co morbid issues, wound care consult, question foreign body seen (9) Traumatic wound: as above (10) CKD (chronic kidney disease): stage 4 - baseline Cr about 1.8 (11) Hypertension: Metoprolol bumex terazosin and prn hydralazine (12) HLD (hyperlipidemia): hold statin due to daptomycin use (13) Afib: PAF. therapeutic dig level. rate inceased, increased metoprolol holding coumadin due to severe thrombocytopenia. follow INR . (14) Mitral stenosis: (15) T2DM (type 2 diabetes mellitus): cont basal-bolus insulin T2DM diet (16) DVT prophylaxis: holding coumadin due to severe thrombocytopenia SCDs in meantime updated on admission palliative care consult 11/21 with family meeting 11/22 Admission and Anticipated Discharge Date Admission Date: November 21, 2019 Subjective pt is fatigued and says she not sure she can keep on fighting but at this time is not ready to give up. did discuss with palliative care and will have family meeting 11/21. was having a nose bleed and does have low platelet counts, helped with platelet transfusion and afrin Review of Systems Review of Systems: Moderate distress and significant fatigue no headache, blurry or double vision no speech or swallowing issues Epistaxis from her right nare no chest pain, pressure or palpitations Having some complaints of shortness of breath, without cough or wheezes no abdominal pain, nausea or vomiting patient had loss of appetite no dysuria, hematuria or frequency no focal joint pain or swelling no back pain, CVA tenderness or radicular pain no bruising or rashes has areas of open skin which needs attention no focal signs of weakness or numbness or altered sensation generalized weakness and functional decline no complaints or anxiety or depression. Physical Exam Physical Exam: The patient appeared chronically ill condition appears such that hospice seems to be nearing to be appropriate Vital signs as documented. Lungs are coarse bilaterally, diminished at the bases Cardiac exam, Rhythm is regular.. Systolic ejection murmur is heard Abdominal exam reveals normal bowel sounds, soft non tender, no masses Extremities are edematous and concerns for cellulitis particularly on the right Neurologic exam is alert and oriented, no focal loss of strength or sensation globally extremely weak Skin is with chronic skin areas of various stages of healing and nonhealing Psychologically is with concerns depression Results & Data Results & Data ([facility]) Vital Signs (Past 12 Hours) Vital Signs Temp Pulse Pulse Resp BP Pulse Ox 11/22/19 08:00 97.7 F 107 H 18 151/67 H 100 11/22/19 03:39 98.1 F 98 H 20 141/68 H 98 11/21/19 23:44 98.6 F 98 H 19 135/67 99 11/21/19 21:46 105 H PG Care Time/CCT Total # of Minutes Spent Total Time Spent with Patient: Total time spent is greater than 50% in coordination of care (as documented) at patient's floor/unit and/or counseling patient: Coding Level of Care Code 93118 Subseq Hosp Care Lvl 3 Diagnoses Acute respiratory failure J96.00 Respiratory failure complication: unspecified whether with hypoxia or hypercapnia Acute diastolic CHF (congestive heart failure) I50.31 Metabolic encephalopathy G93.41 Superior vena cava syndrome I87.1 Non-small cell lung cancer (NSCLC) C34.91 Laterality: right Pericardial effusion I31.3 Pancytopenia due to antineoplastic chemotherapy D61.810; T45.1X5A Cellulitis L03.90 Site of cellulitis: unspecified site Traumatic wound CKD (chronic kidney disease) N18.4 Chronic kidney disease stage: stage 4 (severe) Hypertension I10 Hypertension type: essential hypertension HLD (hyperlipidemia) E78.2 Hyperlipidemia type: mixed hyperlipidemia Afib I48.0 Atrial fibrillation type: paroxysmal Mitral stenosis I05.0 Cardiac valve disease etiology: etiology unspecified T2DM (type 2 diabetes mellitus) E11.22; N18.4; Z79.4 Chronic kidney disease stage: stage 4 (severe) Diabetes mellitus complication detail: with chronic kidney disease Diabetes mellitus complication status: with kidney complications Diabetes mellitus nursing home insulin use: with nursing home use DVT prophylaxis Z29.9 (1) Acute respiratory failure Respiratory failure complication: unspecified whether with hypoxia or hypercapnia Qualified Code(s): J96.00 - Acute respiratory failure, unspecified whether with hypoxia or hypercapnia (2) T2DM (type 2 diabetes mellitus) Chronic kidney disease stage: stage 4 (severe) Diabetes mellitus complication detail: with chronic kidney disease Diabetes mellitus complication status: with kidney complications Diabetes mellitus nursing home insulin use: with nursing home use Qualified Code(s): E11.22 - Type 2 diabetes mellitus with diabetic chronic kidney disease; N18.4 - Chronic kidney disease, stage 4 (severe); Z79.4 - [facility]CF (current) use of insulin (3) Afib Atrial fibrillation type: paroxysmal Qualified Code(s): I48.0 - Paroxysmal atrial fibrillation (4) Cellulitis Site of cellulitis: unspecified site Qualified Code(s): L03.90 - Cellulitis, unspecified (5) HLD (hyperlipidemia) Hyperlipidemia type: mixed hyperlipidemia Qualified Code(s): E78.2 - Mixed hyperlipidemia (6) Mitral stenosis Cardiac valve disease etiology: etiology unspecified Qualified Code(s): 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
[2019-11-22] MEDS ORDERED: METOPROLOL SUCC 25MG EXT REL TAB PO ONE (08:33)
[2019-11-22] MEDS: METOPROLOL SUCC 50MG EXT REL TAB PO SCH (08:46)
[2019-11-22] MEDS: PANTOprazole 40 MG TAB PO SCH (08:46)
[2019-11-22] MEDS: cloNIDine HCL 0.1 MG TAB PO SCH ×2 (08:46→20:02)
[2019-11-22] MEDS: INSULIN ASPART 100 UNITS/ML 3 ML PEN SC SCH ×4 (08:47→20:27)
[2019-11-22] MEDS ORDERED: OXYMETAZOLINE 0.05% 30 ML BTL ONE (09:30)
--- NOTE | 2019-11-22 09:44 | Consultation Report ---
DATE OF CONSULTATION: 11/22/2019 REASON FOR CONSULTATION: Acute respiratory failure in a 63-year-old female patient with stage ROBERT nonsmall cell lung cancer. HISTORY OF PRESENT ILLNESS: Maye Lawler is a pleasant, but unfortunate 63-year-old female well known to [facility], currently under my care with stage ROBERT nonsmall cell lung cancer. Maye has struggled since the onset of therapy back in August of this year. She had originally presented with a large mediastinal mass with resultant superior vena cava syndrome. She has received radiation up front and also palliative radiation therapy more recently to no avail. She continues to manifest bilateral swollen upper extremities and neck vein distention. I was contacted by her on Wednesday because Maye was struggling with her breathing and insisted at that time that she probably should come to the Emergency Room. She was actually seen at [facility] a couple of weeks ago for the same complaint and was discharged, thought to be attributable to anxiety. She unfortunately suffered a fall on cement steps resulting in a pretty significant injury necessitating multiple sutures. 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 Unfortunately, despite 3 cycles, she had not really shown a significant clinical or radiographic improvement and hence discontinued Abraxane in favor of gemcitabine, which was administered on 11/15/2019. Not unexpectedly the patient presents to [facility] Emergency Room with pancytopenia. She also suffers from a malignant pericardial effusion, revealed by echocardiogram done in the Emergency Room. This morning when I saw her she was obviously quite depressed and frustrated. She is also battling with epistaxis and suspect her platelet count is quite low pending at the time of dictation. The patient had been managed on warfarin and is presently coagulopathic due to warfarin therapy. In general Maye is definitely in decline and her prognosis moving forward is quite poor. Hospitalist service asked me to discuss long-term treatment options moving forward. Maye is also battling with significant leg pain. X-ray of the femur done in the Emergency Room reveals a soft tissue swelling but also the presence of a foreign body. Apparently according to the hospitalist's note, foul odor has been noted by the patient's . PAST MEDICAL HISTORY: Paroxysmal atrial fibrillation, chronic kidney disease, family history of premature coronary artery disease, history of tobacco abuse, hyperlipidemia, hypertension, metastatic nonsmall cell lung cancer, mitral stenosis, pericardial effusion, severe protein calorie malnutrition, SVC syndrome, type 2 diabetes mellitus and a traumatic wound in the mid tibial shaft right leg. PAST SURGICAL HISTORY: Mitral valve replacement, section, arterial stent and tonsillectomy. MEDICATIONS: Torsemide 20 mg p.o. daily, lorazepam 1 mg p.o. daily p.r.n., insulin aspart IU100 18 units subQ daily, oxycodone 10 mg p.o. q. 4-6 hours, Spiriva 2 puffs inhaled daily, warfarin 3 mg p.o. daily, Compazine 10 mg q. 6 hours p.r.n., Zofran 8 mg p.o. q. 8 hours p.r.n., tresiba 16 units subQ at bedtime, albuterol sulfate 2 puffs inhaled q. 4 hours p.r.n., ferrous sulfate 325 mg p.o. b.i.d., tramadol 50 mg p.o. q.a.m. p.r.n., terazosin 5 mg p.o. at bedtime, simvastatin 40 mg p.o. at bedtime, Protonix 40 mg p.o. daily, niacin 500 mg p.o. daily, metoprolol 50 mg p.o. daily, magnesium oxide 500 mg p.o. b.i.d., digoxin 125 mcg p.o. every day, clonidine 0.1 mg p.o. b.i.d., cholecalciferol 5000 units p.o. daily, calcium carbonate 500 mg p.o. daily, aspirin 81 mg p.o. daily. ALLERGIES: TO PENICILLINS AND SERTRALINE. SOCIAL HISTORY: The patient lives with her spouse. She is . Positive for tobacco, negative for alcohol or substances. FAMILY HISTORY: Strong family history of coronary artery disease and diabetes mellitus. REVIEW OF SYSTEMS: CONSTITUTIONAL: Positive for general clinical decline, confusion, agitation, anorexia and weight loss. No fevers, chills or sweats at present. SKIN: Ecchymoses. Senile purpura present. No history of dermatoses otherwise. HEENT: She denies any headaches, lightheadedness or dizziness. Positive for epistaxis. Negative for dysphagia or sore throat. HEART: History of atrial fibrillation, history of valve replacement therapy. No current angina or palpitations. PULMONARY: Positive, history of COPD. Positive for shortness of breath, dyspnea on exertion. No cough or hemoptysis at this juncture. GASTROINTESTINAL: Negative for abdominal pain, nausea, vomiting, diarrhea or constipation. GENITOURINARY: No hematuria, dysuria, urinary incontinence. PSYCHIATRIC: Negative for depression or psychoses. MUSCULOSKELETAL: No focal muscle weakness. No arthralgias. NEUROLOGIC: Negative for seizure, stroke, or migraine headache. HEMATOLOGIC: Positive for cytopenias attributable to current chemotherapy. PHYSICAL EXAMINATION: GENERAL: Ill-appearing 63-year-old female with a depressed mood, in no acute distress. VITAL SIGNS: Temperature 36.7, pulse 98, respiratory rate 20, blood pressure 141/68. SKIN: Scattered ecchymoses, no petechiae. Turgor is poor. HEENT: Head is atraumatic, normocephalic. Eyes: PERRLA, EOMI. Nares revealed bloody discharge. Throat is clear. Tongue is midline. No buccal lesions or ulcerations. NECK: Distended neck veins, which is chronic attributable to SVC. HEART: Regular rate and rhythm. LUNGS: Diminished breath sounds heard in the right posterior base. No rales or rhonchi, otherwise appreciated. ABDOMEN: Soft, nontender, nondistended. EXTREMITIES: No clubbing, cyanosis or edema. Sterile pressure dressing in the right mid tibial shaft. NEUROLOGICAL: Grossly intact. LABORATORY DATA: WBC count 1760, hemoglobin 7.4, platelet count 30,000, absolute neutrophil count 970. PT 29.3 seconds, INR 2.9, PTT 41.6 seconds. Creatinine 1.78, BUN 45. BNP 2151, albumin 2.6. RADIOGRAPHIC DATA: 1. Chest x-ray reveals cardiomegaly with mild pulmonary edema. 2. Trace pleural effusions with bibasilar densities suggestive of probable atelectasis. The patient's known mediastinal mass was better appreciated on comparison CT scan. 3. Emphysema. IMPRESSION: 1. Acute respiratory failure. 2. Acute diastolic congestive heart failure. 3. Metabolic encephalopathy. 4. Superior vena cava syndrome. 5. Progressing nonsmall cell lung cancer. 6. Pericardial effusion. 7. Pancytopenia. 8. Cellulitis. PLAN: Maye is a very pleasant, unfortunate 63-year-old female patient with multiple comorbidities and end-stage nonsmall cell lung cancer. The patient was originally diagnosed back in late 07/2019. She initially received palliative radiation therapy to the large mediastinal mass to alleviate symptoms related to superior vena cava syndrome. She was subsequently started on Abraxane, carboplatin, pembrolizumab and received 3 cycles with little to no improvement, both clinically and radiographically. Thus, opted to switch Abraxane in favor of gemcitabine for cycle #4, which was recently administered. She is now suffering from cytopenias attributable to chemotherapy. While she is not showing any overt signs of infection, however, she has a pretty significant leg wound from previous fall requiring several sutures. There is also a foreign body present. I agree with broad-spectrum coverage she is currently receiving. She is also coagulopathic and should hold any and all anticoagulation. I would also seriously consider transfusing her single donor platelets at this point. She has been grappling with persistent epistaxis. I am not terribly optimistic with her progress or lack thereof at this juncture. Engaged in discussion with Maye about therapeutics moving forward. Unfortunately, she has not responded well to treatment to date and needs to consider a palliative path moving forward. Briefly discussed her code status and will address her chemotherapy and resumption thereof once she is medically stable. Her prognosis is quite poor at this point. We will continue to follow along with you during her hospital stay. Thank you very much for allowing me to participate in her care. JEAN CLAUDE
--- NOTE | 2019-11-22 11:52 | Palliative Care Consultation ---
Date of Consultation November 22, 2019 Assessment & Plan (1) Goals of care, counseling/discussion: This is a 63 year old female who presented to the [facility] from home as she was experiencing SOB. Unfortunately, this pleasant woman has stage IV non-small cell lung cancer which was diagnosed in July 2019. She is a patient of Dr. Paul Yoon. Additional PMH includes pAF, CKD, CAD, HLD, HTN, mitral stenosis, recurrent pericardial effusions, severe protein malnutrition, DM2, and had an MVR. Regarding her cancer treatment, she has undergone a total of 4 rounds of chemotherapy and aggressive and palliative radiation therapy for the large mediastinal mass. She appears to continually decline and is not showing much progression, per review of the oncology documentation. She has had a recent admission over the past few weeks at [facility] for similar symptoms. Per review of records, she has had multiple recent falls. Palliative Care was consulted to discuss goals of care. -I met with the patient in room 235. The patient was sitting upright in her bed. Dietary had just left the room. -We talked at length about how the patient was feeling. She felt that her breathing was doing 'ok' and that her appetite was well. -She appears very frail and lethargic. She agreed that she has been feeling 'worn out'. -We talked about her cancer journey and how she has responded to treatment. She agreed that she is not ready to stop treatment, but also feels tired. -We talked at length about Home health and Hospice and how all can benefit her care. We talked about that if she would become stable enough for attempting chemotherapy again, that she ultimately could discontinue hospice services and pursue aggressive measures. 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 -Ultimately, we discussed code status in a variety of ways as she is a FULL CODE, with all above discussion she wishes to have her Davion present, in person, for these conversations. She declined having me call him on the phone. -I did express the importance of having these difficult conversations and she agreed, but wants to when she gets home; however, we worry she could decline rather rapidly and a good plan is not in place for her. For now, patient to remain a Full Code. -She has a daughter, Irasema, who lives in [place] and is an ladle cleaner. She expressed she did not want her involved with any of the discussions or decision making. -Should the patient not be able to make her own decisions, she would like her Davion to do so. -I did ask if she has any fears of dying and she said no, she feels at peace with it. -She stated she is Faith but not as active as she would like. She declined discussing above with a Coal Screener. -Plan is for a family meeting to be held tomorrow 11/22 with the palliative care MD, patient, and her , Davion. Case Management is aware along with the hospitalist. Meeting to be held at 2:00. -I ultimately feel that this patient would be a perfect hospice candidate; however, if the patient is not willing to pursue hospice, I think a reasonable option would be choosing an agency that can transition from home health to hospice. -Ultimately, the patient appears to be declining. Both her and her agree that its important to have these conversations while she is still able to participate. -Palliative Care will follow. -PPS: 20% (2) Acute respiratory failure: Respiratory failure complication: unspecified whether with hypoxia or hypercapnia Qualified Code(s): J96.00 - Acute respiratory failure, unspecified whether with hypoxia or hypercapnia (3) Acute diastolic CHF (congestive heart failure): (4) Severe protein-calorie malnutrition: (5) CKD (chronic kidney disease): Chronic kidney disease stage: stage 4 (severe) Qualified Code(s): N18.4 - Chronic kidney disease, stage 4 (severe) (6) Mediastinal mass: History of Present Illness Reason for Consultation: Goals of Care Requesting Physician: Dr. Jerry Rivero Attending Physician: Jerry Rivero MD History of Present Illness This is a 63 year old female who presented to the [facility] from home as she was experiencing SOB. Unfortunately, this pleasant woman has stage IV non- small cell lung cancer which was diagnosed in July 2019. She is a patient of Dr. Paul Yoon. Additional PMH includes pAF, CKD, CAD, HLD, HTN, mitral stenosis, recurrent pericardial effusions, severe protein malnutrition, DM2, and had an MVR. Regarding her cancer treatment, she has undergone a total of 4 rounds of chemotherapy and aggressive and palliative radiation therapy for the large mediastinal mass. She appears to continually decline and is not showing much progression, per review of the oncology documentation. She has had a recent admission over the past few weeks at [facility] for similar symptoms. Palliative Care was consulted to discuss goals of care. Please see A/P for further details. Thank you kindly for involving the Palliative Care team with this patient. We will follow. Allergies Allergy/AdvReac Type Severity Reaction Status Date / Time ceftaroline fosamil Allergy Hives Verified 11/21/19 12:46 [From Teflaro] Penicillins Allergy Rash Verified 11/21/19 12:46 Home Medications Home Medications Medication Instructions Recorded Confirmed Type aspirin 81 mg PO HS 07/25/19 11/21/19 History calcium carbonate [Calcium 500] 500 mg PO QAM 07/25/19 11/21/19 History cholecalciferol (vitamin D3) 5,000 unit PO QAM 07/25/19 11/21/19 History [Vitamin D3] clonidine HCl 0.1 mg PO BID 07/25/19 11/21/19 History digoxin 125 mcg PO HS 07/25/19 11/21/19 History magnesium oxide 500 mg PO BID 07/25/19 11/21/19 History metoprolol succinate 50 mg PO QAM 07/25/19 11/21/19 History niacin [Niacor] 500 mg PO QAM 07/25/19 11/21/19 History pantoprazole [Protonix] 40 mg PO QAM 07/25/19 11/21/19 History simvastatin 40 mg PO HS 07/25/19 11/21/19 History terazosin 5 mg PO HS 07/25/19 11/21/19 History tramadol 50 mg PO QAM PRN 07/25/19 11/21/19 History ferrous sulfate 325 mg PO BID 08/01/19 11/21/19 History albuterol sulfate 90 mcg/actuation 2 puffs INH Q4H PRN gm 08/21/19 11/21/19 History aerosol inhaler Tresiba FlexTouch U-100 16 unit SUBCUT HS 10/05/19 11/21/19 History ondansetron HCl 8 mg tablet 8 mg PO Q8H PRN 10/23/19 11/21/19 History prochlorperazine maleate 10 mg 10 mg PO Q6H PRN 10/23/19 11/21/19 History tablet warfarin 3 mg tablet 3 mg PO HS 10/23/19 11/21/19 History Spiriva Respimat 2 puffs INH DAILY@1300 10/28/19 11/21/19 History oxycodone 10 mg PO .Q4-6H PRN 10/28/19 11/21/19 History insulin aspart U-100 100 unit/mL 12 units SUBCUT DAILY@0800,1200 ml 11/06/19 11/21/19 History (3 mL) subcutaneous pen insulin aspart U-100 100 unit/mL 18 units SQ DAILY@1700 ml 11/06/19 11/21/19 History (3 mL) subcutaneous pen lorazepam 1 mg PO DAILY PRN 11/21/19 11/21/19 History torsemide 20 mg PO QAM 11/21/19 11/21/19 History Patient History Medical History (Updated 11/22/19 @ 11:52 by CARLOS Akins) Afib CKD (chronic kidney disease) stage 4 Family history of premature CAD Goals of care, counseling/discussion History of tobacco abuse HLD (hyperlipidemia) Hypertension Malignant neoplasm of upper lobe, right bronchus or lung (Chronic) Mitral stenosis Non-small cell lung cancer (NSCLC) PAD (peripheral artery disease) (Acute) Pericardial effusion presumed malignant from lung cancer Port-A-Cath in place Severe protein-calorie malnutrition SVC syndrome (Chronic) T2DM (type 2 diabetes mellitus) Traumatic wound (Acute) right leg - 11/04/19 Surgical History H/O valvuloplasty H/O: S/P arterial stent legs for PAD S/P tonsillectomy Family History Family/Other Coronary heart disease Father Cancer Heart disease Mother Diabetes Brother Heart disease Social History Preferred Language: Telugu Communication Ability: Effective Escalator Mechanic Required: No Beliefs That Will Affect Care: None marital status: Current Living Situation: Spouse Other Information That Helps Us Care for You: No other: 1 daughter Feels Safe at Home: Yes Safety Concerns: Feels Safe At This Time Smoking Status: Former smoker Age Quit Using Tobacco: 60 ; packs per day: 1 ; Do You Dip or Chew Tobacco: No ; Second Hand Exposure: No ; Tobacco Cessation Education Requested by Patient: No Hx Alcohol Use: No Hx Substance Use: No Physical Exam Constitutional: + ill appearing, + frail appearing, cooperative and + in distress ENMT: external ear and nose normal, oropharynx normal Neck: + short neck Respiratory: + uses accessory muscles Auscultation: + diminished lung sounds Cardiovascular: Rate/Rhythm: regular rate and regular rhythm Heart Sounds: normal S1 and normal S2 Vessels: radial pulses present and popliteal pulses present Extremities: + edema (bilateral UE and bilateral LE) Gastrointestinal (Abdomen): normal bowel sounds, soft, nontender, no hepatosplenomegaly Skin: Multiple excoriations and small blisters on both of her feet Right diallo traumatic injury covered with Xeroform and kerlex. Erythema noted on right arm and both feet with excoriations Results & Data Vital Signs (Past 12 Hours) Vital Signs Temp Pulse Pulse Resp BP BP Pulse Ox 11/22/19 11:43 88 18 153/71 H 98 11/22/19 11:25 36.5 C 88 22 127/65 100 11/22/19 08:00 36.5 C 115 H 107 H 18 151/67 H 100 11/22/19 03:39 36.7 C 98 H 20 141/68 H 98 PG Care Time/CCT Total # of Minutes Spent Total Time Spent with Patient: Total time spent is greater than 50% in coordination of care (as documented) at patient's floor/unit and/or counseling patient: 100 Coding Level of Care Code 90190 Inpt Consult Level 4 Diagnoses Goals of care, counseling/discussion Z71.89 Acute respiratory failure J96.00 Respiratory failure complication: unspecified whether with hypoxia or hypercapnia Acute diastolic CHF (congestive heart failure) I50.31 Severe protein-calorie malnutrition E43 CKD (chronic kidney disease) N18.4 Chronic kidney disease stage: stage 4 (severe) Mediastinal mass J98.59 Time Spent (min) 100 Time Spent Midlevel Total time spent 100 minutes with > 50% of that time spent assessing the patient, discussing goals of care with the patient, and arranging a family meeting.
[2019-11-22] MEDS: metroNIDAZOLE 500 MG/100 ML BAG IV SCH ×2 (13:01→21:09)
[2019-11-22] MEDS: UMECLIDINIUM BROMIDE 62.5MCG/BLISTER 7 PUFFS/INHALER INH SCH (13:01)
[2019-11-22] MEDS: ACETAMINOPHEN 325 MG TAB PO PRN ×2 (14:06→20:06)
[2019-11-22] MEDS: DIGOXIN 0.125 MG TAB PO SCH (20:02)
[2019-11-22] MEDS: TERAZOSIN HCL 5 MG CAP PO SCH (20:02)
[2019-11-22] MEDS: INSULIN GLARGINE SOLOSTAR 100 UNITS/ML 3 ML PEN SC SCH (20:26)
[2019-11-22] MEDS ORDERED: WARFARIN SOD 3 MG TAB PO SCH (21:00)
[2019-11-23] MEDS: AZTREONAM 1,000 MG in DEXTROSE 5% 100 ML IV SCH ×3 (03:44→20:38)
[2019-11-23] MEDS: ACETAMINOPHEN 325 MG TAB PO PRN ×3 (03:49→18:35)
[2019-11-23] MEDS: metroNIDAZOLE 500 MG/100 ML BAG IV SCH ×3 (05:45→21:46)
--- NOTE | 2019-11-23 07:08 | Hospitalist Progress Note ---
Date of Service November 23, 2019 Assessment & Plan (1) Acute respiratory failure: Pulmonary status has improved CT chest in late October showed encasement of bronchi and vessels from her cancer, effusions, nodules, edema, etc. on the day of admission she developed worsening distress Cannot rule out infectious process or underlying COPD consider acute HFpEF also impacting her respiratory distress, restart torsemide 11/23 (2) Acute diastolic CHF (congestive heart failure): Bumex 1mg IV x 1 given in ER, additional dose of bumex 1mg IV 11/21/[address] Bryan reading her echo quickly in the ER. EF continues to be preserved, no tamponade physiology from her pericardial effusion. HFpEF, restartin torsemide (3) Metabolic encephalopathy: Improved/resolved with treating respiratory failure and possible infectious etiology, given decreasig response to chemo, may progress to home oxygen need had been giving her ativan at home which could be causing toxic effects. HOLD any further ativan. 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 s/p radiation. s/p various chemo regimens including recent gemcitabine. her arms continue to be severely edematous. doubt DVT given her therapeutic INR but can't rule it out 100%. I spoke with Dr Yoon on consult 11/21, concern is progressing despite treatment. He is supportive of palliative care involvement, they did have family meeting in the afternoon of 11/22 but no defined decisions were made (5) Non-small cell lung cancer (NSCLC): progressive cancer. patient with failure to thrive at home. severe pancytopenia present due to her chemo regimen. not responding well to chemo from clinical standpoint. Dr Yoon to consult concern may need transition to hospice/palliative with lack of responsiveness to chemo treatment Palliative care meeting 11/22did discuss code status and goals of care, no changes made at this time (6) Pericardial effusion: presumed malignant. echo done urgently in ER - small-moderate effusion but no tamponade physiology. official read- effusion slightly smaller than previous echo. appreciate cardiology assistance on this. (7) Pancytopenia due to antineoplastic chemotherapy: severe leukopenia, neutropenia, and thrombocytopenia. HOLD coumadin in light of low platelets and elevated inr neutropenic precautions. broad-spectrum IV abx for RLE wound with superimposed infection. concern for radio opaque object seen in wound consider PRBCs if Hb <7.5 in light of respiratory failure but caution due to volume overload and CKD. Pt did recieve one pack of platelets due to persistent epistaxis in the face of platelet count less than 50 K (8) Cellulitis: RLE - in setting of traumatic wound suffered on 11/04/19. has been performing daily dressing changes. cultures show gram varial bacteria aztreonam (for broad gram negative coverage including pseudomonas), plus daptomycin for MRSA/Gram+ coverage, plus flagyl for anaerobic coverage Consult wound care nurse for assistance. difficult wound healing with co morbid issues, wound care consult, question foreign body seen (9) Traumatic wound: as above (10) CKD (chronic kidney disease): stage 4 - baseline Cr about 1.8 (11) Hypertension: Metoprolol torsemide terazosin and prn hydralazine (12) HLD (hyperlipidemia): hold statin due to daptomycin use and likely not continue for risk reduction given progression of cancer (13) Afib: PAF. therapeutic dig level. rate improved after increased metoprolol holding coumadin due to severe thrombocytopenia and spistaxis. . (14) Mitral stenosis: (15) T2DM (type 2 diabetes mellitus): cont basal-bolus insulin T2DM diet (16) DVT prophylaxis: holding coumadin due to severe thrombocytopenia SCDs in meantime updated on admission palliative care consult 11/21 with family meeting 11/22 Admission and Anticipated Discharge Date Admission Date: November 21, 2019 Subjective pt is fatigued but overall looks slightly improved, still slow trickle for nose bleed. did meet with palliative care for discussion no defined decisions made, concern for need for home oxygen. Review of Systems Review of Systems: mmild distress and significant fatigue no headache, blurry or double vision no speech or swallowing issues epistaxis lessened no chest pain, pressure or palpitations Having some complaints of shortness of breath, without cough or wheezes no abdominal pain, nausea or vomiting patient had loss of appetite no dysuria, hematuria or frequency no focal joint pain or swelling no back pain, CVA tenderness or radicular pain no bruising or rashes has areas of open skin which needs attention no focal signs of weakness or numbness or altered sensation generalized weakness and functional decline no complaints or anxiety or depression. Physical Exam Physical Exam: The patient appeared chronically ill condition appears such that hospice seems to be nearing to be appropriate she has lessened respiratory distress at this time but remains significantly impared Vital signs as documented. Lungs remain coarse bilaterally, diminished at the bases Cardiac exam, Rhythm is regular.. Systolic ejection murmur is heard Abdominal exam reveals normal bowel sounds, soft non tender, no masses Extremities are edematous and concerns for cellulitis particularly on the right, wound care consult to be undertaken Neurologic exam is alert and oriented, no focal loss of strength or sensation globally extremely weak Skin is with chronic skin areas of various stages of healing and nonhealing Psychologically is with concerns depression Results & Data Results & Data ([facility]) Vital Signs (Past 12 Hours) Vital Signs Temp Pulse Pulse Resp BP BP Pulse Ox 11/23/19 03:53 97.5 F L 80 18 166/73 H 97 11/23/19 00:00 80 11/22/19 23:39 97.9 F 79 16 169/72 H 99 11/22/19 20:02 88 11/22/19 19:50 97.9 F 86 20 182/74 H 97 PG Care Time/CCT Total # of Minutes Spent Total Time Spent with Patient: Total time spent is greater than 50% in coordination of care (as documented) at patient's floor/unit and/or counseling patient: Coding Level of Care Code 36709 Subseq Hosp Care Lvl 3 Diagnoses Acute respiratory failure J96.00 Respiratory failure complication: unspecified whether with hypoxia or hypercapnia Acute diastolic CHF (congestive heart failure) I50.31 Metabolic encephalopathy G93.41 Superior vena cava syndrome I87.1 Non-small cell lung cancer (NSCLC) C34.91 Laterality: right Pericardial effusion I31.3 Pancytopenia due to antineoplastic chemotherapy D61.810; T45.1X5A Cellulitis L03.90 Site of cellulitis: unspecified site Traumatic wound CKD (chronic kidney disease) N18.4 Chronic kidney disease stage: stage 4 (severe) Hypertension I10 Hypertension type: essential hypertension HLD (hyperlipidemia) E78.2 Hyperlipidemia type: mixed hyperlipidemia Afib I48.0 Atrial fibrillation type: paroxysmal Mitral stenosis I05.0 Cardiac valve disease etiology: etiology unspecified T2DM (type 2 diabetes mellitus) E11.22; N18.4; Z79.4 Chronic kidney disease stage: stage 4 (severe) Diabetes mellitus complication detail: with chronic kidney disease Diabetes mellitus complication status: with kidney complications Diabetes mellitus bed bug exterminator insulin use: with intermediate use DVT prophylaxis Z29.9 (1) Acute respiratory failure Respiratory failure complication: unspecified whether with hypoxia or h ypercapnia Qualified Code(s): J96.00 - Acute respiratory failure, unspecified whether with hypoxia or hypercapnia (2) T2DM (type 2 diabetes mellitus) Chronic kidney disease stage: stage 4 (severe) Diabetes mellitus complication detail: with chronic kidney disease Diabetes mellitus complication status: with kidney complications Diabetes mellitus intermediate insulin use: with bed bug exterminator use Qualified Code(s): E11.22 - Type 2 diabetes mellitus with diabetic chronic kidney disease; N18.4 - Chronic kidney disease, stage 4 (severe); Z79.4 - long term care social worker (current) use of insulin (3) Afib Atrial fibrillation type: paroxysmal Qualified Code(s): I48.0 - Paroxysmal atrial fibrillation (4) Cellulitis Site of cellulitis: unspecified site Qualified Code(s): L03.90 - Cellulitis, unspecified (5) HLD (hyperlipidemia) Hyperlipidemia type: mixed hyperlipidemia Qualified Code(s): E78.2 - Mixed hyperlipidemia (6) Mitral stenosis Cardiac valve disease etiology: etiology unspecified Qualified Code(s): 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
[2019-11-23] MEDS: PANTOprazole 40 MG TAB PO SCH (07:59)
[2019-11-23] MEDS: cloNIDine HCL 0.1 MG TAB PO SCH ×2 (07:59→20:49)
[2019-11-23] MEDS: METOPROLOL SUCC 50MG EXT REL TAB PO SCH (07:59)
[2019-11-23] MEDS ORDERED: HEPARIN 100 UNIT/ML 5ML FLUSH ONE ×2 (08:04→11:39)
[2019-11-23 08:17] LABS: INR 1.3 (0.9-1.1)
[2019-11-23] MEDS: INSULIN ASPART 100 UNITS/ML 3 ML PEN SC SCH ×4 (08:38→20:53)
[2019-11-23] MEDS: MoRPHine SULFATE 2 MG/ML CARP IV PRN ×2 (11:41→22:06)
--- NOTE | 2019-11-23 12:17 | Wound Consultation ---
Date of Consultation November 23, 2019 Assessment & Plan (1) Traumatic wound: The remaining sutures were removed with scissor and forceps. The wound does require debridement. I was hesitant to do an aggressive debridement because of the patient's pancytopenia and coagulopathy. With the patient's permission a small area of uplifting slough and hematoma was removed with scissor and forceps. Bleeding occurred which was controlled with pressure. Wound was then irrigated copiously with saline. Wound culture was done. Results are pending. This wound will be dressed with Caradress to be changed every 3 days. Patient will need to have a more extensive debridement done once her thrombocytopenia and coagulopathy are improved. I will reevaluate her , if she is still an inpatient, on 11/27/2019 . If patient is discharged over the weekend she can make arrangements to be reevaluated in the Wound Clinic as an outpatient. This represents a removal of sutures and non-excisional debridement of less than 20 cm. Regarding the abnormality noted on x-ray. This had not been noted on the x-ray done in the emergency department on 11/04/19. No obvious foreign body noted on today's exam however, exam is limited secondary to inability to do a aggressive debridement. At this time I would recommend conservative treatment. Can consider orthopedic consultation for removal under fluoroscopy if worsening infection or continued difficulty with wound healing. Would also recommend that the patient have additional nutritional support with increase protein intake, supplemental zinc and vitamin C, and if possible, Arginaid supplement twice a day. (2) Cellulitis: Wound culture pending. Continue broad-spectrum antibiotics per hospitalist's. (3) Diabetic ulcer of left foot associated with type 2 diabetes mellitus, limited to breakdown of skin: The patient has superficial pressure ulcers to both heels and a diabetic ulcer on her left foot. These do not require debridement. We will continue to dress them with Aquacel Ag and OPTi foam changed q 3 days. Continue with waffle boots for offloading and offloading shoes if ambulatory. Thank you for this consultation. If you have any questions or need for any additional guidance or information regarding her wound care please feel free to contact me at the Wound Center. I will continue to follow her with the inpatient Wound Care nurses. History of Present Illness Reason for Consultation: Nonhealing traumatic wounds both lower extremity This is a 63-year-old woman with a history of , DM, metastatic lung cancer and PAD who is being followed in the Wound Clinic for traumatic wounds to lower extremities post fall on 11/04/2019 and diabetic foot ulcers of the right great toe and right second toe. As an outpatient the wounds were being dressed with Aquacel Ag and patient has been wearing a 1 layer Tubigrip. Outpatient wound cultures done on November 05 and November 12 were negative for pathogen. Consultation was made for us to provide continued care to her lower extremity wounds while inpatient. The patient is complaining of some discomfort in her right lower extremity related to her wound. She has had mild drainage from the wound and noted a slight odor 4 days ago.. She is unsure if the redness in her leg has increased. She has not noted any fever. She is currently on broad-spectrum IV antibiotics for associated cellulitis in the right lower extremity. Recent x-rays of her right tibia and fibula are concerning for retained foreign body. Of note - x- ray done at the time of her fall on 11/04/2019 was negative for foreign body. She is currently pancytopenic secondary to recent chemotherapy. Attending Physician: Jerry Rivero MD Allergies Allergy/AdvReac Type Severity Reaction Status Date / Time ceftaroline fosamil Allergy Hives Verified 11/21/19 12:46 [From Teflaro] Penicillins Allergy Rash Verified 11/21/19 12:46 Home Medications Home Medications Medication Instructions Recorded Confirmed Type aspirin 81 mg PO HS 07/25/19 11/21/19 History calcium carbonate [Calcium 500] 500 mg PO QAM 07/25/19 11/21/19 History cholecalciferol (vitamin D3) 5,000 unit PO QAM 07/25/19 11/21/19 History [Vitamin D3] clonidine HCl 0.1 mg PO BID 07/25/19 11/21/19 History digoxin 125 mcg PO HS 07/25/19 11/21/19 History magnesium oxide 500 mg PO BID 07/25/19 11/21/19 History metoprolol succinate 50 mg PO QAM 07/25/19 11/21/19 History niacin [Niacor] 500 mg PO QAM 07/25/19 11/21/19 History pantoprazole [Protonix] 40 mg PO QAM 07/25/19 11/21/19 History simvastatin 40 mg PO HS 07/25/19 11/21/19 History terazosin 5 mg PO HS 07/25/19 11/21/19 History tramadol 50 mg PO QAM PRN 07/25/19 11/21/19 History ferrous sulfate 325 mg PO BID 08/01/19 11/21/19 History albuterol sulfate 90 mcg/actuation 2 puffs INH Q4H PRN gm 08/21/19 11/21/19 History aerosol inhaler Tresiba FlexTouch U-100 16 unit SUBCUT HS 10/05/19 11/21/19 History ondansetron HCl 8 mg tablet 8 mg PO Q8H PRN 10/23/19 11/21/19 History prochlorperazine maleate 10 mg 10 mg PO Q6H PRN 10/23/19 11/21/19 History tablet warfarin 3 mg tablet 3 mg PO HS 10/23/19 11/21/19 History Spiriva Respimat 2 puffs INH DAILY@1300 10/28/19 11/21/19 History oxycodone 10 mg PO .Q4-6H PRN 10/28/19 11/21/19 History insulin aspart U-100 100 unit/mL 12 units SUBCUT DAILY@0800,1200 ml 11/06/19 11/21/19 History (3 mL) subcutaneous pen insulin aspart U-100 100 unit/mL 18 units SQ DAILY@1700 ml 11/06/19 11/21/19 History (3 mL) subcutaneous pen lorazepam 1 mg PO DAILY PRN 11/21/19 11/21/19 History torsemide 20 mg PO QAM 11/21/19 11/21/19 History Patient History Medical History Afib CKD (chronic kidney disease) stage 4 Family history of premature CAD Goals of care, counseling/discussion History of tobacco abuse HLD (hyperlipidemia) Hypertension Malignant neoplasm of upper lobe, right bronchus or lung (Chronic) Mitral stenosis Non-small cell lung cancer (NSCLC) PAD (peripheral artery disease) (Acute) Pericardial effusion presumed malignant from lung cancer Port-A-Cath in place Severe protein-calorie malnutrition SVC syndrome (Chronic) T2DM (type 2 diabetes mellitus) Traumatic wound (Acute) right leg - 11/04/19 Surgical History H/O valvuloplasty H/O: S/P arterial stent legs for PAD S/P tonsillectomy Family History Family/Other Coronary heart disease Father Cancer Heart disease Mother Diabetes Brother Heart disease Social History Preferred Language: Omani Communication Ability: Effective 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 Patient is chronically dyspneic but states this has improved since her hospitalization. Complains of generalized fatigue. Other espino denies new acute complaints. Physical Exam Physical Exam: Pleasant in no acute distress Oriented x3 Afebrile, hypertensive RESPIRATORY: Respirations unlabored on supplemental O2. Lower extremities with +2 edema. Pulses are diminished. SKIN: Patient has a wound on her right anterior diallo measuring 16.1 x 8.7 x 0.3 cm. Wound is covered with hematoma and slough. Sutures are in place. Moderate drainage. No odor. Periwound area is erythematous. No increased warmth. On the right lateral heel she has a callused blister measuring 8.0 x 1.0 cm.. No drainage or odor. Periwound area is not inflamed. The left dorsal foot wound measures 1.7 x 0.9 x 0.2 cm . wound is covered with dry eschar. No drainage or odor. Periwound area is not inflamed. Left lateral heel wound measures 5 x 1.8 x 0.3 cm. Wound is covered with callus and eschar. No drainage or odor. Periwound area is not inflamed. Results & Data Vital Signs (Past 12 Hours) Vital Signs Temp Pulse Pulse Resp BP BP Pulse Ox 11/23/19 10:54 36.3 C L 78 19 175/71 H 98 11/23/19 08:00 74 11/23/19 07:18 36.4 C L 74 18 187/73 H 99 11/23/19 03:53 36.4 C L 80 18 166/73 H 97 Coding Level of Care Code 69171 Inpt Consult Level 3 Diagnoses Traumatic wound Cellulitis L03.90 Site of cellulitis: unspecified site Diabetic ulcer of left foot associated with type 2 diabetes mellitus, limited to breakdown of skin E11.621; L97.521 Comment PROCEDURES: Suture Removal Nonexcisional debridement of less than 20 cm2 (1) Cellulitis Site of cellulitis: unspecified site Qualified Code(s): L03.90 - Cellulitis, unspecified
[2019-11-23] MEDS: UMECLIDINIUM BROMIDE 62.5MCG/BLISTER 7 PUFFS/INHALER INH SCH (12:28)
[2019-11-23] MEDS ORDERED: HEPARIN 100 UNIT/ML 5ML FLUSH FLUSH PRN (14:01)
--- NOTE | 2019-11-23 15:56 | Palliative Care Progress Note ---
Date of Service November 23, 2019 Assessment & Plan (1) Goals of care, counseling/discussion: This is a 63 year old female who presented to the [facility] on 11/20 from home as she was experiencing SOB. Unfortunately, she has stage IV non-small cell lung cancer which was diagnosed in July 2019. She is a patient of Dr. Paul Yoon. Additional PMH includes pAF, CKD, CAD, HLD, HTN, mitral stenosis, recurrent pericardial effusions, severe protein malnutrition, DM2, and had an MVR. Regarding her cancer treatment, she has undergone a total of 4 rounds of chemotherapy and aggressive and palliative radiation therapy for the large mediastinal mass. She has had disease progression while receiving chemo. No chemo planned at this time. She has had a recent admission over the past few weeks at [facility] for similar symptoms. Palliative Care was consulted to discuss goals of care. -I met with the patient in room 235, alone then along with her . The patient was sitting upright in her bed, pale, alert, appears comfortable -We talked at length about Home health and Hospice and how all can benefit her care. We talked about that if she would become stable enough for attempting chemotherapy again, that she ultimately could discontinue hospice services and pursue aggressive measures. 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 -Ultimately, we discussed code status and described in deep detail what is involved. -Patient asked if decisions regarding CODE STATUS and hospice could wait until after she returned home-educated patient and family regarding how to obtain a hospice referral after discharge. For now, patient is to remain a Full Code. -She has a daughter, Irasema, who lives in [place] and is an commercial litigation attorney. She expressed she did not want her involved with any of the discussions or decision making. -Should the patient not be able to make her own decisions, she would like her Davion to do so. -Palliative Care will follow up tomorrow to see if any definitive decisions have been made and if so, complete a POLST form. -PPS: 30% (2) Acute respiratory failure: (3) Acute diastolic CHF (congestive heart failure): (4) Severe protein-calorie malnutrition: (5) CKD (chronic kidney disease): (6) Mediastinal mass: Subjective Patient seen for initial referral yesterday-met with CARLOS Akins. Meeting set up for today with patient and at bedside to discuss CODE STATUS as well as goals of care. Met with patient alone prior to 's arrival to discuss options upon returning home. Patient works for [employer] and is aware of what hospice does and provides. Patient's arrived at bedside-reviewed details regarding resuscitation, discussed in depth treatment options as far as home with home health home with palliative goals and home with hospice. Patient has disease progression on chemo-she has severe fatigue and neutropenia as a result of chemo. Patient with superior vena cava syndrome. Patient appears comfortable, did request 1 PRN IV morphine for right lower extremity pain-this is where she sustained a large laceration after a fall at home. Review of Systems Review of Systems: Denies fever, chills, chest pain, increased shortness of breath, or abdominal pain + For shortness of breath with minimal exertion-O2 helps as per patient report + Upper extremity edema right greater than left due to superior vena cava syndrome. Physical Exam Physical Exam: PE: Patient pale, NAD HEENT: EOMI, hearing within normal limits Respirations: Unlabored, increased respiratory rate with speech, comfortable on O2 at 2 L with adequate O2 sats CV: Regular rate Abdomen: Soft, nontender Extremities: Decreased lower extremity edema, upper extremity edema minimally improved Neuro: Alert and oriented x4 Results & Data Vital Signs (Past 12 Hours) Vital Signs Temp Pulse Pulse Resp BP BP Pulse Ox 11/23/19 15:45 98.4 F 82 18 179/67 H 98 11/23/19 10:54 97.3 F L 78 19 175/71 H 98 11/23/19 08:00 74 11/23/19 07:18 97.5 F L 74 18 187/73 H 99 PG Care Time/CCT Total # of Minutes Spent Total Time Spent with Patient: Total time spent 65 minutes with 60 minutes spent at bedside discussing CODE STATUS in depth as well as treatment options inc luding home with home health, home with home health with palliative goal, home with hospice. Prolonged Care Time Prolonged Care Time: Yes Total Prolonged Care Time: 30 Coding Level of Care Code 87357 Subseq Hosp Care Lvl 3 Diagnoses Goals of care, counseling/discussion Z71.89 Acute respiratory failure J96.00 Respiratory failure complication: unspecified whether with hypoxia or hypercapnia Acute diastolic CHF (congestive heart failure) I50.31 Severe protein-calorie malnutrition E43 CKD (chronic kidney disease) N18.4 Chronic kidney disease stage: stage 4 (severe) Mediastinal mass J98.59 Additional Codes Prolonged Care Time - Prolonged Care Time: Yes ([id number]) Time Spent (min) 65 Critical Care Time Prolonged Care Time Prolonged Care Time: Yes Total Prolonged Care Time: 30 65 (1) Acute respiratory failure Respiratory failure complication: unspecified whether with hypoxia or hypercapnia Qualified Code(s): J96.00 - Acute respiratory failure, unspecified whether with hypoxia or hypercapnia (2) CKD (chronic kidney disease) Chronic kidney disease stage: stage 4 (severe) Qualified Code(s): N18.4 - Chronic kidney disease, stage 4 (severe)
[2019-11-23] MEDS ORDERED: TORSEMIDE 10 MG TAB PO ONE (16:30)
[2019-11-23] MEDS: TERAZOSIN HCL 5 MG CAP PO SCH (20:49)
[2019-11-23] MEDS: DIGOXIN 0.125 MG TAB PO SCH (20:50)
[2019-11-23] MEDS: INSULIN GLARGINE SOLOSTAR 100 UNITS/ML 3 ML PEN SC SCH (20:53)
[2019-11-23] MEDS ORDERED: DAPTOmycin 300 MG in SYRINGE 0 ML IV SCH (21:00)
--- NOTE | 2019-11-23 23:46 | Communication Note ---
Date of Service: November 23, 2019 Notified that pt was having new onset chest tightness. Went up to evaluate, she was seated in bed propped by pillows in some mild distress, halting speech, NC in nares @2L. On exam, noted crackles at base of lungs bilaterally. Stat portable chest XR ordered. Nursing got an EKG, stat trops were ordered. EKG showed no evidence of ischemia, trops negative. Chest XR showed increase in fluid on right. Consider malignant effusion (given pt's history) and possible therapeutic tapping. Tonight pt was given 1 dose of combo albumin 25mg with Lasix 40mg. Morphine already ordered helped with her pain/chest tightness and air hunger. She is currently on one home inhaler, states she usually uses 2 at home. No home inhalers re-started tonight for Hx of emphysema. 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
[2019-11-24] MEDS ORDERED: ALBUMIN 25% 50 ML with FUROSEMIDE 40 MG IV ONE
[2019-11-24] MEDS: AZTREONAM 1,000 MG in DEXTROSE 5% 100 ML IV SCH (04:44)
[2019-11-24] MEDS: metroNIDAZOLE 500 MG/100 ML BAG IV SCH ×3 (06:02→22:05)
[2019-11-24 07:03] LABS: INR 1.2 (0.9-1.1); Prothrombin Time 12.4 Seconds (9.0-12.0)
[2019-11-24 07:06] LABS: Hematocrit (blood only) 21.2 % (37-47); Hemoglobin 7.3 g/dL (12.0-16.0); Mean Corpuscular Hemoglobin 30.9 pg (25-34); Mean Corpuscular Volume 89.8 fL (80-100); Mean Platelet Volume 10.1 fL (7.4-10.4); Platelet Count 28 K/uL (130-400); RDW Coefficient of Variation 16.3 % (11.5-14.5); RDW Standard Deviation 50.9 fL (36.4-46.3); Red Blood Count 2.36 M/uL (4.2-5.4); White Blood Count 2.59 K/uL (4.8-10.8)
--- NOTE | 2019-11-24 07:14 | XRay Report ---
XR chest 1V portable CLINICAL HISTORY: Shortness of breath. Lung cancer. COMPARISON STUDY: Chest CT October 28, 2019. Chest radiograph November 20, 2017. FINDINGS: Left subclavian [id number] is in place. The known mediastinal mass is better depicted on prior CT. Enlargement of the cardiac silhouette is unchanged. A moderate right pleural effusion has increased in size. Small left pleural effusion is noted. Interstitial thickening persists. Basilar op acities have increased. IMPRESSION: 1. Increase in a moderate right pleural effusion and associated right basilar opacity. Small left ple ural effusion. 2. Interstitial thickening which favors pulmonary edema. 3. Stable enlargement of the cardiac silhouette. ACT 112: Negative or not required by law. Electronically signed by: Joey Landa M.D. 11/24/2019 7:12 AM
[2019-11-24 07:21] LABS: Mean Corpuscular Hgb Conc 34.4 g/dL (32-36)
[2019-11-24 07:22] LABS: Platelet Estimate SIGNIFIC DECREASED (Normal)
[2019-11-24 07:23] LABS: BUN Creatinine Ratio 31.3 (10-20); Est GFR (African American) 47.9; Est GFR (Non-African American) 41.3
[2019-11-24] MEDS: INSULIN ASPART 100 UNITS/ML 3 ML PEN SC SCH ×4 (08:01→21:14)
[2019-11-24] MEDS: PANTOprazole 40 MG TAB PO SCH (08:09)
[2019-11-24] MEDS: cloNIDine HCL 0.1 MG TAB PO SCH ×2 (08:09→21:07)
[2019-11-24] MEDS: METOPROLOL SUCC 50MG EXT REL TAB PO SCH (08:09)
[2019-11-24] MEDS: TORSEMIDE 20 MG TAB PO SCH (08:51)
[2019-11-24] MEDS: ACETAMINOPHEN 325 MG TAB PO PRN ×2 (10:40→21:11)
[2019-11-24] MEDS: AZTREONAM 2,000 MG in DEXTROSE 5% 100 ML IV SCH ×2 (11:34→21:01)
[2019-11-24] MEDS: OXYCODONE HCL IR 5 MG TAB (IMMEDIATE RELEASE) PO PRN (11:43)
[2019-11-24] MEDS: UMECLIDINIUM BROMIDE 62.5MCG/BLISTER 7 PUFFS/INHALER INH SCH (13:33)
--- NOTE | 2019-11-24 14:22 | Hospitalist Progress Note ---
Date of Service November 24, 2019 Assessment & Plan (1) Acute respiratory failure: Pulmonary status has continue to improve, but remains significantly ill CT chest in late October showed encasement of bronchi and vessels from her cancer, effusions, nodules, edema, etc. consider acute HFpEF also impacting her respiratory distress, restarted torsemide 11/23 (2) Acute diastolic CHF (congestive heart failure): Bumex 1mg IV x 1 given in ER, additional dose of bumex 1mg IV 11/21/[address] Bryan reading her echo quickly in the ER. EF continues to be preserved, no tamponade physiology from her pericardial effusion. HFpEF, restarting torsemide (3) Metabolic encephalopathy: Improved/resolved with treating respiratory failure and possible infectious etiology, given decreasig response to chemo, may progress to home oxygen need had been giving her ativan at home which could be causing toxic effects. HOLD any further ativan. 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 s/p radiation. s/p various chemo regimens including recent gemcitabine. her arms continue to be severely edematous. doubt DVT given her therapeutic INR but can't rule it out 100%. I spoke with Dr Yoon on consult 11/21, concern is progressing despite treatment. He is supportive of palliative care involvement, they did have family meeting in the afternoon of 11/22 , now decision to be DNR (5) Non-small cell lung cancer (NSCLC): progressive cancer. patient with failure to thrive at home. severe pancytopenia present due to her chemo regimen. not responding well to chemo from clinical standpoint. Dr Yoon to consult concern may need transition to hospice/palliative with lack of responsiveness to chemo treatment (6) Pericardial effusion: presumed malignant. echo done urgently in ER - small-moderate effusion but no tamponade physiology. official read- effusion slightly smaller than previous echo. appreciate cardiology assistance on this. (7) Pancytopenia due to antineoplastic chemotherapy: severe leukopenia, neutropenia, and thrombocytopenia. HOLD coumadin in light of low platelets and elevated inr neutropenic precautions. broad-spectrum IV abx for RLE wound with superimposed infection. concern for radio opaque object seen in wound consider PRBCs if Hb <7.5 in light of respiratory failure but caution due to volume overload and CKD. Pt did recieve one pack of platelets due to persistent epistaxis in the face of platelet count less than 50 K (8) Cellulitis: RLE - in setting of traumatic wound suffered on 11/04/19. has been performing daily dressing changes. cultures show gram varial bacteria aztreonam (for broad gram negative coverage including pseudomonas), plus daptomycin for MRSA/Gram+ coverage, plus flagyl for anaerobic coverage Consult wound care nurse for assistance. difficult wound healing with co morbid issues, wound care consult, question foreign body seen (9) Traumatic wound: as above (10) CKD (chronic kidney disease): stage 4 - baseline Cr about 1.8 (11) Hypertension: Metoprolol torsemide terazosin and prn hydralazine (12) HLD (hyperlipidemia): hold statin due to daptomycin use and likely not continue for risk reduction given progression of cancer (13) Afib: PAF. therapeutic dig level. rate improved after increased metoprolol holding coumadin due to severe thrombocytopenia and spistaxis. . (14) Mitral stenosis: (15) T2DM (type 2 diabetes mellitus): cont basal-bolus insulin T2DM diet (16) DVT prophylaxis: holding coumadin due to severe thrombocytopenia SCDs in meantime updated on admission palliative care consult 11/21 with family meeting 11/22 PT/OT and 2 step oxygen testing, anticiapate to home and eventual transition to hospice, will have home nursing Admission and Anticipated Discharge Date Admission Date: November 21, 2019 Subjective pt is fatigued but continues to look slightly stronger each day, no more nose bleeding, did change code status to DNR, palliative care is still following Review of Systems Review of Systems: mmild distress and significant fatigue no headache, blurry or double vision no speech or swallowing issues epistaxis lessened no chest pain, pressure or palpitations Having some complaints of shortness of breath, without cough or wheezes no abdominal pain, nausea or vomiting patient had loss of appetite no dysuria, hematuria or frequency no focal joint pain or swelling no back pain, CVA tenderness or radicular pain no bruising or rashes has areas of open skin which needs attention no focal signs of weakness or numbness or altered sensation generalized weakness and functional decline no complaints or anxiety or depression. Physical Exam Physical Exam: The patient appeared chronically ill condition appears such that hospice seems to be nearing to be appropriate she has lessened respiratory distress at this time but remains significantly impared Vital signs as documented. Lungs remain coarse bilaterally, diminished at the bases Cardiac exam, Rhythm is regular.. Systolic ejection murmur is heard Abdominal exam reveals normal bowel sounds, soft non tender, no masses Extremities are edematous and concerns for cellulitis particularly on the right, wound care consult to be undertaken Neurologic exam is alert and oriented, no focal loss of strength or sensation globally extremely weak Skin is with chronic skin areas of various stages of healing and nonhealing Psychologically is with concerns depression Results & Data Results & Data ([facility]) Vital Signs (Past 12 Hours) Vital Signs Temp Pulse Pulse Resp BP Pulse Ox 11/24/19 11:27 98.2 F 87 16 119/64 98 11/24/19 08:00 98.2 F 85 16 160/73 H 99 11/24/19 07:33 84 11/24/19 04:28 97.7 F 80 17 165/68 H 98 PG Care Time/CCT Total # of Minutes Spent Total Time Spent with Patient: Total time spent is greater than 50% in coordination of care (as documented) at patient's floor/unit and/or counseling patient: Coding Level of Care Code 67355 Subseq Hosp Care Lvl 3 Diagnoses Acute respiratory failure J96.00 Respiratory failure complication: unspecified whether with hypoxia or hypercapnia Acute diastolic CHF (congestive heart failure) I50.31 Metabolic encephalopathy G93.41 Superior vena cava syndrome I87.1 Non-small cell lung cancer (NSCLC) C34.91 Laterality: right Pericardial effusion I31.3 Pancytopenia due to antineoplastic chemotherapy D61.810; T45.1X5A Cellulitis L03.90 Site of cellulitis: unspecified site Traumatic wound CKD (chronic kidney disease) N18.4 Chronic kidney disease stage: stage 4 (severe) Hypertension I10 Hypertension type: essential hypertension HLD (hyperlipidemia) E78.2 Hyperlipidemia type: mixed hyperlipidemia Afib I48.0 Atrial fibrillation type: paroxysmal Mitral stenosis I05.0 Cardiac valve disease etiology: etiology unspecified T2DM (type 2 diabetes mellitus) E11.22; N18.4; Z79.4 Diabetes mellitus residential insulin use: with residential use Diabetes mellitus complication status: with kidney complications Diabetes mellitus complication detail: with chronic kidney disease Chronic kidney disease stage: stage 4 (severe) DVT prophylaxis Z29.9 (1) Acute respiratory failure Respiratory failure complication: unspecified whether with hypoxia or hypercapnia Qualified Code(s): J96.00 - Acute respiratory failure, unspecified whether with hypoxia or hypercapnia (2) Non-small cell lung cancer (NSCLC) Laterality: right Qualified Code(s): C34.91 - Malignant neoplasm of unspecified part of right bronchus or lung (3) Cellulitis Site of cellulitis: unspecified site Qualified Code(s): L03.90 - Cellulitis, unspecified (4) CKD (chronic kidney disease) Chronic kidney disease stage: stage 4 (severe) Qualified Code(s): N18.4 - Chronic kidney disease, stage 4 (severe) (5) Hypertension Hypertension type: essential hypertension Qualified Code(s): I10 - Essential (primary) hypertension (6) HLD (hyperlipidemia) Hyperlipidemia type: mixed hyperlipidemia Qualified Code(s): E78.2 - Mixed hyperlipidemia (7) Afib Atrial fibrillation type: paroxysmal Qualified Code(s): I48.0 - Paroxysmal atrial fibrillation (8) Mitral stenosis Cardiac valve disease etiology: etiology unspecified Qualified Code(s): I05.0 - Rheumatic mitral stenosis (9) T2DM (type 2 diabetes mellitus) Diabetes mellitus buttermaker continuous churn insulin use: with residential use Diabetes mellitus complication status: with kidney complications Diabetes mellitus complication detail: with chronic kidney disease Chronic kidney disease stage: stage 4 (severe) Qualified Code(s): E11.22 - Type 2 diabetes mellitus with diabetic chronic kidney disease; N18.4 - Chronic kidney disease, stage 4 (severe); Z79.4 - group home (current) use of insulin
--- NOTE | 2019-11-24 14:36 | Palliative Care Progress Note ---
Date of Service November 24, 2019 Assessment & Plan (1) Goals of care, counseling/discussion: Patient is a 63 year old female who presented to the [facility] on 11/20 from home as she was experiencing SOB. Unfortunately, she has stage IV non-small cell lung cancer which was diagnosed in July 2019. She is a patient of Dr. Paul Yoon. Additional PMH includes pAF, CKD, CAD, HLD, HTN, mitral stenosis, recurrent pericardial effusions, severe protein malnutrition, DM2, and had an MVR. Regarding her cancer treatment, she has undergone a total of 4 rounds of chemotherapy and aggressive and palliative radiation therapy for the large mediastinal mass. She has had disease progression while receiving chemo. No chemo planned at this time. Dr. Yoon has offered patient further chemo on a delayed schedule if she wishes. She has had a recent admission over the past few weeks at [facility] for similar symptoms. -Revisited our conversation from yesterday regarding code status -patient stated she wishes to change her CODE STATUS to DNR, POLST form completed -Should the patient not be able to make her own decisions, she would like her Davion to do so. PPS 40% (2) Acute respiratory failure: (3) Acute diastolic CHF (congestive heart failure): (4) Severe protein-calorie malnutrition: (5) CKD (chronic kidney disease): (6) Mediastinal mass: Subjective Follow-up today regarding in-depth conversation yesterday with patient and her regarding goals of care as well as CODE STATUS. Patient appears brighter, coloration improved. Patient's white count starting to increase, was up to 2.59 this a.m. Patient reports that after her discussion between herself and her yesterday-she would like to change her CODE STATUS to DNR and we filled out a POLST form reflecting her wishes. Patient wishes to have a DNR CODE STATUS, limited intervention, would consider IV fluids to correct a reversible problem, does not want of surgical feeding tube placed. -Patient stated she wishes to return home, she needs to sort out her chcf with her current job as well as obtaining insurance coverage. Discussed with patient that if she would want a home health referral she would need to contact her PCP. If it anytime she would like a hospice referral, she can contact Dr. Yoon. Review of Systems Review of Systems: Patient denies fever, chills, increased shortness of breath or abdominal pain. Physical Exam Physical Exam: PE: Awake and alert, sitting up in chair at bedside, no acute distress HEENT: EOMI, hearing within normal limits Respirations unlabored, on O2 at 2 L CV: Regular rate, upper extremity edema slightly decreased on right Abdomen: Soft Extremities: Full range of motion Neuro: Alert and oriented x4. Results & Data Vital Signs (Past 12 Hours) Vital Signs Temp Pulse Pulse Resp BP Pulse Ox 11/24/19 11:27 98.2 F 87 16 119/64 98 11/24/19 08:00 98.2 F 85 16 160/73 H 99 11/24/19 07:33 84 11/24/19 04:28 97.7 F 80 17 165/68 H 98 PG Care Time/CCT Total # of Minutes Spent Total Time Spent with Patient: Total time spent 35 minutes with greater than 50% of the time spent at bedside discussing goals of care and completing POLST form Coding Level of Care Code 00232 Subseq Hosp Care Lvl 3 Diagnoses Goals of care, counseling/discussion Z71.89 Acute respiratory failure J96.00 Respiratory failure complication: unspecified whether with hypoxia or hypercapnia Acute diastolic CHF (congestive heart failure) I50.31 Severe protein-calorie malnutrition E43 CKD (chronic kidney disease) N18.4 Chronic kidney disease stage: stage 4 (severe) Mediastinal mass J98.59 Time Spent (min) 35 (1) Acute respiratory failure Respiratory failure complication: unspecified whether with hypoxia or hypercapnia Qualified Code(s): J96.00 - Acute respiratory failure, unspecified whether with hypoxia or hypercapnia (2) CKD (chronic kidney disease) Chronic kidney disease stage: stage 4 (severe) Qualified Code(s): N18.4 - Chronic kidney disease, stage 4 (severe)
--- NOTE | 2019-11-24 19:15 | Electrocardiogram Report ---
Test Reason : Blood Pressure : / mmHG Vent. Rate : 084 BPM Atrial Rate : 084 BPM P-R Int : 238 ms QRS Dur : 090 ms QT Int : 336 ms P-R-T Axes : 045 026 095 degrees QTc Int : 397 ms Poor data quality, interpretation may be adversely affected Sinus rhythm with 1st degree A-V block Nonspecific T wave abnormality Abnormal ECG When compared with ECG of 21-NOV-2019 11:07, IN interval has increased Confirmed by Merritt Bryan ([id number]) on 11/24/2019 7:14:38 PM Referred By: REFERRED SELF Confirmed By:Dawson Bryan
[2019-11-24] MEDS ORDERED: DAPTOmycin 300 MG in SYRINGE 0 ML IV SCH (21:00)
[2019-11-24] MEDS: DIGOXIN 0.125 MG TAB PO SCH (21:06)
[2019-11-24] MEDS: TERAZOSIN HCL 5 MG CAP PO SCH (21:06)
[2019-11-24] MEDS: INSULIN GLARGINE SOLOSTAR 100 UNITS/ML 3 ML PEN SC SCH (21:14)
[2019-11-25] MEDS: AZTREONAM 2,000 MG in DEXTROSE 5% 100 ML IV SCH ×2 (04:15→11:51)
[2019-11-25] MEDS: metroNIDAZOLE 500 MG/100 ML BAG IV SCH (05:45)
[2019-11-25 06:47] LABS: INR 1.1 (0.9-1.1); Prothrombin Time 11.7 Seconds (9.0-12.0)
[2019-11-25] MEDS: INSULIN ASPART 100 UNITS/ML 3 ML PEN SC SCH ×2 (08:02→11:52)
[2019-11-25] MEDS: METOPROLOL SUCC 50MG EXT REL TAB PO SCH (08:03)
[2019-11-25] MEDS: TORSEMIDE 20 MG TAB PO SCH (08:03)
[2019-11-25] MEDS: cloNIDine HCL 0.1 MG TAB PO SCH (08:03)
[2019-11-25] MEDS: PANTOprazole 40 MG TAB PO SCH (08:03)
[2019-11-25] MEDS: OXYCODONE HCL IR 5 MG TAB (IMMEDIATE RELEASE) PO PRN (10:13)
[2019-11-25 11:38] VITALS: BP 116/63; PULSE 86; TEMP 97.7; O2SAT 99
[2019-11-25] MEDS: UMECLIDINIUM BROMIDE 62.5MCG/BLISTER 7 PUFFS/INHALER INH SCH (11:52)
--- NOTE | 2019-11-25 13:22 | Discharge Summary ---
Date of Service November 25, 2019 Admission HPI Per Admitting Provider Ms. 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 Patient was in distress during my visit - stating to me "I can't breath" - and was unable to provide any meaningful history. Thus, most history was obtained from her at bedside. She was seen for dyspnea at the [facility] ER in the last 1-2 weeks and it was thought to be anxiety and was discharged home. Additionally she has been having right leg pain due to traumatic injury to the right diallo by way of a fall on cement steps on November 03. She is not currently taking antibiotics for this. Minimal to no cough. Poor appetite. Has gained weight over the last few weeks/months. Overnight last PM had worsening right leg pain, and then at 0730 this am she had acute worsening of her breathing. She has chronic orthopnea and sleeps upright "for years." reports confusion at home. He also mentions worsening odor of the right diallo for 2 days. has been changing the dressings on RLE daily. Remaining [facility] in R[facility] Wednesday of last week had 1 unit of PRBCs at [facility] ordered by Dr Yoon. On Wednesday pm had epistaxis. Over the subsequent weekend she was weak, dyspneic, confused, and simply not doing well. During my admission assessment I ordered bumex 1mg IV x 1, started BIPAP, and had cardiology perform echo to ensure her pericardial effusion was not causing any early tamponade. 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 Lungs are coarse and diminshed Cardiac exam, Rhythm is regular.. systolic murmur heard Abdominal exam reveals normal bowel sounds, distended and mildly tender Extremities areedematous and both LE have open wounds on the legs Neurologic exam is alert and oriented, can get around but is globally weak Skin is with areas of wounds on lower legs that are in various states of healing did speak to palliative care and was made DNR Discharge Data Allergies Allergy/AdvReac Type Severity Reaction Status Date / Time ceftaroline fosamil Allergy Hives Verified 11/21/19 12:46 [From Teflaro] Penicillins Allergy Rash Verified 11/21/19 12:46 Consultations 11/21/19 13:00 ED Decision to Admit Stat 11/21/19 18:36 Consult Case Management - Discharge Planning Routine Consult Hematology Routine 11/22/19 10:40 Consult Palliative Care Routine 11/22/19 16:12 Consult Wound Care Provider Routine 11/25/19 13:11 Consult [facility] chimney builder Routine Ordered Studies 11/21/19 21:37 CT head/brain wo con Routine Hospital Course (1) Acute respiratory failure: Pulmonary status has continue to improve, does qualify for home oxygen CT chest in late October showed encasement of bronchi and vessels from her cancer, effusions, nodules, edema, etc. consider acute HFpEF also impacting her respiratory distress, restarted tor semide 11/23 (2) Acute diastolic CHF (congestive heart failure): Bumex 1mg IV x 1 given in ER, additional dose of bumex 1mg IV 11/21/[address] Bryan reading her echo quickly in the ER. EF continues to be preserved, no tamponade physiology from her pericardial effusion. HFpEF, restarted torsemide (3) Metabolic encephalopathy: Improved/resolved with treating respiratory failure and possible infectious etiology, given decreasig response to chemo, does need home oxygen Pt did have clostridium in blood and pseudomonas in wounds, will be home on flagyl and cipro had been giving her ativan at home which could be causing toxic effects. HOLD any further ativan. 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 s/p radiation. s/p various chemo regimens including recent gemcitabine. her arms continue to be severely edematous, tried compression sleeves but could not tolerate I spoke with Dr Yoon on consult 11/21, concern is progressing despite treatment. He is supportive of palliative care involvement, they did have family meeting in the afternoon of 11/22 , now decision to be DNR (5) Non-small cell lung cancer (NSCLC): progressive cancer. patient with failure to thrive at home. severe pancytopenia present due to her chemo regimen. not responding well to chemo from clinical standpoint. Dr Yoon to consult concern may need transition to hospice/palliative with lack of responsiveness to chemo treatment palliative care did discuss and convert pt to DNR status (6) Pericardial effusion: presumed malignant. echo done urgently in ER - small-moderate effusion but no tamponade physiology. official read- effusion slightly smaller than previous echo. appreciate cardiology assistance on this. (7) Pancytopenia due to antineoplastic chemotherapy: severe leukopenia, neutropenia, and thrombocytopenia. HOLD coumadin in light of low platelets and elevated inr, with occasional nose bleeds neutropenic precautions. RLE wound with superimposed infection. concern for radio opaque object seen in wound, will be home on cipro for pseudomonas and flagyl for blood cultures of cl ostridium Pt did recieve one pack of platelets due to persistent epistaxis in the face of platelet count less than 50 K (8) Cellulitis: RLE - in setting of traumatic wound suffered on 11/04/19. has been performing daily dressing changes. cultures show gram varial bacteria aztreonam (for broad gram negative coverage including pseudomonas), plus daptomycin for MRSA/Gram+ coverage, plus flagyl for anaerobic coverage Consult wound care nurse for assistance. difficult wound healing with co morbid issues, wound care consult, will hope to coordinate outpt wound care (9) Traumatic wound: as above (10) CKD (chronic kidney disease): stage 4 - baseline Cr about 1.8 (11) Hypertension: Metoprolol torsemide terazosin and prn hydralazine (12) HLD (hyperlipidemia): hold statin due to daptomycin use and likely not continue for risk reduction given progression of cancer (13) Afib: PAF. therapeutic dig level. rate improved after increased metoprolol holding coumadin due to severe thrombocytopenia and epistaxis. . (14) Mitral stenosis: (15) T2DM (type 2 diabetes mellitus): cont basal-bolus insulin T2DM diet (16) Do not resuscitate: Total Time Total Time Spent Total Time Spent (In Minutes): It required greater than 30 minutes to prepare this patient for discharge Discharge Plan Discharge Items Patient Disposition: Home - Home Health Services Reason For Visit: ACUTE RESP FAILURE,RLE CELLULITIS,ALTERED MENTAL S Discharge Diagnosis: shortness of breath from lung cancer and copd need for home oxygen Activity: Per Instructions section Activity Comment: no intentional exercise Non-emergency contact: Primary Care Provider and Oncologist Call non-emergency contact if: you have any medication questions, your symptoms worsen and your pain is not controlled Follow-up/Referrals: Vicente Roy MD [Primary Care Provider] - Diet: Regular Addtl Attending Provider Instructions: your oxygen levels are low for a variety of reasons, you will feel better if you continue to use home oxygen you are being given antibiotics for treatment of your infection there will be two kinds, please complete antibiotics but have your wounds rechecked and you may need to have your antibiotics continued further if you have delayed wound healing please follow up with home nursing Pending Studies at Discharge: No Stand-Alone Forms: [employer], Smoking Cessation Medications and DC Order Prescriptions: New clonidine HCl 0.1 mg Tablet 0.1 mg PO BID Qty: 60 RF: 4 ciprofloxacin HCl 500 mg tablet 500 mg PO BID Qty: 20 RF: 0 metronidazole [Flagyl] 250 mg tablet 250 mg PO TID Qty: 20 RF: 0 (DME) Oxygen Home Liters Per Minute See Rx Instructions .ROUTE .MEDSUPPLY Qty: 1 RF: 0 Continued albuterol sulfate 90 mcg/actuation HFA aerosol inhaler 2 puffs INH Q4H PRN (Reason: shortness of breath or wheezing) RF: 0 ondansetron HCl [Zofran] 8 mg tablet 8 mg PO Q8H PRN (Reason: Nausea) RF: 0 insulin aspart U-100 [Novolog Flexpen U-100 Insulin] 100 unit/mL (3 mL) insulin pen 18 units SQ DAILY@1700 RF: 0 terazosin 5 mg Capsule 5 mg PO HS RF: 0 metoprolol succinate 50 mg Tablet Extended Release 24 Hr 50 mg PO QAM RF: 0 pantoprazole [Protonix] 40 mg Tablet,Delayed Release (Dr/Ec) 40 mg PO QAM RF: 0 magnesium oxide 500 mg Tablet 500 mg PO BID RF: 0 aspirin 81 mg Tablet,Chewable 81 mg PO HS RF: 0 digoxin 125 mcg (0.125 mg) Tablet 125 mcg PO HS RF: 0 insulin aspart U-100 [Novolog Flexpen U-100 Insulin] 100 unit/mL (3 mL) insulin pen 12 units SUBCUT DAILY@0800,1200 RF: 0 torsemide 20 mg tablet 20 mg PO QAM RF: 0 Tresiba FlexTouch U-100 100 unit/mL (3 mL) insulin pen 16 unit SUBCUT HS RF: 0 oxycodone 10 mg tablet 10 mg PO .Q4-6H PRN (Reason: Pain) RF: 0 Spiriva Respimat 2.5 mcg/actuation mist 2 puffs INH DAILY@1300 RF: 0 Discontinued warfarin [Coumadin] 3 mg tablet 3 mg PO HS RF: 0 prochlorperazine maleate [Compazine] 10 mg tablet 10 mg PO Q6H PRN (Reason: Nausea) RF: 0 clonidine HCl 0.1 mg Tablet 0.1 mg PO BID RF: 0 tramadol 50 mg Tablet 50 mg PO QAM PRN (Reason: Pain, Moderate) RF: 0 simvastatin 40 mg Tablet 40 mg PO HS RF: 0 niacin [Niacor] 500 mg Tablet 500 mg PO QAM RF: 0 calcium carbonate [Calcium 500] 500 mg calcium (1,250 mg) Tablet,Chewable 500 mg PO QAM RF: 0 cholecalciferol (vitamin D3) [Vitamin D3] 125 mcg (5,000 unit) Tablet 5,000 unit PO QAM RF: 0 lorazepam 1 mg tablet 1 mg PO DAILY PRN (Reason: Anxiety) RF: 0 ferrous sulfate 325 mg (65 mg iron) Tablet 325 mg PO BID RF: 0 Discharge Orders: Discharge Order (Routine); Ordered 11/25/19 Ordered By: Jerry Rivero Admission Data Admit Date/Time: 11/21/19 15:21 Attending Provider: Jerry Rivero Admit Provider: Jamie Gifford Primary Care Provider: Vicente Roy Other Providers: Jamie Gifford ; Paul Yoon V. ; Georgette Robbins ; Jesus Chamorro Coding Level of Care Code D/C Day Management >30 mins Diagnoses Acute respiratory failure J96.00 Respiratory failure complication: unspecified whether with hypoxia or hypercapnia Acute diastolic CHF (congestive heart failure) I50.31 Metabolic encephalopathy G93.41 Superior vena cava syndrome I87.1 Non-small cell lung cancer (NSCLC) C34.91 Laterality: right Pericardial effusion I31.3 Pancytopenia due to antineoplastic chemotherapy D61.810; T45.1X5A Cellulitis L03.90 Site of cellulitis: unspecified site Traumatic wound CKD (chronic kidney disease) N18.4 Chronic kidney disease stage: stage 4 (severe) Hypertension I10 Hypertension type: essential hypertension HLD (hyperlipidemia) E78.2 Hyperlipidemia type: mixed hyperlipidemia Afib I48.0 Atrial fibrillation type: paroxysmal Mitral stenosis I05.0 Cardiac valve disease etiology: etiology unspecified T2DM (type 2 diabetes mellitus) E11.22; N18.4; Z79.4 Diabetes mellitus terminal operations manager insulin use: with terminal operations manager use Diabetes mellitus complication status: with kidney complications Diabetes mellitus complication detail: with chronic kidney disease Chronic kidney disease stage: stage 4 (severe) Do not resuscitate Z66
[2019-11-25] MEDS: ACETAMINOPHEN 325 MG TAB PO PRN (14:05)
--- NOTE | 2019-12-01 08:20 | Coding Query ---
CODING QUERY To promote full compliance with coding requirements relating to patient care, provider participation is requested in all cases of auto striper uncertainty. 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 Thank you Annette Figueroa Principal Diagnosis: "that condition established after study, to be chiefly responsible for occasioning the admission of the patient to the hospital for care." Co-Existing Principal Diagnosis: "when two or more diagnoses equally meet the criteria for principal diagnosis as determined by the circumstances of admission, diagnostic work up, and/or therapy provided, and the Alphabetic Index, Tabular List, or another coding guideline does not provide sequencing direction, any one of the diagnoses may be sequenced first." "When the physician has documented what appears to be a current diagnosis in the body of the record, but has not included the diagnosis in the final diagnostic statement, the physician should be asked whether the diagnosis should be added." (Source Coding [facility] 2 QTR90. p3-4) JEAN CLAUDE
== END 2019-11-25 15:01 | disposition home or self-care (01) | DRG 180 ==
LOC: ED 10:59 → SUATTDRO 15:21 → 2S 15:21
DX: L89.629 Pressure ulcer of left heel, unspecified stage; L03.115 Cellulitis of right lower limb; D61.810 Antineoplastic chemotherapy induced pancytopenia; S81.809A Unspecified open wound, unspecified lower leg, initial encounter; I48.91 Unspecified atrial fibrillation; I50.31 Acute diastolic (congestive) heart failure; E78.5 Hyperlipidemia, unspecified; I31.3 Pericardial effusion (noninflammatory); N18.4 Chronic kidney disease, stage 4 (severe); Z66 Do not resuscitate; I13.0 Hypertensive heart and chronic kidney disease with heart failure and stage 1 through stage 4 chronic kidney disease, or unspecified chronic kidney disease; I05.0 Rheumatic mitral stenosis; L89.619 Pressure ulcer of right heel, unspecified stage; Z51.5 Encounter for palliative care; G93.41 Metabolic encephalopathy; E11.22 Type 2 diabetes mellitus with diabetic chronic kidney disease; J96.00 Acute respiratory failure, unspecified whether with hypoxia or hypercapnia; C34.90 Malignant neoplasm of unspecified part of unspecified bronchus or lung; E43 Unspecified severe protein-calorie malnutrition; I87.1 Compression of vein

== ENCOUNTER 2019-12-30 19:21 | Inpatient (IN) ==
[2019-12-30] MEDS ORDERED: SODIUM CHLORIDE 0.9% 1000ML 1,000 ML IV STA (19:39)
[2019-12-30 20:24] LABS: INR 1.3 (0.9-1.1); Partial Thromboplastin Time 29.2 Seconds (21.0-31.0)
--- NOTE | 2019-12-30 20:26 | Emergency Department Note ---
Impression & Plan Epistaxis, Anemia ED Provider Note INFORMANT: [Patient] ED PROVIDER(S): Boo Olson MD CHIEF COMPLAINT: Abnormal labs PLAN: Disposition: Admitted Condition: [Good] MEDICAL DECISION MAKING: Patient presented to the emergency department because of abnormal labs and a nosebleed. She had blood work obtained. Her nasal packing was in place and no active bleeding was noted. The patient was quite anxious. She was given sublingual Ativan which helped. She also noted she did not take her pain medication today. She was given IV morphine, 2 mg. On reassessment she was feeling much better. She has significant anemia and thrombocytopenia on CBC. Chemistry panel was unremarkable. She has a sizable pleural effusion and cardiomegaly on chest x-ray. I did discuss the case with hematology oncology, Dr. Cardoza. Given the findings he recommended 2 units of blood as well as transfusion of platelets. Consultation was made with Dr. Carmelo Coburn of the [facility] service. The patient was admitted by him for further management. We did discuss the blood transfusion and platelets. He w ill order these as to streamline the process for transition from the emergency department to hospital floor. I did discuss initiation of antibiotic because of the nasal packing. The patient has allergies to penicillin and cephalosporin. She was given a dose of IV clindamycin. Triage Nursing notes reviewed and agree them. [Additional history obtained from] [Prior medical records reviewed] Vital Signs: reviewed and remarkable for [no significant abnormalities] Differential diagnosis: Anemia, thrombocytopenia, anterior epistaxis, coagulopathy, traumatic injury, fracture, septal hematoma, posterior epistaxis, infections, as well as other pathologies. Diagnostics interpreted by me: ECG: Twelve-lead ECG reveals a sinus rhythm with a first-degree AV block and PACs. Rate is 88 bpm. There is a normal QRS and axis. No ST elevation or depression. Cardiac Monitoring: Cardiac monitoring ordered by me: The patient was placed on continuous cardiac monitoring and observed. It revealed a normal sinus rhythm at 79 beats per minute without ectopy or evidence of dysrhythmia. Imaging studies: Chest x-ray as above. Consultation(s): [facility] service Hematology oncology HPI: The patient is a 64 year old female who presents to the Emergency Room with complaints of anemia and nosebleed. This started this morning for the nosebleed at around 1130, chronic anemia requiring transfusion and is currently stable. The patient also notes the following associated symptoms, generalized weakness, chronic lower extremity edema. The patient has been seen in the [place] emergency department and a nasal balloon was placed in the right naris for relieving factors. Patient has a history of lung CA. She just received platelet transfusion 2 days ago and blood transfusion yesterday. Pt denies LOC, headache, fevers, chills, diaphoresis, visual changes, chest pain, breathing difficulties, nausea, vomiting, abdominal pain, back pain, melena, hematochezia, urinary symptoms, numbness, focal weakness, lymphadenopathy, rash, or other complaints. ROS: See above HPI for pertinent positives & negatives. A total of [10] systems reviewed and were otherwise negative. PAST MEDICAL HISTORY:[See Below] lung CA, anemia PAST SURGICAL HISTORY:[See Below] FAMILY HISTORY:[See Below] SOCIAL HISTORY:[See Below] HOME MEDICATIONS:[See Below] ALLERGIES:[See Below] VITALS:[See Below] PHYSICAL EXAMINATION: GENERAL: Awake, alert, well-appearing, in no distress HENT: Normocephalic, atraumatic. Oropharynx unremarkable. EYES: Normal conjunctiva. Sclera non-icteric. NECK: Inspection normal. Non-tender. Supple. No nuchal rigidity. FROM. No masses. RESPIRATORY: Clear to auscultation. No wheezes. No rales. Normal respiratory effort. CARDIAC: Normal rate. Normal rhythm. No murmurs. No rubs. Extremities warm and well perfused. Pulses equal. No JVD. GI: Soft, non-distended. No tenderness to palpation. No rebound or guarding. No masses. RECTAL: Deferred. MUSCULOSKELETAL: Atraumatic. Chest examination reveals no tenderness. The back is symmetrical on inspection without obvious abnormality. There is no CVA tenderness to palpation. No joint edema. LOWER EXTREMITIES: Calves are equal size bilaterally and non-tender. No edema. No discoloration. NEURO: Normal sensorium. No sensory or motor deficits noted. SKIN: No rash or jaundice noted. 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 Beliefs That Will Affect Care: None marital status: Current Living Situation: Spouse Other Information That Helps Us Care for You: No other: 1 daughter Feels Safe at Home: Yes Safety Concerns: Feels Safe At This Time Allergies Allergies Allergy/AdvReac Type Severity Reaction Status Date / Time ceftaroline fosamil Allergy Intermediate Hives Verified 12/30/19 20:45 [From Teflaro] Penicillins Allergy Intermediate Rash Verified 12/30/19 20:45 Home Meds Home Medications Medication Instructions Recorded Confirmed digoxin 125 mcg PO HS 07/25/19 12/30/19 metoprolol succinate 50 mg PO QAM 07/25/19 12/30/19 pantoprazole [Protonix] 40 mg PO QAM 07/25/19 12/30/19 terazosin 5 mg PO HS 07/25/19 12/30/19 albuterol sulfate 90 mcg/actuation 2 puffs INH Q4H PRN 08/21/19 12/30/19 aerosol inhaler Tresiba FlexTouch U-100 16 unit SUBCUT HS 10/05/19 12/30/19 ondansetron HCl 8 mg tablet 8 mg PO Q8H PRN 10/23/19 12/30/19 Spiriva Respimat 2 puffs INH DAILY@1300 10/28/19 12/30/19 oxycodone 10 mg PO .Q4-6H PRN 10/28/19 12/30/19 insulin aspart U-100 100 unit/mL 12 units SUBCUT DAILY@0800,1200 ml 11/06/19 12/30/19 (3 mL) subcutaneous pen insulin aspart U-100 100 unit/mL 18 units SQ DAILY@1700 ml 11/06/19 12/30/19 (3 mL) subcutaneous pen torsemide 20 mg PO QAM 11/21/19 12/30/19 calcium carbonate-vitamin D3 1 cap PO QAM 12/20/19 12/30/19 [Calcium 600 + D(3)] cholecalciferol (vitamin D3) 25 mcg PO BID 12/20/19 12/30/19 [Vitamin D3] cyanocobalamin (vitamin B-12) 1,000 mcg PO QAM 12/20/19 12/30/19 [Vitamin B-12] ferrous sulfate 325 mg PO BID 12/20/19 12/30/19 magnesium chloride [Slow-Mag] 143 mg PO BID 12/20/19 12/30/19 niacin (inositol niacinate) 1 cap PO QAM 12/20/19 12/30/19 [Niacin Flush Free] simvastatin 40 mg PO HS 12/20/19 12/30/19 warfarin See Rx Instructions .ROUTE .COMPLEX 12/20/19 12/30/19 Previous Rx's Medication Instructions Recorded clonidine HCl 0.1 mg PO BID #60 tab 11/25/19 Results & Data (ED) Vital Signs Vital Signs - 24 hr 12/30/19 19:30 12/30/19 19:39 12/30/19 20:37 Temperature 37.2 C Temperature Source Oral Pulse Rate 93 H 88 Pulse Rate from SpO2 Sensor 89 Respiratory Rate 16 22 Blood Pressure 135/59 L 178/66 H Blood Pressure Mean 84 103 Pulse Oximetry 99 100 Oxygen Delivery Method Room Air Room Air Sepsis Recent Fever Within 48 Hours No Sepsis New/Unexplained Change in Mental Status No Sepsis Action Taken by Nursing No Action Required 12/30/19 20:42 12/30/19 21:00 12/30/19 21:01 Temperature Temperature Source Pulse Rate 88 89 89 Pulse Rate from SpO2 Sensor 88 89 89 Respiratory Rate 19 24 30 H Blood Pressure 184/72 H Blood Pressure Mean 105 Pulse Oximetry 100 99 99 Oxygen Delivery Method Sepsis Recent Fever Within 48 Hours Sepsis New/Unexplained Change in Mental Status Sepsis Action Taken by Nursing 12/30/19 21:30 12/30/19 21:50 12/30/19 22:00 Temperature Temperature Source Pulse Rate 89 87 83 Pulse Rate from SpO2 Sensor 89 87 83 Respiratory Rate 27 H 20 12 Blood Pressure 197/75 H 155/62 H Blood Pressure Mean 126 89 Pulse Oximetry 100 100 100 Oxygen Delivery Method Sepsis Recent Fever Within 48 Hours Sepsis New/Unexplained Change in Mental Status Sepsis Action Taken by Nursing 12/30/19 22:01 12/30/19 22:30 12/30/19 22:31 Temperature Temperature Source Pulse Rate 82 85 85 Pulse Rate from SpO2 Sensor 82 85 85 Respiratory Rate 13 15 13 Blood Pressure 181/73 H Blood Pressure Mean 81 Pulse Oximetry 100 100 100 Oxygen Delivery Method Sepsis Recent Fever Within 48 Hours Sepsis New/Unexplained Change in Mental Status Sepsis Action Taken by Nursing 12/30/19 23:00 12/30/19 23:01 Temperature Temperature Source Pulse Rate 83 83 Pulse Rate from SpO2 Sensor 83 84 Respiratory Rate 16 14 Blood Pressure 176/75 H Blood Pressure Mean 124 Pulse Oximetry 100 100 Oxygen Delivery Method Sepsis Recent Fever Within 48 Hours Sepsis New/Unexplained Change in Mental Status Sepsis Action Taken by Nursing Laboratory Data Result diagrams: 12/30/19 20:04 12/30/19 20:04 Lab Results 12/30/19 12/30/19 12/30/19 Range/Units 20:04 20:04 20:04 WBC 2.15 L (4.8-10.8) K/uL RBC 2.29 L (4.2-5.4) M/uL Hgb 7.2 L (12.0-16.0) g/dL Hct 20.5 L* (37-47) % MCV 89.5 (80-100) fL MCH 31.4 (25-34) pg MCHC 35.1 (32-36) g/dL RDW Std Deviation 49.9 H (36.4-46.3) fL RDW Coeff of Epifanio 15.2 H (11.5-14.5) % Plt Count 21 L* (130-400) K/uL MPV 11.2 H (7.4-10.4) fL Immature Gran % (Auto) 0.9 % Neut % (Auto) 73.0 % Lymph % (Auto) 8.4 % Dundy % (Auto) 17.7 % Eos % (Auto) 0.0 % Baso % (Auto) 0.0 % Neut # (Auto) 1.57 (1.4-6.5) K/uL Lymph # (Auto) 0.18 L (1.2-3.4) K/uL Dundy # (Auto) 0.38 (0.11-0.59) K/uL Eos # (Auto) 0.00 (0-0.5) K/uL Baso # (Auto) 0.00 (0-0.2) K/uL Immature Gran # (Auto) 0.02 (0.00-0.02) K/uL Platelet Estimate SIGNIFIC DECREASED (Normal) Anisocytosis Present PT 14.0 H (9.0-12.0) Seconds INR 1.3 H (0.9-1.1) APTT 29.2 (21.0-31.0) Seconds PTT Ratio 1.0 Sodium (136-145) mmol/L Potassium (3.5-5.1) mmol/L Chloride (98-107) mmol/L Carbon Dioxide (21-32) mmol/L Anion Gap (3-11) BUN (7-18) mg/dl Creatinine (0.6-1.2) mg/dl Est Cr Clr Drug Dosing Est GFR ( Amer) Est GFR (Non-Af Amer) BUN/Creatinine Ratio (10-20) Glucose (70-99) mg/dl Calcium (8.5-10.1) mg/dl Total Bilirubin (0.2-1) mg/dl AST (15-37) U/L ALT (12-78) U/L Alkaline Phosphatase (45-117) U/L Total Protein (6.4-8.2) gm/dl Albumin (3.4-5.0) gm/dl Globulin (2.5-4.0) gm/dl Albumin/Globulin Ratio (0.9-2) Blood Type O Positive Antibody Screen NEGATIVE Crossmatch See Detail 12/30/19 Range/Units 20:04 WBC (4.8-10.8) K/uL RBC (4.2-5.4) M/uL Hgb (12.0-16.0) g/dL Hct (37-47) % MCV (80-100) fL MCH (25-34) pg MCHC (32-36) g/dL RDW Std Deviation (36.4-46.3) fL RDW Coeff of Epifanio (11.5-14.5) % Plt Count (130-400) K/uL MPV (7.4-10.4) fL Immature Gran % (Auto) % Neut % (Auto) % Lymph % (Auto) % Dundy % (Auto) % Eos % (Auto) % Baso % (Auto) % Neut # (Auto) (1.4-6.5) K/uL Lymph # (Auto) (1.2-3.4) K/uL Dundy # (Auto) (0.11-0.59) K/uL Eos # (Auto) (0-0.5) K/uL Baso # (Auto) (0-0.2) K/uL Immature Gran # (Auto) (0.00-0.02) K/uL Platelet Estimate (Normal) Anisocytosis PT (9.0-12.0) Seconds INR (0.9-1.1) APTT (21.0-31.0) Seconds PTT Ratio Sodium 136 (136-145) mmol/L Potassium 3.9 (3.5-5.1) mmol/L Chloride 103 (98-107) mmol/L Carbon Dioxide 28 (21-32) mmol/L Anion Gap 6.0 (3-11) BUN 36 H (7-18) mg/dl Creatinine 1.70 H (0.6-1.2) mg/dl Est Cr Clr Drug Dosing Not Reportable Est GFR ( Amer) 36.3 Est GFR (Non-Af Amer) 31.3 BUN/Creatinine Ratio 20.9 H (10-20) Glucose 214 H (70-99) mg/dl Calcium 8.7 (8.5-10.1) mg/dl Total Bilirubin 0.4 (0.2-1) mg/dl AST 15 (15-37) U/L ALT 20 (12-78) U/L Alkaline Phosphatase 108 (45-117) U/L Total Protein 5.6 L (6.4-8.2) gm/dl Albumin 2.3 L (3.4-5.0) gm/dl Globulin 3.3 (2.5-4.0) gm/dl Albumin/Globulin Ratio 0.7 L (0.9-2) Blood Type Antibody Screen Crossmatch Administered Medications Clonidine HCl (Catapres) 0.1 mg PO BID ANGELO Stop: 01/30/20 00:52 Last Admin: 12/31/19 01:39 Dose: 0.1 mg Documented by: [id number] Sodium Chloride (Nss 1000ml) 1,000 mls @ 125 mls/hr IV .Q8H STA Stop: 12/31/19 03:38 Last Infusion: 12/31/19 01:02 Dose: 0 mls/hr Documented by: [id number] Admin: 12/30/19 19:59 Dose: 125 mls/hr Documented by: [id number] Discontinued Medications Clindamycin Phosphate 600 mg/ (Dextrose) 54 mls @ 100 mls/hr IV ONE ONE Stop: 12/30/19 23:09 Last Infusion: 12/31/19 00:59 Dose: 0 mls/hr Documented by: [id number] Admin: 12/30/19 23:58 Dose: 100 mls/hr Documented by: [id number] Lorazepam (Ativan) Confirm Administered Dose 0.5 mg .ROUTE .STK-MED ONE Stop: 12/30/19 20:35 Last Admin: 12/30/19 20:35 Dose: 0.5 mg Documented by: [id number] Lorazepam (Ativan) 0.5 mg PO NOW STA Stop: 12/30/19 21:28 Last Admin: 12/30/19 21:42 Dose: 0.5 mg Documented by: [id number] Morphine Sulfate (Morphine Sulfate) 2 mg IV NOW STA Stop: 12/30/19 21:41 Last Admin: 12/30/19 21:47 Dose: 2 mg Documented by: [id number] Torsemide (Demadex) 20 mg PO ONE ONE Stop: 12/31/19 02:31 Last Admin: 12/31/19 03:09 Dose: Not Given Documented by: [id number] Discharge Plan Visit Data *Final* Discharge Date/Time: 12/31/19 00:42 Chief Complaint: Abnormal Labs/Diagnostic Testing Stated Complaint: BLOODY NOSE, BLOOD TRANSFUSION ED Provider: Boo Olson Discharge Problem: Epistaxis, Anemia Patient Disposition: Admitted As Inpatient Discharge Instructions Interventions: ED Discharge Assessment Last Done: 12/31/19 00:42
[2019-12-30 20:29] LABS: Alanine Aminotransferase 20 U/L (12-78); Albumin Level 2.3 gm/dl (3.4-5.0); Aspartate Aminotransferase 15 U/L (15-37); BUN Creatinine Ratio 20.9 (10-20); Blood Urea Nitrogen 36 mg/dl (7-18); Calcium 8.7 mg/dl (8.5-10.1); Carbon Dioxide 28 mmol/L (21-32); Chloride 103 mmol/L (98-107); Est GFR (African American) 36.3; Est GFR (Non-African American) 31.3; Glucose 214 mg/dl (70-99); Potassium 3.9 mmol/L (3.5-5.1); Sodium 136 mmol/L (136-145)
[2019-12-30 20:31] LABS: Albumin Globulin Ratio 0.7 (0.9-2); Alkaline Phosphatase 108 U/L (45-117); Bilirubin,Total 0.4 mg/dl (0.2-1); Globulin 3.3 gm/dl (2.5-4.0); Total Protein 5.6 gm/dl (6.4-8.2)
[2019-12-30] MEDS ORDERED: LORazepam 0.5 MG TAB ONE (20:34)
[2019-12-30 20:40] LABS: Hematocrit (blood only) 20.5 % (37-47); Hemoglobin 7.2 g/dL (12.0-16.0); Mean Corpuscular Hemoglobin 31.4 pg (25-34); Mean Corpuscular Hgb Conc 35.1 g/dL (32-36); Mean Corpuscular Volume 89.5 fL (80-100); Mean Platelet Volume 11.2 fL (7.4-10.4); Platelet Count 21 K/uL (130-400); RDW Coefficient of Variation 15.2 % (11.5-14.5); RDW Standard Deviation 49.9 fL (36.4-46.3); Red Blood Count 2.29 M/uL (4.2-5.4); White Blood Count 2.15 K/uL (4.8-10.8)
[2019-12-30 20:42] LABS: Anisocytosis Present; Immature Granulocytes # (auto) 0.02 K/uL (0.00-0.02); Immature Granulocytes % (auto) 0.9 %; Lymphocytes # (auto) 0.18 K/uL (1.2-3.4); Lymphocytes % (auto) 8.4 %; Monocytes # (auto) 0.38 K/uL (0.11-0.59); Monocytes % (auto) 17.7 %; Neutrophils # (auto) 1.57 K/uL (1.4-6.5); Platelet Estimate SIGNIFIC DECREASED (Normal)
[2019-12-30] MEDS ORDERED: LORazepam 0.5 MG TAB PO STA (21:27)
[2019-12-30] MEDS ORDERED: MoRPHine SULFATE 2 MG/ML CARP IV STA (21:40)
[2019-12-30] MEDS ORDERED: CLINDAMYCIN 600 MG in DEXTROSE 5% 50 ML IV ONE (22:37)
--- NOTE | 2019-12-30 23:30 | History & Physical Report ---
Date of Service December 30, 2019 Assessment & Plan (1) Epistaxis: Nasal balloon placed in right naris at [facility] emergency department. Consult ENT for further treatment. Replace platelets via transfusion. Clindamycin 600 mg IV every 8 hours Present on Admission?: Yes (2) Chronic respiratory failure with hypoxia, on home O2 therapy: Continue nasal cannula O2, with pulse ox target 95% Present on Admission?: Yes (3) Thrombocytopenia: Transfuse 2 units platelets tonight, and repeat in a.m. Present on Admission?: Yes (4) Anemia: Transfuse 2 units PRBCs tonight, and repeat labs in a.m. Monitor for development of CHF while being transfused, and will prescribe Lasix as needed. Present on Admission?: Yes (5) Leg wound, right: Gets daily wound dressing changes. Consult wound care Present on Admission?: Yes (6) Pancytopenia due to antineoplastic chemotherapy: Treat as above. Consult Dr. Yoon Present on Admission?: Yes (7) T2DM (type 2 diabetes mellitus): Hold outpatient insulin. Patient Accu-Cheks before meals and at bedtime with NovoLog coverage per scale Present on Admission?: Yes (8) CKD (chronic kidney disease): Creatinine 1.70 upon admission, with range 1.36-2.13. Repeat laboratories in a.m. after transfusion Present on Admission?: Yes History of Present Illness Chief Complaint: The patient presents to the emergency department with complaint of anemia and nosebleed that began earlier in the morning around 11:30 AM. Primary Care Provider: Vicente Roy MD The patient is a 64-year-old female with a past medical history including chronic respiratory failure with hypoxia on home oxygen therapy, acute kidney injury, right leg wound seeing wound care, anemia, thrombocytopenia, history of Pseudomonas aeruginosa infection, history of right and left diabetic foot ulcers, metabolic encephalopathy, Port-A-Cath in place, status post arterial stent right lower extremity, SVC syndrome, hyperlipidemia, non-small cell lung cancer, mediastinal mass, peripheral arterial disease, A. fib, mitral stenosis and diabetes mellitus. The patient presents to the emergency department with co mplaint of nosebleed that began earlier today and a known chronic anemia, that required platelet transfusion 2 days ago and blood transfusion yesterday. Work- up in the emergency department included laboratories which showed hemoglobin 7.2, platelets 21, albumin 2.3, white blood cell count 2.15 and creatinine 1.70. She also had been seen previously at [place] emergency department, and had a nasal balloon placed in the right naris to control epistaxis. Allergies Allergy/AdvReac Type Severity Reaction Status Date / Time ceftaroline fosamil Allergy Intermediate Hives Verified 12/30/19 20:45 [From Teflaro] Penicillins Allergy Intermediate Rash Verified 12/30/19 20:45 Home Medications Home Medications Medication Instructions Recorded Confirmed Type digoxin 125 mcg PO HS 07/25/19 12/30/19 History metoprolol succinate 50 mg PO QAM 07/25/19 12/30/19 History pantoprazole [Protonix] 40 mg PO QAM 07/25/19 12/30/19 History terazosin 5 mg PO HS 07/25/19 12/30/19 History albuterol sulfate 90 mcg/actuation 2 puffs INH Q4H PRN 08/21/19 12/30/19 History aerosol inhaler Tresiba FlexTouch U-100 16 unit SUBCUT HS 10/05/19 12/30/19 History ondansetron HCl 8 mg tablet 8 mg PO Q8H PRN 10/23/19 12/30/19 History Spiriva Respimat 2 puffs INH DAILY@1300 10/28/19 12/30/19 History oxycodone 10 mg PO .Q4-6H PRN 10/28/19 12/30/19 History insulin aspart U-100 100 unit/mL 12 units SUBCUT DAILY@0800,1200 ml 11/06/19 12/30/19 History (3 mL) subcutaneous pen insulin aspart U-100 100 unit/mL 18 units SQ DAILY@1700 ml 11/06/19 12/30/19 History (3 mL) subcutaneous pen torsemide 20 mg PO QAM 11/21/19 12/30/19 History clonidine HCl 0.1 mg PO BID #60 tab 11/25/19 12/30/19 Rx calcium carbonate-vitamin D3 1 cap PO QAM 12/20/19 12/30/19 History [Calcium 600 + D(3)] cholecalciferol (vitamin D3) 25 mcg PO BID 12/20/19 12/30/19 History [Vitamin D3] cyanocobalamin (vitamin B-12) 1,000 mcg PO QAM 12/20/19 12/30/19 History [Vitamin B-12] ferrous sulfate 325 mg PO BID 12/20/19 12/30/19 History magnesium chloride [Slow-Mag] 143 mg PO BID 12/20/19 12/30/19 History niacin (inositol niacinate) 1 cap PO QAM 12/20/19 12/30/19 History [Niacin Flush Free] simvastatin 40 mg PO HS 12/20/19 12/30/19 History warfarin See Rx Instructions .ROUTE .COMPLEX 12/20/19 12/30/19 History Past Med/Surg History Social History Smoking Status: Former smoker Age Quit Using Tobacco: 60; packs per day: 1; Second Hand Exposure: No; Hx Alcohol Use: No Hx Substance Use: No Preferred Language: Portuguese Communication Ability: Effective 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 The review of systems is otherwise negative other than for that already noted a thalia, and at least 10 systems have been reviewed. Physical Exam Physical Exam: The patient is awake, alert and oriented 3, nasal balloon protruding from right nares, lying in bed and in no acute distress. HEENT--PERRL, EOMI, mucous membranes and oropharynx dry. Neck--supple. No JVD. No bruits. Thyroid normal, trachea midline, no adenopathy. Heart--normal S1 and S2. No murmurs, rubs or gallops. Lungs--clear bilaterally, no respiratory distress, no accessory muscle use. Abdomen--normal bowel sounds and soft. Nontender. Nondistended. Extremities--no cyanosis or clubbing. No edema. There are good distal pulses b/l. Dermatologic--normal skin turgor, normal color, no abnormal lymph nodes, no rash. Neurologic--cranial nerves II through XII grossly intact. Rheumatologic--normal range of motion. Psychiatric--normal affect. Results & Data Results & Data ([facility]) Vital Signs (Past 12 Hours) Vital Signs Temp Pulse Resp BP Pulse Ox 12/30/19 19:30 99.0 F 93 H 16 135/59 L 99 Laboratory Results Laboratory Results WBC 2.15 K/uL (4.8-10.8) L 12/30/19 20:04 RBC 2.29 M/uL (4.2-5.4) L 12/30/19 20:04 Hgb 7.2 g/dL (12.0-16.0) L 12/30/19 20: Hct 20.5 % (37-47) L* 12/30/19 20: MCV 89.5 fL (80-100) 12/30/19 20: MCH 31.4 pg (25-34) 12/30/19 20: MCHC 35.1 g/dL (32-36) 12/30/19 20:04 RDW Std Deviation 49.9 fL (36.4-46.3) H 12/30/19 20:04 RDW Coeff of Epifanio 15.2 % (11.5-14.5) H 12/30/19 20: Plt Count 21 K/uL (130-400) L* 12/30/19 20:04 MPV 11.2 fL (7.4-10.4) H 12/30/19 20:04 Immature Gran % (Auto) 0.9 % 12/30/19 20:04 Neut % (Auto) 73.0 % 12/30/19 20: Lymph % (Auto) 8.4 % 12/30/19 20:04 Creek % (Auto) 17.7 % 12/30/19 20: Eos % (Auto) 0.0 % 12/30/19 20:04 Baso % (Auto) 0.0 % 12/30/19 20:04 Neut # (Auto) 1.57 K/uL (1.4-6.5) 12/30/19 20:04 Lymph # (Auto) 0.18 K/uL (1.2-3.4) L 12/30/19 20:04 Creek # (Auto) 0.38 K/uL (0.11-0.59) 12/30/19 20:04 Eos # (Auto) 0.00 K/uL (0-0.5) 12/30/19 20:04 Baso # (Auto) 0.00 K/uL (0-0.2) 12/30/19 20: Immature Gran # (Auto) 0.02 K/uL (0.00-0.02) 12/30/19 20: Platelet Estimate SIGNIFIC DECREASED (Normal) 12/30/19: Anisocytosis Present 12/30/19: PT 14.0 Seconds (9.0-12.0) H 12/30/19 20: INR 1.3 (0.9-1.1) H 12/30/19: APTT 29.2 Seconds (21.0-31.0) 12/30/19: PTT Ratio 1.0 12/30/19 20: Sodium 136 mmol/L (136-145) 12/30/19: Potassium 3.9 mmol/L (3.5-5.1) 12/30/19: Chloride 103 mmol/L (98-107) 12/30/19: Carbon Dioxide 28 mmol/L (21-32) 12/30/19: Anion Gap 6.0 (3-11) 12/30/19 20: BUN 36 mg/dl (7-18) H 12/30/19: Creatinine 1.70 mg/dl (0.6-1.2) H 12/30/19: Est Cr Clr Drug Dosing Not Reportable 12/30/19: Est GFR ( Amer) 36.3 12/30/19 20:04 Est GFR (Non-Af Amer) 31.3 12/30/19 20: BUN/Creatinine Ratio 20.9 (10-20) H 12/30/19 20: Glucose 214 mg/dl (70-99) H 12/30/19 20:04 Calcium 8.7 mg/dl (8.5-10.1) 12/30/19 20: Total Bilirubin 0.4 mg/dl (0.2-1) 07/25/20 20:04 AST 15 U/L (15-37) 12/30/19 20:04 ALT 20 U/L (12-78) 12/30/19 20:04 Alkaline Phosphatase 108 U/L (45-117) 12/30/19 20:04 Total Protein 5.6 gm/dl (6.4-8.2) L 12/30/19 20:04 Albumin 2.3 gm/dl (3.4-5.0) L 12/30/19 20:04 Globulin 3.3 gm/dl (2.5-4.0) 12/30/19 20:04 Albumin/Globulin Ratio 0.7 (0.9-2) L 12/30/19 20:04 Blood Type O Positive 12/30/19 20:04 Antibody Screen NEGATIVE 12/30/19 20:04 Crossmatch See Detail 12/30/19 20:04 Code Status & VTE Plan Code Status DNR/DNI VTE Prophylaxis Plan VTE Prophylaxis will be ordered: Yes PG Care Time/CCT Total # of Minutes Spent Total Time Spent with Patient: Total time spent is greater than 50% in coordination of care (as documented) at patient's floor/unit and/or counseling patient: Coding Level of Care Code 06862 Initial Inpt Care Lvl 3 Diagnoses Epistaxis R04.0 Chronic respiratory failure with hypoxia, on home O2 therapy J96.11; Z99.81 Thrombocytopenia D69.6 Anemia D64.9 Leg wound, right S81.801A Encounter type: initial encounter Pancytopenia due to antineoplastic chemotherapy D61.810; T45.1X5A T2DM (type 2 diabetes mellitus) E11.22; N18.4; Z79.4 Diabetes mellitus meterman insulin use: with meterman use Diabetes mellitus complication status: with kidney complications Diabetes mellitus complication detail: with chronic kidney disease Chronic kidney disease stage: stage 4 (severe) CKD (chronic kidney disease) N18.4 Chronic kidney disease stage: stage 4 (severe) (1) Leg wound, right Encounter type: initial encounter Qualified Code(s): S81.801A - Unspecified open wound, right lower leg, initial encounter (2) T2DM (type 2 diabetes mellitus) Diabetes mellitus detention insulin use: with detention use Diabetes mellitus complication status: with kidney complications Diabetes mellitus complication detail: with chronic kidney disease Chronic kidney disease stage: stage 4 (severe) Qualified Code(s): E11.22 - Type 2 diabetes mellitus with diabetic chronic kidney disease; N18.4 - Chronic kidney disease, stage 4 (severe); 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
[2019-12-31] MEDS ORDERED: CARBOHYDRATES FOR HYPOGLYCEMIA PO PRN (00:53)
[2019-12-31] MEDS ORDERED: GLUCOSE 10 TABS/TUBE PO PRN (00:53)
[2019-12-31] MEDS ORDERED: GLUCOSE 40% GEL 15 GM TUBE PO PRN (00:53)
[2019-12-31] MEDS ORDERED: ONDANSETRON INJ 2 MG/ML 2 ML VIAL IV PRN (00:53)
[2019-12-31] MEDS ORDERED: GLUCAGON FOR INJ 1 MG VIAL SQ PRN (00:53)
[2019-12-31] MEDS ORDERED: DEXTROSE 50% 50 ML SYRINGE IV PRN (00:53)
[2019-12-31] MEDS ORDERED: SODIUM CHLORIDE 0.9% 250 ML IV PRN ×2 (00:53→04:20)
[2019-12-31] MEDS ORDERED: ACETAMINOPHEN 325 MG TAB PO PRN (00:53)
[2019-12-31] MEDS: cloNIDine HCL 0.1 MG TAB PO SCH ×3 (01:39→19:49)
[2019-12-31] MEDS ORDERED: TORSEMIDE 10 MG TAB PO ONE (02:30)
[2019-12-31] MEDS ORDERED: FUROSEMIDE 40 MG in SYRINGE 0 ML IV ONE ×3 (03:01→14:00)
[2019-12-31] MEDS: METOPROLOL SUCC 50MG EXT REL TAB PO SCH (07:50)
[2019-12-31] MEDS ORDERED: CLINDAMYCIN 600 MG in DEXTROSE 5% 50 ML IV SCH (08:00)
--- NOTE | 2019-12-31 08:39 | XRay Report ---
SINGLE VIEW CHEST CLINICAL HISTORY: Dyspnea. FINDINGS: An AP, portable, upright chest radiograph is compared to study dated 12/20/2019 and correlat ed with chest CT dated 10/28/2019. The examination is degraded by portable technique and patient rotat ion. A left subclavian central venous infusion port is unchanged in position. The cardiomediastinal s ilhouette is unremarkable noting atherosclerotic calcification of the thoracic aorta. Chronic interst itial thickening is similar to previous. There is mild elevation of the right hemidiaphragm. Paramedi astinal fibrosis was better seen on the recent chest CT. There are right larger than left pleural eff usions with bibasilar consolidation. No pneumothorax is seen. Skeletal structures are osteopenic. The The bony thorax is grossly intact. IMPRESSION: 1. There are right larger than left pleural effusions with bibasilar consolidation. These have increa sed in size from 12/20/2019. 2. Bibasilar consolidation likely represents atelectasis. Correlate clinically for evidence of superi mposed pneumonia. 3. Chronic parenchymal changes as above. ACT 112: Negative or not required by law. Electronically signed by: Yaakov Mi M.D. 12/31/2019 8:37 AM
[2019-12-31] MEDS ORDERED: NIACIN 500 MG TAB PO SCH (09:00)
[2019-12-31] MEDS: CYANOCOBALAMIN 500 MCG TABLET (VITAMIN B-12) PO SCH (09:01)
[2019-12-31] MEDS: MAGNESIUM CHLORIDE 64MG DELAYED REL TAB PO SCH ×2 (09:01→19:50)
[2019-12-31] MEDS: CALCIUM 600MG + VIT D 400 IU TAB PO SCH (09:01)
[2019-12-31] MEDS: PANTOprazole 40 MG TAB PO SCH (09:01)
[2019-12-31] MEDS: FERROUS SULFATE 325 MG TAB PO SCH ×2 (09:01→19:49)
[2019-12-31] MEDS: CHOLECALCIFEROL 1,000 UNITS 25 MCG TAB PO SCH ×2 (09:02→19:50)
[2019-12-31] MEDS: INSULIN ASPART 100 UNITS/ML 3 ML PEN SC SCH ×4 (09:03→21:14)
[2019-12-31] MEDS ORDERED: DiphenhydrAMINE HCL 50 MG/ML VIAL IV STA (09:46)
[2019-12-31] MEDS ORDERED: DiphenhydrAMINE HCL 50 MG/ML VIAL ONE (09:49)
--- NOTE | 2019-12-31 10:11 | XRay Report ---
SINGLE VIEW CHEST CLINICAL HISTORY: Hypoxia. FINDINGS: An AP, portable, upright chest radiograph is compared to study dated 12/30/2019 and correlat ed with chest CT dated 10/28/2019. The examination is degraded by portable technique and patient rotat ion. A left subclavian central venous infusion port is unchanged in position. The heart is enlarged n oting atherosclerotic calcification of the thoracic aorta. There is mild pulmonary vascular congestio n. Chronic interstitial thickening is similar to previous. There is mild elevation of the right hemid iaphragm. Paramediastinal fibrosis was better seen on the recent chest CT. There are right larger jung n left pleural effusions with bibasilar consolidation. No pneumothorax is seen. Skeletal structures a re osteopenic. The The bony thorax is grossly intact. IMPRESSION: 1. There are right larger than left pleural effusions with bibasilar consolidation. This is unchanged from yesterday. 2. Cardiomegaly with mild and increasing pulmonary vascular congestion. 3. Bibasilar consolidation likely represents atelectasis. Correlate clinically for evidence of superi mposed pneumonia. 4. Chronic parenchymal changes as above. ACT 112: Negative or not required by law. Electronically signed by: Yaakov Mi M.D. 12/31/2019 10:09 AM
--- NOTE | 2019-12-31 10:46 | Hospitalist Progress Note ---
Date of Service December 31, 2019 Assessment & Plan (1) Non-small cell lung cancer (NSCLC): undergoing palliative chemo poor quality of life recently with chemotherapy induced anemia and thrombocytopenia not eating well now with acute hypoxic respiratory failure she was seen by Dr. Olivas in November 2019, made decision to change to DNR, POLST completed asked her about hospice, he feels that it is appropriate, he could use some help at home patient is reluctant to go on hospice, he says she never wants any type of help he had to convince her just to go to the hospital for a nosebleed will consult Dr. Olivas to see tomorrow, re-visit goals of care, consider hospice she is DNR (2) Acute and chronic respiratory failure with hypoxia: normally on 4L continuous flash pulmonary edema caused her to desaturate, requiring 15L via oxymask improved, down to 10L oxymask after diuresis with Lasix, once at 8am and again at 2pm wean oxygen as tolerated will add Levaquin and Doxycycline to cover for possible pneumonia (PCN and cephalosporin allergy) (3) TACO (transfusion associated circulatory overload): large amount of volume with platelets and then received 1 unit PRBC desaturated immediately after the PRBC finished transfusing responded well to Lasix IV requested evaluation for transfusion reaction, d/w pathology, no evidence of immune reaction (4) Acute dyspnea: multifactorial, at baseline she has advanced non-small cell lung CA, requires 4L possible TACO, possible pneumonia treat the above (5) Epistaxis: Nasal balloon placed in right naris at [facility] emergency department. Consult ENT for further treatment, Dr. Mendoza no signs of bleeding with right nostril packing Hb up to 9.2 with transfusion and platelets 34k keep NPO after midnight in case Dr. Mendoza recommends a procedure (6) Chronic respiratory failure with hypoxia, on home O2 therapy: acute on chronic hypoxia, normally she is on 4L desaturated quickly this morning, required 15L oxymask due to flash pulmonary edema, likely from volume overload with platelet and blood transfusion (7) Thrombocytopenia: transfused 1 unit, up to 34k, repeat in the morning no plans for further transfusions as she went into flash pulmonary edema today could have been TACO chemotherapy induced thrombocytopenia, unlikely to improve without stopping chemo (8) Anemia: Transfused 1 units PRBCs, Hb up to 9.2, no further units planned no signs of bleeding from right nare (9) Leg wound, right: Gets daily wound dressing changes. Consult wound care (10) Pancytopenia due to antineoplastic chemotherapy: d/w Dr. Yoon patient has been undergoing palliative chemotherapy patient and her understand that treatment is intended to extend her life while still maintaining quality poor quality recently with low Hb and platelets (11) T2DM (type 2 diabetes mellitus): Hold outpatient insulin. Patient Accu-Cheks before meals and at bedtime with NovoLog coverage per scale (12) CKD (chronic kidney disease): Creatinine 1.70 upon admission, with range 1.36-2.13. Repeat laboratories in a.m. after transfusion Admission and Anticipated Discharge Date Admission Date: December 30, 2019 Subjective patient with acute shortness of breath this morning after finishing 1 unit PRBC she received her unit of platelets over night which had a lot of volume according to RN she was doing well on 4-5 liters this morning, which is her baseline saturations were noted to be 83% on nasal canula, placed on 15L oxymask and saturations up to 99% breathing slightly labored on exam, she has bibasilar rales, accessory muscle use at 8am she received Lasix 40mg IV for hypertension and for volume with the transfusions she is responding well already with 1200mL out since 8am CXR checked stat, mild increase in pulmonary edema, chronic effusions called her oncologist Dr oYon, she has a significant amount of disease burden, palliative chemo, was tolerating well until she had low platelets and anemia recently on last admission, she was seen by palliative care, made decision to change to DNR/DNI, POLST completed called her Davion to discuss recent events this morning, he said that she had been doing poorly the past two weeks frequent nose bleeds, not eating well, patient is very reluctant to go to the hospital, she went through 80 tampons at home to try to stop nosebleed until she allowed him to take her to [place] ED I asked about hospice care, he said that he feels they could use the help and support but the patient refuses to consider checked on patient two more times in the afternoon, she was breathing without difficulty, saturations in 90's making a lot of urine with Lasix Review of Systems Review of Systems: All systems reviewed & are unremarkable except as noted in Subjective Constitutional: + fatigue, + weakness and + problem reported (flushing skin after Niacin); no fever, no chills and no sweats Respiratory: + dyspnea and + dyspnea on exertion; no hemoptysis Cardiovascular: no chest pain and no edema Gastrointestinal: no abdominal pain, no nausea, no vomiting, no constipation, no diarrhea/loose stools and no blood in stools Physical Exam Constitutional: + acute distress (respiratory), + ill appearing, + thin and + frail appearing Eyes: PERRL, conjunctivae normal, anicteric sclerae ENMT: Nose: + dry nasal mucous membranes and + epistaxis (right nostril, packed with rocket) Mouth: + dry oral mucous membranes Neck: trachea midline, no thyromegaly Respiratory: + respiratory distress and + labored breathing Auscultation: + diminished lung sounds (bases) and + rales (bases); no crackles and no wheezes Cardiovascular: RRR, no murmur, no edema Gastrointestinal (Abdomen): normal bowel sounds, soft, nontender, no hepat osplenomegaly Musculoskeletal: Head/Neck/Chest: normocephalic, head atraumatic and neck supple Extremities: extremities normal to inspection and + abnormal strength (generalized weakness) Skin: + turgor decreased, + wound (right lower leg) and + erythema (flushed face) Neurologic: patellar DTR's 2+ bilat, sensation intact and PERRL, EOMI, accommodation nl, no face palsy, no dysarthria Psychiatric: A+Ox3, euthymic affect Lymphatic: no cervical or axillary lymphadenopathy Results & Data Results & Data ([facility]) Vital Signs (Past 12 Hours) Vital Signs Temp Pulse Pulse Resp BP BP Pulse Ox 12/31/19 10:21 36.8 C 88 22 177/76 H 83 L 12/31/19 09:50 83 L 12/31/19 09:44 36.8 C 89 22 175/71 H 93 12/31/19 09:00 36.6 C 88 18 177/76 H 95 12/31/19 08:35 36.6 C 88 177/76 H 95 12/31/19 07:35 36.5 C 90 18 194/89 H 97 12/31/19 07:05 36.5 C 86 18 171/76 H 96 12/31/19 06:35 36.5 C 86 18 168/78 H 99 12/31/19 06:20 36.5 C 86 18 160/78 H 98 12/31/19 06:05 36.5 C 85 18 174/82 H 100 12/31/19 05:50 36.4 C L 84 16 178/68 H 100 12/31/19 05:34 36.5 C 85 18 165/77 H 99 12/31/19 05:17 85 16 168/73 H 98 12/31/19 04:35 36.3 C L 82 18 157/71 H 95 12/31/19 04:25 36.3 C L 82 20 157/71 H 95 12/31/19 03:25 36 C L 79 18 131/68 100 12/31/19 02:55 36 C L 79 18 123/61 100 12/31/19 02:40 36.4 C L 82 18 146/67 H 100 12/31/19 02:21 36.4 C L 84 17 179/69 H 12/31/19 00:38 36.3 C L 83 18 166/71 H 12/31/19 00:01 80 14 100 12/31/19 00:00 80 13 169/70 H 12/30/19 23:31 81 14 100 12/30/19 23:30 82 14 179/70 H 100 12/30/19 23:01 83 14 100 12/30/19 23:00 83 16 176/75 H 100 Laboratory Results Laboratory Results - last 24 hr 12/30/19 12/31/19 12/31/19 20:04 07:50 11:41 WBC RBC Hgb Hct MCV MCH MCHC RDW Std Deviation RDW Coeff of Epifanio Plt Count MPV Sodium Potassium Chloride Carbon Dioxide Anion Gap BUN Creatinine Est Cr Clr Drug Dosing Est GFR ( Amer) Est GFR (Non-Af Amer) BUN/Creatinine Ratio Glucose POC Glucose 210 H Calcium Urine Blood Urine RBC (Auto) Blood Type O Positive Antibody Screen NEGATIVE Crossmatch See Detail Transfusion React Date Pending Transfusion React Time Pending Tx React Symptoms Pending Reaction Clerical Check Pending Lab Clerical Err Check Pending React Component Return Pending Volume Returned Pending Pre-Trans Blood Type Pending Pre-Trans Vis Hemolysis Pending Pre-Trans RENATO Pending Pre-Trans RENATO IgG Pending Pre-Trans RENATO Poly Pending Pre-Trans RENATO C3b, C3d Pending Post-Trans Blood Type Pending Post-Tx Visible Hemolys Pending Post-Trans RENATO Pending Post-Trans RENATO IgG Pending Post-Trans RENATO Poly Pending Post-Trans RENATO C3b, C3d Pending Post-Trans Ur Hemoglobin Pending Reaction Path Interpret Pending Transfusion Serv Com Pending 12/31/19 12/31/19 12/31/19 11:41 11:42 12:16 WBC 2.63 L RBC 3.00 L Hgb 9.2 L Hct 26.5 L MCV 88.3 MCH 30.7 MCHC 34.7 RDW Std Deviation 46.1 RDW Coeff of Epifanio 14.5 Plt Count 34 L D MPV 10.6 H Sodium Potassium Chloride Carbon Dioxide Anion Gap BUN Creatinine Est Cr Clr Drug Dosing Est GFR ( Amer) Est GFR (Non-Af Amer) BUN/Creatinine Ratio Glucose POC Glucose 165 H Calcium Urine Blood 1+ H Urine RBC (Auto) 10-30 H Blood Type Antibody Screen Crossmatch Transfusion React Date Transfusion React Time Tx React Symptoms Reaction Clerical Check Lab Clerical Err Check React Component Return Volume Returned Pre-Trans Blood Type Pre-Trans Vis Hemolysis Pre-Trans RENATO Pre-Trans RENATO IgG Pre-Trans RENATO Poly Pre-Trans RENATO C3b, C3d Post-Trans Blood Type Post-Tx Visible Hemolys Post-Trans RENATO Post-Trans RENATO IgG Post-Trans RENATO Poly Post-Trans RENATO C3b, C3d Post-Trans Ur Hemoglobin Reaction Path Interpret Transfusion Serv Com 12/31/19 12/31/19 12/31/19 12:16 16:46 20:35 WBC RBC Hgb Hct MCV MCH MCHC RDW Std Deviation RDW Coeff of Epifanio Plt Count MPV Sodium 141 Potassium 4.0 Chloride 103 Carbon Dioxide 32 Anion Gap 6.0 BUN 31 H Creatinine 1.57 H Est Cr Clr Drug Dosing 29.9 Est GFR ( Amer) 40.0 Est GFR (Non-Af Amer) 34.5 BUN/Creatinine Ratio 19.5 Glucose 124 H POC Glucose 144 H 181 H Calcium 8.7 Urine Blood Urine RBC (Auto) Blood Type Antibody Screen Crossmatch Transfusion React Date Transfusion React Time Tx React Symptoms Reaction Clerical Check Lab Clerical Err Check React Component Return Volume Returned Pre-Trans Blood Type Pre-Trans Vis Hemolysis Pre-Trans RENATO Pre-Trans RENATO IgG Pre-Trans RENATO Poly Pre-Trans RENATO C3b, C3d Post-Trans Blood Type Post-Tx Visible Hemolys Post-Trans RENATO Post-Trans RENATO IgG Post-Trans RENATO Poly Post-Trans RENATO C3b, C3d Post-Trans Ur Hemoglobin Reaction Path Interpret Transfusion Serv Com Medications Administered Current Inpatient Medications Acetaminophen (Tylenol) 650 mg PO Q4H PRN PRN Reason: Pain or Fever Stop: 01/30/20 00:52 Clonidine HCl (Catapres) 0.1 mg PO BID ANGELO Stop: 01/30/20 00:52 Last Admin: 12/31/19 07:50 Dose: 0.1 mg Documented by: Cyanocobalamin (Vitamin B-12) 1,000 mcg PO QAM ANGELO Stop: 01/30/20 08:59 Last Admin: 12/31/19 09:01 Dose: 1,000 mcg Documented by: Dextrose (Dextrose 50%) 25 - 50 ml IV UD PRN; Protocol PRN Reason: Hypoglycemia Protocol Stop: 01/30/20 00:52 Digoxin (Lanoxin) 0.125 mg PO HS ANGELO Stop: 01/30/20 20:59 Escitalopram Oxalate (Lexapro Tab) 10 mg PO QAM ANGELO Stop: 01/30/20 08:59 Ferrous Sulfate (Feosol) 325 mg PO BID ANGELO Stop: 01/30/20 08:59 Last Admin: 12/31/19 09:01 Dose: 325 mg Documented by: Glucagon (Glucagen) 1 mg SQ UD PRN; Protocol PRN Reason: Hypoglycemia Protocol Stop: 01/30/20 00:52 Glucose (Dex4 Glucose) 4 - 8 tabs PO UD PRN; Protocol PRN Reason: Hypoglycemia Protocol Stop: 01/30/20 00:52 Glucose (Glucose 40%) 15 - 30 gm PO UD PRN; Protocol PRN Reason: Hypoglycemia Protocol Stop: 01/30/20 00:52 Lorazepam (Ativan) 0.5 mg in 1 mls @ 1 mls/min IV Q6H PRN PRN Reason: Anxiety Stop: 01/29/20 23:46 Clindamycin Phosphate 600 mg/ (Dextrose) 54 mls @ 100 mls/hr IV Q8H ANGELO Stop: 01/10/20 07:59 Last Infusion: 12/31/19 09:59 Dose: Infused Documented by: Sodium Chloride (Nss) 250 mls @ 15 mls/hr IV .[id number] PRN PRN Reason: For Transfusion Stop: 12/31/19 14:20 Furosemide 40 mg/ Syringe 4 mls @ 4 mls/min IV ONE ONE Stop: 12/31/19 14:01 Insulin Aspart (Novolog Flexpen) 0 units SC [facility] Stop: 01/30/20 07:29 Last Admin: 12/31/19 09:03 Dose: 6 units Documented by: Insulin Glargine (Lantus Solostar Pen) 8 units SC [facility] Stop: 01/30/20 20:59 Magnesium Chloride (Slow-Mag) 128 mg PO BID [facility] Stop: 01/30/20 08:59 Last Admin: 12/31/19 09:01 Dose: 128 mg Documented by: Metoprolol Succinate (Toprol Xl) 50 mg PO [facility] Stop: 01/30/20 08:59 Last Admin: 12/31/19 07:50 Dose: 50 mg Documented by: Miscellaneous (Carbohydrates For Hypoglycemia) 15 - 30 gm PO UD PRN PRN Reason: Hypoglycemia Protocol Stop: 01/30/20 00:52 Multivitamins/Minerals (Caltrate Plus) 1 tab PO [facility] Stop: 01/30/20 08:59 Last Admin: 12/31/19 09:01 Dose: 1 tab Documented by: Niacin (Niacin) 500 mg PO [facility] Stop: 01/30/20 08:59 Last Admin: 12/31/19 09:02 Dose: 500 mg Documented by: Ondansetron HCl (Zofran) 4 mg IV Q6H PRN PRN Reason: Nausea Stop: 01/30/20 00:52 Oxycodone HCl (Roxicodone Immediate Rel) 10 mg PO Q4H PRN PRN Reason: Pain Stop: 01/14/20 00:52 Pantoprazole Sodium (Protonix) 40 mg PO [facility] Stop: 01/30/20 08:59 Last Admin: 12/31/19 09:01 Dose: 40 mg Documented by: Simvastatin (Zocor) 40 mg PO [facility] Stop: 01/30/20 20:59 Terazosin HCl (Hytrin) 5 mg PO [facility] Stop: 01/30/20 20:59 Umeclidinium [place] (Incruse Ellipta) 1 puffs [facility] DAILY@1300 [facility] Stop: 01/30/20 12:59 Vitamin D (Vitamin D3) 1,000 units PO BID ANGELO Stop: 01/30/20 08:59 Last Admin: 12/31/19 09:02 Dose: 1,000 units Documented by: PG Care Time/CCT Total # of Minutes Spent Total Time Spent: 80 Total Time Spent with Patient: Total time spent is greater than 50% in coordination of care (as documented) at patient's floor/unit and/or counseling patient: 40 minutes spent at the bedside with patient, 4 separate visits during the day, spoke with RN several times [address] Yoon 10 minutes speaking with patient's Davion 20 minutes reviewing chart and formulating plan Prolonged Care Time Total Prolonged Care Time: 50 Coding Level of Care Code 67042 Subseq Hosp Care Lvl 3 Diagnoses Non-small cell lung cancer (NSCLC) C34.91 Laterality: right Acute and chronic respiratory failure with hypoxia J96.21 TACO (transfusion associated circulatory overload) E87.71 Acute dyspnea R06.00 Epistaxis R04.0 Chronic respiratory failure with hypoxia, on home O2 therapy J96.11; Z99.81 Thrombocytopenia D69.6 Anemia D64.9 Leg wound, right S81.801A Encounter type: initial encounter Pancytopenia due to antineoplastic chemotherapy D61.810; T45.1X5A T2DM (type 2 diabetes mellitus) E11.22; N18.4; Z79.4 Chronic kidney disease stage: stage 4 (severe) Diabetes mellitus complication detail: with chronic kidney disease Diabetes mellitus complication status: with kidney complications Diabetes mellitus fpc insulin use: with side hemmer use CKD (chronic kidney disease) N18.4 Chronic kidney disease stage: stage 4 (severe) (1) T2DM (type 2 diabetes mellitus) Chronic kidney disease stage: stage 4 (severe) Diabetes mellitus complication detail: with chronic kidney disease Diabetes mellitus complication status: with kidney complications Diabetes mellitus side hemmer insulin use: with fpc use Qualified Code(s): E11.22 - Type 2 diabetes mellitus with diabetic chronic kidney disease; N18.4 - Chronic kidney disease, stage 4 (severe); 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
[2019-12-31] MEDS: ESCITALOPRAM OXALATE 10 MG TAB PO SCH (10:52)
[2019-12-31] MEDS: LORazepam 0.5 MG/1 ML VIAL IV PRN (10:55)
[2019-12-31 12:13] LABS: Blood Urine 1+ (Negative)
[2019-12-31] MEDS: UMECLIDINIUM BROMIDE 62.5MCG/BLISTER 7 PUFFS/INHALER INH SCH (12:34)
[2019-12-31 12:36] LABS: Hematocrit (blood only) 26.5 % (37-47); Hemoglobin 9.2 g/dL (12.0-16.0); Mean Corpuscular Hemoglobin 30.7 pg (25-34); Mean Corpuscular Hgb Conc 34.7 g/dL (32-36); Mean Corpuscular Volume 88.3 fL (80-100); Mean Platelet Volume 10.6 fL (7.4-10.4); Platelet Count 34 K/uL (130-400); RDW Coefficient of Variation 14.5 % (11.5-14.5); RDW Standard Deviation 46.1 fL (36.4-46.3); White Blood Count 2.63 K/uL (4.8-10.8)
[2019-12-31 12:53] LABS: BUN Creatinine Ratio 19.5 (10-20); Calcium 8.7 mg/dl (8.5-10.1); Creatinine Clr Calc Pharmacy 29.9 ml/min; Est GFR (Non-African American) 34.5
[2019-12-31] MEDS: OXYCODONE HCL IR 5 MG TAB (IMMEDIATE RELEASE) PO PRN (19:46)
[2019-12-31] MEDS: TERAZOSIN HCL 5 MG CAP PO SCH (19:48)
[2019-12-31] MEDS: DIGOXIN 0.125 MG TAB PO SCH (19:48)
[2019-12-31] MEDS: SIMVASTATIN 40 MG TAB PO SCH (19:50)
[2019-12-31] MEDS: INSULIN GLARGINE SOLOSTAR 100 UNITS/ML 3 ML PEN SC SCH (21:16)
[2020-01-01] MEDS: INSULIN ASPART 100 UNITS/ML 3 ML PEN SC SCH ×4 (08:55→19:48)
[2020-01-01] MEDS: LEVOFLOXACIN/D5W 750 MG/150 ML BAG IV SCH (08:55)
[2020-01-01] MEDS: PANTOprazole 40 MG TAB PO SCH (08:56)
[2020-01-01] MEDS: FERROUS SULFATE 325 MG TAB PO SCH ×2 (08:56→19:44)
[2020-01-01] MEDS: CALCIUM 600MG + VIT D 400 IU TAB PO SCH (08:56)
[2020-01-01] MEDS: MAGNESIUM CHLORIDE 64MG DELAYED REL TAB PO SCH ×2 (08:56→19:44)
[2020-01-01] MEDS: cloNIDine HCL 0.1 MG TAB PO SCH ×2 (08:56→19:44)
[2020-01-01] MEDS: ESCITALOPRAM OXALATE 10 MG TAB PO SCH (08:56)
[2020-01-01] MEDS: METOPROLOL SUCC 50MG EXT REL TAB PO SCH (08:57)
[2020-01-01] MEDS: CYANOCOBALAMIN 500 MCG TABLET (VITAMIN B-12) PO SCH (08:57)
[2020-01-01] MEDS: CHOLECALCIFEROL 1,000 UNITS 25 MCG TAB PO SCH ×2 (08:57→19:44)
[2020-01-01] MEDS: OXYCODONE HCL IR 5 MG TAB (IMMEDIATE RELEASE) PO PRN ×2 (09:05→19:43)
[2020-01-01 09:21] LABS: BUN Creatinine Ratio 18.5 (10-20); Calcium 8.3 mg/dl (8.5-10.1); Creatinine Clr Calc Pharmacy 31.6 ml/min; Est GFR (African American) 42.6; Est GFR (Non-African American) 36.7; Magnesium 1.4 mg/dl (1.8-2.4); Potassium 4.2 mmol/L (3.5-5.1)
[2020-01-01 09:26] LABS: Hematocrit (blood only) 26.1 % (37-47); Hemoglobin 8.7 g/dL (12.0-16.0); RDW Coefficient of Variation 14.9 % (11.5-14.5); RDW Standard Deviation 48.3 fL (36.4-46.3); White Blood Count 2.66 K/uL (4.8-10.8)
[2020-01-01 09:44] LABS: Mean Corpuscular Hgb Conc 33.3 g/dL (32-36); Mean Platelet Volume 10.4 fL (7.4-10.4); Platelet Count 41 K/uL (130-400)
[2020-01-01] MEDS: DOXYCYCLINE HYCLATE 100 MG in DEXTROSE 5% 100 ML IV SCH ×2 (10:27→19:40)
--- NOTE | 2020-01-01 11:32 | Consultation Report ---
DATE OF CONSULTATION: 01/01/2020 ONCOLOGY CONSULTATION REASON FOR CONSULTATION: Severe anemia/thrombocytopenia. HISTORY OF PRESENT ILLNESS: Maye Lawler is a very pleasant unfortunate 64-year-old female well known to [facility] with metastatic nonsmall cell lung cancer. The patient has been under my care over the past several months with advanced disease, receiving chemotherapy, particularly combination carboplatin, gemcitabine and pembrolizumab as her tumor overexpressed PD-L1 40%. She last received a single agent gemcitabine on 12/21/2019. She apparently developed pretty severe nosebleed and presented originally to [facility], and because they do not readily reliant blood banking availability, thus were going to transfer her to [place]. The patient opted to be transferred to [facility]. I was contacted by the Emergency Room doctor and planned to have her admitted just for observational status to receive single donor platelet pheresis and 2 units of packed RBCs. In the midst of transfusion, apparently, the patient suffered a mild transfusion reaction. Her oxygenation apparently diminished and she is presently on a nonrebreather. Maye was seen and examined at bedside. Her breathing does not appear to be labored. She denies any overt issues at this time and to my knowledge, there are no other medical problems. She still has packing in the right naris. She offers no specific complaints otherwise. PAST MEDICAL HISTORY: Again, significant for metastatic nonsmall cell lung cancer, atrial fibrillation, anemia, chronic kidney disease, type 2 diabetes mellitus, hypomagnesemia. She presented originally with superior vena cava syndrome, mitral stenosis, pericardial effusion. MEDICATIONS: Prior to admission include digoxin 125 mcg p.o. daily, metoprolol 50 mg p.o. daily, Protonix 40 mg p.o. daily, terazosin 5 mg p.o. daily, albuterol inhaler 2 puffs q.4 hours p.r.n., Tresiba 16 units subQ daily, Zofran 8 mg p.o. q.8 hours p.r.n., Spiriva 2 puffs inhaled daily, oxycodone 10 mg p.o. q 4-6 hours p.r.n., insulin aspart U-100 12 units subQ daily, torsemide 20 mg p.o. daily, clonidine 0.1 mg p.o. b.i.d., calcium carbonate 1 capsule p.o. daily, cholecalciferol 25 mcg p.o. b.i.d., cyanocobalamin 1000 mcg p.o. daily, ferrous sulfate 325 mg p.o. b.i.d., magnesium chloride 143 mg p.o. b.i.d., simvastatin 40 mg p.o. at bedtime, warfarin per instruction. ALLERGIES: CEFTAROLINE AND PENICILLINS. SOCIAL HISTORY: The patient is disabled, lives with her spouse. She is a reformed smoker. FAMILY HISTORY: Noncontributory. REVIEW OF SYSTEMS: As per HPI, mostly for shortness of breath, dyspnea on exertion, asthenia, persistent upper extremity swelling attributable to SVC. Negative for fever or chills. SKIN: Cellulitis of the right lower extremity status post fall. HEENT: No headaches, lightheadedness or dizziness. No visual or hearing deficits. No sinus symptoms, sore throat or dysphagia. Positive for epistaxis. LYMPHATICS: No history of lymphoproliferative disease. CARDIAC: Positive history of atrial fibrillation. PULMONARY: Positive for lung cancer and COPD. She is not acutely short of breath or dyspneic, presently is oxygen dependent. No cough. GASTROINTESTINAL: Negative for abdominal pain, nausea, vomiting, diarrhea or constipation. GENITOURINARY: No hematuria, dysuria, or urinary incontinence. PSYCHIATRIC: Negative for anxiety, depression or psychoses. ENDOCRINE: Positive for type 2 diabetes mellitus. MUSCULOSKELETAL: No arthralgias or myalgias. No focal muscle weakness. NEUROLOGIC: Negative for seizure, stroke, or migraine headache. HEMATOLOGIC: Positive for severe anemia and thrombocytopenia attributable to chemotherapeutic effect. PHYSICAL EXAMINATION: GENERAL: Very pleasant, awake, alert and appropriate 64-year-old in no acute distress. VITAL SIGNS: Temperature 36.5, pulse 79, respiratory rate 20, blood pressure 139/63. SKIN: Warm, dry, noncyanotic without petechia, rash or ecchymosis. Sterile dressing covering leg wound to the right. HEENT: Atraumatic, normocephalic. Eyes: PERRLA, EOMI. Nares are patent without rhinorrhea or discharge. Throat is clear. Tongue midline. NECK: Supple. Positive for mild JVD. HEART: Regular rate and rhythm. LUNGS: Diminished breath sounds in the right posterior base. ABDOMEN: Soft, nontender, nondistended. EXTREMITIES: Musculoskeletal strength and pulses are equal. Trace peripheral edema bilaterally. NEUROLOGICAL: Awake, alert and appropriate. Cranial nerves are grossly intact. LABORATORY DATA: WBC count 2630, hemoglobin 9.2, platelet count 34,000. Creatinine 1.57. Transfusion reaction panel pending. IMPRESSION: 1. Epistaxis. 2. Severe thrombocytopenia/anemia. 3. Mild transfusion reaction. 4. Metastatic nonsmall cell lung cancer. 5. Superior vena cava syndrome, attributable to metastatic nonsmall cell lung cancer. PLAN: In summary, Maye is a very pleasant, very unfortunate 64-year-old female who continues her fight for end-stage metastatic nonsmall cell lung cancer. Maye was diagnosed back in July when she had presented with superior vena cava syndrome, large mediastinal mass and profound swelling of the upper extremities predominantly. She was originally started on combination Abraxane, carboplatin, and pembrolizumab but unfortunately after 3 cycles, was not benefitting and thus decided to switch out Abraxane in favor of gemcitabine. One of the main side effects of Gemzar compounded with carboplatin is thrombocytopenia. This lady received Gemzar back on 12/20, so not surprising her platelets plummeted. This led to epistaxis and subsequent hospitalization. On previous admissions, I tried to talk Maye into palliation; however, her strongly encouraged her to continue fighting on. She has struggled with manifestations of superior vena cava syndrome including pericardial effusion, pleural effusion and swelling of the upper and lower extremities. She suffered a fall at home resulting in a serious leg wound, which became infected with pseudomonas. Her overall prognosis remains quite poor. She was originally admitted for observational status to receive blood and apparently had a mild transfusion reaction. Maye is oxygen dependent at home and thus awaiting her respiratory status to improve prior to discharge. I believe Maye is scheduled for chemotherapy this week. We will continue to hold chemotherapy and need to also strongly consider dose reduction to avoid a precipitous drop in platelets, particularly. I have nothing further to add. I agree with medical management as prescribed. Thank you very much for allowing me to participate in her care. [facility]
[2020-01-01] MEDS: MAGNESIUM SULFATE / D5W 1 GM/100 ML BAG IV SCH ×2 (12:21→14:06)
[2020-01-01] MEDS: UMECLIDINIUM BROMIDE 62.5MCG/BLISTER 7 PUFFS/INHALER INH SCH (12:22)
[2020-01-01] MEDS ORDERED: FUROSEMIDE 20 MG in SYRINGE 0 ML IV ONE (13:15)
--- NOTE | 2020-01-01 13:31 | Electrocardiogram Report ---
Test Reason : Blood Pressure : / mmHG Vent. Rate : 088 BPM Atrial Rate : 088 BPM P-R Int : 234 ms QRS Dur : 096 ms QT Int : 320 ms P-R-T Axes : 052 013 080 degrees QTc Int : 387 ms Poor data quality, interpretation may be adversely affected Sinus rhythm with 1st degree A-V block Incomplete right bundle branch block Possible Left atrial enlargement Abnormal ECG When compared with ECG of 22-DEC-2019 18:46, No significant change Confirmed by Yoel Anna ([id number]) on 01/01/2020 1:31:18 PM Referred By: REFERRED SELF Confirmed By:Yoel Anna
[2020-01-01] MEDS: LORazepam 0.5 MG TAB PO PRN (13:43)
--- NOTE | 2020-01-01 13:45 | Palliative Care Consultation ---
Date of Consultation January 01, 2020 Assessment & Plan (1) Goals of care, counseling/discussion: Patient is a 64 year old female with a past medical history significant for stage IV non-small cell lung cancer-diagnosed this past July with superior vena cava syndrome who presented to [facility] on 12/29 with epistaxis with a hemoglobin of 7.2 and a platelet count of 21K. Patient received 2 units of packed cells as well as for recent platelets-she was also receiving niacin and clindamycin when she had a reaction where her face turned bright red and she had a drop in her O2 sats. Patient has since recovered but is requiring O2 at 10 L via oxy mask. On admission her O2 was at 4 L-this has been titrated up to 10 L. -Sats 96%. Additional PMH includes pAF, CKD, CAD, HLD, HTN, mitral stenosis, bilateral pleural effusions, severe protein malnutrition, DM2, and right lower extremity wound growing Pseudomonas. Regarding her cancer treatment, she has undergone 4 rounds of chemotherapy and radiation therapy for the large mediastinal mass -she had poor response in her chemo regime was changed. Patient thinks she is received 2 out of 3 planned new chemo courses-her next course is due this and will likely be on hold due to her low platelet count. Her current chemo will likely need to have a dose reduction due to her severe thrombocytopenia and epistaxis. Palliative Care was consulted to discuss goals of care. -Met with the patient in room 240-2. The patient was sitting upright in her bed. O2 via oxy mask in place as well as nasal packing. -Patient's CODE STATUS is DNR-a POLST form was completed during her November admission. -Should the patient not be able to make her own decisions, she would like her Davion to do so. -Patient would be a candidate for hospice care at home-however her goal is to continue fighting and continue chemotherapy as long as it is offered. -We will continue to follow and assist patient decision making (2) Non-small cell lung cancer (NSCLC): Patient wishes to continue [id number] with oncology Laterality: right Qualified Code(s): C34.91 - Malignant neoplasm of unspecified part of right bronchus or lung (3) Superior vena cava syndrome: Bilateral upper extremity swelling-unchanged (4) Epistaxis: ENT following-nasal packing in place, platelets at 41K today (5) Thrombocytopenia: KImproved status post platelet transfusion-platelets 41K today (6) Pseudomonas aeruginosa infection: Continue current wound care orders, continue doxycycline and Levaquin (7) Acute and chronic respiratory failure with hypoxia: Patient requiring 10 L O2-wean as tolerated History of Present Illness Reason for Consultation: Address goals of care Requesting Physician: Dr. Faisal Edwards Attending Physician: Jamie Gifford History of Present Illness Patient known to our service from her November admission. Patient is a 64 year old female with a past medical history significant for stage IV non-small cell lung cancer-diagnosed this past July with superior vena cava syndrome who presented to [facility] on 12/29 with epistaxis with a hemoglobin of 7.2 and a platelet count of 21K. Patient received 2 units of packed cells as well as for recent platelets-she was also receiving niacin and clindamycin when she had a reaction where her face turned bright red and she had a drop in her O2 sats. Patient has since recovered but is requiring O2 at 10 L via oxy mask. On admission her O2 was at 4 L-this has been titrated up to 10 L. -Sats 96%. Additional PMH includes pAF, CKD, CAD, HLD, HTN, mitral stenosis, bilateral pleural effusions, severe protein malnutrition, DM2, and right lower extremity wound growing Pseudomonas. Regarding her cancer treatment, she has undergone 4 rounds of chemotherapy and radiation therapy for the large mediastinal mass -she had poor response in her chemo regime was changed. Patient thinks she is received 2 out of 3 planned new chemo courses-her next course is due this and will likely be on hold due to her low platelet count. Her current chemo will likely need to have a dose reduction due to her severe thrombocytopenia and epistaxis. Palliative Care was consulted to discuss goals of care. -Met with the patient in room 240-2. The patient was sitting upright in her bed. O2 via oxy mask in place as well as nasal packing. -Patient's CODE STATUS is DNR-a POLST form was completed during her November admission. -Should the patient not be able to make her own decisions, she would like her Davion to do so. -Patient would be a candidate for hospice care at home-however her goal is to continue fighting and continue chemotherapy as long as it is offered. -We will continue to follow and assist patient decision making Allergies Allergy/AdvReac Type Severity Reaction Status Date / Time ceftaroline fosamil Allergy Intermediate Hives Verified 12/30/19 20:45 [From Teflaro] Penicillins Allergy Intermediate Rash Verified 12/30/19 20:45 Home Medications Home Medications Medication Instructions Recorded Confirmed Type digoxin 125 mcg PO HS 07/25/19 12/30/19 History metoprolol succinate 50 mg PO QAM 07/25/19 12/30/19 History pantoprazole [Protonix] 40 mg PO QAM 07/25/19 12/30/19 History terazosin 5 mg PO HS 07/25/19 12/30/19 History albuterol sulfate 90 mcg/actuation 2 puffs INH Q4H PRN 08/21/19 12/30/19 History aerosol inhaler Tresiba FlexTouch U-100 16 unit SUBCUT HS 10/05/19 12/30/19 History ondansetron HCl 8 mg tablet 8 mg PO Q8H PRN 10/23/19 12/30/19 History Spiriva Respimat 2 puffs INH DAILY@1300 10/28/19 12/30/19 History oxycodone 10 mg PO .Q4-6H PRN 10/28/19 12/30/19 History insulin aspart U-100 100 unit/mL 12 units SUBCUT DAILY@0800,1200 ml 11/06/19 12/30/19 History (3 mL) subcutaneous pen insulin aspart U-100 100 unit/mL 18 units SQ DAILY@1700 ml 11/06/19 12/30/19 History (3 mL) subcutaneous pen torsemide 20 mg PO QAM 11/21/19 12/30/19 History clonidine HCl 0.1 mg PO BID #60 tab 11/25/19 12/30/19 Rx calcium carbonate-vitamin D3 1 cap PO QAM 12/20/19 12/30/19 History [Calcium 600 + D(3)] cholecalciferol (vitamin D3) 25 mcg PO BID 12/20/19 12/30/19 History [Vitamin D3] cyanocobalamin (vitamin B-12) 1,000 mcg PO QAM 12/20/19 12/30/19 History [Vitamin B-12] ferrous sulfate 325 mg PO BID 12/20/19 12/30/19 History magnesium chloride [Slow-Mag] 143 mg PO BID 12/20/19 12/30/19 History niacin (inositol niacinate) 1 cap PO QAM 12/20/19 12/30/19 History [Niacin Flush Free] simvastatin 40 mg PO HS 12/20/19 12/30/19 History warfarin See Rx Instructions .ROUTE .COMPLEX 12/20/19 12/30/19 History Patient History Medical History Afib CKD (chronic kidney disease) stage 4 Family history of premature CAD Goals of care, counseling/discussion History of tobacco abuse HLD (hyperlipidemia) Hypertension (Acute) Malignant neoplasm of upper lobe, right bronchus or lung (Chronic) Mitral stenosis Non-small cell lung cancer (NSCLC) PAD (peripheral artery disease) (Acute) Pericardial effusion presumed malignant from lung cancer Port-A-Cath in place Severe protein-calorie malnutrition SVC syndrome (Chronic) T2DM (type 2 diabetes mellitus) Traumatic wound (Acute) right leg - 11/04/19 Surgical History H/O valvuloplasty H/O: S/P arterial stent legs for PAD S/P tonsillectomy Family History Family/Other Coronary heart disease Father Cancer Heart disease Mother Diabetes Brother Heart disease Social History Smoking Status: Former smoker Age Quit Using Tobacco: 60; packs per day: 1; Second Hand Exposure: No; Hx Alcohol Use: No Hx Substance Use: No Preferred Language: Serbian Communication Ability: Effective Telecommunicator Supervisor Required: No Beliefs That Will Affect Care: None marital status: Current Living Situation: Spouse Other Information That Helps Us Care for You: No other: 1 daughter Feels Safe at Home: Yes Safety Concerns: Feels Safe At This Time Review of Systems Review of Systems: Patient denies pain, fever, chills, chest pain, shortness of breath, or abdominal pain Positive for by lateral upper extremity swelling Physical Exam Physical Exam: PE: Patient awake, alert and oriented, appears comfortable at rest. On O2 via oxymask HEENT: EOMI, hearing within normal limits Respirations: Few crackles right anterior upper lobe, there are lower lobes, unlabored CV: Regular rate, no lower extremity edema, bilateral upper extremity swelling due to SVC syndrome Abdomen: Soft, nontender Neuro: Alert and oriented x4. Results & Data Vital Signs (Past 12 Hours) Vital Signs Temp Pulse Pulse Resp BP Pulse Ox 01/01/20 11:59 97.9 F 76 20 133/60 96 01/01/20 08:00 87 01/01/20 07:54 97.7 F 86 18 129/64 95 01/01/20 04:00 97.7 F 79 20 139/63 98 PG Care Time/CCT Total # of Minutes Spent Total Time Spent with Patient: Total time spent 55 minutes with greater than 50% of the time spent at bedside reviewing patient's current status, recent chemo regime as well as goals of care. Coding Level of Care Code 89504 Inpt Consult Level 2 Diagnoses Goals of care, counseling/discussion Z71.89 Non-small cell lung cancer (NSCLC) C34.91 Laterality: right Superior vena cava syndrome I87.1 Epistaxis R04.0 Thrombocytopenia D69.6 Pseudomonas aeruginosa infection A49.8 Acute and chronic respiratory failure with hypoxia J96.21 Time Spent (min) 55
--- NOTE | 2020-01-01 19:17 | Hospitalist Progress Note ---
Date of Service January 01, 2020 Assessment & Plan (1) Acute and chronic respiratory failure with hypoxia: acute component 2nd to pulmonary edema/volume overload. cannot exclude infectious component either. cannot exclude aspiration of blood during nosebleed episode leading to acute hypoxic resp failure. typically on continuous NC O2 at home for chronic respiratory failure. (2) Epistaxis: in setting of coumadin use and severe thrombocytopenia. s/p placement of rhinorocket in right nare at [facility] ER on day of admission (12/30/19). coumadin stopped. s/p platelet infusion. platelets trending into the 40s now. spoke with Dr Erickson from ENT today. rhinorocket to remain through Wednesday or . (3) Acute blood loss anemia: 2nd to epistaxis. s/p PRBCs but with ?transfusion reaction and concern for TACO. H/H improved/satisfactory today. cbc in am. (4) TACO (transfusion associated circulatory overload): concern for such. s/p diuresis yesterday. give additional diuresis today. (5) Acute diastolic CHF (congestive heart failure): cont diuresis - give additional IV lasix today. re-eval tomorrow. echo last month noted. LV function wnl. has malignant pericardial effusion - no evidence of clinical tamponade. (6) Pancytopenia due to antineoplastic chemotherapy: chemotherapy under the direction of Dr Yoon. daily CBC. (7) Traumatic wound: RLE. wound care consultation. will eval wound tomorrow. 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 exam is similar to my exam in November. (9) Non-small cell lung cancer (NSCLC): appreciate heme/onc consult by Dr Yoon appreciate palliative care consult very poor prognosis remains DNR, but patient not ready to transition to hospice (10) Hypomagnesemia: replace IV mag - repeat level AM (11) CKD (chronic kidney disease): fluctuates stage 3-4 CrCl at baseline today bmp am (12) Hypertension: cont home meds (13) T2DM (type 2 diabetes mellitus): cont lantus cont novolog adjust as needed (14) Afib: remains in NSR paroxysmal cont digoxin; check level AM cont metoprolol coumadin on hold for reasons stated above (15) Anxiety: ativan 0.25mg q6h prn (16) DVT prophylaxis: chemical means contraindicated due to severe epistaxis requiring rhinorocket placement, low platelets, etc updated tonight by phone will need PT/OT Admission and Anticipated Discharge Date Admission Date: December 30, 2019 Subjective tele stable overnight. during my visit she was using oxymask but no tachypnea or increased work of breathing. she was quiet distraught when I told her she would have to keep rhinorocket in place in the right nare for 2-3 more days. she said "I don't think I can do that." this made her feel quite anxious hearing this information. she stated she had hard time eating because of the rhinorocket. the device makes it hard to breath as well. denies any further nose bleeding. denies cough. doesn't want to be in hospital. Review of Systems Constitutional: no fever Respiratory: no cough and no wheezing Cardiovascular: no chest pain Gastrointestinal: no abdominal pain Physical Exam Constitutional: + ill appearing and + frail appearing; no acute distress and no altered mental status ENMT: Nose: + external nose abnormality Mouth: no oral mucosal abnormality Respiratory: no respiratory distress Auscultation: + crackles; no wheezes Cardiovascular: Rate/Rhythm: regular rate and regular rhythm Heart Sounds: normal S1, normal S2 and + murmur (2/6 systolic LSB) Vessels: + JVD, posterior tibial pulses present and dorsalis pedis pulses present Extremities: + edema Gastrointestinal (Abdomen): normal bowel sounds, soft, nontender, no hepatosplenomegaly Musculoskeletal: b/l arm edema 2nd SVC syndrome; dilated veins on chest wall Skin: + pallor dressings intact RLE Psychiatric: Orientation: alert and oriented x 3 Affect: + anxious affect Results & Data Results & Data ([facility]) Vital Signs (Past 12 Hours) Vital Signs Temp Pulse Pulse Resp BP Pulse Ox 01/01/20 16:00 87 01/01/20 15:21 36.6 C 73 18 138/64 100 01/01/20 11:59 36.6 C 76 20 133/60 96 01/01/20 08:00 87 01/01/20 07:54 36.5 C 86 18 129/64 95 Laboratory Results Laboratory Results - last 24 hr 12/30/19 12/31/19 01/01/20 20:04 12:16 07:15 WBC RBC Hgb Hct MCV MCH MCHC RDW Std Deviation RDW Coeff of Epifanio Plt Count MPV Sodium Potassium Chloride Carbon Dioxide Anion Gap BUN Creatinine Est Cr Clr Drug Dosing Est GFR ( Amer) Est GFR (Non-Af Amer) BUN/Creatinine Ratio Glucose POC Glucose 151 H Calcium Magnesium Blood Type O Positive Antibody Screen NEGATIVE Crossmatch See Detail Transfusion React Date 12-31-19 Transfusion React Time 0900 Tx React Symptoms Reaction Clerical Check None Found Lab Clerical Err Check None Found React Component Return PCLRIRR Volume Returned 0 Pre-Trans Blood Type O POSITIVE Pre-Trans Vis Hemolysis No Pre-Trans RENATO Negative Pre-Trans RENATO IgG Neg Pre-Trans RENATO Poly Neg Pre-Trans RENATO C3b, C3d Neg Post-Trans Blood Type O POSITIVE Post-Tx Visible Hemolys No Post-Trans RENATO Negative Post-Trans RENATO IgG Neg Post-Trans RENATO Poly Neg Post-Trans RENATO C3b, C3d Neg Post-Trans Ur Hemoglobin Reaction Path Interpret Transfusion Serv Com 01/01/20 01/01/20 01/01/20 08:29 08:29 09:14 WBC 2.66 L RBC 2.90 L Hgb 8.7 L Hct 26.1 L MCV 90.0 MCH 30.0 MCHC 33.3 RDW Std Deviation 48.3 H RDW Coeff of Epifnaio 14.9 H Plt Count Not Reportable 41 L MPV 10.4 Sodium 139 Potassium 4.2 Chloride 102 Carbon Dioxide 31 Anion Gap 6.0 BUN 28 H Creatinine 1.49 H Est Cr Clr Drug Dosing 31.6 Est GFR ( Amer) 42.6 Est GFR (Non-Af Amer) 36.7 BUN/Creatinine Ratio 18.5 Glucose 130 H POC Glucose Calcium 8.3 L Magnesium 1.4 L Blood Type Antibody Screen Crossmatch Transfusion React Date Transfusion React Time Tx React Symptoms Reaction Clerical Check Lab Clerical Err Check React Component Return Volume Returned Pre-Trans Blood Type Pre-Trans Vis Hemolysis Pre-Trans RENATO Pre-Trans RENATO IgG Pre-Trans RENATO Poly Pre-Trans RENATO C3b, C3d Post-Trans Blood Type Post-Tx Visible Hemolys Post-Trans RENATO Post-Trans RENATO IgG Post-Trans RENATO Poly Post-Trans RENATO C3b, C3d Post-Trans Ur Hemoglobin Reaction Path Interpret Transfusion Serv Com 01/01/20 01/01/20 01/01/20 11:17 16:31 19:41 WBC RBC Hgb Hct MCV MCH MCHC RDW Std Deviation RDW Coeff of Epifanio Plt Count MPV Sodium Potassium Chloride Carbon Dioxide Anion Gap BUN Creatinine Est Cr Clr Drug Dosing Est GFR ( Amer) Est GFR (Non-Af Amer) BUN/Creatinine Ratio Glucose POC Glucose 180 H 183 H 178 H Calcium Magnesium Blood Type Antibody Screen Crossmatch Transfusion React Date Transfusion React Time Tx React Symptoms Reaction Clerical Check Lab Clerical Err Check React Component Return Volume Returned Pre-Trans Blood Type Pre-Trans Vis Hemolysis Pre-Trans RENATO Pre-Trans RENATO IgG Pre-Trans RENATO Poly Pre-Trans RENATO C3b, C3d Post-Trans Blood Type Post-Tx Visible Hemolys Post-Trans RENATO Post-Trans RENATO IgG Post-Trans RENATO Poly Post-Trans RENATO C3b, C3d Post-Trans Ur Hemoglobin Reaction Path Interpret Transfusion Serv Com PG Care Time/CCT Total # of Minutes Spent Total Time Spent with Patient: Total time spent is greater than 50% in coordination of care (as documented) at patient's floor/unit and/or counseling patient: Coding Level of Care Code 37048 Subseq Hosp Care Lvl 3 Diagnoses Acute and chronic respiratory failure with hypoxia J96.21 Epistaxis R04.0 Acute blood loss anemia D62 TACO (transfusion associated circulatory overload) E87.71 Acute diastolic CHF (congestive heart failure) I50.31 Pancytopenia due to antineoplastic chemotherapy D61.810; T45.1X5A Traumatic wound SVC syndrome I87.1 Non-small cell lung cancer (NSCLC) C34.91 Laterality: right Hypomagnesemia E83.42 CKD (chronic kidney disease) N18.4 Chronic kidney disease stage: stage 4 (severe) Hypertension I10 Hypertension type: essential hypertension T2DM (type 2 diabetes mellitus) E11.22; N18.4; Z79.4 Diabetes mellitus chcf insulin use: with chcf use Diabetes mellitus complication status: with kidney complications Diabetes mellitus complication detail: with chronic kidney disease Chronic kidney disease stage: stage 4 (severe) Afib I48.0 Atrial fibrillation type: paroxysmal Anxiety F41.9 DVT prophylaxis Z29.9 (1) Non-small cell lung cancer (NSCLC) Laterality: right Qualified Code(s): C34.91 - Malignant neoplasm of unspecified part of right bronchus or lung (2) CKD (chronic kidney disease) Chronic kidney disease stage: stage 4 (severe) Qualified Code(s): N18.4 - Chronic kidney disease, stage 4 (severe) (3) Hypertension Hypertension type: essential hypertension Qualified Code(s): I10 - Essential (primary) hypertension (4) Afib Atrial fibrillation type: paroxysmal Qualified Code(s): I48.0 - Paroxysmal atrial fibrillation (5) T2DM (type 2 diabetes mellitus) Diabetes mellitus chcf insulin use: with chcf use Diabetes mellitus complication status: with kidney complications Diabetes mellitus complication detail: with chronic kidney disease Chronic kidney disease stage: stage 4 (severe) Qualified Code(s): E11.22 - Type 2 diabetes mellitus with diabetic chronic kidney disease; N18.4 - Chronic kidney disease, stage 4 (severe); 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
[2020-01-01] MEDS: SIMVASTATIN 40 MG TAB PO SCH (19:44)
[2020-01-01] MEDS: TERAZOSIN HCL 5 MG CAP PO SCH (19:44)
[2020-01-01] MEDS: DIGOXIN 0.125 MG TAB PO SCH (19:44)
[2020-01-01] MEDS: INSULIN GLARGINE SOLOSTAR 100 UNITS/ML 3 ML PEN SC SCH (19:48)
[2020-01-02 06:58] LABS: Hematocrit (blood only) 25.1 % (37-47); Hemoglobin 8.8 g/dL (12.0-16.0); Mean Corpuscular Hemoglobin 31.5 pg (25-34); Mean Corpuscular Hgb Conc 35.1 g/dL (32-36); RDW Coefficient of Variation 14.6 % (11.5-14.5); RDW Standard Deviation 47.1 fL (36.4-46.3); Red Blood Count 2.79 M/uL (4.2-5.4); White Blood Count 2.29 K/uL (4.8-10.8)
[2020-01-02 07:01] LABS: Mean Platelet Volume 10.2 fL (7.4-10.4); Platelet Count 43 K/uL (130-400)
[2020-01-02 07:26] LABS: Immature Granulocytes # (auto) 0.02 K/uL (0.00-0.02); Immature Granulocytes % (auto) 0.9 %; Lymphocytes # (auto) 0.39 K/uL (1.2-3.4); Monocytes % (auto) 8.7 %; Neutrophils # (auto) 1.68 K/uL (1.4-6.5); Neutrophils % (auto) 73.4 %
[2020-01-02 07:29] LABS: BUN Creatinine Ratio 18.3 (10-20); Calcium 8.6 mg/dl (8.5-10.1); Creatinine Clr Calc Pharmacy 32.4 ml/min; Magnesium 1.9 mg/dl (1.8-2.4); Potassium 4.1 mmol/L (3.5-5.1)
--- NOTE | 2020-01-02 07:31 | XRay Report ---
XR chest 1V portable CLINICAL HISTORY: Resp failure dyspnea COMPARISON STUDY: 12/31/2019 FINDINGS: Moderate stable cardiac megaly. Central catheter in superior vena cava. Small bilateral pleural effusions. Partial right basilar consolidative change. Persistent prominence of the pulmonary vasculature. IMPRESSION: No significant change from the prior study. Bilateral pleural effusions and basilar cons olidative change. Unchanged pulmonary vascular congestion. ACT 112: Negative or not required by law. The above report was generated using voice recognition software. It may contain grammatical, syntax or spelling errors. Electronically signed by: Cristo Soto M.D. 01/02/2020 7:30 AM
[2020-01-02] MEDS: cloNIDine HCL 0.1 MG TAB PO SCH ×2 (08:47→21:21)
[2020-01-02] MEDS: CHOLECALCIFEROL 1,000 UNITS 25 MCG TAB PO SCH ×2 (08:47→21:22)
[2020-01-02] MEDS: MAGNESIUM CHLORIDE 64MG DELAYED REL TAB PO SCH ×2 (08:47→21:23)
[2020-01-02] MEDS: FERROUS SULFATE 325 MG TAB PO SCH ×2 (08:47→21:23)
[2020-01-02] MEDS: METOPROLOL SUCC 50MG EXT REL TAB PO SCH (08:48)
[2020-01-02] MEDS: ESCITALOPRAM OXALATE 10 MG TAB PO SCH (08:48)
[2020-01-02] MEDS: CYANOCOBALAMIN 500 MCG TABLET (VITAMIN B-12) PO SCH (08:48)
[2020-01-02] MEDS: PANTOprazole 40 MG TAB PO SCH (08:48)
[2020-01-02] MEDS: INSULIN ASPART 100 UNITS/ML 3 ML PEN SC SCH ×4 (08:49→21:26)
[2020-01-02] MEDS: OXYCODONE HCL IR 5 MG TAB (IMMEDIATE RELEASE) PO PRN ×3 (08:52→21:48)
[2020-01-02] MEDS: CALCIUM 600MG + VIT D 400 IU TAB PO SCH (09:04)
[2020-01-02] MEDS ORDERED: FUROSEMIDE 20 MG in SYRINGE 0 ML IV ONE ×2 (09:15→16:30)
[2020-01-02] MEDS: UMECLIDINIUM BROMIDE 62.5MCG/BLISTER 7 PUFFS/INHALER INH SCH (12:05)
[2020-01-02] MEDS: ALBUTEROL HFA 8 GM INHALER INH PRN (20:09)
[2020-01-02] MEDS: SIMVASTATIN 40 MG TAB PO SCH (21:21)
[2020-01-02] MEDS: TERAZOSIN HCL 5 MG CAP PO SCH (21:22)
[2020-01-02] MEDS: DIGOXIN 0.125 MG TAB PO SCH (21:24)
--- NOTE | 2020-01-02 21:24 | Hospitalist Progress Note ---
Date of Service January 02, 2020 Assessment & Plan (1) Acute and chronic respiratory failure with hypoxia: acute component 2nd to pulmonary edema/volume overload. cannot exclude infectious component either (aspiration pneumonia). cannot exclude aspiration of blood during nosebleed episode leading to acute hypoxic resp failure. typically on continuous NC O2 at home for chronic respiratory failure. acute component improving slowly. continue levaquin - day #3. (2) Epistaxis: in setting of coumadin use and severe thrombocytopenia. s/p placement of rhinorocket in right nare at [facility] ER on day of admission (12/30/19). coumadin stopped. s/p platelet infusion earlier this admission. platelets trending into the 40s now. repeat CBC am. spoke with Dr Erickson yesterday - rhinorocket to remain through Wednesday then hopefully d/c then. (3) Acute blood loss anemia: 2nd to epistaxis. s/p PRBCs but with ?transfusion reaction and concern for TACO. H/H stable/acceptable again today cbc in am. (4) TACO (transfusion associated circulatory overload): concern for such. s/p diuresis. give additional diuresis once again today. (5) Acute diastolic CHF (congestive heart failure): cont diuresis - give additional IV lasix x 2 doses then re-eval tomorrow. echo last month noted. LV function wnl. has malignant pericardial effusion - no evidence of clinical tamponade. (6) Pancytopenia due to antineoplastic chemotherapy: chemotherapy under the direction of Dr Yoon. daily CBC. counts low but acceptable. (7) Traumatic wound: RLE. wound care consultation appreciated. cont local wound care. 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 no issues. (9) Non-small cell lung cancer (NSCLC): appreciate heme/onc consult by Dr Yoon appreciate palliative care consult very poor prognosis remains DNR, but patient not ready to transition to hospice (10) Hypomagnesemia: resolved (11) CKD (chronic kidney disease): fluctuates stage 3-4 CrCl at baseline today bmp am (12) Hypertension: cont home meds (13) T2DM (type 2 diabetes mellitus): cont lantus cont novolog acceptable control (14) Afib: remains in NSR paroxysmal cont digoxin; level 1.7 today cont metoprolol coumadin on hold for reasons stated above (15) Anxiety: ativan 0.25mg q6h prn (16) DVT prophylaxis: chemical means contraindicated due to severe epistaxis requiring rhinorocket placement, low platelets, etc updated 12/31 by phone order PT/OT tomorrow Admission and Anticipated Discharge Date Admission Date: December 30, 2019 Subjective tele overnight wnl. feels better. breathing is improved. sick of rhino rocket - ready to have it out. no epistaxis. no significant cough. no new issues overnight. Review of Systems Constitutional: + fatigue; no fever Respiratory: no dyspnea (at rest ) Cardiovascular: + dyspnea on exertion; no chest pain and no orthopnea Gastrointestinal: no abdominal pain Physical Exam Constitutional: + ill appearing and + frail appearing; no acute distress and no altered mental status ENMT: Nose: + external nose abnormality (rhino rocket in place R nare; no bleeding) Mouth: no oral mucosal abnormality Respiratory: no respiratory distress Auscultation: + crackles (extensive b/l but modestly improved from yesterday's exam); no wheezes Cardiovascular: Rate/Rhythm: regular rate and regular rhythm Heart Sounds: normal S1, normal S2 and + murmur (2/6 systolic LSB) Vessels: + JVD, pos terior tibial pulses present and dorsalis pedis pulses present Extremities: + edema (b/l arms from SVC syndrome; 1+ b/l legs) Gastrointestinal (Abdomen): normal bowel sounds, soft, nontender, no hepatosplenomegaly Skin: + pallor ulceration right diallo - mild yellow exudate but wound bed pink, healthy appearing; tiny ulceration dorsum left foot - clean Psychiatric: Orientation: alert and oriented x 3 Results & Data Results & Data ([facility]) Vital Signs (Past 12 Hours) Vital Signs Temp Pulse Pulse Resp BP BP Pulse Ox 01/02/20 20:17 74 16 99 01/02/20 19:07 36.4 C L 73 18 153/70 H 100 01/02/20 15:40 75 01/02/20 15:29 36.4 C L 73 18 153/64 H 100 01/02/20 11:54 36.6 C 75 19 130/60 100 Laboratory Results Laboratory Results - last 24 hr 12/30/19 01/02/20 01/02/20 20:04 06:44 06:44 WBC 2.29 L RBC 2.79 L Hgb 8.8 L Hct 25.1 L MCV 90.0 MCH 31.5 MCHC 35.1 RDW Std Deviation 47.1 H RDW Coeff of Epifanio 14.6 H Plt Count 43 L MPV 10.2 Immature Gran % (Auto) 0.9 Neut % (Auto) 73.4 Lymph % (Auto) 17.0 Dickens % (Auto) 8.7 Eos % (Auto) 0.0 Baso % (Auto) 0.0 Neut # (Auto) 1.68 Lymph # (Auto) 0.39 L Dickens # (Auto) 0.20 Eos # (Auto) 0.00 Baso # (Auto) 0.00 Immature Gran # (Auto) 0.02 Sodium 137 Potassium 4.1 Chloride 101 Carbon Dioxide 32 Anion Gap 4.0 BUN 27 H Creatinine 1.45 H Est Cr Clr Drug Dosing 32.4 Est GFR ( Amer) 44.0 Est GFR (Non-Af Amer) 38.0 BUN/Creatinine Ratio 18.3 Glucose 95 POC Glucose Calcium 8.6 Magnesium 1.9 Digoxin Crossmatch See Detail 01/02/20 01/02/20 01/02/20 06:44 06:55 11:38 WBC RBC Hgb Hct MCV MCH MCHC RDW Std Deviation RDW Coeff of Epifanio Plt Count MPV Immature Gran % (Auto) Neut % (Auto) Lymph % (Auto) Dickens % (Auto) Eos % (Auto) Baso % (Auto) Neut # (Auto) Lymph # (Auto) Dickens # (Auto) Eos # (Auto) Baso # (Auto) Immature Gran # (Auto) Sodium Potassium Chloride Carbon Dioxide Anion Gap BUN Creatinine Est Cr Clr Drug Dosing Est GFR ( Amer) Est GFR (Non-Af Amer) BUN/Creatinine Ratio Glucose POC Glucose 108 H 149 H Calcium Magnesium Digoxin 1.7 Crossmatch 01/02/20 01/02/20 16:38 20:23 WBC RBC Hgb Hct MCV MCH MCHC RDW Std Deviation RDW Coeff of Epifanio Plt Count MPV Immature Gran % (Auto) Neut % (Auto) Lymph % (Auto) Dickens % (Auto) Eos % (Auto) Baso % (Auto) Neut # (Auto) Lymph # (Auto) Dickens # (Auto) Eos # (Auto) Baso # (Auto) Immature Gran # (Auto) Sodium Potassium Chloride Carbon Dioxide Anion Gap BUN Creatinine Est Cr Clr Drug Dosing Est GFR ( Amer) Est GFR (Non-Af Amer) BUN/Creatinine Ratio Glucose POC Glucose 157 H 150 H Calcium Magnesium Digoxin Crossmatch PG Care Time/CCT Total # of Minutes Spent Total Time Spent with Patient: Total time spent is greater than 50% in coordination of care (as documented) at patient's floor/unit and/or counseling patient: Coding Level of Care Code 32664 Subseq Hosp Care Lvl 3 Diagnoses Acute and chronic respiratory failure with hypoxia J96.21 Epistaxis R04.0 Acute blood loss anemia D62 TACO (transfusion associated circulatory overload) E87.71 Acute diastolic CHF (congestive heart failure) I50.31 Pancytopenia due to antineoplastic chemotherapy D61.810; T45.1X5A Traumatic wound SVC syndrome I87.1 Non-small cell lung cancer (NSCLC) C34.91 Laterality: right Hypomagnesemia E83.42 CKD (chronic kidney disease) N18.4 Chronic kidney disease stage: stage 4 (severe) Hypertension I10 Hypertension type: essential hypertension T2DM (type 2 diabetes mellitus) E11.22; N18.4; Z79.4 Chronic kidney disease stage: stage 4 (severe) Diabetes mellitus complication detail: with chronic kidney disease Diabetes mellitus complication status: with kidney complications Diabetes mellitus fdc insulin use: with terminal gauger use Afib I48.0 Atrial fibrillation type: paroxysmal Anxiety F41.9 DVT prophylaxis Z29.9 (1) T2DM (type 2 diabetes mellitus) Chronic kidney disease stage: stage 4 (severe) Diabetes mellitus complication detail: with chronic kidney disease Diabetes mellitus complication status: with kidney complications Diabetes mellitus terminal gauger insulin use: with fdc use Qualified Code(s): E11.22 - Type 2 diabetes mellitus with diabetic chronic kidney disease; N18.4 - Chronic kidney disease, stage 4 (severe); Z79.4 - 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
[2020-01-02] MEDS: INSULIN GLARGINE SOLOSTAR 100 UNITS/ML 3 ML PEN SC SCH (21:25)
[2020-01-03] MEDS: LORazepam 0.5 MG TAB PO PRN ×2 (06:35→14:37)
[2020-01-03 08:27] LABS: Hematocrit (blood only) 24.8 % (37-47); Hemoglobin 8.4 g/dL (12.0-16.0); Mean Corpuscular Hemoglobin 30.1 pg (25-34); Mean Corpuscular Hgb Conc 33.9 g/dL (32-36); Mean Corpuscular Volume 88.9 fL (80-100); Mean Platelet Volume 10.3 fL (7.4-10.4); Platelet Count 67 K/uL (130-400); RDW Coefficient of Variation 15.1 % (11.5-14.5); RDW Standard Deviation 46.8 fL (36.4-46.3); Red Blood Count 2.79 M/uL (4.2-5.4); White Blood Count 2.26 K/uL (4.8-10.8)
[2020-01-03 08:52] LABS: BUN Creatinine Ratio 19.9 (10-20); Creatinine Clr Calc Pharmacy 33.8 ml/min; Est GFR (African American) 46.3; Potassium 3.9 mmol/L (3.5-5.1)
[2020-01-03] MEDS: METOPROLOL SUCC 50MG EXT REL TAB PO SCH (09:01)
[2020-01-03] MEDS: PANTOprazole 40 MG TAB PO SCH (09:01)
[2020-01-03] MEDS: CALCIUM 600MG + VIT D 400 IU TAB PO SCH (09:01)
[2020-01-03] MEDS: ESCITALOPRAM OXALATE 10 MG TAB PO SCH (09:01)
[2020-01-03] MEDS: MAGNESIUM CHLORIDE 64MG DELAYED REL TAB PO SCH ×2 (09:01→20:26)
[2020-01-03] MEDS: CYANOCOBALAMIN 500 MCG TABLET (VITAMIN B-12) PO SCH (09:02)
[2020-01-03] MEDS: cloNIDine HCL 0.1 MG TAB PO SCH ×2 (09:02→20:22)
[2020-01-03] MEDS: CHOLECALCIFEROL 1,000 UNITS 25 MCG TAB PO SCH ×2 (09:02→20:26)
[2020-01-03] MEDS: LEVOFLOXACIN/D5W 750 MG/150 ML BAG IV SCH (09:03)
[2020-01-03] MEDS: FERROUS SULFATE 325 MG TAB PO SCH ×2 (09:03→20:25)
[2020-01-03] MEDS: INSULIN ASPART 100 UNITS/ML 3 ML PEN SC SCH ×4 (09:04→20:39)
[2020-01-03] MEDS: OXYCODONE HCL IR 5 MG TAB (IMMEDIATE RELEASE) PO PRN (09:07)
--- NOTE | 2020-01-03 09:35 | ENT Consultation ---
Date of Consultation January 03, 2020 Assessment & Plan (1) Epistaxis: Balloon pack came out on its own early this am. I placed an absorbable "bleed arrest" pack. This will dissolve on its own. recommend saline spray If patient has further epistaxis, she needs to be transferred to a tertiary care center for consideration of embolization. Present on Admission?: Yes History of Present Illness Reason for Consultation: epistaxis Attending Physician: Jamie Gifford History of Present Illness This is a 64 yo female with history of lung cancer, pancytopenia who was admitted at [facility]. At that hospital she had a right sided epistaxis for which a balloon pack was placed. The patient was then transferred to [facility] hospitalist service for her epistaxis. 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 Upon arrival to [facility], she recieved PRBCs as well as platelets. She has not had any bleeding for the past 5 days ( since the pack was placed). Her platelet count this am was 67,000. She states that early this am the balloon pack came out on its on. She states she had some bleeding from the right side of the nose which stopped with pressure. Allergies Allergy/AdvReac Type Severity Reaction Status Date / Time ceftaroline fosamil Allergy Intermediate Hives Verified 12/30/19 20:45 [From Teflaro] Penicillins Allergy Intermediate Rash Verified 12/30/19 20:45 Home Medications Home Medications Medication Instructions Recorded Confirmed Type digoxin 125 mcg PO HS 07/25/19 12/30/19 History metoprolol succinate 50 mg PO QAM 07/25/19 12/30/19 History pantoprazole [Protonix] 40 mg PO QAM 07/25/19 12/30/19 History terazosin 5 mg PO HS 07/25/19 12/30/19 History albuterol sulfate 90 mcg/actuation 2 puffs INH Q4H PRN gm 08/21/19 12/30/19 History aerosol inhaler Tresiba FlexTouch U-100 16 unit SUBCUT HS 10/05/19 12/30/19 History ondansetron HCl 8 mg tablet 8 mg PO Q8H PRN 10/23/19 12/30/19 History Spiriva Respimat 2 puffs INH DAILY@1300 10/28/19 12/30/19 History oxycodone 10 mg PO .Q4-6H PRN 10/28/19 12/30/19 History insulin aspart U-100 100 unit/mL 12 units SUBCUT DAILY@0800,1200 ml 11/06/19 12/30/19 History (3 mL) subcutaneous pen insulin aspart U-100 100 unit/mL 18 units SQ DAILY@1700 ml 11/06/19 12/30/19 History (3 mL) subcutaneous pen torsemide 20 mg PO QAM 11/21/19 12/30/19 History clonidine HCl 0.1 mg PO BID #60 tab 11/25/19 12/30/19 Rx calcium carbonate-vitamin D3 1 cap PO QAM 12/20/19 12/30/19 History [Calcium 600 + D(3)] cholecalciferol (vitamin D3) 25 mcg PO BID 12/20/19 12/30/19 History [Vitamin D3] cyanocobalamin (vitamin B-12) 1,000 mcg PO QAM 12/20/19 12/30/19 History [Vitamin B-12] ferrous sulfate 325 mg PO BID 12/20/19 12/30/19 History magnesium chloride [Slow-Mag] 143 mg PO BID 12/20/19 12/30/19 History niacin (inositol niacinate) 1 cap PO QAM 12/20/19 12/30/19 History [Niacin Flush Free] simvastatin 40 mg PO HS 12/20/19 12/30/19 History warfarin See Rx Instructions .ROUTE .COMPLEX 12/20/19 12/30/19 History Patient History Medical History Afib CKD (chronic kidney disease) stage 4 Family history of premature CAD Goals of care, counseling/discussion History of tobacco abuse HLD (hyperlipidemia) Hypertension (Acute) Malignant neoplasm of upper lobe, right bronchus or lung (Chronic) Mitral stenosis Non-small cell lung cancer (NSCLC) PAD (peripheral artery disease) (Acute) Pericardial effusion presumed malignant from lung cancer Port-A-Cath in place Severe protein-calorie malnutrition SVC syndrome (Chronic) T2DM (type 2 diabetes mellitus) Traumatic wound (Acute) right leg - 11/04/19 Surgical History H/O valvuloplasty H/O: S/P arterial stent legs for PAD S/P tonsillectomy Family History Family/Other Coronary heart disease Father Cancer Heart disease Mother Diabetes Brother Heart disease Social History Smoking Status: Former smoker Age Quit Using Tobacco: 60; packs per day: 1; Second Hand Exposure: No; Hx Alcohol Use: No Hx Substance Use: No Preferred Language: Chinese Communication Ability: Effective Globe Changer Required: No Beliefs That Will Affect Care: None marital status: Current Living Situation: Spouse other: 1 daughter Feels Safe at Home: Yes Review of Systems Review of Systems: All systems reviewed & are unremarkable except as noted in HPI & below Physical Exam Physical Exam: PROCEDURE A "Bleed Arrest" absorbable pack was placed into the right nare without difficulty. The patient held pressure for 5 minutes. No active bleeding noted. Constitutional: WD/WN, vitals as above Eyes: PERRL, conjunctivae normal, anicteric sclerae ENMT: external ear and nose normal, oropharynx normal Old crusted blood noted in left nare. Some blood staining noted lining the septum in the right nare. No active bleeding noted in nose or on oropharyngeal wall. Neck: trachea midline, no thyromegaly Respiratory: normal respiratory effort Cardiovascular: Rate/Rhythm: regular rate Vessels: no JVD Skin: no rashes, warm and dry Neurologic: CN's II-XI intact bilaterally Results & Data ([facility]) Vital Signs (Past 12 Hours) Vital Signs Temp Pulse Pulse Resp BP BP Pulse Ox 01/03/20 07:22 36.5 C 80 19 169/70 H 100 01/03/20 04:24 36.3 C L 77 20 163/72 H 98 01/03/20 00:58 74 01/02/20 23:19 36.4 C L 75 16 150/68 H 100
[2020-01-03] MEDS ORDERED: FUROSEMIDE 20 MG in SYRINGE 0 ML IV ONE ×2 (11:00→16:15)
[2020-01-03] MEDS: UMECLIDINIUM BROMIDE 62.5MCG/BLISTER 7 PUFFS/INHALER INH SCH (12:32)
[2020-01-03] MEDS: ALBUTEROL HFA 8 GM INHALER INH PRN (15:02)
[2020-01-03] MEDS ORDERED: XOPENEX/ATROVENT 1.25mg/0.5MG NEB COMBO NEB SCH (19:00)
[2020-01-03] MEDS: LEVALBUTEROL 1.25MG/0.5ML NEB INH SCH (19:13)
[2020-01-03] MEDS: IPRATROPIUM BROMIDE NEB SOLN 0.02% 2.5 ML VIAL INH SCH (19:14)
[2020-01-03] MEDS: LORazepam 0.5 MG/1 ML VIAL IV PRN (19:45)
[2020-01-03] MEDS: DIGOXIN 0.125 MG TAB PO SCH (20:25)
[2020-01-03] MEDS: TERAZOSIN HCL 5 MG CAP PO SCH (20:26)
[2020-01-03] MEDS: SIMVASTATIN 40 MG TAB PO SCH (20:26)
[2020-01-03] MEDS: INSULIN GLARGINE SOLOSTAR 100 UNITS/ML 3 ML PEN SC SCH (20:38)
--- NOTE | 2020-01-03 21:17 | Hospitalist Progress Note ---
Date of Service January 03, 2020 Assessment & Plan (1) Acute and chronic respiratory failure with hypoxia: acute component 2nd to pulmonary edema/volume overload. cannot exclude infectious component either (aspiration pneumonia). cannot exclude aspiration of blood during nosebleed episode leading to acute hypoxic resp failure. typically on continuous NC O2 at home for chronic respiratory failure. acute component +/- minimally improved or similar. then had acute respiratory distress today -- bronchospasm? anxiety? PE? other? EKG obtained - no ischemic changes. continue levaquin - day #4. continue diuresis. may need repeat CT to determine status of lung ca and r/o PE as well. (2) Epistaxis: in setting of coumadin use and severe thrombocytopenia. s/p placement of rhinorocket in right nare at [facility] ER on day of admission (12/30/19). coumadin stopped. s/p platelet infusion earlier this admission. platelets trending into the 60s now. rhinorocket gone. Dr Erickson saw patient in consult today - placed absorbable material in right nare. no further epistaxis. cont to hold coumadin. (3) Acute blood loss anemia: 2nd to epistaxis. s/p PRBCs but with ?transfusion reaction and concern for TACO. H/H stable/acceptable again today cbc in am. (4) TACO (transfusion associated circulatory overload): concern for such earlier this admission. s/p diuresis. give additional diuresis once again today. (5) Acute diastolic CHF (congestive heart failure): ongoing. echo last month noted. LV function wnl. has malignant pericardial effusion - no evidence of clinical tamponade. may need higher dose of lasix for more effective diuresis. (6) Pancytopenia due to antineoplastic chemotherapy: chemotherapy under the direction of Dr Yoon. daily CBC. counts low but acceptable. (7) Traumatic wound: RLE. wound care consultation appreciated. cont local wound care. 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 consider repeat chest CT. (9) Non-small cell lung cancer (NSCLC): appreciate heme/onc consult by Dr Yoon appreciate palliative care consult very poor prognosis remains DNR, but patient not ready to transition to hospice repeat CT in am (10) Hypomagnesemia: resolved (11) CKD (chronic kidney disease): fluctuates stage 3-4 CrCl continues to improve with diuresis bmp am (12) Hypertension: cont home meds (13) T2DM (type 2 diabetes mellitus): cont lantus cont novolog acceptable control (14) Afib: remains in NSR paroxysmal cont digoxin; level 1.7 this admission cont metoprolol coumadin on hold for epistaxis and recent severe low platelets (15) Anxiety: ativan 0.25mg q6h prn consider buspar BID-TID standing (16) DVT prophylaxis: chemical means contraindicated due to severe epistaxis requiring rhinorocket placement, low platelets, etc updated 12/31 and 01/02 by phone continue PT/OT Admission and Anticipated Discharge Date Admission Date: December 30, 2019 Subjective patient seen twice today first visit was during am rounds her rhino rocket had "fallen out" sometime this am no epistaxis since the rocket was gone Dr Erickson saw her from ENT - placed additional absorbable packing this am he was happy with the nose still with significant GÓMEZ and episodes of dyspnea at rest along with orthopnea eating fair at best staff say no motivation to get OOB tele stable overnight 2nd visit was late afternoon patient had acute chest tightness and dyspnea no chest pain on exam she was very "tight" on lung exam ativan x 1 given albuterol given following albuterol airation was improved - extensive crackles heard again lasix again given Review of Systems Constitutional: + fatigue; no fever and no chills Respiratory: + dyspnea, + dyspnea on exertion and + wheezing; no cough and no hemoptysis Cardiovascular: as per Subjective / HPI; no edema Gastrointestinal: no abdominal pain, no nausea and no vomiting Physical Exam Constitutional: + acute distress (dyspnea, tachypnea - during 2nd visit ), + ill appearing and + frail appearing; no altered mental status ENMT: Nose: + external nose abnormality (rhino rocket absent ) Mouth: no oral mucosal abnormality Respiratory: + respiratory distress (during 2nd visit ), + retractions and + tachypneic Auscultation: + crackles (extensive b/l ) and + wheezes (end-exp) Cardiovascular: Rate/Rhythm: regular rate and regular rhythm Heart Sounds: normal S1, normal S2 and + murmur (2/6 systolic LSB) Vessels: + JVD, posterior tibial pulses present and dorsalis pedis pulses present Extremities: + edema (b/l arms from SVC syndrome - no change; no leg edema) Gastrointestinal (Abdomen): normal bowel sounds, soft, nontender, no h epatosplenomegaly Skin: + pallor Psychiatric: Orientation: alert and oriented x 3 Affect: + anxious affect Results & Data Results & Data ([facility]) Vital Signs (Past 12 Hours) Vital Signs Temp Pulse Pulse Resp BP BP Pulse Ox 01/03/20 20:25 96 H 01/03/20 20:00 36.6 C 86 26 H 152/71 H 99 01/03/20 19:17 80 16 98 01/03/20 16:00 79 01/03/20 14:46 36.4 C L 78 19 155/71 H 99 01/03/20 11:44 36.4 C L 76 20 155/71 H 100 Laboratory Results Laboratory Results - last 24 hr 01/03/20 01/03/20 01/03/20 06:47 07:44 07:44 WBC 2.26 L RBC 2.79 L Hgb 8.4 L Hct 24.8 L MCV 88.9 MCH 30.1 MCHC 33.9 RDW Std Deviation 46.8 H RDW Coeff of Epifanio 15.1 H Plt Count 67 L D MPV 10.3 Sodium 133 L Potassium 3.9 Chloride 98 Carbon Dioxide 29 Anion Gap 6.0 BUN 28 H Creatinine 1.39 H Est Cr Clr Drug Dosing 33.8 Est GFR ( Amer) 46.3 Est GFR (Non-Af Amer) 40.0 BUN/Creatinine Ratio 19.9 Glucose 124 H POC Glucose 133 H Calcium 8.0 L 01/03/20 01/03/20 01/03/20 11:28 16:22 20:31 WBC RBC Hgb Hct MCV MCH MCHC RDW Std Deviation RDW Coeff of Epifanio Plt Count MPV Sodium Potassium Chloride Carbon Dioxide Anion Gap BUN Creatinine Est Cr Clr Drug Dosing Est GFR ( Amer) Est GFR (Non-Af Amer) BUN/Creatinine Ratio Glucose POC Glucose 169 H 150 H 162 H Calcium PG Care Time/CCT Total # of Minutes Spent Total Time Spent with Patient: Total time spent is greater than 50% in coordination of care (as documented) at patient's floor/unit and/or counseling patient: Coding Level of Care Code 33202 Subseq Hosp Care Lvl 3 Diagnoses Acute and chronic respiratory failure with hypoxia J96.21 Epistaxis R04.0 Acute blood loss anemia D62 TACO (transfusion associated circulatory overload) E87.71 Acute diastolic CHF (congestive heart failure) I50.31 Pancytopenia due to antineoplastic chemotherapy D61.810; T45.1X5A Traumatic wound SVC syndrome I87.1 Non-small cell lung cancer (NSCLC) C34.91 Laterality: right Hypomagnesemia E83.42 CKD (chronic kidney disease) N18.4 Chronic kidney disease stage: stage 4 (severe) Hypertension I10 Hypertension type: essential hypertension T2DM (type 2 diabetes mellitus) E11.22; N18.4; Z79.4 Chronic kidney disease stage: stage 4 (severe) Diabetes mellitus complication detail: with chronic kidney disease Diabetes mellitus complication status: with kidney complications Diabetes mellitus intermediate card tender insulin use: with intermediate card tender use Afib I48.0 Atrial fibrillation type: paroxysmal Anxiety F41.9 DVT prophylaxis Z29.9 (1) T2DM (type 2 diabetes mellitus) Chronic kidney disease stage: stage 4 (severe) Diabetes mellitus complication detail: with chronic kidney disease Diabetes mellitus complication status: with kidney complications Diabetes mellitus intermediate card tender insulin use: with custodial use Qualified Code(s): E11.22 - Type 2 diabetes mellitus with diabetic chronic kidney disease; N18.4 - Chronic kidney disease, stage 4 (severe); Z79.4 - retirement (current) use of insulin (2) Afib Atrial fibrillation type: paroxysmal Qualified Code(s): I48.0 - Paroxysmal atrial fibrillation (3) CKD (chronic kidney disease) Chronic kidney disease stage: stage 4 (severe) Qualified Code(s): N18.4 - Chronic kidney disease, stage 4 (severe) (4) Non-small cell lung cancer (NSCLC) Laterality: right Qualified Code(s): C34.91 - Malignant neoplasm of unspecified part of right bronchus or lung (5) Hypertension Hypertension type: essential hypertension Qualified Code(s): I10 - Essential (primary) hypertension
[2020-01-04] MEDS: IPRATROPIUM BROMIDE NEB SOLN 0.02% 2.5 ML VIAL INH SCH ×4 (01:02→19:21)
[2020-01-04] MEDS: LEVALBUTEROL 1.25MG/0.5ML NEB INH SCH ×4 (01:03→19:21)
[2020-01-04 05:41] LABS: Hematocrit (blood only) 23.5 % (37-47); Hemoglobin 8.2 g/dL (12.0-16.0); Mean Corpuscular Hemoglobin 30.7 pg (25-34); Mean Corpuscular Hgb Conc 34.9 g/dL (32-36); RDW Coefficient of Variation 15.1 % (11.5-14.5); RDW Standard Deviation 45.5 fL (36.4-46.3); Red Blood Count 2.67 M/uL (4.2-5.4); White Blood Count 2.12 K/uL (4.8-10.8)
[2020-01-04 05:43] LABS: Mean Platelet Volume 9.5 fL (7.4-10.4); Platelet Count 69 K/uL (130-400)
[2020-01-04 06:01] LABS: Calcium 8.2 mg/dl (8.5-10.1); Creatinine Clr Calc Pharmacy 35.6 ml/min; Est GFR (African American) 49.3; Est GFR (Non-African American) 42.5; Potassium 3.9 mmol/L (3.5-5.1)
[2020-01-04] MEDS: CALCIUM 600MG + VIT D 400 IU TAB PO SCH (07:58)
[2020-01-04] MEDS: INSULIN ASPART 100 UNITS/ML 3 ML PEN SC SCH ×4 (08:00→20:35)
[2020-01-04] MEDS: PANTOprazole 40 MG TAB PO SCH (08:01)
[2020-01-04] MEDS: CHOLECALCIFEROL 1,000 UNITS 25 MCG TAB PO SCH ×2 (08:01→19:50)
[2020-01-04] MEDS: cloNIDine HCL 0.1 MG TAB PO SCH ×2 (08:01→19:49)
[2020-01-04] MEDS: FERROUS SULFATE 325 MG TAB PO SCH ×2 (08:02→19:48)
[2020-01-04] MEDS: ESCITALOPRAM OXALATE 10 MG TAB PO SCH (08:02)
[2020-01-04] MEDS: METOPROLOL SUCC 50MG EXT REL TAB PO SCH (08:02)
[2020-01-04] MEDS: CYANOCOBALAMIN 500 MCG TABLET (VITAMIN B-12) PO SCH (08:02)
[2020-01-04] MEDS: MAGNESIUM CHLORIDE 64MG DELAYED REL TAB PO SCH ×2 (08:02→19:50)
[2020-01-04] MEDS: OXYCODONE HCL IR 5 MG TAB (IMMEDIATE RELEASE) PO PRN ×2 (08:07→19:47)
--- NOTE | 2020-01-04 08:27 | Electrocardiogram Report ---
Test Reason : Blood Pressure : / mmHG Vent. Rate : 077 BPM Atrial Rate : 077 BPM P-R Int : 202 ms QRS Dur : 094 ms QT Int : 342 ms P-R-T Axes : 041 010 064 degrees QTc Int : 387 ms Sinus rhythm with occasional Premature ventricular complexes Incomplete right bundle branch block Poor R wave progression, consider anterior NM vs. lead placement vs. LVH Abnormal ECG When compared with ECG of 30-DEC-2019 20:18, Premature ventricular complexes are now Present OH interval has decreased Confirmed by Dudley Kwan ([id number]) on 01/04/2020 8:27:29 AM Referred By: REFERRED SELF Confirmed By:Dudley Kwan
[2020-01-04] MEDS ORDERED: FUROSEMIDE 40 MG in SYRINGE 0 ML IV ONE (08:40)
[2020-01-04] MEDS ORDERED: OPTIRAY 320 125ml IV PRN ×2 (09:14→09:27)
--- NOTE | 2020-01-04 09:51 | CT Scan Report ---
CT ANGIOGRAM OF THE CHEST CLINICAL HISTORY: Lung carcinoma. Shortness of breath. Possible pulmonary embolism. COMPARISON STUDY: 10/28/2019 TECHNIQUE: Following the IV administration of 120 mL of Optiray-320, CT angiogram of the thorax was p erformed from the thoracic inlet to the lung bases utilizing the pulmonary embolus protocol. Images a re reviewed in the axial, sagittal, and coronal planes. IV contrast was administered without complica tion. MIP imaging was performed. A dose lowering technique was utilized adhering to the principles o f ALARA. CT DOSE: 461.89 mGy.cm FINDINGS: There is a persistent right paratracheal mass/adenopathy with extension to the subcarinal region and right hilar region. There is evidence for SVC obstruction. SVC thrombus is visualized. Multiple colla teral veins are visualized. There was no evidence of thoracic aortic dilatation. There were no pulmonary artery filling defects to indicate acute pulmonary embolism. There are increasing bilateral pleural effusions right larger than left. Right lower lobe parenchymal opacities likely representing compressive atelectasis. There are patchy right upper lobe airspace opacities, possibly representing a pneumonia or post radiation change. Ther e is narrowing of the right upper lobe bronchus. A previously occluded right upper lobe segmental bro nchus is now patent IMPRESSION: 1. Slight interval decrease in the size of the right mediastinal and hilar mass. 2. Narrowing of the right upper lobe bronchus 3. Right upper lobe opacities, pneumonia versus post radiation change 3. Enlarging bilateral pleural effusions right greater than left 4. Right lower lobe consolidation, likely representing compressive atelectasis 5. Superior vena caval occlusion with thrombus and collateral flow 6. No evidence of acute pulmonary embolism ACT 112: Negative or not required by law. Electronically signed by: Fidencio Gonzalez M.D. 01/04/2020 9:50 AM
[2020-01-04] MEDS: ACETYLCYSTEINE 600 MG CAP PO SCH ×2 (10:58→19:48)
[2020-01-04] MEDS: UMECLIDINIUM BROMIDE 62.5MCG/BLISTER 7 PUFFS/INHALER INH SCH (12:46)
[2020-01-04] MEDS: LORazepam 0.5 MG TAB PO PRN (13:52)
--- NOTE | 2020-01-04 14:28 | Procedure Note ---
Procedure Note Date of Service January 04, 2020 Procedure: Diagnostic therapeutic ultrasound-guided catheter thoracentesis [facility] Staff: Dr. Jermaine Balderas Indication: Pleural effusion Consent: Signed by patient and verified with timeout prior to procedure Anesthesia: 8 mL's 1% lidocaine without epinephrine local. Procedure: Consent was verified and timeout performed. Appropriate imaging studies were reviewed prior to the procedure. Patient was placed in a seated position and limited thoracic ultrasound was performed of the bilateral chest. See separate imaging. Site appropriate for thoracentesis was selected. There was a small left-sided pleural effusion and a moderate-sized right-sided effusion with compressive atelectasis. The skin was prepped and draped in normal sterile fashion. Lidocaine was used for local analgesia. Fluid was aspirated via the finder needle. A small skin alannah was made with the scalpel and the catheter over the needle apparatus was advanced over the rib into the pleural space. Using the syringe one-way valve system, a total 650 of mL's of yellow slightly cloudy fluid was removed. Procedure was terminated due to inability to remove additional fluid. The catheter was removed and observed to be intact. A sterile dressing was applied. Post procedure chest x-ray was ordered. Fluid was sent for cytology, cell count differential, Gram stain and culture, pH, LDH, and total protein. The patient tolerated the procedure well without obvious complication Coding CPT Codes Pulmonary/Thoracic - Pulmonary and Thoracic: 27874 Thoracentesis w imaging ([id number]) [facility] [place] Procedure Codes (Charges) Pulmonary/Thoracic Procedure 1: Pulmonary and Thoracic: 99589 Thoracentesis w imaging
--- NOTE | 2020-01-04 14:51 | Pulmonary Consultation ---
Date of Consultation January 04, 2020 Assessment & Plan (1) Acute and chronic respiratory failure with hypoxia: Impression: 64-year-old female with advanced non-small cell lung cancer currently undergoing chemotherapy. She was admitted with epistaxis and thrombocytopenia and incidentally found to have an enlarging right pleural effusion which may be contributing to her hypoxemia and respiratory complaints. Recommendations: 1. Pleural effusion: Recommended the patient undergo diagnostic and therapeutic thoracentesis. This was accomplished at the bedside with removal of 650 mL's of pleural fluid. Follow-up chest x-ray is pending. Fluid will be sent for cytology as well as routine microbiologic and cytologic analysis. Would not recommend Pleurx catheter upfront. Would wait and see how quickly or if the pleural fluid were to reaccumulate and better characterize it. 2. Advanced non-small cell lung cancer: Continue management per medical oncology. 3. Hypoxemic respiratory failure: Multifactorial due to combinations of VQ mismatching and shunting with atelectatic lung. We will see how she does with pleural tapping. She likely will require continued supplemental oxygen which will need to be titrated to keep saturations at or above 88%. If the patient's chest x-ray does not demonstrate any pneumothorax, from pulmonary perspective she can be potentially dismissed from the hospital. She will need to follow-up with medical oncology and with her outpatient provider for follow-up of her pleural fluid studies. If the fluid were to rapidly reaccumulate and the patient was interested in palliative options, consideration for a Pleurx catheter may be appropriate. (2) Pleural effusion: (3) Abnormal CT scan of lung: History of Present Illness Attending Physician: Jamie Gifford History of Present Illness Asked by hospitalist to evaluate patient with pleural effusion and known metastatic non-small cell lung cancer. History is obtained from review electronic medical record as well as discussion with the patient at bedside. Patient is a 64-year-old female who was diagnosed with non-small cell lung cancer back in July. She has been treated with systemic chemotherapy. Please refer to medical oncology consultation notes for complete details regarding her chemotherapeutic course. We are consulted today because she had a CT scan which revealed an enlarging right-sided pleural effusion and we are consulted for potential management strategies. The patient was admitted to the hospital with epistaxis. She does have a history of grade 3 thrombocytopenia associated with her chemotherapy. ENT consultation was obtained here. Her epistaxis is resolved. The patient does complain of some shortness of breath. She is not coughing or expectorating phlegm. No fevers chills or night sweats. She has been seen by palliative care. Her CODE STATUS is DO NOT INTUBATE DO NOT RESUSCITATE. Allergies Allergy/AdvReac Type Severity Reaction Status Date / Time ceftaroline fosamil Allergy Intermediate Hives Verified 12/30/19 20:45 [From Teflaro] Penicillins Allergy Intermediate Rash Verified 12/30/19 20:45 Home Medications Home Medications Medication Instructions Recorded Confirmed Type digoxin 125 mcg PO HS 07/25/19 12/30/19 History metoprolol succinate 50 mg PO QAM 07/25/19 12/30/19 History pantoprazole [Protonix] 40 mg PO QAM 07/25/19 12/30/19 History terazosin 5 mg PO HS 07/25/19 12/30/19 History albuterol sulfate 90 mcg/actuation 2 puffs INH Q4H PRN gm 08/21/19 12/30/19 Hi story aerosol inhaler Tresiba FlexTouch U-100 16 unit SUBCUT HS 10/05/19 12/30/19 History ondansetron HCl 8 mg tablet 8 mg PO Q8H PRN 10/23/19 12/30/19 History Spiriva Respimat 2 puffs INH DAILY@1300 10/28/19 12/30/19 History oxycodone 10 mg PO .Q4-6H PRN 10/28/19 12/30/19 History insulin aspart U-100 100 unit/mL 12 units SUBCUT DAILY@0800,1200 ml 11/06/19 12/30/19 History (3 mL) subcutaneous pen insulin aspart U-100 100 unit/mL 18 units SQ DAILY@1700 ml 11/06/19 12/30/19 History (3 mL) subcutaneous pen torsemide 20 mg PO QAM 11/21/19 12/30/19 History clonidine HCl 0.1 mg PO BID #60 tab 11/25/19 12/30/19 Rx calcium carbonate-vitamin D3 1 cap PO QAM 12/20/19 12/30/19 History [Calcium 600 + D(3)] cholecalciferol (vitamin D3) 25 mcg PO BID 12/20/19 12/30/19 History [Vitamin D3] cyanocobalamin (vitamin B-12) 1,000 mcg PO QAM 12/20/19 12/30/19 History [Vitamin B-12] ferrous sulfate 325 mg PO BID 12/20/19 12/30/19 History magnesium chloride [Slow-Mag] 143 mg PO BID 12/20/19 12/30/19 History niacin (inositol niacinate) 1 cap PO QAM 12/20/19 12/30/19 History [Niacin Flush Free] simvastatin 40 mg PO HS 12/20/19 12/30/19 History warfarin See Rx Instructions .ROUTE .COMPLEX 12/20/19 12/30/19 History Patient History Medical History Afib CKD (chronic kidney disease) stage 4 Family history of premature CAD Goals of care, counseling/discussion History of tobacco abuse HLD (hyperlipidemia) Hypertension (Acute) Malignant neoplasm of upper lobe, right bronchus or lung (Chronic) Mitral stenosis Non-small cell lung cancer (NSCLC) PAD (peripheral artery disease) (Acute) Pericardial effusion presumed malignant from lung cancer Port-A-Cath in place Severe protein-calorie malnutrition SVC syndrome (Chronic) T2DM (type 2 diabetes mellitus) Traumatic wound (Acute) right leg - 11/04/19 Surgical History H/O valvuloplasty H/O: S/P arterial stent legs for PAD S/P tonsillectomy Family History Family/Other Coronary heart disease Father Cancer Heart disease Mother Diabetes Brother Heart disease Social History Smoking Status: Former smoker Age Quit Using Tobacco: 60; packs per day: 1; Second Hand Exposure: No; Hx Alcohol Use: No Hx Substance Use: No Preferred Language: Grenadian Communication Ability: Effective Log Brander Required: No Beliefs That Will Affect Care: None marital status: Current Living Situation: Spouse other: 1 daughter Feels Safe at Home: Yes Review of Systems Review of Systems: Please refer to H&P. No additions or deletions Physical Exam Constitutional: + acute distress (dyspnea, tachypnea - during 2nd visit ), + ill appearing and + frail appearing; no altered mental status ENMT: Nose: + external nose abnormality (rhino rocket absent ) Mouth: no oral mucosal abnormality Respiratory: + respiratory distress (during 2nd visit ), + retractions and + tachypneic Auscultation: + crackles (extensive b/l ) and + wheezes (end-exp) Cardiovascular: Rate/Rhythm: regular rate and regular rhythm Heart Sounds: normal S1, normal S2 and + murmur (2/6 systolic LSB) Vessels: + JVD, posterior tibial pulses present and dorsalis pedis pulses present Extremities: + edema (b/l arms from SVC syndrome - no change; no leg edema) Gastrointestinal (Abdomen): normal bowel sounds, soft, nontender, no hepatosplenomegaly Skin: + pallor Psychiatric: Orientation: alert and oriented x 3 Affect: + anxious affect Results & Data Results & Data ([facility]) Vital Signs (Past 12 Hours) Vital Signs Temp Pulse Pulse Resp BP BP Pulse Ox 01/04/20 13:14 78 20 99 01/04/20 11:08 36.4 C L 74 20 144/64 H 100 01/04/20 08:00 80 01/04/20 07:28 81 19 97 01/04/20 07:10 36.3 C L 81 20 134/66 96 01/04/20 03:05 36.4 C L 86 16 154/69 H 97 Laboratory Results 01/04/20 05:28 01/04/20 05:[address] angiogram of the chest performed today showed SVC obstruction with SVC thrombus and collateral veins with right paratracheal mass adenopathy. No evidence of pulmonary embolism. There was compressive atelectasis of the right lung with right greater than left pleural effusions. PG Care Time/CCT Total # of Minutes Spent Total Time Spent with Patient: Total time spent is greater than 50% in coordination of care (as documented) at patient's floor/unit and/or counseling patient: Coding Level of Care Code 50928 Inpt Consult Level 4 Diagnoses Acute and chronic respiratory failure with hypoxia J96.21 Pleural effusion J90 Abnormal CT scan of lung R91.8
--- NOTE | 2020-01-04 15:01 | XRay Report ---
XR chest 1V portable CLINICAL HISTORY: S/P Thoracentesis postthoracentesis COMPARISON STUDY: 01/02/2020 FINDINGS: Improved aeration right lung base post thoracentesis. No evidence for pneumothorax. Unchang ing small left effusion. IMPRESSION: No evidence for pneumothorax postthoracentesis. ACT 112: Negative or not required by law. The above report was generated using voice recognition software. It may contain grammatical, syntax or spelling errors. Electronically signed by: Cristo Soto M.D. 01/04/2020 3:00 PM
[2020-01-04 15:36] LABS: Appearance Pleural Fluid CLEAR; Basophils, Fluid 0 %; Color Pleural Fluid YELLOW; Eosinophils, Fluid 0 %; Lymphocytes, Fluid 21 %; Mono,Macrophage,Mesothelial 66 %; Neutrophils, Fluid 13 %; RBC Pleural Fluid (A) < 3000 /uL; Source Pleural Fluid RIGHT LUNG; WBC Pleural Fluid (A) 163 /uL
[2020-01-04] MEDS: DIGOXIN 0.125 MG TAB PO SCH (19:49)
[2020-01-04] MEDS: SIMVASTATIN 40 MG TAB PO SCH (19:49)
[2020-01-04] MEDS: TERAZOSIN HCL 5 MG CAP PO SCH (19:49)
[2020-01-04] MEDS: INSULIN GLARGINE SOLOSTAR 100 UNITS/ML 3 ML PEN SC SCH (20:35)
--- NOTE | 2020-01-04 21:04 | Hospitalist Progress Note ---
Date of Service January 04, 2020 Assessment & Plan (1) Pleural effusion: right. s/p thoracentesis. protein on fluid low and lite's criteria not met more c/w transudative effusion. [id number] await pathology to see if any malignant cells present. appreciate pulmonary consult and assistance. 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 as soon as ok with ENT to resume coumadin will do so. (4) Acute and chronic respiratory failure with hypoxia: acute component 2nd to pulmonary edema/volume overload, probable RUL pneumonia, effusion, etc. no PE seen today. cannot exclude aspiration of blood during nosebleed episode leading to acute hypoxic resp failure. typically on continuous NC O2 at home for chronic respiratory failure. acute component improving. continue levaquin - day #5. continue diuresis today then stop diuretics. (5) Epistaxis: in setting of coumadin use and severe thrombocytopenia. s/p placement of rhinorocket in right nare at [facility] ER on day of admission (12/30/19). coumadin stopped. s/p platelet infusion earlier this admission. platelets now in the 60s. rhinorocket gone. Dr Erickson saw patient in consult - placed absorbable material in right nare. no further epistaxis. cont to hold coumadin - need to ask Dr Erickson when coumadin can be resumed. platelets adequate. (6) Acute blood loss anemia: 2nd to epistaxis. s/p PRBCs earlier this admission but with ?transfusion reaction and concern for TACO. H/H stable/acceptable again today cbc in am. (7) TACO (transfusion associated circulatory overload): concern for such earlier this admission. s/p diuresis. give additional diuresis once again today then stop. (8) Acute diastolic CHF (congestive heart failure): suspect just about resolved. echo last month noted. LV function wnl. give lasix 1 more dose then stop. (9) Pancytopenia due to antineoplastic chemotherapy: chemotherapy under the direction of Dr Yoon. daily CBC. counts low but acceptable. (10) Traumatic wound: RLE. wound care consultation appreciated. cont local wound care. 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 repeat CT today w/ SVC thrombosis. (12) Non-small cell lung cancer (NSCLC): appreciate heme/onc consult by Dr Yoon appreciate palliative care consult very poor prognosis remains DNR, but patient not ready to transition to hospice CT findings noted today (13) Hypomagnesemia: resolved (14) CKD (chronic kidney disease): fluctuates stage 3-4 CrCl continues to improve & is stable bmp am (15) Hypertension: cont home meds (16) T2DM (type 2 diabetes mellitus): cont lantus cont novolog acceptable control (17) Afib: remains in NSR paroxysmal cont digoxin; level 1.7 this admission cont metoprolol coumadin on hold for epistaxis and recent severe low platelets (18) Anxiety: ativan 0.25mg q6h prn consider buspar BID-TID standing (19) DVT prophylaxis: chemical means contraindicated due to severe epistaxis requiring rhinorocket placement, low platelets, etc updated 12/31 and 01/02 by phone updated at bedside today continue PT/OT Admission and Anticipated Discharge Date Admission Date: December 30, 2019 Subjective saw patient following her thoracentesis. she was comfortable and breathing was stable. tele overnight wnl. at bedside - questions answered. overall feeling the best she has since admission. scant intermittent touches of blood from right nare. no significant cough. no further spells of acute dyspnea. does have GÓMEZ with walking to [place]. eating fair. no pain in chest or abdomen. Review of Systems Constitutional: + fatigue; no fever and no chills Respiratory: no hemoptysis Cardiovascular: + orthopnea and + paroxysmal nocturnal dyspnea; no chest pain Gastrointestinal: no abdominal pain, no nausea and no vomiting Physical Exam Constitutional: + ill appearing and + frail appearing; no acute distress and no altered mental status ENMT: Nose: + external nose abnormality (rhino rocket absent ) and + nasal mucous membrane abnormality (Scant old blood in R nare) Mouth: no oral mucosal abnormality Respiratory: no respiratory distress Auscultation: + crackles (b/l - worse on left; also present RUL ) Cardiovascular: Rate/Rhythm: regular rate and regular rhythm Heart Sounds: normal S1, normal S2 and + murmur (2/6 systolic LSB) Vessels: + JVD, posterior tibial pulses present and dorsalis pedis pulses present Extremities: + edema (b/l arms from SVC syndrome - no change; no leg edema) Gastrointestinal (Abdomen): normal bowel sounds, soft, nontender, no hepatosplenomegaly Skin: + pallor large wound R anterior diallo with yellow/thomas exudate; left foot, dorsum, with small clean-based ulceration Psychiatric: Orientation: alert and oriented x 3 Results & Data Results & Data ([facility]) Vital Signs (Past 12 Hours) Vital Signs Temp Pulse Pulse Resp BP BP Pulse Ox 01/04/20 19:49 36.5 C 90 88 20 167/73 H 98 01/04/20 19:21 74 18 98 01/04/20 16:00 36.7 C 78 20 152/70 H 100 01/04/20 13:14 78 20 99 01/04/20 11:08 36.4 C L 74 20 144/64 H 100 Laboratory Results Laboratory Results - last 24 hr 01/04/20 01/04/20 01/04/20 05:28 05:28 07:29 WBC 2.12 L RBC 2.67 L Hgb 8.2 L Hct 23.5 L MCV 88.0 MCH 30.7 MCHC 34.9 RDW Std Deviation 45.5 RDW Coeff of Epifanio 15.1 H Plt Count 69 L MPV 9.5 Sodium 137 Potassium 3.9 Chloride 102 Carbon Dioxide 31 Anion Gap 4.0 BUN 24 H Creatinine 1.32 H Est Cr Clr Drug Dosing 35.6 Est GFR ( Amer) 49.3 Est GFR (Non-Af Amer) 42.5 BUN/Creatinine Ratio 18.0 Glucose 91 POC Glucose 102 H Calcium 8.2 L Fluid Neutrophils % Fluid Lymphocytes % Fluid Eosinophils % Fluid Basophils % Fluid [place] % Pleural Fluid Source Pleural Color Pleural Appearance Pleural pH Pleural WBC Pleural RBC Pleural Total Protein Pleural LDH Pleural Glucose 01/04/20 01/04/20 01/04/20 11:30 15:53 20:10 WBC RBC Hgb Hct MCV MCH MCHC RDW Std Deviation RDW Coeff of Epifanio Plt Count MPV Sodium Potassium Chloride Carbon Dioxide Anion Gap BUN Creatinine Est Cr Clr Drug Dosing Est GFR ( Amer) Est GFR (Non-Af Amer) BUN/Creatinine Ratio Glucose POC Glucose 152 H 200 H 113 H Calcium Fluid Neutrophils % Fluid Lymphocytes % Fluid Eosinophils % Fluid Basophils % Fluid [place] % Pleural Fluid Source Pleural Color Pleural Appearance Pleural pH Pleural WBC Pleural RBC Pleural Total Protein Pleural LDH Pleural Glucose 01/04/20 01/04/20 01/04/20 Unknown Unknown Unknown WBC RBC Hgb Hct MCV MCH MCHC RDW Std Deviation RDW Coeff of Epifanio Plt Count MPV Sodium Potassium Chloride Carbon Dioxide Anion Gap BUN Creatinine Est Cr Clr Drug Dosing Est GFR ( Amer) Est GFR (Non-Af Amer) BUN/Creatinine Ratio Glucose POC Glucose Calcium Fluid Neutrophils % 13 Fluid Lymphocytes % 21 Fluid Eosinophils % 0 Fluid Basophils % 0 Fluid [place] % 66 Pleural Fluid Source RIGHT LUNG Pleural Color YELLOW Pleural Appearance CLEAR Pleural pH 7.45 H Pleural WBC 163 Pleural RBC < 3000 Pleural Total Protein 2.0 Pleural LDH 106 Pleural Glucose 169 PG Care Time/CCT Total # of Minutes Spent Total Time Spent with Patient: Total time spent is greater than 50% in coordination of care (as documented) at patient's floor/unit and/or counseling patient: Coding Level of Care Code 64944 Subseq Hosp Care Lvl 3 Diagnoses Pleural effusion J90 Pneumonia J18.9 Pneumonia type: due to unspecified organism Laterality: right Lung location: upper lobe of lung Superior vena cava thrombosis I82.210 Acute and chronic respiratory failure with hypoxia J96.21 Epistaxis R04.0 Acute blood loss anemia D62 TACO (transfusion associated circulatory overload) E87.71 Acute diastolic CHF (congestive heart failure) I50.31 Pancytopenia due to antineoplastic chemotherapy D61.810; T45.1X5A Traumatic wound SVC syndrome I87.1 Non-small cell lung cancer (NSCLC) C34.91 Laterality: right Hypomagnesemia E83.42 CKD (chronic kidney disease) N18.4 Chronic kidney disease stage: stage 4 (severe) Hypertension I10 Hypertension type: essential hypertension T2DM (type 2 diabetes mellitus) E11.22; N18.4; Z79.4 Chronic kidney disease stage: stage 4 (severe) Diabetes mellitus complication detail: with chronic kidney disease Diabetes mellitus complication status: with kidney complications Diabetes mellitus senior care insulin use: with terminal makeup operator use Afib I48.0 Atrial fibrillation type: paroxysmal Anxiety F41.9 DVT prophylaxis Z29.9 (1) T2DM (type 2 diabetes mellitus) Chronic kidney disease stage: stage 4 (severe) Diabetes mellitus complication detail: with chronic kidney disease Diabetes mellitus complication status: with kidney complications Diabetes mellitus senior care insulin use: with terminal makeup operator use Qualified Code(s): E11.22 - Type 2 diabetes mellitus with diabetic chronic kidney disease; N18.4 - Chronic kidney disease, stage 4 (severe); Z79.4 - terminal operations manager (current) use of insulin (2) Afib Atrial fibrillation type: paroxysmal Qualified Code(s): I48.0 - Paroxysmal atrial fibrillation (3) CKD (chronic kidney disease) Chronic kidney disease stage: stage 4 (severe) Qualified Code(s): N18.4 - Chronic kidney disease, stage 4 (severe) (4) Non-small cell lung cancer (NSCLC) Laterality: right Qualified Code(s): C34.91 - Malignant neoplasm of unspecified part of right bronchus or lung (5) Hypertension Hypertension type: essential hypertension Qualified Code(s): I10 - Essential (primary) hypertension (6) Pneumonia Pneumonia type: due to unspecified organism Laterality: right Lung location: upper lobe of lung Qualified Code(s): J18.9 - Pneumonia, unspecified organism
[2020-01-05] MEDS: LEVALBUTEROL 1.25MG/0.5ML NEB INH SCH ×4 (00:26→19:41)
[2020-01-05] MEDS: IPRATROPIUM BROMIDE NEB SOLN 0.02% 2.5 ML VIAL INH SCH ×4 (00:27→19:40)
[2020-01-05 07:40] LABS: Hematocrit (blood only) 24.3 % (37-47); Hemoglobin 8.4 g/dL (12.0-16.0); Mean Corpuscular Hemoglobin 30.9 pg (25-34); Mean Corpuscular Hgb Conc 34.6 g/dL (32-36); Mean Corpuscular Volume 89.3 fL (80-100); Mean Platelet Volume 9.7 fL (7.4-10.4); Platelet Count 105 K/uL (130-400); RDW Coefficient of Variation 15.6 % (11.5-14.5); RDW Standard Deviation 47.6 fL (36.4-46.3); Red Blood Count 2.72 M/uL (4.2-5.4); White Blood Count 2.26 K/uL (4.8-10.8)
[2020-01-05 07:41] LABS: BUN Creatinine Ratio 15.6 (10-20); Calcium 8.4 mg/dl (8.5-10.1); Creatinine Clr Calc Pharmacy 29.9 ml/min; Est GFR (Non-African American) 34.5; Magnesium 1.7 mg/dl (1.8-2.4); Potassium 4.1 mmol/L (3.5-5.1)
[2020-01-05 07:46] LABS: RBC Morphology Unremarkable
[2020-01-05 07:50] LABS: ANC (manual) 1.64 K/uL (1.4-6.5); Basophils # (manual) 0.02 K/uL (0-0.2); Basophils % (manual) 0.9 %; Blast # (manual) 0.02 K/uL (0-0); Blast Cells % (manual) 0.9 %; Eosinophils # (manual) 0.02 K/uL (0-0.5); Eosinophils % (manual) 0.9 %; Lymphocytes % (manual) 8.8 %; Monocytes # (manual) 0.36 K/uL (0.11-0.59); Monocytes % (manual) 15.8 %; Neutrophils # (manual) 1.64 K/uL (1.4-6.5); Neutrophils % (manual) 72.7 %
[2020-01-05] MEDS ORDERED: MAGNESIUM SULFATE / D5W 1 GM/100 ML BAG IV ONE (08:00)
[2020-01-05] MEDS ORDERED: SODIUM CHLORIDE 0.65% NA SOLN 45 ML (OCEAN) PRN (08:33)
[2020-01-05] MEDS: CALCIUM 600MG + VIT D 400 IU TAB PO SCH (08:33)
[2020-01-05] MEDS: INSULIN ASPART 100 UNITS/ML 3 ML PEN SC SCH ×4 (08:35→21:03)
[2020-01-05] MEDS: FERROUS SULFATE 325 MG TAB PO SCH ×2 (08:36→21:00)
[2020-01-05] MEDS: cloNIDine HCL 0.1 MG TAB PO SCH ×2 (08:36→21:00)
[2020-01-05] MEDS: CHOLECALCIFEROL 1,000 UNITS 25 MCG TAB PO SCH ×2 (08:36→21:05)
[2020-01-05] MEDS: PANTOprazole 40 MG TAB PO SCH (08:36)
[2020-01-05] MEDS: OXYCODONE HCL IR 5 MG TAB (IMMEDIATE RELEASE) PO PRN ×2 (08:36→17:09)
[2020-01-05] MEDS: ACETYLCYSTEINE 600 MG CAP PO SCH ×2 (08:36→21:02)
[2020-01-05] MEDS: MAGNESIUM CHLORIDE 64MG DELAYED REL TAB PO SCH ×2 (08:36→21:04)
[2020-01-05] MEDS: ESCITALOPRAM OXALATE 10 MG TAB PO SCH (08:36)
[2020-01-05] MEDS: METOPROLOL SUCC 50MG EXT REL TAB PO SCH (08:36)
[2020-01-05] MEDS: CYANOCOBALAMIN 500 MCG TABLET (VITAMIN B-12) PO SCH (08:37)
--- NOTE | 2020-01-05 11:38 | Pulmonology Progress Note ---
Date of Service January 05, 2020 Assessment & Plan (1) Acute and chronic respiratory failure with hypoxia: Impression: 64-year-old female with advanced non-small cell lung cancer currently undergoing chemotherapy. She was admitted with epistaxis and thrombocytopenia and incidentally found to have an enlarging right pleural effusion which may be contributing to her hypoxemia and respiratory complaints. Recommendations: 1. Pleural effusion: S/P diagnostic and therapeutic thoracentesis 01/04/2020. Would wait to place Pleurx catheter and see how quickly the pleural fluid reaccumulates. There is no growth on the culture and the AFB as well as the cytology results are pending. Continue supportive care 2. Advanced non-small cell lung cancer: Continue management per medical oncology. 3. Hypoxemic respiratory failure: SOB somewhat improved subjectively per patient account. Multifactorial due to combinations of VQ mismatching and shunting with atelectatic lung. We will see how she does with pleural tapping. She likely will require continued supplemental oxygen which will need to be titrated to keep saturations at or above 88%. From a pulmonary perspective she can be discharged from the hospital. She will need to follow-up with medical oncology and with her outpatient provider for follow-up of her pleural fluid studies. If the fluid were to rapidly reaccumulate and the patient was interested in palliative options, consideration for a Pleurx catheter may be appropriate for placement as an outpatient. Thank you for including us in the care of this patient. We will sign off at this time. Please feel free to reconsult as needed. (2) Pleural effusion: (3) Abnormal CT scan of lung: Admission and Anticipated Discharge Date Admission Date: December 30, 2019 Subjective Attending: Dr. Balderas Patient seen and examined at bedside. She reports that her breathing is slightly improved since having a thoracentesis performed yesterday. She denies any fever or cough. She does report localized tenderness at the insertion site of the thoracentesis catheter with no bleeding. Nursing reports no significant events overnight. Patient does report that she is having oozing from her right nostril from previous epistaxis. She has no pain. She has no other acute complaints. Review of Systems Review of Systems: All systems reviewed & are unremarkable except as noted in HPI & below Physical Exam Physical Exam: GENERAL : No acute distress EYES: No icterus, gaze conjugate NOSE: No evidence of epistaxis. Nasal cannula is in place MOUTH: No lesions or candidiasis NECK: Supple LUNGS: Decreased breath sounds at the right base. She has some very fine crack les bibasilarly. No bronchospasm or rhonchi appreciated. HEART: Regular, rate controlled ABDOMEN: Soft, NT, ND, BS Present EXTREMITIES: No LE edema, pedal pulses intact NEURO: A&OX3 Results & Data Results & Data ([facility]) Vital Signs (Past 12 Hours) Vital Signs Temp Pulse Resp BP Pulse Ox 01/05/20 11:24 36.4 C L 76 19 143/67 H 100 01/05/20 09:24 36.4 C L 83 19 154/71 H 99 01/05/20 07:00 80 20 97 01/05/20 03:28 36.4 C L 76 16 159/63 H 96 01/05/20 00:27 71 18 98 Laboratory Results 01/05/20 06:36 01/05/20 06:36 Diagnostic Findings Last CXR 01/04/2020 PG Care Time/CCT Total # of Minutes Spent Total Time Spent with Patient: Total time spent is greater than 50% in assistant cook rdination of care (as documented) at patient's floor/unit and/or counseling patient: 20 minutes Coding Level of Care Code 28372 Subseq Hosp Care Lvl 1 Diagnoses Acute and chronic respiratory failure with hypoxia J96.21 Pleural effusion J90 Abnormal CT scan of lung R91.8 Time Spent (min) 20
[2020-01-05] MEDS: levoFLOXacin 750 MG TAB PO SCH (12:14)
[2020-01-05] MEDS: UMECLIDINIUM BROMIDE 62.5MCG/BLISTER 7 PUFFS/INHALER INH SCH (12:15)
[2020-01-05] MEDS: LORazepam 0.5 MG TAB PO PRN (14:49)
[2020-01-05] MEDS: POLYETHYLENE (MIRALAX) 17 GM PACK PO SCH (14:56)
[2020-01-05] MEDS: SENNA 8.6 MG TAB PO SCH (14:56)
[2020-01-05] MEDS: ALBUTEROL HFA 8 GM INHALER INH PRN (17:21)
[2020-01-05] MEDS: TERAZOSIN HCL 5 MG CAP PO SCH (21:01)
[2020-01-05] MEDS: DIGOXIN 0.125 MG TAB PO SCH (21:02)
[2020-01-05] MEDS: SIMVASTATIN 40 MG TAB PO SCH (21:05)
[2020-01-05] MEDS: INSULIN GLARGINE SOLOSTAR 100 UNITS/ML 3 ML PEN SC SCH (21:06)
[2020-01-05] MEDS: LORazepam 0.5 MG/1 ML VIAL IV PRN (21:18)
--- NOTE | 2020-01-05 22:07 | Hospitalist Progress Note ---
Date of Service January 05, 2020 Assessment & Plan (1) Pleural effusion: right. s/p thoracentesis. protein on fluid low and lite's criteria not met more c/w transudative effusion. culture negative. path neg for malignant cells. appreciate pulmonary consult and assistance. 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 likely resume coumadin tomorrow. (4) Acute and chronic respiratory failure with hypoxia: acute component 2nd to pulmonary edema/volume overload, probable RUL pneumonia, effusion, etc. no PE on CTA. cannot exclude aspiration of blood during nosebleed episode leading to acute hypoxic resp failure. typically on continuous NC O2 at home for chronic respiratory failure. acute component improving. continue levaquin - day 6 of 7. no further diuretics. (5) Epistaxis: in setting of coumadin use and severe thrombocytopenia. s/p placement of rhinorocket in right nare at [facility] ER on day of admission (12/30/19). coumadin stopped. s/p platelet infusion earlier this admission. platelets now >100, rhinorocket gone. Dr Erickson saw patient in consult - placed absorbable material in right nare. no further epistaxis. cont to hold coumadin - likely resume tomorrow. (6) Acute blood loss anemia: 2nd to epistaxis. s/p PRBCs earlier this admission but with ?transfusion reaction and concern for TACO. H/H stable/acceptable again today cbc in am. (7) TACO (transfusion associated circulatory overload): concern for such earlier this admission. s/p diuresis and resolved. (8) Acute diastolic CHF (congestive heart failure): resolved. echo last month noted. LV function wnl. hold further diuretics. (9) Pancytopenia due to antineoplastic chemotherapy: chemotherapy under the direction of Dr Yoon. daily CBC. counts low but acceptable. Dr Yoon aware of blasts seen on differential today. (10) Traumatic wound: RLE. wound care consultation appreciated. cont local wound care. 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 now with SVC thrombosis. (12) Non-small cell lung cancer (NSCLC): appreciate heme/onc consult by Dr Yoon appreciate palliative care consult very poor prognosis remains DNR, but patient not ready to transition to hospice Dr Yoon following (13) Hypomagnesemia: mag sulfate 1gm x 1 (14) CKD (chronic kidney disease): fluctuates stage 3-4 Cr slightly higher than yesterday finish mucomyst course for renal protection in setting of CKD and CT contrast given yesterday BMP am (15) Hypertension: cont home meds (16) T2DM (type 2 diabetes mellitus): cont lantus cont novolog acceptable control (17) Afib: remains in NSR paroxysmal cont digoxin; level 1.7 this admission cont metoprolol coumadin on hold for epistaxis (18) Anxiety: ativan 0.25mg q6h prn consider buspar BID-TID standing (19) DVT prophylaxis: chemical means contraindicated due to severe epistaxis requiring rhinorocket placement, low platelets, etc platelets now improved; no further epistaxis; may be able to resume coumadin tomorrow if stable updated 12/31 and 01/02 by phone updated at bedside 01/03 continue PT/OT hopefully d/c home this weekend Admission and Anticipated Discharge Date Admission Date: December 30, 2019 Subjective patient feeling the best she has been since admission. oxymask slowly being weaned down. no cough. no dyspnea spells. no chest pain. minimal amounts of blood per right nare. Review of Systems Constitutional: no fever Cardiovascular: no chest pain, no orthopnea, no paroxysmal nocturnal dyspnea and no edema Gastrointestinal: no abdominal pain Physical Exam Constitutional: + ill appearing and + frail appearing; no acute distress and no altered mental status ENMT: Nose: + external nose abnormality (rhino rocket absent ) and + nasal mucous membrane abnormality (Scant old blood in R nare) Mouth: no oral mucosal abnormality Respiratory: no respiratory distress Auscultation: + crackles (b/l bases (posterior); RUL (anterior)) Cardiovascular: Rate/Rhythm: regular rate and regular rhythm Heart Sounds: normal S1, normal S2 and + murmur (2/6 systolic LSB) Vessels: + JVD, posterior tibial pulses present and dorsalis pedis pulses present Extremities: + edema (b/l arms from SVC syndrome - no change; no leg edema) Gastrointestinal (Abdomen): normal bowel sounds, soft, nontender, no hepatosplenomegaly Skin: + pallor right diallo dressings in place Psychiatric: Orientation: alert and oriented x 3 Results & Data Results & Data ([facility]) Vital Signs (Past 12 Hours) Vital Signs Temp Pulse Resp BP BP Pulse Ox 01/05/20 20:00 36.7 C 82 20 167/73 H 100 01/05/20 19:42 76 20 99 01/05/20 17:21 74 20 99 01/05/20 15:27 36.4 C L 82 20 130/69 98 01/05/20 13:33 74 20 99 01/05/20 11:24 36.4 C L 76 19 143/67 H 100 Laboratory Results Laboratory Results - last 24 hr 01/05/20 01/05/20 01/05/20 06:36 06:36 07:21 WBC 2.26 L RBC 2.72 L Hgb 8.4 L Hct 24.3 L MCV 89.3 MCH 30.9 MCHC 34.6 RDW Std Deviation 47.6 H RDW Coeff of Epifanio 15.6 H Plt Count 105 L D MPV 9.7 Neutrophils % (Manual) 72.7 Lymphocytes % (Manual) 8.8 Monocytes % (Manual) 15.8 Eosinophils % (Manual) 0.9 Basophils % (Manual) 0.9 Blast Cells % (Manual) 0.9 Neutrophils # (Manual) 1.64 Total Absolute Neuts 1.64 Lymphocytes # (Manual) 0.20 L Total Abs Lymphocytes 0.20 L Monocytes # (Manual) 0.36 Eosinophils # (Manual) 0.02 Basophils # (Manual) 0.02 Blast Cells # (Man) 0.02 H Blood Smear Review RBC Morphology Unremarkable Sodium 134 L Potassium 4.1 Chloride 100 Carbon Dioxide 29 Anion Gap 5.0 BUN 25 H Creatinine 1.57 H Est Cr Clr Drug Dosing 29.9 Est GFR ( Amer) 40.0 Est GFR (Non-Af Amer) 34.5 BUN/Creatinine Ratio 15.6 Glucose 75 POC Glucose 93 Calcium 8.4 L Magnesium 1.7 L 01/05/20 01/05/20 01/05/20 11:21 15:46 20:16 WBC RBC Hgb Hct MCV MCH MCHC RDW Std Deviation RDW Coeff of Epifanio Plt Count MPV Neutrophils % (Manual) Lymphocytes % (Manual) Monocytes % (Manual) Eosinophils % (Manual) Basophils % (Manual) Blast Cells % (Manual) Neutrophils # (Manual) Total Absolute Neuts Lymphocytes # (Manual) Total Abs Lymphocytes Monocytes # (Manual) Eosinophils # (Manual) Basophils # (Manual) Blast Cells # (Man) Blood Smear Review RBC Morphology Sodium Potassium Chloride Carbon Dioxide Anion Gap BUN Creatinine Est Cr Clr Drug Dosing Est GFR ( Amer) Est GFR (Non-Af Amer) BUN/Creatinine Ratio Glucose POC Glucose 160 H 135 H 94 Calcium Magnesium PG Care Time/CCT Total # of Minutes Spent Total Time Spent with Patient: Total time spent is greater than 50% in coordination of care (as documented) at patient's floor/unit and/or counseling patient: Coding Level of Care Code 32542 Subseq Hosp Care Lvl 3 Diagnoses Pleural effusion J90 Pneumonia J18.9 Laterality: right Lung location: upper lobe of lung Pneumonia type: due to unspecified organism Superior vena cava thrombosis I82.210 Acute and chronic respiratory failure with hypoxia J96.21 Epistaxis R04.0 Acute blood loss anemia D62 TACO (transfusion associated circulatory overload) E87.71 Acute diastolic CHF (congestive heart failure) I50.31 Pancytopenia due to antineoplastic chemotherapy D61.810; T45.1X5A Traumatic wound SVC syndrome I87.1 Non-small cell lung cancer (NSCLC) C34.91 Laterality: right Hypomagnesemia E83.42 CKD (chronic kidney disease) N18.4 Chronic kidney disease stage: stage 4 (severe) Hypertension I10 Hypertension type: essential hypertension T2DM (type 2 diabetes mellitus) E11.22; N18.4; Z79.4 Chronic kidney disease stage: stage 4 (severe) Diabetes mellitus complication detail: with chronic kidney disease Diabetes mellitus complication status: with kidney complications Diabetes mellitus fdc insulin use: with fdc use Afib I48.0 Atrial fibrillation type: paroxysmal Anxiety F41.9 DVT prophylaxis Z29.9 (1) T2DM (type 2 diabetes mellitus) Chronic kidney disease stage: stage 4 (severe) Diabetes mellitus complication detail: with chronic kidney disease Diabetes mellitus complication status: with kidney complications Diabetes mellitus fdc insulin use: with fdc use Qualified Code(s): E11.22 - Type 2 diabetes mellitus with diabetic chronic kidney disease; N18.4 - Chronic kidney disease, stage 4 (severe); Z79.4 - jail (current) use of insulin (2) Afib Atrial fibrillation type: paroxysmal Qualified Code(s): I48.0 - Paroxysmal atrial fibrillation (3) CKD (chronic kidney disease) Chronic kidney disease stage: stage 4 (severe) Qualified Code(s): N18.4 - Chronic kidney disease, stage 4 (severe) (4) Non-small cell lung cancer (NSCLC) Laterality: right Qualified Code(s): C34.91 - Malignant neoplasm of unspecified part of right bronchus or lung (5) Hypertension Hypertension type: essential hypertension Qualified Code(s): I10 - Essential (primary) hypertension (6) Pneumonia Laterality: right Lung location: upper lobe of lung Pneumonia type: due to unspecified organism Qualified Code(s): J18.9 - Pneumonia, unspecified organism
[2020-01-06] MEDS: LEVALBUTEROL 1.25MG/0.5ML NEB INH SCH ×4 (00:48→19:16)
[2020-01-06] MEDS: IPRATROPIUM BROMIDE NEB SOLN 0.02% 2.5 ML VIAL INH SCH ×4 (00:48→19:16)
[2020-01-06] MEDS: LORazepam 0.5 MG TAB PO PRN ×2 (06:24→18:46)
[2020-01-06 07:00] LABS: Hematocrit (blood only) 21.7 % (37-47); Hemoglobin 7.7 g/dL (12.0-16.0); Mean Corpuscular Hemoglobin 31.7 pg (25-34); Mean Corpuscular Hgb Conc 35.5 g/dL (32-36); Mean Corpuscular Volume 89.3 fL (80-100); Mean Platelet Volume 9.3 fL (7.4-10.4); Platelet Count 109 K/uL (130-400); RDW Coefficient of Variation 15.5 % (11.5-14.5); Red Blood Count 2.43 M/uL (4.2-5.4); White Blood Count 2.03 K/uL (4.8-10.8)
[2020-01-06 07:30] LABS: Calcium 8.2 mg/dl (8.5-10.1); Creatinine Clr Calc Pharmacy 22.2 ml/min; Est GFR (African American) 27.8; Potassium 4.3 mmol/L (3.5-5.1)
[2020-01-06] MEDS: cloNIDine HCL 0.1 MG TAB PO SCH ×2 (07:56→21:32)
[2020-01-06] MEDS: POLYETHYLENE (MIRALAX) 17 GM PACK PO SCH (07:56)
[2020-01-06] MEDS: PANTOprazole 40 MG TAB PO SCH (07:57)
[2020-01-06] MEDS: CALCIUM 600MG + VIT D 400 IU TAB PO SCH (07:57)
[2020-01-06] MEDS: METOPROLOL SUCC 50MG EXT REL TAB PO SCH (07:57)
[2020-01-06] MEDS: MAGNESIUM CHLORIDE 64MG DELAYED REL TAB PO SCH ×2 (07:57→21:31)
[2020-01-06] MEDS: ESCITALOPRAM OXALATE 10 MG TAB PO SCH (07:57)
[2020-01-06] MEDS: FERROUS SULFATE 325 MG TAB PO SCH ×2 (07:58→21:31)
[2020-01-06] MEDS: SENNA 8.6 MG TAB PO SCH (07:58)
[2020-01-06] MEDS: CHOLECALCIFEROL 1,000 UNITS 25 MCG TAB PO SCH ×2 (07:58→21:30)
--- NOTE | 2020-01-06 08:07 | Pulmonology Progress Note ---
Date of Service January 06, 2020 Assessment & Plan (1) Acute and chronic respiratory failure with hypoxia: Impression: 64-year-old female with advanced non-small cell lung cancer currently undergoing chemotherapy. She was admitted with epistaxis and thrombocytopenia and incidentally found to have an enlarging right pleural effusion. She underwent thoracentesis with some improvement in her symptoms. Fluid was borderline and had negative cytology. Recommendations: 1. Pleural effusion: S/P diagnostic and therapeutic thoracentesis 01/04/2020. Likely multifactorial. Cannot rule out para malignant etiology. Diuresis as tolerated. SVC syndrome could be. Would not recommend Pleurx catheter unless the patient is completely palliative. 2. Advanced non-small cell lung cancer: Continue management per medical oncology. 3. Hypoxemic respiratory failure: Wean oxygen as tolerated. From a pulmonary perspective she can be discharged from the hospital. She will need to follow-up with medical oncology and with her outpatient provider for follow-up of her pleural fluid studies. If the fluid were to rapidly reaccumulate and the patient was interested in palliative options, consideration for a Pleurx catheter may be appropriate for placement as an outpatient. Call if we can be of additional assistance. (2) Pleural effusion: (3) Abnormal CT scan of lung: Admission and Anticipated Discharge Date Admission Date: December 30, 2019 Subjective Patient seen and examined. She reports her breathing is good this morning but she did have an episode last evening which required Ativan. She is not coughing or expectorating phlegm. She thinks her breathing is slightly better after draining the pleural fluid. Review of Systems Review of Systems: unchanged from prior Physical Exam Constitutional: + ill appearing and + frail appearing; no altered mental status ENMT: Nose: + external nose abnormality (rhino rocket absent ) Mouth: no oral mucosal abnormality Respiratory: + respiratory distress (during 2nd visit ), + retractions and + tachypneic Auscultation: + crackles (extensive b/l ) and + wheezes (end-exp) Cardiovascular: Rate/Rhythm: regular rate and regular rhythm Heart Sounds: normal S1, normal S2 and + murmur (2/6 systolic LSB) Vessels: + JVD, posterior tibial pulses present and dorsalis pedis pulses present Extremities: + edema (b/l arms from SVC syndrome - no change; no leg edema) Gastrointestinal (Abdomen): normal bowel sounds, soft, nontender, no hepatosplenomegaly Skin: + pallor Psychiatric: Orientation: alert and oriented x 3 Affect: + anxious affect Results & Data Results & Data ([facility]) Vital Signs (Past 12 Hours) Vital Signs Temp Pulse Pulse Pulse Resp BP BP 01/06/20 07:42 79 18 01/06/20 07:17 82 01/06/20 07:14 36.6 C 81 20 179/71 H 01/06/20 03:45 36.7 C 78 19 150/70 H 01/06/20 01:57 36.6 C 76 18 171/73 H 01/06/20 00:48 72 14 01/06/20 00:13 73 20 172/73 H 01/05/20 23:59 36.5 C 77 19 190/76 H 01/05/20 23:06 79 Pulse Ox 01/06/20 07:42 98 01/06/20 07:17 01/06/20 07:14 98 01/06/20 03:45 98 01/06/20 01:57 99 01/06/20 00:48 97 01/06/20 00:13 100 01/05/20 23:59 98 01/05/20 23:06 Laboratory Results 01/06/20 05:59 01/06/20 05:59 Pleural fluid cytology negative Diagnostic Findings No new imaging PG Care Time/CCT Total # of Minutes Spent Total Time Spent with Patient: Total time spent is greater than 50% in coordination of care (as documented) at patient's floor/unit and/or counseling patient: Coding Level of Care Code 57154 Subseq Hosp Care Lvl 2 Diagnoses Acute and chronic respiratory failure with hypoxia J96.21 Pleural effusion J90 [address] CT scan of lung R91.8
[2020-01-06] MEDS: CYANOCOBALAMIN 500 MCG TABLET (VITAMIN B-12) PO SCH (08:21)
[2020-01-06] MEDS: INSULIN ASPART 100 UNITS/ML 3 ML PEN SC SCH ×4 (08:29→21:33)
[2020-01-06] MEDS ORDERED: SODIUM CHLORIDE 0.9% 500 ML IV SCH (08:45)
[2020-01-06] MEDS: LORazepam 0.5 MG/1 ML VIAL IV PRN (11:54)
[2020-01-06] MEDS: UMECLIDINIUM BROMIDE 62.5MCG/BLISTER 7 PUFFS/INHALER INH SCH (14:03)
[2020-01-06] MEDS ORDERED: METOPROLOL TARTRATE 1 MG/ML VIAL IV STA (17:37)
[2020-01-06] MEDS: MUPIROCIN 2% OINT 22 GM TUBE EXT SCH ×2 (18:35→21:33)
[2020-01-06] MEDS ORDERED: MoRPHine SULFATE 2 MG/ML CARP IV STA (19:52)
[2020-01-06] MEDS ORDERED: SODIUM CHLORIDE 0.9% 250 ML IV PRN (20:29)
--- NOTE | 2020-01-06 20:30 | Hospitalist Progress Note ---
Date of Service January 06, 2020 Assessment & Plan (1) Epistaxis: in setting of coumadin use and severe thrombocytopenia. s/p placement of rhinorocket in right nare at [facility] ER on day of admission (12/30/19). coumadin stopped. s/p platelet infusion earlier this admission. platelets now >100, rhinorocket gone. Dr Erickson saw patient in consult - placed absorbable material in right nare. recurrent epistaxis - this time left nare. fortunately it spontaneously resolved cont to hold coumadin CBC in am bactroban b/l nares TID frequent saline spray to nose humidy her O2 (2) Hyponatremia: 2nd acute kidney injury bmp am (3) Acute kidney injury: 2nd to diuresis? 2nd to CT contrast? other? BMP am (4) Pleural effusion: right. s/p thoracentesis. protein on fluid low and lite's criteria not met more c/w transudative effusion. culture negative. path neg for malignant cells. appreciate pulmonary consult and assistance. follow clinically for reaccumulation. 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 cannot anticoagulate at this time due to ongoing issues with epistaxis. (7) Acute and chronic respiratory failure with hypoxia: acute component 2nd to pulmonary edema/volume overload, probable RUL pneumonia, effusion, etc. no PE on CTA. cannot exclude aspiration of blood during nosebleed episode leading to acute h ypoxic resp failure. typically on continuous NC O2 at home for chronic respiratory failure. acute component improving. finish levaquin - day 7 of 7. no further diuretics. (8) Acute blood loss anemia: 2nd to epistaxis. s/p PRBCs earlier this admission but with ?transfusion reaction and concern for TACO. H/H trending down; repeat cbc in am and if any lower transfuse PRBCs (9) TACO (transfusion associated circulatory overload): concern for such earlier this admission. s/p diuresis and resolved. (10) Acute diastolic CHF (congestive heart failure): resolved. echo last month noted. LV function wnl. hold further diuretics. (11) Pancytopenia due to antineoplastic chemotherapy: chemotherapy under the direction of Dr Yoon. daily CBC. counts low but acceptable. Dr Yoon aware of blasts seen on differential today. (12) Traumatic wound: RLE. wound care consultation appreciated. cont local wound care. 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 now with SVC thrombosis. (14) Non-small cell lung cancer (NSCLC): appreciate heme/onc consult by Dr Yoon appreciate palliative care consult very poor prognosis remains DNR, but patient not ready to transition to hospice Dr Yoon following (15) Hypomagnesemia: mag sulfate 1gm x 1 (16) CKD (chronic kidney disease): fluctuates stage 3-4 now w/ LUBNA finish mucomyst course for renal protection in setting of CKD and CT contrast BMP am (17) Hypertension: cont home meds and give lopressor 5mg IV x 1 for elevated BPs (18) T2DM (type 2 diabetes mellitus): cont lantus cont novolog acceptable control (19) Afib: remains in NSR paroxysmal hold dig in setting of LUBNA cont metoprolol coumadin on hold for epistaxis (20) Anxiety: ativan 0.25mg q6h prn trial buspar 5mg x 1 (21) DVT prophylaxis: chemical means contraindicated due to severe epistaxis requiring rhinorocket placement, low platelets, etc updated 12/31 and 01/02 and 01/05 by phone updated at bedside 01/03 continue PT/OT Admission and Anticipated Discharge Date Admission Date: December 30, 2019 Subjective patient's breathing is comfortable today however, she had a new nosebleed acutely late in the day had blood go down the posterior throat and was coughing the blood up before I assessed her the bleeding stopped no apparent bleeding from right nare eating 50% of meals tele stable overnight denies chest pain, abd pain Review of Systems Constitutional: + fatigue and + anorexia; no fever Respiratory: + dyspnea and + dyspnea on exertion; no cough Cardiovascular: + orthopnea and + paroxysmal nocturnal dyspnea; no chest pain and no edema Gastrointestinal: no abdominal pain Physical Exam Constitutional: + ill appearing and + frail appearing; no acute distress and no altered mental status ENMT: Nose: + external nose abnormality (rhino rocket absent ) and + nasal mucous membrane abnormality (right nare free of blood; left nare with fresh blood) Mouth: + oropharynx abnormality (fresh blood in oral cavity ) Respiratory: no respiratory distress Auscultation: + crackles (b/l bases - marked improvement; RUL anterior - unchanged ) Cardiovascular: Rate/Rhythm: regular rate and regular rhythm Heart Sounds: normal S1, normal S2 and + murmur (2/6 systolic LSB) Vessels: + JVD, posterior tibial pulses present and dorsalis pedis pulses present Extremities: + edema (b/l arms from SVC syndrome - no change; no leg edema) Gastrointestinal (Abdomen): normal bowel sounds, soft, nontender, no hepatosplenomegaly Skin: + pallor Psychiatric: Orientation: alert and oriented x 3 Results & Data Results & Data ([facility]) Vital Signs (Past 12 Hours) Vital Signs Temp Pulse Pulse Pulse Resp BP BP 01/06/20 20:21 36.8 C 90 23 196/77 H 01/06/20 19:16 83 20 01/06/20 18:02 82 190/76 H 01/06/20 15:58 80 01/06/20 15:56 36.7 C 77 17 186/79 H 01/06/20 12:49 77 20 01/06/20 11:37 36.3 C L 79 20 177/75 H Pulse Ox 01/06/20 20:21 97 01/06/20 19:16 99 01/06/20 18:02 01/06/20 15:58 01/06/20 15:56 96 01/06/20 12:49 96 01/06/20 11:37 97 Laboratory Results Laboratory Results - last 24 hr 01/06/20 01/06/20 01/06/20 05:59 05:59 07:24 WBC 2.03 L RBC 2.43 L Hgb 7.7 L Hct 21.7 L MCV 89.3 MCH 31.7 MCHC 35.5 RDW Std Deviation 48.0 H RDW Coeff of Epifanio 15.5 H Plt Count 109 L MPV 9.3 Sodium 132 L Potassium 4.3 Chloride 97 L Carbon Dioxide 28 Anion Gap 7.0 BUN 28 H Creatinine 2.12 H D Est Cr Clr Drug Dosing 22.2 Est GFR ( Amer) 27.8 Est GFR (Non-Af Amer) 24.0 BUN/Creatinine Ratio 13.0 Glucose 70 POC Glucose 84 Calcium 8.2 L 01/06/20 01/06/20 11:19 16:30 WBC RBC Hgb Hct MCV MCH MCHC RDW Std Deviation RDW Coeff of Epifanio Plt Count MPV Sodium Potassium Chloride Carbon Dioxide Anion Gap BUN Creatinine Est Cr Clr Drug Dosing Est GFR ( Amer) Est GFR (Non-Af Amer) BUN/Creatinine Ratio Glucose POC Glucose 131 H 112 H Calcium PG Care Time/CCT Total # of Minutes Spent Total Time Spent with Patient: Total time spent is greater than 50% in coordination of care (as documented) at patient's floor/unit and/or counseling patient: Coding Level of Care Code 58180 Subseq Hosp Care Lvl 3 Diagnoses Epistaxis R04.0 Hyponatremia E87.1 Acute kidney injury N17.9 Pleural effusion J90 Pneumonia J18.9 Laterality: right Lung location: upper lobe of lung Pneumonia type: due to unspecified organism Superior vena cava thrombosis I82.210 Acute and chronic respiratory failure with hypoxia J96.21 Acute blood loss anemia D62 TACO (transfusion associated circulatory overload) E87.71 Acute diastolic CHF (congestive heart failure) I50.31 Pancytopenia due to antineoplastic chemotherapy D61.810; T45.1X5A Traumatic wound SVC syndrome I87.1 Non-small cell lung cancer (NSCLC) C34.91 Laterality: right Hypomagnesemia E83.42 CKD (chronic kidney disease) N18.4 Chronic kidney disease stage: stage 4 (severe) Hypertension I10 Hypertension type: essential hypertension T2DM (type 2 diabetes mellitus) E11.22; N18.4; Z79.4 Chronic kidney disease stage: stage 4 (severe) Diabetes mellitus complication detail: with chronic kidney disease Diabetes mellitus complication status: with kidney complications Diabetes mellitus long goods drier insulin use: with long goods drier use Afib I48.0 Atrial fibrillation type: paroxysmal Anxiety F41.9 DVT prophylaxis Z29.9 (1) T2DM (type 2 diabetes mellitus) Chronic kidney disease stage: stage 4 (severe) Diabetes mellitus complication detail: with chronic kidney disease Diabetes mellitus complication status: with kidney complications Diabetes mellitus jail insulin use: with jail use Qualified Code(s): E11.22 - Type 2 diabetes mellitus with diabetic chronic kidney disease; N18.4 - Chronic kidney disease, stage 4 (severe); 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 (2) Afib Atrial fibrillation type: paroxysmal Qualified Code(s): I48.0 - Paroxysmal atrial fibrillation (3) CKD (chronic kidney disease) Chronic kidney disease stage: stage 4 (severe) Qualified Code(s): N18.4 - Chronic kidney disease, stage 4 (severe) (4) Non-small cell lung cancer (NSCLC) Laterality: right Qualified Code(s): C34.91 - Malignant neoplasm of unspecified part of right bronchus or lung (5) Hypertension Hypertension type: essential hypertension Qualified Code(s): I10 - Essential (primary) hypertension (6) Pneumonia Laterality: right Lung location: upper lobe of lung Pneumonia type: due to unspecified organism Qualified Code(s): J18.9 - Pneumonia, unspecified organism
[2020-01-06] MEDS: SIMVASTATIN 40 MG TAB PO SCH (21:30)
[2020-01-06] MEDS: TERAZOSIN HCL 5 MG CAP PO SCH (21:31)
[2020-01-06] MEDS: INSULIN GLARGINE SOLOSTAR 100 UNITS/ML 3 ML PEN SC SCH (21:32)
[2020-01-07] MEDS: LEVALBUTEROL 1.25MG/0.5ML NEB INH SCH ×4 (01:14→19:18)
[2020-01-07] MEDS: IPRATROPIUM BROMIDE NEB SOLN 0.02% 2.5 ML VIAL INH SCH ×4 (01:14→19:18)
[2020-01-07] MEDS: LORazepam 0.5 MG TAB PO PRN ×3 (04:04→19:38)
[2020-01-07 06:45] LABS: Hematocrit (blood only) 22.5 % (37-47); Hemoglobin 7.9 g/dL (12.0-16.0); Mean Corpuscular Hemoglobin 31.1 pg (25-34); Mean Corpuscular Hgb Conc 35.1 g/dL (32-36); Mean Corpuscular Volume 88.6 fL (80-100); Mean Platelet Volume 9.2 fL (7.4-10.4); Platelet Count 134 K/uL (130-400); RDW Coefficient of Variation 15.9 % (11.5-14.5); RDW Standard Deviation 49.1 fL (36.4-46.3); Red Blood Count 2.54 M/uL (4.2-5.4); White Blood Count 1.85 K/uL (4.8-10.8)
[2020-01-07 07:09] LABS: BUN Creatinine Ratio 11.9 (10-20); Calcium 8.7 mg/dl (8.5-10.1); Creatinine Clr Calc Pharmacy 17.5 ml/min; Est GFR (African American) 20.9; Est GFR (Non-African American) 18.1; Potassium 4.3 mmol/L (3.5-5.1)
[2020-01-07] MEDS: INSULIN ASPART 100 UNITS/ML 3 ML PEN SC SCH ×4 (08:36→20:47)
[2020-01-07] MEDS: POLYETHYLENE (MIRALAX) 17 GM PACK PO SCH (08:37)
[2020-01-07] MEDS: cloNIDine HCL 0.1 MG TAB PO SCH ×2 (08:37→20:45)
[2020-01-07] MEDS: FERROUS SULFATE 325 MG TAB PO SCH ×2 (08:37→19:39)
[2020-01-07] MEDS: CALCIUM 600MG + VIT D 400 IU TAB PO SCH (08:38)
[2020-01-07] MEDS: SENNA 8.6 MG TAB PO SCH (08:38)
[2020-01-07] MEDS: MAGNESIUM CHLORIDE 64MG DELAYED REL TAB PO SCH ×2 (08:38→20:45)
[2020-01-07] MEDS: PANTOprazole 40 MG TAB PO SCH (08:38)
[2020-01-07] MEDS: CYANOCOBALAMIN 500 MCG TABLET (VITAMIN B-12) PO SCH (08:38)
[2020-01-07] MEDS: METOPROLOL SUCC 50MG EXT REL TAB PO SCH (08:38)
[2020-01-07] MEDS: CHOLECALCIFEROL 1,000 UNITS 25 MCG TAB PO SCH ×2 (08:38→20:44)
[2020-01-07] MEDS: MUPIROCIN 2% OINT 22 GM TUBE EXT SCH ×3 (08:39→19:41)
[2020-01-07] MEDS: ESCITALOPRAM OXALATE 10 MG TAB PO SCH (08:39)
[2020-01-07] MEDS: AMLODIPINE BESYLATE 5 MG TAB PO SCH (09:37)
[2020-01-07] MEDS: levoFLOXacin 750 MG TAB PO SCH (12:30)
[2020-01-07] MEDS ORDERED: LORazepam 0.5 MG TAB PO STA (13:40)
[2020-01-07] MEDS: UMECLIDINIUM BROMIDE 62.5MCG/BLISTER 7 PUFFS/INHALER INH SCH (13:48)
[2020-01-07] MEDS ORDERED: D5W AND NSS 1,000 ML IV SCH (14:15)
[2020-01-07 14:59] LABS: Appearance Urine Cloudy (Clear); Bilirubin Urine Negative (Negative); Blood Urine Trace (Negative); Color Urine Yellow; Glucose Urine UA Negative (Negative); Ketones Urine Negative (Negative); Leukocyte Esterase Urine 2+ (Negative); Nitrite Urine Negative (Negative); Protein Urine 1+ (Negative); Specific Gravity Urine 1.014 (1.000-1.030); Urobilinogen Urine Negative (Negative)
[2020-01-07] MEDS: MoRPHine SULFATE 5 MG/0.25 ML UDP PO PRN ×3 (14:59→20:43)
[2020-01-07 15:12] LABS: Bacteria Urine Automated 1+ (Negative); Cast Urine Automated 0 /lpf (0-5); Epithelial Cell Urine Auto >30 /lpf (0-5); WBC Urine Automated >30 /hpf (0-5)
[2020-01-07] MEDS: ALBUTEROL HFA 8 GM INHALER INH PRN (17:07)
[2020-01-07] MEDS ORDERED: cloNIDine HCL 0.1 MG TAB PO ONE (18:43)
[2020-01-07 19:34] LABS: BUN Creatinine Ratio 11.3 (10-20); Calcium 8.5 mg/dl (8.5-10.1); Creatinine Clr Calc Pharmacy 16.2 ml/min; Est GFR (Non-African American) 16.4; Potassium 4.9 mmol/L (3.5-5.1)
[2020-01-07] MEDS: TERAZOSIN HCL 5 MG CAP PO SCH (19:39)
[2020-01-07] MEDS: SIMVASTATIN 40 MG TAB PO SCH (20:45)
[2020-01-07] MEDS: INSULIN GLARGINE SOLOSTAR 100 UNITS/ML 3 ML PEN SC SCH (20:46)
--- NOTE | 2020-01-07 20:55 | Hospitalist Progress Note ---
Date of Service January 07, 2020 Assessment & Plan (1) Acute kidney injury: marked worsening today. could be multifactorial - was in urinary retention today thus obstruction possible. hernandez placed. consider renal u/s did receive IV contrast 2-3 days ago -- certainly could have caused contrast nephropathy (despite mucomyst x 4 doses, fluids). may have been over-diuresed earlier this week. poor oral intake as well last few days. plan - --hernandez --check u/a for casts --D5NS at 80cc/hr for 1 liter; bmp am; re-eval for need for additional IV fluids --hold any nephrotoxic agent --hold digoxin --consider renal u/s (2) Epistaxis: in setting of coumadin use and severe thrombocytopenia. s/p placement of rhinorocket in right nare at [facility] ER on day of admission (12/30/19). coumadin stopped. s/p platelet infusion earlier this admission. platelets now >100, rhinorocket gone. Dr Erickson saw patient in consult - placed absorbable material in right nare. recurrent epistaxis 01/06/20 -- this time left nare. fortunately it spontaneously resolved cont to hold coumadin bactroban b/l nares TID frequent saline spray to nose humify her O2 cbc am (3) Hyponatremia: 2nd acute kidney injury bmp am (4) Pleural effusion: right s/p thoracentesis 01/04/[address] Balderas protein on fluid low and lite's criteria not met more c/w transudative effusion. culture negative. path neg for malignant cells. appreciate pulmonary consult and assistance. follow clinically for reaccumulation. 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 cannot anticoagulate at this time due to ongoing issues with epistaxis. (7) Acute and chronic respiratory failure with hypoxia: acute component 2nd to pulmonary edema/volume overload, probable RUL pneumonia, effusion, etc. no PE on CTA. cannot exclude aspiration of blood during nosebleed episode leading to acute hypoxic resp failure. typically on continuous NC O2 at home for chronic respiratory failure. acute component resolved -- now back to baseline NC O2 amount of 4.5 L/min. completed 7-day run of IV/PO antibiotics. no further diuretics. (8) Acute blood loss anemia: 2nd to epistaxis. s/p PRBCs earlier this admission but with ?transfusion reaction and concern for TACO. H/H trending down; repeat cbc in am and if any lower transfuse PRBCs (9) TACO (transfusion associated circulatory overload): concern for such earlier this admission. s/p diuresis and resolved. (10) Acute diastolic CHF (congestive heart failure): resolved. echo last month noted. LV function wnl. hold further diuretics especially in light of LUBNA. (11) Pancytopenia due to antineoplastic chemotherapy: chemotherapy under the direction of Dr Yoon. daily CBC. counts low but acceptable. Dr Yoon aware of blasts seen on differential this admission. (12) Traumatic wound: RLE. wound care consultation appreciated. cont local wound care. also with ulceration on dorsum of left foot - this is stable. 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 now with SVC thrombosis. unfortunately unable to place back on coumadin due to epistaxis. (14) Non-small cell lung cancer (NSCLC): appreciate heme/onc consult by Dr Yoon appreciate palliative care consult very poor prognosis remains DNR, but patient not ready to transition to hospice Dr Yoon following (15) Hypomagnesemia: resolved (16) CKD (chronic kidney disease): fluctuates stage 3-4 baseline Cr 1.3 to 1.4 baseline CrCl low 30s now w/ LUBNA BMP am (17) Hypertension: uncontrolled added norvasc 5mg qam adjust as needed (18) T2DM (type 2 diabetes mellitus): cont lantus cont novolog acceptable control (19) Afib: remains in NSR paroxysmal hold dig in setting of LUBNA cont metoprolol coumadin on hold for epistaxis (20) Anxiety: added buspar 5mg HS increase ativan to 0.5mg prn (21) DVT prophylaxis: chemical means contraindicated due to severe epistaxis requiring rhinorocket placement, low platelets, etc updated 12/31 and 01/02 and 01/05 by phone updated at bedside 01/03 left message for on voicemail on 01/06 prognosis very, very poor strongly recommend transition to comfort care and hospice Dr Yoon has recommended hospice as well ordered morphine elixir prn for episodes of extreme dyspnea Admission and Anticipated Discharge Date Admission Date: December 30, 2019 Subjective during my visit today patient, like on previous visits, c/o anxiety and feeling dyspneic this was despite recently administered ativan by mouth she is not coughing and O2 requirements are down to baseline amounts (4-5L) UOP poor since shift change at 7am bladder scanned for 700 but only voided <200cc hernandez placed by staff patient with severe anorexia and not drinking fluids enough denied pain in any location very tired/sleepy today tele stable overnight no further epistaxis overnight Review of Systems Constitutional: + fatigue and + anorexia Respiratory: + dyspnea and + dyspnea on exertion; no cough Cardiovascular: + dyspnea at rest and + orthopnea; no chest pain Gastrointestinal: no abdominal pain Physical Exam Constitutional: + ill appearing and + frail appearing; no acute distress and no altered mental status (But sleepy today) ENMT: Nose: no external nose abnormality and no nasal mucous membrane abnormality (No epistaxis today) Mouth: + lip abnormality (Very dry) and + dry oral mucous membranes Respiratory: no respiratory distress Auscultation: + crackles (b/l bases - marked improvement; RUL anterior - unchanged ) Cardiovascular: Rate/Rhythm: regular rate and regular rhythm Heart Sounds: normal S1, normal S2 and + murmur (2/6 systolic LSB) Vessels: + JVD, posterior tibial pulses present and dorsalis pedis pulses present Extremities: + edema (b/l arms from SVC syndrome - no change; no leg edema) Gastrointestinal (Abdomen): normal bowel sounds, soft, nontender, no hepatosplenomegaly Skin: + pallor Psychiatric: Affect: + flat affect sleepy, but wakes easily and answers all questions Results & Data Results & Data ([facility]) Vital Signs (Past 12 Hours) Vital Signs Temp Pulse Pulse Resp BP Pulse Ox 01/07/20 20:08 36.7 C 84 18 171/77 H 96 01/07/20 19:19 84 18 97 01/07/20 17:09 81 20 98 01/07/20 16:00 82 01/07/20 15:16 36.7 C 82 20 198/72 H 95 01/07/20 13:18 78 20 96 01/07/20 11:43 36.9 C 80 18 182/72 H 94 Laboratory Results Laboratory Results - last 24 hr 01/07/20 01/07/20 01/07/20 05:44 05:44 05:44 WBC 1.85 L RBC 2.54 L Hgb 7.9 L Hct 22.5 L MCV 88.6 MCH 31.1 MCHC 35.1 RDW Std Deviation 49.1 H RDW Coeff of Epifanio 15.9 H Plt Count 134 MPV 9.2 Sodium 130 L Potassium 4.3 Chloride 97 L Carbon Dioxide 26 Anion Gap 7.0 BUN 32 H Creatinine 2.68 H D Est Cr Clr Drug Dosing 17.5 Est GFR ( Amer) 20.9 Est GFR (Non-Af Amer) 18.1 BUN/Creatinine Ratio 11.9 Glucose 58 L POC Glucose Calcium 8.7 Urine Color Urine Appearance Urine pH Ur Specific [place] Urine Protein Urine Glucose (UA) Urine Ketones Urine Blood Urine Nitrite Urine Bilirubin Urine Urobilinogen Ur Leukocyte Esterase Urine WBC (Auto) Urine RBC (Auto) U Hyaline Cast (Auto) U Epithel Cells (Auto) Urine Bacteria (Auto) Urine Yeast Blood Type O Positive Antibody Screen NEGATIVE Crossmatch See Detail 01/07/20 01/07/20 01/07/20 07:14 07:33 11:19 WBC RBC Hgb Hct MCV MCH MCHC RDW Std Deviation RDW Coeff of Epifanio Plt Count MPV Sodium Potassium Chloride Carbon Dioxide Anion Gap BUN Creatinine Est Cr Clr Drug Dosing Est GFR ( Amer) Est GFR (Non-Af Amer) BUN/Creatinine Ratio Glucose POC Glucose 77 86 130 H Calcium Urine Color Urine Appearance Urine pH Ur Specific [place] Urine Protein Urine Glucose (UA) Urine Ketones Urine Blood Urine Nitrite Urine Bilirubin Urine Urobilinogen Ur Leukocyte Esterase Urine WBC (Auto) Urine RBC (Auto) U Hyaline Cast (Auto) U Epithel Cells (Auto) Urine Bacteria (Auto) Urine Yeast Blood Type Antibody Screen Crossmatch 01/07/20 01/07/20 01/07/20 14:40 16:19 18:58 WBC RBC Hgb Hct MCV MCH MCHC RDW Std Deviation RDW Coeff of Epifanio Plt Count MPV Sodium 129 L Potassium 4.9 Chloride 96 L Carbon Dioxide 23 Anion Gap 10.0 BUN 33 H Creatinine 2.91 H Est Cr Clr Drug Dosing 16.2 Est GFR ( Amer) 19.0 Est GFR (Non-Af Amer) 16.4 BUN/Creatinine Ratio 11.3 Glucose 126 H POC Glucose 125 H Calcium 8.5 Urine Color Yellow Urine Appearance Cloudy A Urine pH 5.0 Ur Specific [place] 1.014 Urine Protein 1+ H Urine Glucose (UA) Negative Urine Ketones Negative Urine Blood Trace H Urine Nitrite Negative Urine Bilirubin Negative Urine Urobilinogen Negative Ur Leukocyte Esterase 2+ H Urine WBC (Auto) >30 H Urine RBC (Auto) 5-10 H U Hyaline Cast (Auto) 0 U Epithel Cells (Auto) >30 H Urine Bacteria (Auto) 1+ H Urine Yeast Budding w/ Hyphae A Blood Type Antibody Screen Crossmatch 01/07/20 20:24 WBC RBC Hgb Hct MCV MCH MCHC RDW Std Deviation RDW Coeff of Epifanio Plt Count MPV Sodium Potassium Chloride Carbon Dioxide Anion Gap BUN Creatinine Est Cr Clr Drug Dosing Est GFR ( Amer) Est GFR (Non-Af Amer) BUN/Creatinine Ratio Glucose POC Glucose 155 H Calcium Urine Color Urine Appearance Urine pH Ur Specific [place] Urine Protein Urine Glucose (UA) Urine Ketones Urine Blood Urine Nitrite Urine Bilirubin Urine Urobilinogen Ur Leukocyte Esterase Urine WBC (Auto) Urine RBC (Auto) U Hyaline Cast (Auto) U Epithel Cells (Auto) Urine Bacteria (Auto) Urine Yeast Blood Type Antibody Screen Crossmatch PG Care Time/CCT Total # of Minutes Spent Total Time Spent with Patient: Total time spent is greater than 50% in coordination of care (as documented) at patient's floor/unit and/or counseling patient: Coding Level of Care Code 74669 Subseq Hosp Care Lvl 3 Diagnoses Acute kidney injury N17.9 Epistaxis R04.0 Hyponatremia E87.1 Pleural effusion J90 Pneumonia J18.9 Laterality: right Lung location: upper lobe of lung Pneumonia type: due to unspecified organism Superior vena cava thrombosis I82.210 Acute and chronic respiratory failure with hypoxia J96.21 Acute blood loss anemia D62 TACO (transfusion associated circulatory overload) E87.71 Acute diastolic CHF (congestive heart failure) I50.31 Pancytopenia due to antineoplastic chemotherapy D61.810; T45.1X5A Traumatic wound SVC syndrome I87.1 Non-small cell lung cancer (NSCLC) C34.91 Laterality: right Hypomagnesemia E83.42 CKD (chronic kidney disease) N18.4 Chronic kidney disease stage: stage 4 (severe) Hypertension I10 Hypertension type: essential hypertension T2DM (type 2 diabetes mellitus) E11.22; N18.4; Z79.4 Chronic kidney disease stage: stage 4 (severe) Diabetes mellitus complication detail: with chronic kidney disease Diabetes mellitus complication status: with kidney complications Diabetes mellitus halfway insulin use: with harbor [employer] launch [employer] use Afib I48.0 Atrial fibrillation type: paroxysmal Anxiety F41.9 DVT prophylaxis Z29.9 (1) T2DM (type 2 diabetes mellitus) Chronic kidney disease stage: stage 4 (severe) Diabetes mellitus complication detail: with chronic kidney disease Diabetes mellitus complication status: with kidney complications 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: with halfway use Qualified Code(s): E11.22 - Type 2 diabetes mellitus with diabetic chronic kidney disease; N18.4 - Chronic kidney disease, stage 4 (severe); Z79.4 - still cleaner (current) use of insulin (2) Afib Atrial fibrillation type: paroxysmal Qualified Code(s): I48.0 - Paroxysmal atrial fibrillation (3) CKD (chronic kidney disease) Chronic kidney disease stage: stage 4 (severe) Qualified Code(s): N18.4 - Chronic kidney disease, stage 4 (severe) (4) Non-small cell lung cancer (NSCLC) Laterality: right Qualified Code(s): C34.91 - Malignant neoplasm of unspecified part of right bronchus or lung (5) Hypertension Hypertension type: essential hypertension Qualified Code(s): I10 - Essential (primary) hypertension (6) Pneumonia Laterality: right Lung location: upper lobe of lung Pneumonia type: due to unspecified organism Qualified Code(s): J18.9 - Pneumonia, unspecified organism
[2020-01-08] MEDS: IPRATROPIUM BROMIDE NEB SOLN 0.02% 2.5 ML VIAL INH SCH ×4 (01:03→19:00)
[2020-01-08] MEDS: LEVALBUTEROL 1.25MG/0.5ML NEB INH SCH ×4 (01:03→19:00)
[2020-01-08] MEDS: MoRPHine SULFATE 5 MG/0.25 ML UDP PO PRN ×3 (03:22→20:43)
[2020-01-08 07:46] LABS: Hematocrit (blood only) 23.3 % (37-47); Hemoglobin 8.1 g/dL (12.0-16.0); Mean Corpuscular Hemoglobin 31.2 pg (25-34); Mean Corpuscular Hgb Conc 34.8 g/dL (32-36); Mean Corpuscular Volume 89.6 fL (80-100); Mean Platelet Volume 9.1 fL (7.4-10.4); Platelet Count 142 K/uL (130-400); RDW Standard Deviation 51.2 fL (36.4-46.3); White Blood Count 2.27 K/uL (4.8-10.8)
[2020-01-08 08:13] LABS: BUN Creatinine Ratio 11.1 (10-20); Calcium 8.7 mg/dl (8.5-10.1); Creatinine Clr Calc Pharmacy 15.1 ml/min; Est GFR (African American) 17.5; Est GFR (Non-African American) 15.1; Potassium 4.8 mmol/L (3.5-5.1)
[2020-01-08] MEDS: MAGNESIUM CHLORIDE 64MG DELAYED REL TAB PO SCH ×2 (08:20→20:31)
[2020-01-08] MEDS: LORazepam 0.5 MG TAB PO PRN ×2 (08:20→15:46)
[2020-01-08] MEDS: ESCITALOPRAM OXALATE 10 MG TAB PO SCH (08:21)
[2020-01-08] MEDS: AMLODIPINE BESYLATE 5 MG TAB PO SCH (08:21)
[2020-01-08] MEDS: CYANOCOBALAMIN 500 MCG TABLET (VITAMIN B-12) PO SCH (08:21)
[2020-01-08] MEDS: FERROUS SULFATE 325 MG TAB PO SCH ×2 (08:21→20:30)
[2020-01-08] MEDS: CHOLECALCIFEROL 1,000 UNITS 25 MCG TAB PO SCH ×2 (08:21→20:31)
[2020-01-08] MEDS: METOPROLOL SUCC 50MG EXT REL TAB PO SCH (08:21)
[2020-01-08] MEDS: SENNA 8.6 MG TAB PO SCH (08:21)
[2020-01-08] MEDS: PANTOprazole 40 MG TAB PO SCH (08:21)
[2020-01-08] MEDS: CALCIUM 600MG + VIT D 400 IU TAB PO SCH (08:22)
[2020-01-08] MEDS: INSULIN ASPART 100 UNITS/ML 3 ML PEN SC SCH ×4 (08:22→20:30)
[2020-01-08] MEDS: cloNIDine HCL 0.1 MG TAB PO SCH ×2 (08:22→20:31)
[2020-01-08] MEDS: MUPIROCIN 2% OINT 22 GM TUBE EXT SCH ×3 (08:23→20:30)
[2020-01-08] MEDS: POLYETHYLENE (MIRALAX) 17 GM PACK PO SCH (08:23)
[2020-01-08] MEDS: UMECLIDINIUM BROMIDE 62.5MCG/BLISTER 7 PUFFS/INHALER INH SCH (12:45)
--- NOTE | 2020-01-08 14:21 | Palliative Care Progress Note ---
Date of Service January 08, 2020 Assessment & Plan (1) Goals of care, counseling/discussion: -Met with the patient in room 240-2. The patient was sitting upright in her bed with multiple pillows behind her back. She was eating some bites of her lunch. She is no apparent distress, but does appear lethargic and weak. -She did admit that she wishes she has felt better. There is a plan in place once she is medically stable to return home with Home Health. -The patients has previously declined any services related to Hospice, despite multiple providers suggesting investigating this avenue due to the complexity and nature of her terminal illness. -Today, we did discuss the possibility of hospice and she did say she would talk to her about it. She did not want me to call him, though. -In speaking with the hospitalist, the patients , Davion did come to the hospital and they discussed Hospice. Davion wants to fulfill her wishes and they agreed to think about it and plan to follow up tomorrow to determine if a hospice referral will be placed. -The agency they are signed up with for Home Health, also has Hospice, so it should be an easy transition if they decide to pursue it. Case management to be updated. -A POLST was completed during her admission in November 2019. -Should the patient not be able to make her own decisions, she would like her Davion to do so. (2) Non-small cell lung cancer (NSCLC): Patient wishes to continue [id number] with oncology (3) Superior vena cava syndrome: Bilateral upper extremity swelling-unchanged (4) Epistaxis: ENT following-nasal packing in place, platelets at 41K today (5) Thrombocytopenia: KImproved status post platelet transfusion-platelets 41K today (6) Pseudomonas aeruginosa infection: Continue current wound care orders, continue doxycycline and Levaquin (7) Acute and chronic respiratory failure with hypoxia: Patient requiring 10 L O2-wean as tolerated Subjective Patient was sitting in her bed, eating a few bites of her lunch when I saw her. She appeared to be weak, lethargic and uncomfortable. She did say that she felt tired. Pt denies CP, SOB, appetite changes, N/V/D Review of Systems Review of Systems: All systems reviewed & are unremarkable except as noted in HPI & below Physical Exam Constitutional: WD/WN, vitals as above + acute distress, + ill appearing, + altered mental status (But sleepy today) and + frail appearing Eyes: PERRL, conjunctivae normal, anicteric sclerae ENMT: external ear and nose normal, oropharynx normal Nose: + dry nasal mucous membranes and + epistaxis (right nostril, packed with rocket); no external nose abnormality and no nasal mucous membrane abnormality (No epistaxis today) Mouth: + lip abnormality (Very dry), + oropharynx abnormality (fresh blood in oral cavity ) and + dry oral mucous membranes; no oral mucosal abnormality Neck: trachea midline, no thyromegaly Respiratory: normal respiratory effort, + labored breathing, + retractions and + tachypneic Auscultation: + diminished lung sounds (bases), + crackles (b/l bases - marked improvement; RUL anterior - unchanged ), + rales (bases) and + wheezes (end-exp) Cardiovascular: RRR, no murmur, no edema Rate/Rhythm: regular rate and regular rhythm Heart Sounds: normal S1, normal S2 and + murmur (2/6 systolic LSB) Vessels: + JVD, posterior tibial pulses present and dorsalis pedis pulses present Extremities: + edema (b/l arms from SVC syndrome - no change; no leg edema) Gastrointestinal (Abdomen): normal bowel sounds, soft, nontender, no hepatosplenomegaly Musculoskeletal: Head/Neck/Chest: normocephalic, head atraumatic and neck supple Extremities: extremities normal to inspection and + abnormal strength (generalized weakness) Skin: no rashes, warm and dry + turgor decreased, + wound (right lower leg), + erythema (flushed face) and + pallor Neurologic: patellar DTR's 2+ bilat, sensation intact Psychiatric: A+Ox3, euthymic affect Affect: + flat affect Lymphatic: no cervical or axillary lymphadenopathy Results & Data Vital Signs (Past 12 Hours) Vital Signs Temp Pulse Pulse Resp BP BP Pulse Ox 01/08/20 13:03 72 18 95 01/08/20 11:09 36.4 C L 73 18 170/71 H 996 H 01/08/20 08:00 81 01/08/20 07:42 36.4 C L 82 19 173/69 H 93 01/08/20 06:59 77 18 95 01/08/20 03:20 36.6 C 79 19 157/74 H 95 PG Care Time/CCT Total # of Minutes Spent Total Time Spent with Patient: Total time spent is greater than 50% in coordination of care (as documented) at patient's floor/unit and/or counseling patient: 35 Coding Level of Care Code 30133 Subseq Hosp Care Lvl 3 Diagnoses Goals of care, counseling/discussion Z71.89 Non-small cell lung cancer (NSCLC) C34.91 Laterality: right Superior vena cava syndrome I87.1 Epistaxis R04.0 Thrombocytopenia D69.6 Pseudomonas aeruginosa infection A49.8 Acute and chronic respiratory failure with hypoxia J96.21 Time Spent (min) 35 Time Spent Midlevel Total time spent 35 minutes with > 50% of that time spent assessing the patient, discussing goals of care and discharge planning with IDT (1) Non-small cell lung cancer (NSCLC) Laterality: right Qualified Code(s): C34.91 - Malignant neoplasm of unspecified part of right bronchus or lung
[2020-01-08] MEDS: INSULIN GLARGINE SOLOSTAR 100 UNITS/ML 3 ML PEN SC SCH (20:29)
[2020-01-08] MEDS: TERAZOSIN HCL 5 MG CAP PO SCH (20:30)
[2020-01-08] MEDS: SIMVASTATIN 40 MG TAB PO SCH (20:31)
--- NOTE | 2020-01-08 23:09 | Hospitalist Progress Note ---
Date of Service January 08, 2020 Assessment & Plan (1) Acute kidney injury: Cr up to 3.11 today, electrolytes stable could be multifactorial - was in urinary retention today thus obstruction possible. hernandez placed. did receive IV contrast 3 days ago -- certainly could have caused contrast n ephropathy may have been over-diuresed earlier this week. poor oral intake as well last few days. repeat BMP in the morning leaning towards palliative approach, home hospice keep hernandez, likely go home with it defer any extensive work up as comfort will be focus (2) Epistaxis: in setting of coumadin use and severe thrombocytopenia. s/p placement of rhinorocket in right nare at [facility] ER on day of admission (12/30/19). coumadin stopped. s/p platelet infusion earlier this admission. platelets now >100, rhinorocket gone. Dr Erickson saw patient in consult - placed absorbable material in right nare. recurrent epistaxis 01/06/20 -- this time left nare. fortunately it spontaneously resolved cont to hold coumadin indefinitely bactroban b/l nares TID frequent saline spray to nose humify her O2 cbc am, Hb is 8 and plts 142k (3) Hyponatremia: 2nd acute kidney injury Na is 129, repeat tomorrow (4) Pleural effusion: right s/p thoracentesis 01/04/[address] Balderas protein on fluid low and lite's criteria not met more c/w transudative effusion. culture negative. path neg for malignant cells. appreciate pulmonary consult and assistance. 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 cannot anticoagulate at this time due to ongoing issues with epistaxis patient uncomfortable with air hunger, bilateral arm swelling, facial swelling (7) Acute and chronic respiratory failure with hypoxia: acute component 2nd to pulmonary edema/volume overload, probable RUL pneumonia, effusion, etc. no PE on CTA. cannot exclude aspiration of blood during nosebleed episode leading to acute hypoxic resp failure. typically on continuous NC O2 at home for chronic respiratory failure. acute component resolved -- now back to baseline NC O2 amount of 4.5 L/min. completed 7-day run of IV/PO antibiotics. no further diuretics. will go home on oxygen (8) Acute blood loss anemia: 2nd to epistaxis. s/p PRBCs earlier this admission but with ?transfusion reaction and concern for TACO. H/H trending down; 8.1 today (9) TACO (transfusion associated circulatory overload): concern for such earlier this admission. s/p diuresis and resolved. (10) Acute diastolic CHF (congestive heart failure): resolved. echo last month noted. LV function wnl. hold further diuretics especially in light of LUBNA. (11) Pancytopenia due to antineoplastic chemotherapy: chemotherapy under the direction of Dr Yoon. daily CBC. Dr Yoon aware of blasts seen on differential this admission. (12) Traumatic wound: RLE. wound care consultation appreciated. cont local wound care. also with ulceration on dorsum of left foot - this is stable. 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 now with SVC thrombosis. unfortunately unable to place back on coumadin due to epistaxis. (14) Non-small cell lung cancer (NSCLC): appreciate heme/onc consult by Dr Yoon appreciate palliative care consult very poor prognosis remains DNR, getting closer to transitioning to home hospice says he will support whatever decision she makes for the first time today, she admitted to poor quality of life, did not say that she wanted to keep fighting only asked about medications like Ativan and Morphine for comfort Dr Yoon following (15) Hypomagnesemia: resolved (16) CKD (chronic kidney disease): fluctuates stage 3-4 baseline Cr 1.3 to 1.4 baseline CrCl low 30s now w/ LUBNA BMP am (17) Hypertension: uncontrolled added norvasc 5mg qam adjust as needed (18) T2DM (type 2 diabetes mellitus): cont lantus cont novolog acceptable control (19) Afib: remains in NSR paroxysmal hold dig in setting of LUBNA cont metoprolol coumadin on hold for epistaxis (20) Anxiety: added buspar 5mg HS increase ativan to 0.5mg prn taking Ativan as often as possible, very anxious (21) DVT prophylaxis: chemical means contraindicated due to severe epistaxis requiring rhinorocket placement, low platelets, etc long update at the bedside today with Davion will ask palliative to see again tomorrow 50 minutes spent with patient today Admission and Anticipated Discharge Date Admission Date: December 30, 2019 Subjective patient not doing well constantly asking for Ativan for anxiety c/o heaviness in chest, tight breathing, air hunger discussed with palliative care, they will continue to discuss hospice options, they reached out to Davion spoke with Dr. Yoon, he continues to recommend palliative care patient not eating well, no energy or motivation to move, just wants to sleep, take Ativan called her this morning, asked him to come into hospital to discuss prognosis and plan joss discussion with patient and Davion this afternoon explained that she is getting worse, her Cr is rising, she has SVC with thrombosis that we cannot treat due to nose bleeds she is not eating, constantly asking for Ativan due to anxiety and dyspnea explained that even though the CT shows slight decrease in size of tumor, does not change the fact that she has metastatic disease, SVC syndrome, poor quality also, the chemotherapy has been detrimental causing anemia and thrombocytopenia she admits that she has no quality of life she would not commit to hospice, but she also did not state that she wants to keep fighting she asked if she could take Ativan and Morphine together for hospice, I assured her that comfort would be the goal updated palliative care team, they will re-visit patient and tomorrow Review of Systems Review of Systems: All systems reviewed & are unremarkable except as noted in Subjective Constitutional: + fatigue and + weakness; no fever Respiratory: + cough, + dyspnea and + dyspnea on exertion Cardiovascular: + chest pain and + edema Gastrointestinal: no abdominal pain, no nausea, no vomiting, no constipation and no diarrhea/loose stools Neurologic: + generalized weakness Psychiatric: + depression and + anxiety Physical Exam Constitutional: + ill appearing, + thin and + frail appearing; no acute dist ress Eyes: PERRL, conjunctivae normal, anicteric sclerae ENMT: Nose: + dry nasal mucous membranes Mouth: + dry oral mucous membranes Neck: trachea midline, no thyromegaly Respiratory: + labored breathing and + cough; no respiratory distress Auscultation: + diminished lung sounds and + rales (bases); no crackles and no wheezes Cardiovascular: RRR, no murmur, no edema Gastrointestinal (Abdomen): normal bowel sounds, soft, nontender, no hepatosplenomegaly Musculoskeletal: Head/Neck/Chest: normocephalic, head atraumatic and neck supple Extremities: extremities normal to inspection and + abnormal strength (generalized weakness) Skin: + turgor decreased, + wound (right lower leg) and + erythema (flushed face) Neurologic: patellar DTR's 2+ bilat, sensation intact and PERRL, EOMI, accommodation nl, no face palsy, no dysarthria Psychiatric: Orientation: alert and oriented x 3 Affect: + depressed affect Mood: + depressed mood Lymphatic: no cervical or axillary lymphadenopathy Results & Data Results & Data ([facility]) Vital Signs (Past 12 Hours) Vital Signs Temp Pulse Pulse Resp BP BP Pulse Ox 01/08/20 19:42 36.5 C 96 H 20 177/73 H 96 01/08/20 19:03 75 18 96 01/08/20 16:00 75 01/08/20 15:46 36.8 C 73 22 144/75 H 95 01/08/20 13:03 72 18 95 01/08/20 11:09 36.4 C L 73 18 170/71 H 996 H Laboratory Results Laboratory Results - last 24 hr 01/08/20 01/08/20 01/08/20 07:19 07:19 07:30 WBC 2.27 L RBC 2.60 L Hgb 8.1 L Hct 23.3 L MCV 89.6 MCH 31.2 MCHC 34.8 RDW Std Deviation 51.2 H RDW Coeff of Epifanio 16.0 H Plt Count 142 MPV 9.1 Sodium 129 L Potassium 4.8 Chloride 96 L Carbon Dioxide 24 Anion Gap 9.0 BUN 35 H Creatinine 3.11 H Est Cr Clr Drug Dosing 15.1 Est GFR ( Amer) 17.5 Est GFR (Non-Af Amer) 15.1 BUN/Creatinine Ratio 11.1 Glucose 128 H POC Glucose 168 H Calcium 8.7 01/08/20 01/08/20 01/08/20 11:36 16:40 20:10 WBC RBC Hgb Hct MCV MCH MCHC RDW Std Deviation RDW Coeff of Epifanio Plt Count MPV Sodium Potassium Chloride Carbon Dioxide Anion Gap BUN Creatinine Est Cr Clr Drug Dosing Est GFR ( Amer) Est GFR (Non-Af Amer) BUN/Creatinine Ratio Glucose POC Glucose 203 H 136 H 143 H Calcium Medications Administered Current Inpatient Medications Acetaminophen (Tylenol) 650 mg PO Q4H PRN PRN Reason: Pain or Fever Stop: 01/30/20 00:52 Albuterol (Ventolin Hfa) 2 puffs INH Q4H PRN PRN Reason: shortness of breath or wheezing Stop: 01/30/20 20:13 Last Admin: 01/07/20 17:07 Dose: 2 puffs Documented by: Amlodipine Besylate (Norvasc) 5 mg PO QAM [facility] Stop: 02/06/20 08:59 Last Admin: 01/08/20 08:21 Dose: 5 mg Documented by: Buspirone HCl (Buspar) 5 mg PO [facility] Stop: 02/05/20 20:59 Last Admin: 01/08/20 20:31 Dose: 5 mg Documented by: Clonidine HCl (Catapres) 0.1 mg PO BID [facility] Stop: 01/30/20 00:52 Last Admin: 01/08/20 20:31 Dose: 0.1 mg Documented by: Cyanocobalamin (Vitamin B-12) 1,000 [facility]cg [facility] Stop: 01/30/20 08:59 Last Admin: 01/08/20 08:21 Dose: 1,000 mcg Documented by: Dextrose (Dextrose 50%) 25 - 50 ml IV UD PRN; Protocol PRN Reason: Hypoglycemia Protocol Stop: 01/30/20 00:52 Digoxin (Lanoxin) 0.125 mg PO [facility] Stop: 01/30/20 20:59 Last Admin: 01/05/20 21:02 Dose: 0.125 mg Documented by: Escitalopram Oxalate (Lexapro Tab) [facility] Stop: 01/30/20 08:59 Last Admin: 01/08/20 08:21 Dose: 10 mg Documented by: Ferrous Sulfate (Feosol) 325 mg PO BID [facility] Stop: 01/30/20 08:59 Last Admin: 01/08/20 20:30 Dose: 325 mg Documented by: Glucagon (Glucagen) 1 mg SQ UD PRN; Protocol PRN Reason: Hypoglycemia Protocol Stop: 01/30/20 00:52 Glucose (Dex4 Glucose) 4 - 8 tabs PO UD PRN; Protocol PRN Reason: Hypoglycemia Protocol Stop: 01/30/20 00:52 Glucose (Glucose 40%) 15 - 30 gm PO UD PRN; Protocol PRN Reason: Hypoglycemia Protocol Stop: 01/30/20 00:52 Insulin Aspart (Novolog Flexpen) 0 units SC ACHS [facility] Stop: 01/30/20 07:29 Last Admin: 01/08/20 20:30 Dose: Not Given Documented by: Insulin Glargine (Lantus Solostar Pen) 8 units SC HS [facility] Stop: 01/30/20 20:59 Last Admin: 01/08/20 20:29 Dose: 8 units Documented by: Ipratropium [place] (Atrovent 0.02% 0.5mg/2.5ml) 0.5 mg INH Q6R [facility] Stop: 02/02/20 18:59 Last Admin: 01/08/20 19:00 Dose: 0.5 mg Documented by: Levalbuterol HCl (Xopenex 1.25mg/0.5ml Neb) 1.25 mg INH Q6R [facility] Stop: 02/02/20 18:59 Last Admin: 01/08/20 19:00 Dose: 1.25 mg Documented by: Levofloxacin (Levaquin) 750 mg PO Q2D@1100 [facility] Stop: 01/09/20 11:01 Last Admin: 01/07/20 12:30 Dose: 750 mg Documented by: Lorazepam (Ativan) 0.5 mg PO Q6H PRN PRN Reason: Anxiety Stop: 01/31/20 12:58 Last Admin: 01/08/20 15:46 Dose: 0.5 mg Documented by: Magnesium Chloride (Slow-Mag) 128 mg PO BID [facility] Stop: 01/30/20 08:59 Last Admin: 01/08/20 20:31 Dose: 128 mg Documented by: Metoprolol Succinate (Toprol Xl) 50 mg PO QAM [facility] Stop: 01/30/20 08:59 Last Admin: 01/08/20 08:21 Dose: 50 mg Documented by: Miscellaneous (Carbohydrates For Hypoglycemia) 15 - 30 gm PO UD PRN PRN Reason: Hypoglycemia Protocol Stop: 01/30/20 00:52 Morphine Sulfate (Roxanol) 5 mg PO Q3H PRN PRN Reason: pain or air hunger Stop: 01/21/20 14:14 Last Admin: 01/08/20 20:43 Dose: 5 mg Documented by: Multivitamins/Minerals (Caltrate Plus) 1 tab PO QAM [facility] Stop: 01/30/20 08:59 Last Admin: 01/08/20 08:22 Dose: Not Given Documented by: Mupirocin (Bactroban 2%) 1 appln EXT TID [facility] Stop: 02/05/20 17:59 Last Admin: 01/08/20 20:30 Dose: 1 appln Documented by: Niacin (Niacin) 500 mg PO QAM [facility] Stop: 01/30/20 08:59 Last Admin: 12/31/19 09:02 Dose: 500 mg Documented by: Ondansetron HCl (Zofran) 4 mg IV Q6H PRN PRN Reason: Nausea Stop: 01/30/20 00:52 Last Admin: 01/03/20 09:07 Dose: 4 mg Documented by: Oxycodone HCl (Roxicodone Immediate Rel) 10 mg PO Q4H PRN PRN Reason: Pain Stop: 01/14/20 00:52 Last Admin: 01/05/20 17:09 Dose: 10 mg Documented by: Pantoprazole Sodium (Protonix) [facility] [place] Stop: 01/30/20 08:59 Last Admin: 01/08/20 08:21 Dose: 40 mg Documented by: Polyethylene Glycol (Miralax Powder Packet) 17 gm PO DAILY [facility] Stop: 02/04/20 14:14 Last Admin: 01/08/20 08:23 Dose: 17 gm Documented by: Sennosides (Senokot) 17.2 mg PO QAM [facility] Stop: 02/04/20 14:14 Last Admin: 01/08/20 08:21 Dose: 17.2 mg Documented by: Simvastatin (Zocor) 40 mg PO [facility] Stop: 01/30/20 20:59 Last Admin: 01/08/20 20:31 Dose: 40 mg Documented by: Sodium Chloride ([place] Nasal) 2 sprays NA Q1H PRN PRN Reason: Dryness Stop: 02/04/20 08:32 Last Admin: 01/05/20 09:09 Dose: 2 sprays Documented by: Terazosin HCl (Hytrin) 5 mg PO [facility] Stop: 01/30/20 20:59 Last Admin: 01/08/20 20:30 Dose: 5 mg Documented by: Umeclidinium [place] (Incruse Ellipta) 1 puffs INH DAILY@1300 [facility] Stop: 01/30/20 12:59 Last Admin: 01/08/20 12:45 Dose: 1 puffs Documented by: Vitamin D (Vitamin D3) 1,000 units PO BID [facility] Stop: 01/30/20 08:59 Last Admin: 01/08/20 20:31 Dose: 1,000 units Documented by: PG Care Time/CCT Total # of Minutes Spent Total Time Spent with Patient: Total time spent is greater than 50% in coordination of care (as documented) at patient's floor/unit and/or counseling patient: Coding Level of Care Code 43947 Subseq Hosp Care Lvl 3 Diagnoses Acute kidney injury N17.9 Epistaxis R04.0 Hyponatremia E87.1 Pleural effusion J90 Pneumonia J18.9 Pneumonia type: due to unspecified organism Laterality: right Lung location: upper lobe of lung Superior vena cava thrombosis I82.210 Acute and chronic respiratory failure with hypoxia J96.21 Acute blood loss anemia D62 TACO (transfusion associated circulatory overload) E87.71 Acute diastolic CHF (congestive heart failure) I50.31 Pancytopenia due to antineoplastic chemotherapy D61.810; T45.1X5A Traumatic wound SVC syndrome I87.1 Non-small cell lung cancer (NSCLC) C34.91 Laterality: right Hypomagnesemia E83.42 CKD (chronic kidney disease) N18.4 Chronic kidney disease stage: stage 4 (severe) Hypertension I10 Hypertension type: essential hypertension T2DM (type 2 diabetes mellitus) E11.22; N18.4; Z79.4 Diabetes mellitus intermediate accountant insulin use: with intermediate accountant use Diabetes mellitus complication status: with kidney complications Diabetes mellitus complication detail: with chronic kidney disease Chronic kidney disease stage: stage 4 (severe) Afib I48.0 Atrial fibrillation type: paroxysmal Anxiety F41.9 DVT prophylaxis Z29.9 (1) Pneumonia Pneumonia type: due to unspecified organism Laterality: right Lung location: upper lobe of lung Qualified Code(s): J18.9 - Pneumonia, unspecified organism (2) Non-small cell lung cancer (NSCLC) Laterality: right Qualified Code(s): C34.91 - Malignant neoplasm of unspecified part of right bronchus or lung (3) CKD (chronic kidney disease) Chronic kidney disease stage: stage 4 (severe) Qualified Code(s): N18.4 - Chronic kidney disease, stage 4 (severe) (4) Hypertension Hypertension type: essential hypertension Qualified Code(s): I10 - Essential (primary) hypertension (5) T2DM (type 2 diabetes mellitus) Diabetes mellitus detention insulin use: with intermediate accountant use Diabetes mellitus complication status: with kidney complications Diabetes mellitus complication detail: with chronic kidney disease Chronic kidney disease stage: stage 4 (severe) Qualified Code(s): E11.22 - Type 2 diabetes mellitus with diabetic chronic kidney disease; N18.4 - Chronic kidney disease, stage 4 (severe); Z79.4 - intermediate accountant (current) use of insulin (6) Afib Atrial fibrillation type: paroxysmal Qualified Code(s): I48.0 - Paroxysmal at [facility] fibrillation
[2020-01-09] MEDS: IPRATROPIUM BROMIDE NEB SOLN 0.02% 2.5 ML VIAL INH SCH ×4 (00:19→19:10)
[2020-01-09] MEDS: LEVALBUTEROL 1.25MG/0.5ML NEB INH SCH ×4 (00:19→19:10)
[2020-01-09] MEDS: LORazepam 0.5 MG TAB PO PRN ×3 (07:06→20:01)
[2020-01-09 07:17] VITALS: TEMP 97.5
[2020-01-09] MEDS: INSULIN ASPART 100 UNITS/ML 3 ML PEN SC SCH (08:18)
[2020-01-09] MEDS: cloNIDine HCL 0.1 MG TAB PO SCH (08:18)
[2020-01-09] MEDS: MAGNESIUM CHLORIDE 64MG DELAYED REL TAB PO SCH (08:18)
[2020-01-09] MEDS: CHOLECALCIFEROL 1,000 UNITS 25 MCG TAB PO SCH (08:18)
[2020-01-09] MEDS: FERROUS SULFATE 325 MG TAB PO SCH (08:18)
[2020-01-09] MEDS: MUPIROCIN 2% OINT 22 GM TUBE EXT SCH ×3 (08:18→20:31)
[2020-01-09] MEDS: PANTOprazole 40 MG TAB PO SCH (08:18)
[2020-01-09] MEDS: ESCITALOPRAM OXALATE 10 MG TAB PO SCH (08:19)
[2020-01-09] MEDS: CYANOCOBALAMIN 500 MCG TABLET (VITAMIN B-12) PO SCH (08:19)
[2020-01-09] MEDS: SENNA 8.6 MG TAB PO SCH (08:19)
[2020-01-09] MEDS: CALCIUM 600MG + VIT D 400 IU TAB PO SCH ×2 (08:19→08:23)
[2020-01-09] MEDS: AMLODIPINE BESYLATE 5 MG TAB PO SCH (08:19)
[2020-01-09] MEDS: METOPROLOL SUCC 50MG EXT REL TAB PO SCH (08:19)
[2020-01-09] MEDS: POLYETHYLENE (MIRALAX) 17 GM PACK PO SCH (08:20)
[2020-01-09 08:35] LABS: Hematocrit (blood only) 23.9 % (37-47); Hemoglobin 8.4 g/dL (12.0-16.0); Mean Corpuscular Hemoglobin 30.9 pg (25-34); Mean Corpuscular Hgb Conc 35.1 g/dL (32-36); Mean Corpuscular Volume 87.9 fL (80-100); Mean Platelet Volume 8.7 fL (7.4-10.4); Platelet Count 133 K/uL (130-400); RDW Coefficient of Variation 16.1 % (11.5-14.5); Red Blood Count 2.72 M/uL (4.2-5.4); White Blood Count 3.08 K/uL (4.8-10.8)
[2020-01-09 09:08] LABS: BUN Creatinine Ratio 11.7 (10-20); Calcium 8.4 mg/dl (8.5-10.1); Creatinine Clr Calc Pharmacy 14.5 ml/min; Est GFR (African American) 16.6; Est GFR (Non-African American) 14.4; Potassium 4.9 mmol/L (3.5-5.1)
[2020-01-09] MEDS: MoRPHine SULFATE 5 MG/0.25 ML UDP PO PRN ×4 (10:03→20:30)
[2020-01-09] MEDS: levoFLOXacin 750 MG TAB PO SCH (10:04)
[2020-01-09] MEDS ORDERED: ATROPINE SULFATE 1% OP SOLN 2 ML BTL SL PRN (10:59)
[2020-01-09 11:05] VITALS: BP 144/74
--- NOTE | 2020-01-09 11:12 | Palliative Care Progress Note ---
Date of Service January 09, 2020 Assessment & Plan (1) Goals of care, counseling/discussion: -Met with the patient in room 250-2. The patient was sitting upright in her bed with multiple pillows behind her back. She appears in more generalized distress today compared to yesterday with more shallow, rapid, diaphragmatic breathing and furrowed brow. -Yesterday, the hospitalist, patient, and discussed hospice. -When I spoke with her this morning, she was in agreement with home Hospice. That being said, she appears to have declined more rapidly overnight and at this time, would be comfortable beginning the transition to comfort measures only in the hospital. -She is quite frail and may not tolerate transportation home. I also have concerns about her husbands emotional capability for administering comfort medications. -For now, after discussion with her and her Davion over the phone who is in support of this, we will place her on comfort measures only. We will stop all blood draws, vital sign monitoring and non-essential medications that do not focus on comfort. -I ordered Morphine 5 mg SL Q2 PRN and Atropine gtts for secretions. Pt has an Ativan order. -A POLST was completed during her admission in November 2019. -Case management and hospitalist made aware of and are in support of the transition. -Should the patient not be able to make her own decisions, she would like her Davion to do so. -Davion plans to come to the hospital today. -I anticipate life expectancy hours to a few days. (2) Non-small cell lung cancer (NSCLC): Patient wishes to continue [id number] with oncology (3) Superior vena cava syndrome: Bilateral upper extremity swelling-unchanged (4) Epistaxis: ENT following-nasal packing in place, platelets at 41K today (5) Thrombocytopenia: KImproved status post platelet transfusion-platelets 41K today (6) Pseudomonas aeruginosa infection: Continue current wound care orders, continue doxycycline and Levaquin (7) Acute and chronic respiratory failure with hypoxia: Patient requiring 10 L O2-wean as tolerated Subjective Pt sitting upright in her bed, visibly uncomfortable. Pt says her hands hurt today and its harder to breathe. See A/P for further details. Review of Systems Review of Systems: All systems reviewed & are unremarkable except as noted in HPI & below Physical Exam Constitutional: WD/WN, vitals as above + acute distress, + ill appearing, + altered mental status (But sleepy today) and + frail appearing Eyes: PERRL, conjunctivae normal, anicteric sclerae ENMT: external ear and nose normal, oropharynx normal Nose: no nasal mucous membrane abnormality (No epistaxis today) and no epistaxis (right nostril, packed with rocket) Mouth: + lip abnormality (Very dry), + oropharynx abnormality (fresh blood in oral cavity ) and + dry oral mucous membranes Respiratory: normal respiratory effort, + labored breathing, + retractions and + tachypneic Auscultation: + diminished lung sounds (bases), + crackles (b/l bases - marked improvement; RUL anterior - unchanged ), + rales (bases) and + wheezes (end-exp) Cardiovascular: RRR, no murmur, no edema Rate/Rhythm: regular rate and regular rhythm Heart Sounds: normal S1, normal S2 and + murmur (2/6 systolic LSB) Vessels: + JVD, posterior tibial pulses present and dorsalis pedis pulses present Extremities: + edema (b/l arms from SVC syndrome - no change; no leg edema) Gastrointestinal (Abdomen): normal bowel sounds, soft, nontender, no hepatosplenomegaly Musculoskeletal: Head/Neck/Chest: normocephalic, head atraumatic and neck supple Extremities: extremities normal to inspection and + abnormal strength (generalized weakness) Skin: + turgor decreased, + wound (right lower leg), + erythema (flushed face) and + pallor Psychiatric: A+Ox3, euthymic affect Affect: + flat affect Lymphatic: no cervical or axillary lymphadenopathy Results & Data Vital Signs (Past 12 Hours) Vital Signs Temp Pulse Pulse Resp BP BP Pulse Ox 01/09/20 11:04 36.4 C L 70 20 144/74 H 97 01/09/20 08:00 76 01/09/20 07:13 36.4 C L 78 19 178/74 H 95 01/09/20 03:29 36.8 C 71 20 161/74 H 97 01/09/20 00:22 70 18 96 01/08/20 23:47 36.5 C 74 19 155/73 H 96 PG Care Time/CCT Total # of Minutes Spent Total Time Spent with Patient: Total time spent is greater than 50% in coor dination of care (as documented) at patient's floor/unit and/or counseling patient: 45 Coding Level of Care Code 99248 Subseq Hosp Care Lvl 3 Diagnoses Goals of care, counseling/discussion Z71.89 Non-small cell lung cancer (NSCLC) C34.91 Laterality: right Superior vena cava syndrome I87.1 Epistaxis R04.0 Thrombocytopenia D69.6 Pseudomonas aeruginosa infection A49.8 Acute and chronic respiratory failure with hypoxia J96.21 Time Spent (min) 45 Time Spent Midlevel Total time spent 45 minutes with > 50% of that time spent assessing the patient, discussing goals of care with the patient, family and providing symptom management with IDT (1) Non-small cell lung cancer (NSCLC) Laterality: right Qualified Code(s): C34.91 - Malignant neoplasm of unspecified part of right bronchus or lung
--- NOTE | 2020-01-09 22:10 | Hospitalist Progress Note ---
Date of Service January 09, 2020 Assessment & Plan (1) Acute kidney injury: Cr up to 3.2 today, Na down to 127 did receive IV contrast 4 days ago -- certainly could have caused contrast nephropathy may have been over-diuresed last week poor oral intake as well last few days. some obstruction, now hernandez placed no further labs, comfort care only keep hernandez, likely go home with it defer any extensive work up as comfort will be focus (2) Epistaxis: in setting of coumadin use and severe thrombocytopenia. s/p placement of rhinorocket in right nare at [facility] ER on day of admission (12/30/19). coumadin stopped. s/p platelet infusion earlier this admission. platelets 133k rhinorocket gone. Dr Erickson saw patient in consult - placed absorbable material in right nare. recurrent epistaxis 01/06/20 -- this time left nare. fortunately it spontaneously resolved cont to hold coumadin indefinitely bactroban b/l nares TID frequent saline spray to nose humify her O2 cbc am, Hb is 8.4 and plts 133k (3) Hyponatremia: 2nd acute kidney injury Na is 127, no further labs, comfort care (4) Pleural effusion: right s/p thoracentesis 01/04/[address] Balderas protein on fluid low and lite's criteria not met more c/w transudative effusion. culture negative. path neg for malignant cells. appreciate pulmonary consult and assistance. 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 cannot anticoagulate at this time due to ongoing issues with epistaxis patient uncomfortable with air hunger, bilateral arm swelling, facial swelling comfort care (7) Acute and chronic respiratory failure with hypoxia: acute component 2nd to pulmonary edema/volume overload, probable RUL pneumonia, effusion, etc. no PE on CTA. cannot exclude aspiration of blood during nosebleed episode leading to acute hyp oxic resp failure. typically on continuous NC O2 at home for chronic respiratory failure. acute component resolved -- now back to baseline NC O2 amount of 4.5 L/min. completed 7-day run of IV/PO antibiotics. no further diuretics. will go home on oxygen comfort care with Ativan and Roxanol (8) Acute blood loss anemia: 2nd to epistaxis. s/p PRBCs earlier this admission but with ?transfusion reaction and concern for TACO. H/H 8.4 today (9) TACO (transfusion associated circulatory overload): concern for such earlier this admission. s/p diuresis and resolved. (10) Acute diastolic CHF (congestive heart failure): resolved. echo last month noted. LV function wnl. hold further diuretics especially in light of LUBNA. (11) Pancytopenia due to antineoplastic chemotherapy: chemotherapy under the direction of Dr Yoon. daily CBC. Dr Yoon aware of blasts seen on differential this admission. (12) Traumatic wound: RLE. wound care consultation appreciated. cont local wound care. also with ulceration on dorsum of left foot - this is stable. 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 now with SVC thrombosis. unfortunately unable to place back on coumadin due to epistaxis. comfort care (14) Non-small cell lung cancer (NSCLC): appreciate heme/onc consult by Dr Yoon appreciate palliative care consult very poor prognosis remains DNR now will be comfort care only, hospice Ativan and Roxanol ordered see if she is comfortable here in hospital, possible transition to home if can manage her (15) Hypomagnesemia: resolved (16) CKD (chronic kidney disease): fluctuates stage 3-4 baseline Cr 1.3 to 1.4 baseline CrCl low 30s now w/ LUBNA (17) Hypertension: uncontrolled added norvasc 5mg qam adjust as needed (18) T2DM (type 2 diabetes mellitus): cont lantus cont novolog acceptable control (19) Afib: remains in NSR paroxysmal hold dig in setting of LUBNA cont metoprolol coumadin on hold for epistaxis (20) Anxiety: added buspar 5mg HS increase ativan to 0.5mg q4 PRN taking Ativan as often as possible, very anxious (21) DVT prophylaxis: chemical means contraindicated due to severe epistaxis requiring rhinorocket placement, low platelets, etc Admission and Anticipated Discharge Date Admission Date: December 30, 2019 Subjective patient resting most of the day appetite is poor, picking at food, no nausea Ativan is helping her anxiety and dyspnea, increased frequency to q4 per patient and request Roxanol increased appreciate palliative care, will start on full comfort measures here in hospital, see how she tolerates if she is stable and can be managed at home then will plan to transition to home hospice checked labs, Cr climbing to 3.24, Na down to 127, Hb is 8.4 and plts 133k Review of Systems Review of Systems: All systems reviewed & are unremarkable except as noted in Subjective Constitutional: + fatigue and + weakness Respiratory: + dyspnea Cardiovascular: + edema (arms bilaterally); no chest pain Physical Exam Constitutional: + ill appearing, + thin and + frail appearing; no acute distress Eyes: PERRL, conjunctivae normal, anicteric sclerae ENMT: Nose: + dry nasal mucous membranes Mouth: + dry oral mucous membranes Neck: trachea midline, no thyromegaly Respiratory: + labored breathing and + cough; no respiratory distress Auscultation: + diminished lung sounds and + rales (bases); no crackles and no wheezes Cardiovascular: Rate/Rhythm: regular rate and regular rhythm Heart Sounds: normal S1 and normal S2; no murmur Vessels: + JVD Extremities: normal capillary refill and + edema (arms bilaterally) Gastrointestinal (Abdomen): normal bowel sounds, soft, nontender, no hepatosplenomegaly Musculoskeletal: Head/Neck/Chest: normocephalic, head atraumatic and neck supple Extremities: extremities normal to inspection and + abnormal strength (generalized weakness) Skin: + turgor decreased, + wound (right lower leg) and + erythema (flushed face) Neurologic: patellar DTR's 2+ bilat, sensation intact and PERRL, EOMI, accommodation nl, no face palsy, no dysarthria Psychiatric: A+Ox3, euthymic affect Orientation: alert and oriented x 3 Affect: + depressed affect Mood: + depressed mood Lymphatic: no cervical or axillary lymphadenopathy Results & Data Results & Data ([facility]) Vital Signs (Past 12 Hours) Vital Signs Temp Pulse Resp BP Pulse Ox 01/09/20 19:10 89 18 98 01/09/20 13:26 69 20 98 01/09/20 11:04 36.4 C L 70 20 144/74 H 97 Laboratory Results Laboratory Results - last 24 hr 01/09/20 01/09/20 01/09/20 07:29 08:22 08:22 WBC 3.08 L RBC 2.72 L Hgb 8.4 L Hct 23.9 L MCV 87.9 MCH 30.9 MCHC 35.1 RDW Std Deviation 50.0 H RDW Coeff of Epifanio 16.1 H Plt Count 133 MPV 8.7 Sodium 127 L Potassium 4.9 Chloride 95 L Carbon Dioxide 25 Anion Gap 7.0 BUN 38 H Creatinine 3.24 H Est Cr Clr Drug Dosing 14.5 Est GFR ( Amer) 16.6 Est GFR (Non-Af Amer) 14.4 BUN/Creatinine Ratio 11.7 Glucose 73 POC Glucose 75 Calcium 8.4 L Medications Administered Current Inpatient Medications Acetaminophen (Tylenol) 650 mg PO Q4H PRN PRN Reason: Pain or Fever Stop: 01/30/20 00:52 Albuterol (Ventolin Hfa) 2 puffs INH Q4H PRN PRN Reason: shortness of breath or wheezing Stop: 01/30/20 20:13 Last Admin: 01/07/20 17:07 Dose: 2 puffs Documented by: Atropine Sulfate (Atropine Sulfate 1% Oph Soln) 4 drops SL Q3H PRN PRN Reason: secretions Stop: 02/08/20 10:59 Ipratropium [place] (Atrovent 0.02% 0.5mg/2.5ml) 0.5 mg INH Q6R [facility] Stop: 02/02/20 18:59 Last Admin: 01/09/20 19:10 Dose: 0.5 mg Documented by: Levalbuterol HCl (Xopenex 1.25mg/0.5ml Neb) 1.25 mg INH Q6R [facility] Stop: 02/02/20 18:59 Last Admin: 01/09/20 19:10 Dose: 1.25 mg Documented by: Lorazepam (Ativan) 0.5 mg PO Q4H PRN PRN Reason: Anxiety Stop: 02/08/20 16:23 Last Admin: 01/09/20 20:01 Dose: 0.5 mg Documented by: Morphine Sulfate (Roxanol) 5 mg PO Q2H PRN PRN Reason: pain or air hunger Stop: 01/21/20 14:14 Last Admin: 01/09/20 20:30 Dose: 5 mg Documented by: Mupirocin (Bactroban 2%) 1 appln EXT TID [facility] Stop: 02/05/20 17:59 Last Admin: 01/09/20 20:31 Dose: 1 appln Documented by: Ondansetron HCl (Zofran) 4 mg IV Q6H PRN PRN Reason: Nausea Stop: 01/30/20 00:52 Last Admin: 01/03/20 09:07 Dose: 4 mg Documented by: PG Care Time/CCT Total # of Minutes Spent Total Time Spent with Patient: Total time spent is greater than 50% in coordination of care (as documented) at patient's floor/unit and/or counseling patient: Coding Level of Care Code 22679 Subseq Hosp Care Lvl 3 Diagnoses Acute kidney injury N17.9 Epistaxis R04.0 Hyponatremia E87.1 Pleural effusion J90 Pneumonia J18.9 Pneumonia type: due to unspecified organism Laterality: right Lung location: upper lobe of lung Superior vena cava thrombosis I82.210 Acute and chronic respiratory failure with hypoxia J96.21 Acute blood loss anemia D62 TACO (transfusion associated circulatory overload) E87.71 Acute diastolic CHF (congestive heart failure) I50.31 Pancytopenia due to antineoplastic chemotherapy D61.810; T45.1X5A Traumatic wound SVC syndrome I87.1 Non-small cell lung cancer (NSCLC) C34.91 Laterality: right Hypomagnesemia E83.42 CKD (chronic kidney disease) N18.4 Chronic kidney disease stage: stage 4 (severe) Hypertension I10 Hypertension type: essential hypertension T2DM (type 2 diabetes mellitus) E11.22; N18.4; Z79.4 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 Diabetes mellitus complication status: with kidney complications Diabetes mellitus complication detail: with chronic kidney disease Chronic kidney disease stage: stage 4 (severe) Afib I48.0 Atrial fibrillation type: paroxysmal Anxiety F41.9 DVT prophylaxis Z29.9 (1) Pneumonia Pneumonia type: due to unspecified organism Laterality: right Lung location: upper lobe of lung Qualified Code(s): J18.9 - Pneumonia, unspecified organism (2) Non-small cell lung cancer (NSCLC) Laterality: right Qualified Code(s): C34.91 - Malignant neoplasm of unspecified part of right bronchus or lung (3) CKD (chronic kidney disease) Chronic kidney disease stage: stage 4 (severe) Qualified Code(s): N18.4 - Chronic kidney disease, stage 4 (severe) (4) Hypertension Hypertension type: essential hypertension Qualified Code(s): I10 - Essential (primary) hypertension (5) T2DM (type 2 diabetes mellitus) Diabetes mellitus prison insulin use: with long wall mining machine helper use Diabetes mellitus complication status: with kidney complications Diabetes mellitus complication detail: with chronic kidney disease Chronic kidney disease stage: stage 4 (severe) Qualified Code(s): E11.22 - Type 2 diabetes mellitus with diabetic chronic kidney disease; N18.4 - Chronic kidney disease, stage 4 (severe); 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
[2020-01-10] MEDS: IPRATROPIUM BROMIDE NEB SOLN 0.02% 2.5 ML VIAL INH SCH ×4 (00:38→19:01)
[2020-01-10] MEDS: LEVALBUTEROL 1.25MG/0.5ML NEB INH SCH ×4 (00:39→19:03)
[2020-01-10] MEDS: MoRPHine SULFATE 5 MG/0.25 ML UDP PO PRN ×4 (01:05→19:25)
[2020-01-10] MEDS: LORazepam 0.5 MG TAB PO PRN ×4 (04:43→22:26)
[2020-01-10] MEDS: MUPIROCIN 2% OINT 22 GM TUBE EXT SCH ×3 (07:51→22:26)
[2020-01-10 19:04] VITALS: O2SAT 98
--- NOTE | 2020-01-10 22:23 | Hospitalist Progress Note ---
Date of Service January 10, 2020 Assessment & Plan (1) Acute kidney injury: Cr up to 3.2 01/08, no further labs, comfort care did receive IV contrast 5 days ago -- certainly could have caused contrast nephropathy may have been over-diuresed last week poor oral intake as well last few days. some obstruction, now hernandez placed keep hernandez, likely go home with it defer any extensive work up as comfort will be focus (2) Epistaxis: in setting of coumadin use and severe thrombocytopenia. s/p placement of rhinorocket in right nare at [facility] ER on day of admission (12/30/19). coumadin stopped. s/p platelet infusion earlier this admission. platelets 133k rhinorocket gone. Dr Erickson saw patient in consult - placed absorbable material in right nare. recurrent epistaxis 01/06/20 -- this time left nare. fortunately it spontaneously resolved cont to hold coumadin indefinitely bactroban b/l nares TID frequent saline spray to nose humify her O2 cbc on 01/08, Hb is 8.4 and plts 133k (3) Hyponatremia: 2nd acute kidney injury no further labs, comfort care (4) Pleural effusion: right s/p thoracentesis 01/04/[address] Balderas protein on fluid low and lite's criteria not met more c/w transudative effusion. culture negative. path neg for malignant cells. appreciate pulmonary consult and assistance. 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 cannot anticoagulate at this time due to ongoing issues with epistaxis patient uncomfortable with air hunger, bilateral arm swelling, facial swelling comfort care (7) Acute and chronic respiratory failure with hypoxia: acute component 2nd to pulmonary edema/volume overload, probable RUL pneumonia, effusion, etc. no PE on CTA. cannot exclude aspiration of blood during nosebleed episode leading to acute hypoxic resp failure. typically on continuous NC O2 at home for chronic respiratory failure. acute component resolved -- now back to baseline NC O2 amount of 4.5 L/min. completed 7-day run of IV/PO antibiotics. no further diuretics. will go home on oxygen comfort care with Ativan and Roxanol (8) Acute blood loss anemia: 2nd to epistaxis. s/p PRBCs earlier this admission but with ?transfusion reaction and concern for TACO. H/H 8.4 today (9) TACO (transfusion associated circulatory overload): concern for such earlier this admission. s/p diuresis and resolved. (10) Acute diastolic CHF (congestive heart failure): resolved. echo last month noted. LV function wnl. hold further diuretics especially in light of LUBNA. (11) Pancytopenia due to antineoplastic chemotherapy: chemotherapy under the direction of Dr Yoon. daily CBC. Dr Yoon aware of blasts seen on differential this admission. (12) Traumatic wound: RLE. wound care consultation appreciated. cont local wound care. also with ulceration on dorsum of left foot - this is stable. 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 now with SVC thrombosis. unfortunately unable to place back on coumadin due to epistaxis. comfort care (14) Non-small cell lung cancer (NSCLC): appreciate heme/onc consult by Dr Yoon appreciate palliative care consult very poor prognosis remains DNR now will be comfort care only, hospice Ativan and Roxanol ordered see if she is comfortable here in hospital, possible transition to home if can manage her (15) Hypomagnesemia: resolved (16) CKD (chronic kidney disease): fluctuates stage 3-4 baseline Cr 1.3 to 1.4 baseline CrCl low 30s now w/ LUBNA (17) Hypertension: uncontrolled added norvasc 5mg qam adjust as needed (18) T2DM (type 2 diabetes mellitus): cont lantus cont novolog acceptable control (19) Afib: remains in NSR paroxysmal hold dig in setting of LUBNA cont metoprolol coumadin on hold for epistaxis (20) Anxiety: added buspar 5mg HS increase ativan to 0.5mg q4 PRN taking Ativan as often as possible, very anxious (21) DVT prophylaxis: chemical means contraindicated due to severe epistaxis requiring rhinorocket placement, low platelets, etc Admission and Anticipated Discharge Date Admission Date: December 30, 2019 Subjective patient comfortable today with Ativan q4 and Roxanol PRN she is eating very little asked if she thinks she could be comfortable at home, she says yes talked with CM, asked them to reach out to , talk with home nursing/hospice about discharge plan/options they would need hospital bed at home Review of Systems Review of Systems: All systems reviewed & are unremarkable except as noted in Subjective Constitutional: + fatigue and + weakness Respiratory: + cough, + dyspnea and + dyspnea on exertion Cardiovascular: + edema; no chest pain Gastrointestinal: no abdominal pain, no nausea, no vomiting, no constipation and no diarrhea/loose stools Physical Exam Constitutional: + ill appearing, + thin and + frail appearing; no acute distress Eyes: PERRL, conjunctivae normal, anicteric sclerae ENMT: Nose: + dry nasal mucous membranes Mouth: + dry oral mucous membranes Neck: trachea midline, no thyromegaly Respiratory: + labored breathing and + cough; no respiratory distress Auscultation: + diminished lung sounds and + rales (bases); no crackles and no wheezes Cardiovascular: RRR, no murmur, no edema Rate/Rhythm: regular rate and regular rhythm Heart Sounds: normal S1 and normal S2; no murmur Vessels: + JVD Extremities: normal capillary refill and + edema (arms bilaterally) Gastrointestinal (Abdomen): normal bowel sounds, soft, nontender, no hepatosplenomegaly Musculoskeletal: Head/Neck/Chest: normocephalic, head atraumatic and neck supple Extremities: extremities normal to inspection and + abnormal strength (generalized weakness) Skin: + turgor decreased, + wound (right lower leg) and + erythema (flushed face) Neurologic: patellar DTR's 2+ bilat, sensation intact and PERRL, EOMI, accommodation nl, no face palsy, no dysarthria Psychiatric: A+Ox3, euthymic affect Orientation: alert and oriented x 3 Affect: + depressed affect Mood: + depressed mood Lymphatic: no cervical or axillary lymphadenopathy Results & Data Results & Data ([facility]) Vital Signs (Past 12 Hours) Vital Signs Pulse Resp Pulse Ox 01/10/20 19:03 81 16 98 Laboratory Results Laboratory Results - last 24 hr 01/07/20 05:44 Crossmatch See Detail Medications Administered Current Inpatient Medications Acetaminophen (Tylenol) 650 mg PO Q4H PRN PRN Reason: Pain or Fever Stop: 01/30/20 00:52 Albuterol (Ventolin Hfa) 2 puffs INH Q4H PRN PRN Reason: shortness of breath or wheezing Stop: 01/30/20 20:13 Last Admin: 01/07/20 17:07 Dose: 2 puffs Documented by: Atropine Sulfate (Atropine Sulfate 1% Oph Soln) 4 drops SL Q3H PRN PRN Reason: secretions Stop: 02/08/20 10:59 Ipratropium [place] (Atrovent 0.02% 0.5mg/2.5ml) 0.5 mg INH Q6R [facility] Stop: 02/02/20 18:59 Last Admin: 01/10/20 19:01 Dose: 0.5 mg Documented by: Levalbuterol HCl (Xopenex 1.25mg/0.5ml Neb) 1.25 mg INH Q6R [facility] Stop: 02/02/20 18:59 Last Admin: 01/10/20 19:03 Dose: 1.25 mg Documented by: Lorazepam (Ativan) 0.5 mg PO Q4H PRN PRN Reason: Anxiety Stop: 02/08/20 16:23 Last Admin: 01/10/20 18:03 Dose: 0.5 mg Documented by: Morphine Sulfate (Roxanol) 5 mg PO Q2H PRN PRN Reason: pain or air hunger Stop: 01/21/20 14:14 Last Admin: 01/10/20 19:25 Dose: 5 mg Documented by: Mupirocin (Bactroban 2%) 1 appln EXT TID [facility] Stop: 02/05/20 17:59 Last Admin: 01/10/20 13:00 Dose: 1 appln Documented by: Ondansetron HCl (Zofran) 4 mg IV Q6H PRN PRN Reason: Nausea Stop: 01/30/20 00:52 Last Admin: 01/03/20 09:07 Dose: 4 mg Documented by: PG Care Time/CCT Total # of Minutes Spent Total Time Spent with Patient: Total time spent is greater than 50% in coordination of care (as documented) at patient's floor/unit and/or counseling patient: Coding Level of Care Code 50709 Subseq Hosp Care Lvl 2 Diagnoses Acute kidney injury N17.9 Epistaxis R04.0 Hyponatremia E87.1 Pleural effusion J90 Pneumonia J18.9 Pneumonia type: due to unspecified organism Laterality: right Lung location: upper lobe of lung Superior vena cava thrombosis I82.210 Acute and chronic respiratory failure with hypoxia J96.21 Acute blood loss anemia D62 TACO (transfusion associated circulatory overload) E87.71 Acute diastolic CHF (congestive heart failure) I50.31 Pancytopenia due to antineoplastic chemotherapy D61.810; T45.1X5A Traumatic wound SVC syndrome I87.1 Non-small cell lung cancer (NSCLC) C34.91 Laterality: right Hypomagnesemia E83.42 CKD (chronic kidney disease) N18.4 Chronic kidney disease stage: stage 4 (severe) Hypertension I10 Hypertension type: essential hypertension T2DM (type 2 diabetes mellitus) E11.22; N18.4; Z79.4 Diabetes mellitus detention insulin use: with detention use Diabetes mellitus complication status: with kidney complications Diabetes mellitus complication detail: with chronic kidney disease Chronic kidney disease stage: stage 4 (severe) Afib I48.0 Atrial fibrillation type: paroxysmal Anxiety F41.9 DVT prophylaxis Z29.9 (1) Pneumonia Pneumonia type: due to unspecified organism Laterality: right Lung location: upper lobe of lung Qualified Code(s): J18.9 - Pneumonia, unspecified organism (2) Non-small cell lung cancer (NSCLC) Laterality: right Qualified Code(s): C34.91 - Malignant neoplasm of unspecified part of right bronchus or lung (3) CKD (chronic kidney disease) Chronic kidney disease stage: stage 4 (severe) Qualified Code(s): N18.4 - Chronic kidney disease, stage 4 (severe) (4) Hypertension Hypertension type: essential hypertension Qualified Code(s): I10 - Essential (primary) hypertension (5) T2DM (type 2 diabetes mellitus) Diabetes mellitus detention insulin use: with detention use Diabetes mellitus complication status: with kidney complications Diabetes mellitus complication detail: with chronic kidney disease Chronic kidney disease stage: stage 4 (severe) Qualified Code(s): E11.22 - Type 2 diabetes mellitus with diabetic chronic kidney disease; N18.4 - Chronic kidney disease, stage 4 (severe); 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
[2020-01-11] MEDS: LEVALBUTEROL 1.25MG/0.5ML NEB INH SCH ×3 (00:08→12:49)
[2020-01-11] MEDS: IPRATROPIUM BROMIDE NEB SOLN 0.02% 2.5 ML VIAL INH SCH ×3 (00:08→12:49)
[2020-01-11] MEDS: MoRPHine SULFATE 5 MG/0.25 ML UDP PO PRN ×3 (06:42→13:04)
[2020-01-11] MEDS: MUPIROCIN 2% OINT 22 GM TUBE EXT SCH (07:52)
[2020-01-11] MEDS: LORazepam 0.5 MG TAB PO PRN (11:24)
[2020-01-11 12:19] VITALS: PULSE 77
--- NOTE | 2020-01-14 22:03 | Discharge Summary ---
Date of Service January 11, 2020 Admission HPI Per Admitting Provider The patient is a 64-year-old female with a past medical history including chronic respiratory failure with hypoxia on home oxygen therapy, acute kidney injury, right leg wound seeing wound care, anemia, thrombocytopenia, history of Pseudomonas aeruginosa infection, history of right and left diabetic foot ulcers, metabolic encephalopathy, Port-A-Cath in place, status post arterial stent right lower extremity, SVC syndrome, hyperlipidemia, non-small cell lung cancer, mediastinal mass, peripheral arterial disease, A. fib, mitral stenosis and diabetes mellitus. The patient presents to the emergency department with complaint of nosebleed that began earlier today and a known chronic anemia, that required platelet transfusion 2 days ago and blood transfusion yesterday. Work- up in the emergency department included laboratories which showed hemoglobin 7.2, platelets 21, albumin 2.3, white blood cell count 2.15 and creatinine 1.70. She also had been seen previously at [facility] emergency department, and had a nasal balloon placed in the right naris to control epistaxis. Principal Diagnosis Progressive non-small cell lung cancer Discharge Exam Constitutional + ill appearing, + thin and + frail appearing; no acute distress Eyes PERRL, conjunctivae normal, anicteric sclerae ENMT Nose: + dry nasal mucous membranes Mouth: + dry oral mucous membranes Neck trachea midline, no thyromegaly Respiratory + labored breathing and + cough; no respiratory distress Auscultation: + diminished lung sounds and + rales (bases); no crackles and no wheezes Cardiovascular RRR, no murmur, no edema Rate/Rhythm: regular rate and regular rhythm Heart Sounds: normal S1 and normal S2; no murmur Vessels: + JVD Extremities: normal capillary refill and + edema (arms bilaterally) Gastrointestinal (Abdomen) normal bowel sounds, soft, nontender, no hepatosplenomegaly Musculoskeletal Head/Neck/Chest: normocephalic, head atraumatic and neck supple Extremities: extremities normal to inspection and + abnormal strength (generalized weakness) Skin + turgor decreased, + wound (right lower leg) and + erythema (flushed face) Neurologic patellar DTR's 2+ bilat, sensation intact and PERRL, EOMI, accommodation nl, no face palsy, no dysarthria Psychiatric A+Ox3, euthymic affect Orientation: alert and oriented x 3 Affect: + depressed affect Mood: + depressed mood Lymphatic no cervical or axillary lymphadenopathy Discharge Data Allergies Allergy/AdvReac Type Severity Reaction Status Date / Time ceftaroline fosamil Allergy Intermediate Hives Verified 12/30/19 20:45 [From Teflaro] Penicillins Allergy Intermediate Rash Verified 12/30/19 20:45 Consultations 12/30/19 22:54 ED Decision to Admit Stat 12/31/19 00:53 Consult Case Management - Discharge Planning Routine Consult Hematology Routine 12/31/19 10:54 Consult Palliative Care Routine 01/01/20 00:49 Consult Otolaryngology (Head and Neck) Routine 01/04/20 10:03 Consult Pulmonology Routine Ordered Studies 01/04/20 08:40 CT angio chest PE protocol Routine 01/04/20 12:29 US point of care ultrasound Routine 01/04/20 13:35 US point of care ultrasound Urgent Hospital Course (1) Acute kidney injury: Cr up to 3.2 01/08, no further labs, comfort care did receive IV contrast 6 days prior -- certainly could have caused contrast nephropathy may have been over-diuresed last week poor oral intake as well last few days. some obstruction, now hernandez placed keep hernandez when discharged home defer any extensive work up as comfort will be focus (2) Epistaxis: in setting of coumadin use and severe thrombocytopenia. s/p placement of rhinorocket in right nare at [facility] ER on day of admission (12/30/19). coumadin stopped. s/p platelet infusion earlier this admission. platelets 133k rhinorocket gone. Dr Erickson saw patient in consult - placed absorbable material in right nare. recurrent epistaxis 01/06/20 -- this time left nare. fortunately it spontaneously resolved cont to hold coumadin indefinitely bactroban b/l nares TID frequent saline spray to nose humify her O2 cbc on 01/08, Hb is 8.4 and plts 133k (3) Hyponatremia: 2nd acute kidney injury no further labs, comfort care (4) Pleural effusion: right s/p thoracentesis 01/04/[address] Balderas protein on fluid low and lite's criteria not met more c/w transudative effusion. culture negative. path neg for malignant cells. appreciate pulmonary consult and assistance. 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 cannot anticoagulate at this time due to ongoing issues with epistaxis patient uncomfortable with air hunger, bilateral arm swelling, facial swelling comfort care Ativan and Roxanol working well in combination (7) Acute and chronic respiratory failure with hypoxia: acute component 2nd to pulmonary edema/volume overload, probable RUL pneumonia, effusion, etc. no PE on CTA. cannot exclude aspiration of blood during nosebleed episode leading to acute hypoxic resp failure. typically on continuous NC O2 at home for chronic respiratory failure. acute component resolved -- now back to baseline NC O2 amount of 4.5 L/min. completed 7-day run of IV/PO antibiotics. no further diuretics. will go home on oxygen comfort care with Ativan and Roxanol (8) Acute blood loss anemia: 2nd to epistaxis. s/p PRBCs earlier this admission but with ?transfusion reaction and concern for TACO. H/H 8.4 when last checked (9) TACO (transfusion associated circulatory overload): concern for such earlier this admission. s/p diuresis and resolved. (10) Acute diastolic CHF (congestive heart failure): resolved. echo last month noted. LV function wnl. hold further diuretics especially in light of LUBNA. (11) Pancytopenia due to antineoplastic chemotherapy: chemotherapy under the direction of Dr Yoon. Dr Yoon aware of blasts seen on differential this admission. no further labs (12) Traumatic wound: RLE. wound care consultation appreciated. cont local wound care. also with ulceration on dorsum of left foot - this is stable. 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 now with SVC thrombosis. unfortunately unable to place back on coumadin due to epistaxis. comfort care (14) Non-small cell lung cancer (NSCLC): appreciate heme/onc consult by Dr Yoon appreciate palliative care consult very poor prognosis remains DNR now will be comfort care only, hospice Ativan and Roxanol ordered see if she is comfortable here in hospital will transition to home as likely the window to get her home is shrinking (15) Hypomagnesemia: resolved (16) CKD (chronic kidney disease): fluctuates stage 3-4 baseline Cr 1.3 to 1.4 baseline CrCl low 30s now w/ LUBNA (17) Hypertension: uncontrolled added norvasc 5mg qam adjust as needed (18) T2DM (type 2 diabetes mellitus): cont lantus cont novolog acceptable control (19) Afib: remains in NSR paroxysmal hold dig in setting of LUBNA cont metoprolol coumadin on hold for epistaxis (20) Anxiety: added buspar 5mg HS increase ativan to 0.5mg q4 PRN taking Ativan as often as possible, very anxious Total Time Total Time Spent Total Time Spent (In Minutes): 32 minutes Total Time Includes: Examination of the Patient, Discharge Planning, Medication Reconciliation and Other (discussion with her ) Discharge Plan Discharge Items Patient Disposition: Hospice - Home Reason For Visit: EPISTAXIS, ANEMIA Discharge Diagnosis: Advanced non-small cell lung cancer SVC syndrome Hypoxic respiratory failure Acute renal failure Epistaxis Condition on Discharge: Fair Goals: comfort care Activity Comment: bedrest Non-emergency contact: Primary Care Provider Call non-emergency contact if: you have any medication questions, your symptoms worsen and your pain is not controlled Follow-up/Referrals: Vicente Roy MD [Primary Care Provider] - Diet: Regular Addtl Attending Provider Instructions: Medications: - Ativan: use as needed for anxiety, can take every 4 hours - Roxanol: liquid morphine to be used for shortness of breath, can use every 2 hours, can increase dose if needed - Atropine: use as needed for secretions in back of throat Hospice care: will transport home, use above medications with comfort as goal do not return to hospital unless you cannot be comfortable at home Pending Studies at Discharge: No Stand-Alone Forms: My [facility] Medications and DC Order Prescriptions: New morphine concentrate 100 mg/5 mL (20 mg/mL) Solution 5 mg PO Q2H PRN (Reason: dyspnea) Qty: 120 RF: 0 lorazepam 0.5 mg Tablet 0.5 mg PO Q4H PRN (Reason: anxiety) 30 Days Qty: 60 RF: 0 atropine 1 % Drops 4 drp sublingual Q3H PRN (Reason: secretions) Qty: 5 RF: 0 Continued albuterol sulfate 90 mcg/actuation HFA aerosol inhaler 2 puffs INH Q4H PRN (Reason: shortness of breath or wheezing) RF: 0 ondansetron HCl [Zofran] 8 mg tablet 8 mg PO Q8H PRN (Reason: Nausea) RF: 0 oxycodone 10 mg tablet 10 mg PO .Q4-6H PRN (Reason: Pain) RF: 0 Discontinued insulin aspart U-100 [Novolog Flexpen U-100 Insulin] 100 unit/mL (3 mL) insulin pen 18 units SQ DAILY@1700 RF: 0 terazosin 5 mg Capsule 5 mg PO HS RF: 0 metoprolol succinate 50 mg Tablet Extended Release 24 Hr 50 mg PO QAM RF: 0 pantoprazole [Protonix] 40 mg Tablet,Delayed Release (Dr/Ec) 40 mg PO QAM RF: 0 digoxin 125 mcg (0.125 mg) Tablet 125 mcg PO HS RF: 0 insulin aspart U-100 [Novolog Flexpen U-100 Insulin] 100 unit/mL (3 mL) insulin pen 12 units SUBCUT DAILY@0800,1200 RF: 0 torsemide 20 mg tablet 20 mg PO QAM RF: 0 clonidine HCl 0.1 mg Tablet 0.1 mg PO BID Qty: 60 RF: 4 Tresiba FlexTouch U-100 100 unit/mL (3 mL) insulin pen 16 unit SUBCUT HS RF: 0 Spiriva Respimat 2.5 mcg/actuation mist 2 puffs INH DAILY@1300 RF: 0 niacin (inositol niacinate) [Niacin Flush Free] 400 mg niacin (500 mg) Capsule 1 cap PO QAM RF: 0 cyanocobalamin (vitamin B-12) [Vitamin B-12] 1,000 mcg Tablet 1,000 mcg PO QAM RF: 0 simvastatin 40 mg tablet 40 mg PO HS RF: 0 warfarin 3 mg tablet See Rx Instructions .ROUTE .COMPLEX RF: 0 ferrous sulfate 325 mg (65 mg iron) tablet 325 mg PO BID RF: 0 cholecalciferol (vitamin D3) [Vitamin D3] 25 mcg (1,000 unit) Capsule 25 mcg PO BID RF: 0 Calcium 600 + D(3) 600 mg calcium- 200 unit Capsule 1 cap PO QAM RF: 0 Slow-Mag 71.5 mg Tablet,Delayed Release (Dr/Ec) 143 mg PO BID RF: 0 Discharge Orders: Discharge Order (Routine); Ordered 01/11/20 Ordered By: Faisal Edwards Admission Data Admit Date/Time: 12/30/19 23:15 Attending Provider: Faisal Ewdards Admit Provider: Carmelo Coburn Primary Care Provider: Vicente Roy Other Providers: Carmelo Coburn ; Paul Yoon V. ; Georgette Robbins ; Hasmukh Erickson ; Jermaine Balderas Other Interventions: Discharge Summary Assessment (RN) Last Done: 01/11/20 12:17 Coding Level of Care Code D/C Day Management >30 mins Diagnoses Acute kidney injury N17.9 Epistaxis R04.0 Hyponatremia E87.1 Pleural effusion J90 Pneumonia J18.9 Laterality: right Lung location: upper lobe of lung Pneumonia type: due to unspecified organism Superior vena cava thrombosis I82.210 Acute and chronic respiratory failure with hypoxia J96.21 Acute blood loss anemia D62 TACO (transfusion associated circulatory overload) E87.71 Acute diastolic CHF (congestive heart failure) I50.31 Pancytopenia due to antineoplastic chemotherapy D61.810; T45.1X5A Traumatic wound SVC syndrome I87.1 Non-small cell lung cancer (NSCLC) C34.91 Laterality: right Hypomagnesemia E83.42 CKD (chronic kidney disease) N18.4 Chronic kidney disease stage: stage 4 (severe) Hypertension I10 Hypertension type: essential hypertension T2DM (type 2 diabetes mellitus) E11.22; N18.4; Z79.4 Chronic kidney disease stage: stage 4 (severe) Diabetes mellitus complication detail: with chronic kidney disease Diabetes mellitus complication status: with kidney complications Diabetes mellitus fci insulin use: with fci use Afib I48.0 Atrial fibrillation type: paroxysmal Anxiety F41.9
== END 2020-01-11 13:40 | disposition hospice, home (50) | DRG 180 ==
LOC: ED 19:21 → SUATTDRO 23:15 → 2S 23:15 → 2W 01-09 09:06